=== PATIENT | female | born 1945 | race Caucasian/White ===

== ENCOUNTER → 2020-08-09 09:52 | Outpatient (BNVA) | payer MEDICARE, BC, SELFPAY | PROVIDERS: PCP Internal Medicine; Visit Provider Hospitalist | DX: J41.1 Mucopurulent chronic bronchitis (principal); R91.8 Other nonspecific abnormal finding of lung field | CPT/HCPCS: 99212 ==

== ENCOUNTER 2020-08-10 | Outpatient (REF) | payer MEDICARE, BC, SELFPAY | END 2020-08-10 00:01 | disposition home or self-care (01) | LOC: HO.LNP | PROVIDERS: Visit Provider Hospitalist | DX: Z13.89 Encounter for screening for other disorder (principal) | CPT/HCPCS: 87205 ==

== ENCOUNTER 2020-08-17 09:49 | Outpatient (REF) | payer MEDICARE, BC, SELFPAY ==
--- NOTE | ~2020-08-17 | CT_ITS ---
EXAMINATION: CT CHEST WITHOUT CONTRAST CLINICAL INFORMATION: Follow-up pulmonary nodules COMPARISON: Previous chest CT and most recent July 2019 TECHNIQUE: Multidetector volumetric CT imaging of the chest was done. Axial MIP volume rendering provided. Sagittal and coronal reformatted images were obtained. This CT examination was performed using dose optimization techniques as appropriate, variously including the following: *Automated exposure control *Adjustment of mA and/or kV according to patient size (this includes techniques or standardized protocols for targeted exams where dose is matched to indication/reason for exam; i.e. 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 There is evidence of emphysema. There are increased peripheral interstitial markings seen in the anterior bilateral upper lobes questionable for changes from chest wall radiation. There is a 2 mm right upper lobe nodule axial image 86 series 7 that is stable. There is a 2 mm anterior segment left upper lobe nodule near the interhemispheric fissure axial image 2:15 series 7 that is stable. There is a 7 mm heterogeneous partially cystic partially reticular nodule in the right lower lobe axial image 284 series 7 that is stable. There is a 9 mm lingular nodule axial image 324 series 7 that is stable. There is a 6 mm right lower lobe nodule axial image 418 series 7 that is stable. There is evidence of mild bilateral lower lobe bronchial wall thickening, left greater than right. This is similar to previous exam. MEDIASTINUM: There is mild coronary artery calcification. There is significant thoracic aorta calcification. The mediastinum is otherwise normal. PLEURA: There is no pleural effusion. No pleural mass or thickening. AXILLA: There are surgical clips in the right axilla. No chest wall mass or enlarged axillary lymph nodes are seen. UPPER ABDOMEN: Unremarkable. OSSEOUS STRUCTURES: There are degenerative changes of the spine. CT/CT chest wo con IMPRESSION: Emphysema. Stable pulmonary nodules. Bilateral lower lobe bronchial wall thickening, left greater than right. Coronary artery calcification.
== END 2020-08-17 09:50 | disposition home or self-care (01) ==
LOC: HO.CT 09:49
PROVIDERS: PCP Internal Medicine; Visit Provider Hospitalist
DX: R91.8 Other nonspecific abnormal finding of lung field (principal)
CPT/HCPCS: 71250

== ENCOUNTER → 2020-10-11 09:49 | Outpatient (BNVA) | payer MEDICARE, BC, SELFPAY | PROVIDERS: PCP Internal Medicine; Visit Provider Hospitalist | DX: R91.8 Other nonspecific abnormal finding of lung field (principal); J47.9 Bronchiectasis, uncomplicated; J41.1 Mucopurulent chronic bronchitis | CPT/HCPCS: 99212 ==

== ENCOUNTER 2020-10-13 13:25 | Outpatient (REF) | payer MEDICARE, BC, SELFPAY | END 2020-10-13 13:26 | disposition home or self-care (01) | LOC: HO.LNP 13:25 | PROVIDERS: Visit Provider Hospitalist | DX: R91.8 Other nonspecific abnormal finding of lung field (principal); J47.9 Bronchiectasis, uncomplicated | CPT/HCPCS: 87070; 87077; 87116; 87186; 87205 ==

== ENCOUNTER 2020-11-15 10:24 | Outpatient (REF) | payer MEDICARE, BC, SELFPAY ==
[2020-11-15 10:57] LABS: Estimated Average Glucose 108 mg/dL; Hemoglobin A1c % 5.4 %
[2020-11-15 11:23] LABS: Alanine Aminotransferase 21 U/L (0-31); Albumin Level 4.1 g/dL (3.5-5.0); Alkaline Phosphatase 73 U/L (39-117); Aspartate Amino Transferase 21 U/L (5-31); Bilirubin Direct 0.2 mg/dL (0.0-0.5); Bilirubin Total 0.5 mg/dL (0.0-1.0); Cholesterol 157 mg/dL; Glucose Fasting 113 mg/dL (60-99); HDL Cholesterol 76 mg/dL; LDL Cholesterol Calculated 69 mg/dl; Triglycerides 64 mg/dL
[2020-11-15 11:50] LABS: Reflex LDLD? No
== END 2020-11-15 10:25 | disposition home or self-care (01) ==
LOC: HO.LNP 10:24
PROVIDERS: Visit Provider Internal Medicine
DX: E78.00 Pure hypercholesterolemia, unspecified (principal); R73.03 Prediabetes
CPT/HCPCS: 80061; 80076; 82947; 83036

== ENCOUNTER → 2021-04-13 09:18 | Outpatient (BNVA) | payer MEDICARE, BC, SELFPAY | PROVIDERS: PCP Internal Medicine; Visit Provider Hospitalist | DX: R91.8 Other nonspecific abnormal finding of lung field (principal); J47.9 Bronchiectasis, uncomplicated; J41.1 Mucopurulent chronic bronchitis | CPT/HCPCS: 99212 ==

== ENCOUNTER 2021-05-29 10:44 | Outpatient (REF) | payer MEDICARE, BC, SELFPAY ==
[2021-05-29 10:48] LABS: MANUAL DIFF FLAG NO
[2021-05-29 11:07] LABS: Basophils Absolute Auto 0.1 X10*3/uL (0.0-0.2); Basophils Percent Auto 0.8 % (0-2); Eosinophils Absolute Auto 0.4 X10*3/uL (0.0-0.4); Hematocrit 39.5 % (37.0-47.0); Hemoglobin 12.6 g/dl (12.0-16.0); Imm Gran Abs Auto 0.05 X10*3/uL (0.00-0.03); Imm Gran Pct Auto 0.6 % (0.0-0.4); Lymphocytes Absolute Auto 2.2 X10*3/uL (1.2-4.9); Lymphocytes Percent Auto 25.1 % (20-40); Mean Corpuscular HGB Conc 31.9 g/dl (31.0-35.0); Mean Corpuscular Hemoglobin 30.7 pg (27.0-33.0); Mean Corpuscular Volume 96.1 fL (80.0-98.0); Mean Platelet Volume 10.6 fL (9.4-12.3); Monocytes Absolute Auto 0.8 X10*3/uL (0.1-1.2); Monocytes Percent Auto 8.6 % (2-11); Neutrophils Absolute Auto 5.3 x10*3/uL (2.0-8.3); Neutrophils Percent Auto 60.9 % (45-73); Platelet Count 248 X10*3/uL (160-400); Red Blood Count 4.11 X10*6/uL (4.20-5.50); Red Cell Distribution Width 13.1 % (11.0-16.0); White Blood Count 8.7 X10*3/uL (4.8-10.8)
[2021-05-29 11:16] LABS: Appearance Urine CLEAR; Color Urine YELLOW; Glucose Urine UA NEG (NEG); Leukocyte Esterase Urine NEG (NEG); Nitrite Urine NEG (NEG); PH 6.5 (5.0-8.0); Specific Gravity - Urine <= 1.005 (1.005-1.025); Urine Blood NEG (NEG); Urine Ketones NEG (NEG); Urine Protein NEG (NEG-TRACE)
[2021-05-29 11:34] LABS: Estimated Average Glucose 111 mg/dL; Hemoglobin A1c % 5.5 %
[2021-05-29 12:05] LABS: Creatinine Urine 58.13 mg/dL; Microalbumin Urine < 5.0 mg/L
[2021-05-29 12:33] LABS: Alanine Aminotransferase 23 U/L (0-31); Albumin Level 4.2 g/dL (3.5-5.0); Alkaline Phosphatase 78 U/L (39-117); Anion Gap 13 (12-20); Aspartate Amino Transferase 26 U/L (5-31); Bilirubin Total 0.5 mg/dL (0.0-1.0); Blood Urea Nitrogen 12 mg/dL (9-16); Calcium 9.6 mg/dL (8.4-10.2); Carbon Dioxide 27 mmol/L (22-29); Chloride 103 mmol/L (96-108); Cholesterol 155 mg/dL; Estimated Glomerular Filt Rate > 60; Glucose Fasting 98 mg/dL (60-99); HDL Cholesterol 69 mg/dL; LDL Cholesterol Calculated 66 mg/dl; Potassium 3.8 mmol/L (3.3-5.1); Sodium 139 mmol/L (135-145); Total Protein 6.2 g/dL (6.5-8.0); Triglycerides 104 mg/dL
== END 2021-05-29 10:45 | disposition home or self-care (01) ==
LOC: HO.LNP 10:44
PROVIDERS: PCP Internal Medicine; Visit Provider Internal Medicine
DX: I10 Essential (primary) hypertension (principal); E78.00 Pure hypercholesterolemia, unspecified; R73.03 Prediabetes
CPT/HCPCS: 80053; 80061; 81003; 82043; 83036; 85025

== ENCOUNTER 2021-06-01 15:43 | Outpatient (REF) | payer MEDICARE, BC, SELFPAY ==
[2021-06-01 16:50] LABS: TSH reflex Free T4 1.48 uIU/mL (0.32-4.0)
== END 2021-06-01 15:44 | disposition home or self-care (01) ==
LOC: HO.LNP 15:43
PROVIDERS: Visit Provider Internal Medicine
DX: R63.4 Abnormal weight loss (principal)
CPT/HCPCS: 84443

== ENCOUNTER → 2021-08-08 09:43 | Outpatient (BNVA) | payer MEDICARE, BC, SELFPAY | PROVIDERS: PCP Internal Medicine; Visit Provider Hospitalist | DX: R91.8 Other nonspecific abnormal finding of lung field (principal); J47.9 Bronchiectasis, uncomplicated; J41.1 Mucopurulent chronic bronchitis; Z79.899 Other long term (current) drug therapy | CPT/HCPCS: 99212 ==

== ENCOUNTER 2022-01-04 08:20 | Outpatient (REF) | payer MEDICARE, BC, SELFPAY ==
--- NOTE | ~2022-01-04 | CT_ITS ---
EXAMINATION: CT CHEST WITHOUT CONTRAST CLINICAL INFORMATION: Follow-up pulmonary nodules COMPARISON: Previous chest CT most recent August 2020. Back to October 2017 TECHNIQUE: Multidetector volumetric CT imaging of the chest was done. Axial MIP volume rendering provided. Sagittal and coronal reformatted images were obtained. This CT examination was performed using dose optimization techniques as appropriate, variously including the following: *Automated exposure control *Adjustment of mA and/or kV according to patient size (this includes techniques or standardized protocols for targeted exams where dose is matched to indication/reason for exam; i.e. extremities or head) *Use of iterative reconstruction technique DLP: 94 mGy-cm FINDINGS: LUNGS: There is emphysema. There is biapical pleural parenchymal scarring. There are multiple bilateral pulmonary nodules that are stable. Largest pulmonary nodules are a 8 mm right lower lobe nodule axial image 519 series 5 and a 9 mm calcified lingular nodule axial image 374 series 5. There is a mixed cystic and reticular area in the right lower lobe that appears stable axial image 354 series 5. There is chronic scarring or subsegmental atelectasis in the posterior basal segment of the right lower lobe near the diaphragm axial image 570 series 5 that is stable. There are areas of bronchiectasis and bronchial wall thickening suggestive of airways disease. This appears increased in the right upper lobe where there is bronchial soft tissue opacification/mucus plugging. There are increased peripheral reticular markers in the left upper lobe questionable for post radiation change. MEDIASTINUM: Normal heart size. Severe atherosclerotic disease with calcification of the aorta. Mild coronary artery calcification. No pericardial effusion. Small mediastinal lymph nodes. No enlarged lymph nodes. PLEURA: There is no pleural effusion. No pleural mass or thickening. AXILLA: Surgical clips in the right axilla. No chest wall mass or enlarged axillary lymph nodes. UPPER ABDOMEN: Unremarkable. OSSEOUS STRUCTURES: Degenerative changes of the spine CT/CT chest wo IV con IMPRESSION: Emphysema. Biapical pleural and parenchymal scarring. Stable pulmonary nodules. Airways disease. This appears increased in the right upper lobe where there is increased bronchial soft tissue opacification or mucus plugging. Atherosclerotic disease. Fleischner guidelines were followed.
== END 2022-01-04 08:21 | disposition home or self-care (01) ==
LOC: HO.CT 08:20
PROVIDERS: PCP Internal Medicine; Visit Provider Hospitalist
DX: R91.8 Other nonspecific abnormal finding of lung field (principal)
CPT/HCPCS: 71250

== ENCOUNTER → 2022-01-29 10:39 | Outpatient (BNVA) | payer MEDICARE, BC, SELFPAY | PROVIDERS: PCP Internal Medicine; Visit Provider Hospitalist | DX: J47.9 Bronchiectasis, uncomplicated (principal); J41.1 Mucopurulent chronic bronchitis; R91.8 Other nonspecific abnormal finding of lung field | CPT/HCPCS: 99212 ==

== ENCOUNTER 2022-05-29 10:47 | Outpatient (REF) | payer MEDICARE, BC, SELFPAY ==
[2022-05-29 10:51] LABS: MANUAL DIFF FLAG NO
[2022-05-29 12:09] LABS: Basophils Absolute Auto 0.1 X10*3/uL (0.0-0.2); Eosinophils Absolute Auto 0.4 X10*3/uL (0.0-0.4); Eosinophils Percent Auto 5.1 % (0-4); Hematocrit 36.8 % (37.0-47.0); Hemoglobin 11.5 g/dl (12.0-16.0); Imm Gran Abs Auto 0.04 X10*3/uL (0.00-0.03); Imm Gran Pct Auto 0.5 % (0.0-0.4); Lymphocytes Percent Auto 24.5 % (20-40); Mean Corpuscular HGB Conc 31.3 g/dl (31.0-35.0); Mean Corpuscular Hemoglobin 27.8 pg (27.0-33.0); Mean Corpuscular Volume 88.9 fL (80.0-98.0); Mean Platelet Volume 10.6 fL (9.4-12.3); Monocytes Absolute Auto 0.9 X10*3/uL (0.1-1.2); Monocytes Percent Auto 10.4 % (2-11); Neutrophils Absolute Auto 4.8 x10*3/uL (2.0-8.3); Neutrophils Percent Auto 58.5 % (45-73); Platelet Count 286 X10*3/uL (160-400); Red Blood Count 4.14 X10*6/uL (4.20-5.50); Red Cell Distribution Width 14.2 % (11.0-16.0); White Blood Count 8.2 X10*3/uL (4.8-10.8)
[2022-05-29 12:12] LABS: Appearance Urine Clear; Color Urine Yellow; Glucose Urine UA Negative (Negative); Leukocyte Esterase Urine Negative (Negative); Nitrite Urine Negative (Negative); Specific Gravity - Urine 1.015 (1.005-1.025); Urine Blood Negative (Negative); Urine Ketones Negative (Negative); Urine Protein Negative (Neg-Trace)
[2022-05-29 12:19] LABS: Bacteria Urine None Seen (None Seen); Hyaline Casts Urine 0-2 /LPF (0-2); RBC Urine 0-2 /HPF (0-2); Squamous Epithelial Cell Urine 0-2 /HPF (0-2); WBC Urine 0-5 /HPF (0-5)
[2022-05-29 12:24] LABS: Alanine Aminotransferase 14 U/L (0-31); Albumin Level 4.1 g/dL (3.5-5.0); Alkaline Phosphatase 72 U/L (39-117); Anion Gap 14 (12-20); Aspartate Amino Transferase 19 U/L (5-31); Bilirubin Total 0.4 mg/dL (0.0-1.0); Blood Urea Nitrogen 11 mg/dL (9-16); Calcium 9.6 mg/dL (8.4-10.2); Carbon Dioxide 28 mmol/L (22-29); Chloride 102 mmol/L (96-108); Cholesterol 160 mg/dL; Estimated Glomerular Filt Rate > 60; Glucose Fasting 99 mg/dL (60-99); HDL Cholesterol 77 mg/dL; LDL Cholesterol Calculated 66 mg/dl; Potassium 3.9 mmol/L (3.3-5.1); Sodium 140 mmol/L (135-145); Total Protein 6.1 g/dL (6.5-8.0); Triglycerides 86 mg/dL
[2022-05-29 13:07] LABS: Estimated Average Glucose 117 mg/dL; Hemoglobin A1c % 5.7 %
[2022-05-29 13:23] LABS: Creatinine Urine 132.36 mg/dL; Microalbum/Creatinine Ratio Ur 9.8 ug/mg cr
== END 2022-05-29 10:48 | disposition home or self-care (01) ==
LOC: HO.LNP 10:47
PROVIDERS: Visit Provider Internal Medicine
DX: I10 Essential (primary) hypertension (principal); E78.00 Pure hypercholesterolemia, unspecified; R73.03 Prediabetes
CPT/HCPCS: 80053; 80061; 81001; 82043; 83036; 85025

== ENCOUNTER → 2022-08-07 10:38 | Outpatient (BNVA) | payer MEDICARE, BC, SELFPAY | PROVIDERS: PCP Internal Medicine; Visit Provider Hospitalist | DX: J41.1 Mucopurulent chronic bronchitis (principal); J47.9 Bronchiectasis, uncomplicated; R91.8 Other nonspecific abnormal finding of lung field; Z79.899 Other long term (current) drug therapy | CPT/HCPCS: 99212 ==

== ENCOUNTER 2022-08-26 15:50 | Inpatient (IN) | payer MEDICARE, BC, SELFPAY ==
[2022-08-26] VITALS (7 sets, daily range): BP systolic 94–180; BP diastolic 40–69; PULSE 92–108; RESP 15–31; TEMP 36.6–37.2; O2SAT 91–96; BMI 16.6
--- NOTE | ~2022-08-26 | CT_ITS ---
EXAMINATION: CT ANGIOGRAM OF THE CHEST WITH AND WITHOUT CONTRAST (CT PULMONARY ANGIOGRAM FOR PE) CLINICAL INFORMATION: Reason for Exam Shortness of breath? PE COMPARISON: Previous chest x-ray from earlier the same day and chest CT January 2022 TECHNIQUE: Prior to contrast administration, noncontrast localization images were obtained. Subsequently, multidetector volumetric imaging was performed from the thoracic inlet to below the diaphragms following the administration of 65 mL Omnipaque 350 intravenous contrast. No contrast reaction reported Sagittal, coronal, and MIP oblique sagittal reformatted images were obtained on the CT workstation, uploaded to PACS, and reviewed. This CT examination was performed using dose optimization techniques as appropriate, variously including the following: *Automated exposure control *Adjustment of mA and/or kV according to patient size (this includes techniques or standardized protocols for targeted exams where dose is matched to indication/reason for exam; i.e. extremities or head) *Use of iterative reconstruction technique Total exam dose-length product 166 mGy-cm FINDINGS: QUALITY OF STUDY/CONTRAST BOLUS: Satisfactory. PULMONARY ARTERIES: No pulmonary emboli. THORACIC AORTA: No aneurysm. LUNG: There is severe emphysema. There is biapical pleural and parenchymal scarring right greater than left unchanged. There is bronchial wall thickening of both lower lobes and soft tissue opacification or mucus plugging. There are are nodular opacities in the right lower lobe and increased reticular are things and attenuation. Findings are suggestive of bronchopneumonia. This is new or increased from previous exam. Pulmonary nodules difficult to compare with prior exam. Increased peripheral reticular markings in the left upper lobe question related to previous chest wall radiation. PLEURA: No pleural effusion or pneumothorax. MEDIASTINUM: Normal heart size. No pericardial effusion. No hilar or mediastinal lymphadenopathy. No evidence of septal bowing or right heart strain. CORONARY ARTERY CALCIFICATION: None visualized on this study. CHEST WALL/AXILLA: Surgical clips in the right axilla. No chest wall mass or enlarged axillary lymph nodes. OSSEOUS STRUCTURES: Degenerative changes of the spine. UPPER ABDOMEN: Unremarkable. No reflux of contrast into the hepatic veins to suggest elevated right heart pressures. CT/CT angio chest PE protocol IMPRESSION: No evidence of pulmonary embolism. Severe emphysema. Bronchial wall thickening and mucus plugging in both lower lobes. Right lower lobe bronchopneumonia. VTE: negative
--- NOTE | ~2022-08-26 | XR_ITS ---
EXAMINATION: XR CHEST CLINICAL INFORMATION: Pain COMPARISON: CT chest dated 01/04/2022 TECHNIQUE: 2 views of the chest were obtained. FINDINGS: Emphysema. Streaky opacity at the right lung base laterally, likely lateral segment middle lobe. Normal heart size and pulmonary vascularity. No acute osseous abnormalities. XR/XR chest 2V IMPRESSION: * Emphysema. * Streaky opacity at the right lung base laterally could represent subsegmental atelectasis or infiltrate.
--- NOTE | 2022-08-26 15:53 | ECG_ITS ---
Test Reason : CHEST PAIN Blood Pressure : / mmHG Vent. Rate : 106 BPM Atrial Rate : 106 BPM P-R Int : 136 ms QRS Dur : 110 ms QT Int : 366 ms P-R-T Axes : 074 062 086 degrees QTc Int : 486 ms Sinus tachycardia Minimal voltage criteria for LVH, may be normal variant ( [employer] product ) Possible Anterior infarct , age undetermined Abnormal ECG When compared with ECG of 12-OCT-2017 12:15, Questionable change in QRS duration Borderline criteria for Anterior infarct are now Present Referred By: Jake Allred Electronically Signed By:Edgard Floyd
--- NOTE | 2022-08-26 16:14 | ED.GENADULT ---
HPI - General Adult General Chief complaint: Dyspnea <Jake Allred - Last Filed: 08/26/22 16:15> Stated complaint: pressure on chest/ difficulty breathing <Jake Allred - Last Filed: 08/26/22 16:15> Time Seen by Provider: 08/26/22 16:16 <Jake Allred - Last Filed: 08/26/22 16:15> Source: patient <Geovanny Loya MD - Last Filed: 08/27/22 01:08> Mode of arrival: ambulatory <Geovanny Loya MD - Last Filed: 08/27/22 01:08> Limitations: no limitations <Geovanny Loya MD - Last Filed: 08/27/22 01:08> History of Present Illness HPI narrative: Patient is 76 years old with history of pulmonary nodules and oxygen dependent emphysema, bronchiectasis with history of breast cancer status post radiation treatment been sick with increased shortness of breath for last 1 month has taken a course of doxycycline prednisone without much relief observe for increased shortness of breath for last 1 week patient is on oxygen at home 2 L as needed on arrival patient was saturating 88% patient coughing more often lately no fever no chills no chest pain <Geovanny Loya MD - Last Filed: 08/27/22 01:08> Related Data Home medications: Home Medications Medication Instructions Recorded Confirmed aspirin 81 mg tablet,delayed 81 mg PO DAILY 08/09/20 08/26/22 release atorvastatin 40 mg tablet 40 mg PO BEDTIME 08/09/20 08/26/22 calcium 650 mg-vitamin D3 12.5 tab PO 08/09/20 10/11/20 mcg-vitamin K 40 mcg chewable tablet (Viactiv) diltiazem HCl 120 mg 120 mg PO DAILY 08/09/20 08/26/22 capsule,extended release 24 hr fluticasone 250 mcg-salmeterol 50 1 ea inhalation BID 08/09/20 10/11/20 mcg/dose blistr powdr for inhalation irbesartan 150 1 tab PO DAILY 08/09/20 08/26/22 mg-hydrochlorothiazide 12.5 mg tablet omeprazole 40 mg capsule,delayed 40 mg PO DAILY 08/09/20 08/26/22 release tiotropium bromide 18 mcg capsule 1 cap inhalation DAILY 08/09/20 08/26/22 with inhalation device Oxygen Home Use 08/07/22 nebulizers 08/07/22 Previous Rx's Medication Instructions Recorded albuterol sulfate 90 mcg/actuation 2 puff inhalation Q4H PRN 11/24/21 aerosol inhaler shortness of breath or wheezing #8.5 grams sodium chloride 3 % for 4 ml inhalation BID 90 days #750 mL 01/29/22 nebulization albuterol sulfate 2.5 mg/3 mL 2.5 mg (3 mL) inhalation BID 30 01/30/22 (0.083 %) solution for nebulization days #180 mL doxycycline monohydrate 100 mg 100 mg PO BID 14 days #28 tabs 08/07/22 tablet prednisone 10 mg tablet See Rx Instructions PO DAILY 16 08/07/22 days #40 tabs <Jake Allred - Last Filed: 08/26/22 16:15> Allergies/adverse reactions: Allergies Allergy/AdvReac Type Severity Reaction Status Date / Time Sulfa (Sulfonamide Allergy Intermediate HIVES Verified 08/26/22 16:07 Antibiotics) [SULFA (SULFONAMIDE ANTIBIOTICS)] Amoxicillin Allergy Intermediate Hives Uncoded 08/07/22 10:57 Augementin Allergy Intermediate Hives Uncoded 08/07/22 10:57 <Jake Allred - Last Filed: 08/26/22 16:15> Review of Systems Review of Systems: Yes all other systems are reviewed and are negative <Geovanny Loya MD - Last Filed: 08/27/22 01:08> [facility] Past Medical History Medical History: Medical History Bronchiectasis Carotid stenosis, bilateral COPD (chronic obstructive pulmonary disease) Former smoker, stopped smoking in distant past GERD (gastroesophageal reflux disease) History of breast cancer History of non-ST elevation myocardial infarction (NSTEMI) (~10/2017) HLD (hyperlipidemia) HTN (hypertension) Pulmonary nodules <Jake Allred - Last Filed: 08/26/22 16:15> Surgical History: Surgical History History of hysterectomy History of lumpectomy History of lung biopsy <Jake Allred - Last Filed: 08/26/22 16:15> Social History Social History: Social History Alcohol intake: never Patient Tobacco Use Status: Former Tobacco user Quit Date: 1997 Tobacco use type: Cigarette Years Smoked: 20-30 years - quit 1998 Smoked in Last 30 Days: No Use of substances other than those prescribed or required for medical reasons: No Advance Directives: No Advance Directives Information Provided: No <Jake Allred - Last Filed: 08/26/22 16:15> Physical Exam ED Vital Signs: Vital Signs - 24 hr 08/26/22 16:08 08/26/22 16:21 08/26/22 16:59 Temperature 97.9 F 99.0 F Pulse Rate 108 H 107 H 102 H Respiratory Rate 18 31 H 16 Blood Pressure 99/41 L 94/40 L 132/55 L Pulse Oximetry 91 L 93 96 Oxygen Delivery Method Nasal Cannula Nasal Cannula Nasal Cannula Oxygen Flow Rate 2 2 08/26/22 17:17 08/26/22 18:00 08/26/22 22:45 Temperature Pulse Rate 96 95 95 Respiratory Rate 16 15 17 Blood Pressure 136/47 L 180/59 H Pulse Oximetry 94 95 Oxygen Delivery Method Nasal Cannula Nasal Cannula Oxygen Flow Rate 2 2 08/26/22 23:14 Temperature 98.6 F Pulse Rate 92 Respiratory Rate 18 Blood Pressure 158/69 H Pulse Oximetry 96 Oxygen Delivery Method Room Air Oxygen Flow Rate BMI result Body Mass Index 16.6 <Jake Allred - Last Filed: 08/26/22 16:15> Vital Signs - 24 hr 08/26/22 16:08 08/26/22 16:21 08/26/22 16:59 Temperature 97.9 F 99.0 F Pulse Rate 108 H 107 H 102 H Respiratory Rate 18 31 H 16 Blood Pressure 99/41 L 94/40 L 132/55 L Pulse Oximetry 91 L 93 96 Oxygen Delivery Method Nasal Cannula Nasal Cannula Nasal Cannula Oxygen Flow Rate 2 2 08/26/22 17:17 08/26/22 18:00 08/26/22 22:45 Temperature Pulse Rate 96 95 95 Respiratory Rate 16 15 17 Blood Pressure 136/47 L 180/59 H Pulse Oximetry 94 95 Oxygen Delivery Method Nasal Cannula Nasal Cannula Oxygen Flow Rate 2 2 08/26/22 23:14 Temperature 98.6 F Pulse Rate 92 Respiratory Rate 18 Blood Pressure 158/69 H Pulse Oximetry 96 Oxygen Delivery Method Room Air Oxygen Flow Rate BMI result Body Mass Index 16.6 <Geovanny Loya MD - Last Filed: 08/27/22 01:08> Appearance: Alert. Oriented X3. No acute distress. Eyes: PERRLA, No Nystagmus ENT: Pharynx normal. Oral Mucosa moist Neck: Normal inspection. Neck supple. CVS: Normal heart rate and rhythm. Pulses normal. Respiratory: No respiratory distress. Equal air entry bilateral, bilateral wheezing with rales at bases right more than left Abdomen: Soft and nontender. Bowel sounds are present, no mass palpable, no CVA tenderness Skin: Skin warm and dry. Normal skin color. Normal skin turgor. Extremities: No lower extremity edema. No calf tenderness Neuro: Oriented X 3. No motor deficit. <Geovanny Loya MD - Last Filed: 08/27/22 01:08> Course Course Course Narrative: 76-year-old female with past medical history significant for COPD presents for evaluation chest tightness and shortness of breath. Patient is O2 dependent setting 90% on her baseline O2. Plan for labs, ekg, chest x-ray and viral swab. <Jake Allred - Last Filed: 08/26/22 16:15> Medications Administered Generic Name Dose Route Start Last Admin Trade Name Freq PRN Reason Stop Dose Admin Ceftriaxone Sodium 1 gm/ 50 mls @ 100 mls/hr 08/26/22 23:45 08/27/22 00:42 Sodium Chloride IV 100 mls/hr 2200 ALEC Administration Sodium Chloride 3 ml 08/27/22 00:00 08/27/22 00:43 0.9 % Sodium Chloride Flush 3 Ml Syringe IVFLUSH Not Given QSHIFT ALEC Discontinued Medications Generic Name Dose Route Start Last Admin Trade Name Freq PRN Reason Stop Dose Admin Albuterol Sulfate 5 mg/ 0 mg 08/26/22 17:05 08/26/22 17:15 Albuterol/Ipratropium 3 ml INHALE 08/26/22 17:06 2.5 each ONCE ONE Administration Piperacillin Sod/Tazobactam 50 mls @ 100 mls/hr 08/26/22 21:17 08/26/22 22:36 Sod 3.375 gm/ Sodium Chloride IV 08/26/22 21:46 Infused ONCE ONE Infusion Sodium Chloride 1,000 mls @ 999 mls/hr 08/26/22 22:32 08/27/22 00:43 Ns IV 08/26/22 23:32 Infused .Q1H1M ONE Infusion Iohexol 100 ml 08/26/22 18:57 08/26/22 18:57 Iohexol 350 Mg/Ml 100 Ml Infus..Btl IV 08/26/22 18:58 65 ml ONCE ONE Administration Methylprednisolone Sodium Succinate 125 mg 08/26/22 22:49 08/26/22 23:29 Methylprednisolone Sod Succ 125 Mg/2 Ml Vial IVPUSH 08/26/22 22:50 125 mg ONCE ONE Administration <Jake Allred - Last Filed: 08/26/22 16:15> Medications Administered Generic Name Dose Route Start Last Admin Trade Name Freq PRN Reason Stop Dose Admin Ceftriaxone Sodium 1 gm/ 50 mls @ 100 mls/hr 08/26/22 23:45 08/27/22 00:42 Sodium Chloride IV 100 mls/hr 2200 ALEC Administration Sodium Chloride 3 ml 08/27/22 00:00 08/27/22 00:43 0.9 % Sodium Chloride Flush 3 Ml Syringe IVFLUSH Not Given QSHIFT ALEC Discontinued Medications Generic Name Dose Route Start Last Admin Trade Name Freq PRN Reason Stop Dose Admin Albuterol Sulfate 5 mg/ 0 mg 08/26/22 17:05 08/26/22 17:15 Albuterol/Ipratropium 3 ml INHALE 08/26/22 17:06 2.5 each ONCE ONE Administration Piperacillin Sod/Tazobactam 50 mls @ 100 mls/hr 08/26/22 21:17 08/26/22 22:36 Sod 3.375 gm/ Sodium Chloride IV 08/26/22 21:46 Infused ONCE ONE Infusion Sodium Chloride 1,000 mls @ 999 mls/hr 08/26/22 22:32 08/27/22 00:43 Ns IV 08/26/22 23:32 Infused .Q1H1M ONE Infusion Iohexol 100 ml 08/26/22 18:57 08/26/22 18:57 Iohexol 350 Mg/Ml 100 Ml Infus..Btl IV 08/26/22 18:58 65 ml ONCE ONE Administration Methylprednisolone Sodium Succinate 125 mg 08/26/22 22:49 08/26/22 23:29 Methylprednisolone Sod Succ 125 Mg/2 Ml Vial IVPUSH 08/26/22 22:50 125 mg ONCE ONE Administration <Geovanny Loya MD - Last Filed: 08/27/22 01:08> Medical Decision Making Medical Decision Making [facility] Narrative: 22:00 Patient with chronic lung disease with increased shortness of breath desaturating to 88% on 2 L CTA chest negative for PE but showed mucous plugging and right lower lobe bronchopneumonia patient's lactic acid was slightly elevated from nebulizing treatment and infection. Patient was given IV fluids and antibiotics and [facility] will admit patient for IV antibiotics treatment <Geovanny Loya MD - Last Filed: 08/27/22 01:08> Consult Healthcare Provider Management of the patient was discussed with: Hospitalist <Geovanny Loya MD - Last Filed: 08/27/22 01:08> Lab Data [facility] Lab Attestation statement: I reviewed the patient's lab results. <Geovanny Loya MD - Last Filed: 08/27/22 01:08> Result Diagrams: 08/26/22 16:52 08/26/22 16:52 <Jake Allred - Last Filed: 08/26/22 16:15> Labs: Lab Results 08/26/22 08/26/22 08/26/22 Range/Units 16:28 16:52 16:52 WBC 16.0 H (4.8-10.8) X10*3/uL RBC 4.04 L (4.20-5.50) X10*6/uL Hgb 10.7 L (12.0-16.0) g/dl Hct 33.4 L (37.0-47.0) % MCV 82.7 (80.0-98.0) fL MCH 26.5 L (27.0-33.0) pg MCHC 32.0 (31.0-35.0) g/dl RDW 15.2 (11.0-16.0) % Plt Count 219 (160-400) X10*3/uL MPV 9.9 (9.4-12.3) fL Immature Gran % (Auto) 0.8 H (0.0-0.4) % Neut % (Auto) 86.8 H (45-73) % Lymph % (Auto) 5.9 L (20-40) % [place] % (Auto) 5.7 (2-11) % Eos % (Auto) 0.6 (0-4) % Baso % (Auto) 0.2 (0-2) % Lymph # (Auto) 1.0 L (1.2-4.9) X10*3/uL [place] # (Auto) 0.9 (0.1-1.2) X10*3/uL Eos # (Auto) 0.1 (0.0-0.4) X10*3/uL Baso # (Auto) 0.0 (0.0-0.2) X10*3/uL Abs Immat Gran (auto) 0.13 H (0.00-0.03) X10*3/uL Absolute Neuts (auto) 13.9 H (2.0-8.3) x10*3/uL Absolute Nucleated RBC 0.000 (0.0-0.012) X10*3/uL Nucleated RBC % (auto) 0.0 (0.0-0.2) /100WBC PT (10.0-13.1) SEC INR (0.9-1.1) APTT (26.0-36.4) SEC Sodium 133 L (135-145) mmol/L Potassium 3.5 (3.3-5.1) mmol/L Chloride 96 (96-108) mmol/L Carbon Dioxide 25 (22-29) mmol/L Anion Gap 16 (12-20) BUN 20 H (9-16) mg/dL Creatinine 1.02 (0.5-1.4) mg/dL Estim Creat Clear Calc 32.5 Estimated GFR 52 Random Glucose 142 H (60-115) mg/dL Lactic Acid (0.5-2.0) mmol/L Lactic Acid F/U @ 2Hr (0.5-2.0) mmol/L Lactic Acid F/U @ 4Hr (0.5-2.0) mmol/L Calcium 9.2 (8.4-10.2) mg/dL Magnesium 1.7 (1.6-2.6) mg/dL Total Bilirubin 1.0 (0.0-1.0) mg/dL AST 16 (5-31) U/L ALT 16 (0-31) U/L Alkaline Phosphatase 61 (39-117) U/L Troponin I High Sens (<3.5-17.0) ng/L B-Natriuretic Peptide (<100) pg/mL Total Protein 5.5 L (6.5-8.0) g/dL Albumin 3.7 (3.5-5.0) g/dL Lipase 14 (8-78) U/L Influenza Type A (PCR) NEGATIVE (Negative) Influenza Type B (PCR) NEGATIVE (Negative) RSV RNA Qual (PCR) NEGATIVE (Negative) SARS-CoV-2 RNA (RT-PCR) NEGATIVE (Negative) 08/26/22 08/26/22 08/26/22 Range/Units 16:52 16:52 16:52 WBC (4.8-10.8) X10*3/uL RBC (4.20-5.50) X10*6/uL Hgb (12.0-16.0) g/dl Hct (37.0-47.0) % MCV (80.0-98.0) fL MCH (27.0-33.0) pg MCHC (31.0-35.0) g/dl RDW (11.0-16.0) % Plt Count (160-400) X10*3/uL MPV (9.4-12.3) fL Immature Gran % (Auto) (0.0-0.4) % Neut % (Auto) (45-73) % Lymph % (Auto) (20-40) % [place] % (Auto) (2-11) % Eos % (Auto) (0-4) % Baso % (Auto) (0-2) % Lymph # (Auto) (1.2-4.9) X10*3/uL [place] # (Auto) (0.1-1.2) X10*3/uL Eos # (Auto) (0.0-0.4) X10*3/uL Baso # (Auto) (0.0-0.2) X10*3/uL Abs Immat Gran (auto) (0.00-0.03) X10*3/uL Absolute Neuts (auto) (2.0-8.3) x10*3/uL Absolute Nucleated RBC (0.0-0.012) X10*3/uL Nucleated RBC % (auto) (0.0-0.2) /100WBC PT 11.0 (10.0-13.1) SEC INR 1.0 (0.9-1.1) APTT 33.4 (26.0-36.4) SEC Sodium (135-145) mmol/L Potassium (3.3-5.1) mmol/L Chloride (96-108) mmol/L Carbon Dioxide (22-29) mmol/L Anion Gap (12-20) BUN (9-16) mg/dL Creatinine (0.5-1.4) mg/dL Estim Creat Clear Calc Estimated GFR Random Glucose (60-115) mg/dL Lactic Acid (0.5-2.0) mmol/L Lactic Acid F/U @ 2Hr (0.5-2.0) mmol/L Lactic Acid F/U @ 4Hr (0.5-2.0) mmol/L Calcium (8.4-10.2) mg/dL Magnesium (1.6-2.6) mg/dL Total Bilirubin (0.0-1.0) mg/dL AST (5-31) U/L ALT (0-31) U/L Alkaline Phosphatase (39-117) U/L Troponin I High Sens 10.1 (<3.5-17.0) ng/L B-Natriuretic Peptide 44 (<100) pg/mL Total Protein (6.5-8.0) g/dL Albumin (3.5-5.0) g/dL Lipase (8-78) U/L Influenza Type A (PCR) (Negative) Influenza Type B (PCR) (Negative) RSV RNA Qual (PCR) (Negative) SARS-CoV-2 RNA (RT-PCR) (Negative) 08/26/22 08/26/22 08/26/22 Range/Units 16:52 19:38 22:11 WBC (4.8-10.8) X10*3/uL RBC (4.20-5.50) X10*6/uL Hgb (12.0-16.0) g/dl Hct (37.0-47.0) % MCV (80.0-98.0) fL MCH (27.0-33.0) pg MCHC (31.0-35.0) g/dl RDW (11.0-16.0) % Plt Count (160-400) X10*3/uL MPV (9.4-12.3) fL Immature Gran % (Auto) (0.0-0.4) % Neut % (Auto) (45-73) % Lymph % (Auto) (20-40) % [place] % (Auto) (2-11) % Eos % (Auto) (0-4) % Baso % (Auto) (0-2) % Lymph # (Auto) (1.2-4.9) X10*3/uL [place] # (Auto) (0.1-1.2) X10*3/uL Eos # (Auto) (0.0-0.4) X10*3/uL Baso # (Auto) (0.0-0.2) X10*3/uL Abs Immat Gran (auto) (0.00-0.03) X10*3/uL Absolute Neuts (auto) (2.0-8.3) x10*3/uL Absolute Nucleated RBC (0.0-0.012) X10*3/uL Nucleated RBC % (auto) (0.0-0.2) /100WBC PT (10.0-13.1) SEC INR (0.9-1.1) APTT (26.0-36.4) SEC Sodium (135-145) mmol/L Potassium (3.3-5.1) mmol/L Chloride (96-108) mmol/L Carbon Dioxide (22-29) mmol/L Anion Gap (12-20) BUN (9-16) mg/dL Creatinine (0.5-1.4) mg/dL Estim Creat Clear Calc Estimated GFR Random Glucose (60-115) mg/dL Lactic Acid 2.4 H* (0.5-2.0) mmol/L Lactic Acid F/U @ 2Hr 2.5 H* (0.5-2.0) mmol/L Lactic Acid F/U @ 4Hr 2.4 H* (0.5-2.0) mmol/L Calcium (8.4-10.2) mg/dL Magnesium (1.6-2.6) mg/dL Total Bilirubin (0.0-1.0) mg/dL AST (5-31) U/L ALT (0-31) U/L Alkaline Phosphatase (39-117) U/L Troponin I High Sens (<3.5-17.0) ng/L B-Natriuretic Peptide (<100) pg/mL Total Protein (6.5-8.0) g/dL Albumin (3.5-5.0) g/dL Lipase (8-78) U/L Influenza Type A (PCR) (Negative) Influenza Type B (PCR) (Negative) RSV RNA Qual (PCR) (Negative) SARS-CoV-2 RNA (RT-PCR) (Negative) <Jake Allred - Last Filed: 08/26/22 16:15> Lab Results 08/26/22 08/26/22 08/26/22 Range/Units 16:28 16:52 16:52 WBC 16.0 H (4.8-10.8) X10*3/uL RBC 4.04 L (4.20-5.50) X10*6/uL Hgb 10.7 L (12.0-16.0) g/dl Hct 33.4 L (37.0-47.0) % MCV 82.7 (80.0-98.0) fL MCH 26.5 L (27.0-33.0) pg MCHC 32.0 (31.0-35.0) g/dl RDW 15.2 (11.0-16.0) % Plt Count 219 (160-400) X10*3/uL MPV 9.9 (9.4-12.3) fL Immature Gran % (Auto) 0.8 H (0.0-0.4) % Neut % (Auto) 86.8 H (45-73) % Lymph % (Auto) 5.9 L (20-40) % [place] % (Auto) 5.7 (2-11) % Eos % (Auto) 0.6 (0-4) % Baso % (Auto) 0.2 (0-2) % Lymph # (Auto) 1.0 L (1.2-4.9) X10*3/uL [place] # (Auto) 0.9 (0.1-1.2) X10*3/uL Eos # (Auto) 0.1 (0.0-0.4) X10*3/uL Baso # (Auto) 0.0 (0.0-0.2) X10*3/uL Abs Immat Gran (auto) 0.13 H (0.00-0.03) X10*3/uL Absolute Neuts (auto) 13.9 H (2.0-8.3) x10*3/uL Absolute Nucleated RBC 0.000 (0.0-0.012) X10*3/uL Nucleated RBC % (auto) 0.0 (0.0-0.2) /100WBC PT (10.0-13.1) SEC INR (0.9-1.1) APTT (26.0-36.4) SEC Sodium 133 L (135-145) mmol/L Potassium 3.5 (3.3-5.1) mmol/L Chloride 96 (96-108) mmol/L Carbon Dioxide 25 (22-29) mmol/L Anion Gap 16 (12-20) BUN 20 H (9-16) mg/dL Creatinine 1.02 (0.5-1.4) mg/dL Estim Creat Clear Calc 32.5 Estimated GFR 52 Random Glucose 142 H (60-115) mg/dL Lactic Acid (0.5-2.0) mmol/L Lactic Acid F/U @ 2Hr (0.5-2.0) mmol/L Lactic Acid F/U @ 4Hr (0.5-2.0) mmol/L Calcium 9.2 (8.4-10.2) mg/dL Magnesium 1.7 (1.6-2.6) mg/dL Total Bilirubin 1.0 (0.0-1.0) mg/dL AST 16 (5-31) U/L ALT 16 (0-31) U/L Alkaline Phosphatase 61 (39-117) U/L Troponin I High Sens (<3.5-17.0) ng/L B-Natriuretic Peptide (<100) pg/mL Total Protein 5.5 L (6.5-8.0) g/dL Albumin 3.7 (3.5-5.0) g/dL Lipase 14 (8-78) U/L Influenza Type A (PCR) NEGATIVE (Negative) Influenza Type B (PCR) NEGATIVE (Negative) RSV RNA Qual (PCR) NEGATIVE (Negative) SARS-CoV-2 RNA (RT-PCR) NEGATIVE (Negative) 08/26/22 08/26/22 08/26/22 Range/Units 16:52 16:52 16:52 WBC (4.8-10.8) X10*3/uL RBC (4.20-5.50) X10*6/uL Hgb (12.0-16.0) g/dl Hct (37.0-47.0) % MCV (80.0-98.0) fL MCH (27.0-33.0) pg MCHC (31.0-35.0) g/dl RDW (11.0-16.0) % Plt Count (160-400) X10*3/uL MPV (9.4-12.3) fL Immature Gran % (Auto) (0.0-0.4) % Neut % (Auto) (45-73) % Lymph % (Auto) (20-40) % [place] % (Auto) (2-11) % Eos % (Auto) (0-4) % Baso % (Auto) (0-2) % Lymph # (Auto) (1.2-4.9) X10*3/uL [place] # (Auto) (0.1-1.2) X10*3/uL Eos # (Auto) (0.0-0.4) X10*3/uL Baso # (Auto) (0.0-0.2) X10*3/uL Abs Immat Gran (auto) (0.00-0.03) X10*3/uL Absolute Neuts (auto) (2.0-8.3) x10*3/uL Absolute Nucleated RBC (0.0-0.012) X10*3/uL Nucleated RBC % (auto) (0.0-0.2) /100WBC PT 11.0 (10.0-13.1) SEC INR 1.0 (0.9-1.1) APTT 33.4 (26.0-36.4) SEC Sodium (135-145) mmol/L Potassium (3.3-5.1) mmol/L Chloride (96-108) mmol/L Carbon Dioxide (22-29) mmol/L Anion Gap (12-20) BUN (9-16) mg/dL Creatinine (0.5-1.4) mg/dL Estim Creat Clear Calc Estimated GFR Random Glucose (60-115) mg/dL Lactic Acid (0.5-2.0) mmol/L Lactic Acid F/U @ 2Hr (0.5-2.0) mmol/L Lactic Acid F/U @ 4Hr (0.5-2.0) mmol/L Calcium (8.4-10.2) mg/dL Magnesium (1.6-2.6) mg/dL Total Bilirubin (0.0-1.0) mg/dL AST (5-31) U/L ALT (0-31) U/L Alkaline Phosphatase (39-117) U/L Troponin I High Sens 10.1 (<3.5-17.0) ng/L B-Natriuretic Peptide 44 (<100) pg/mL Total Protein (6.5-8.0) g/dL Albumin (3.5-5.0) g/dL Lipase (8-78) U/L Influenza Type A (PCR) (Negative) Influenza Type B (PCR) (Negative) RSV RNA Qual (PCR) (Negative) SARS-CoV-2 RNA (RT-PCR) (Negative) 08/26/22 08/26/22 08/26/22 Range/Units 16:52 19:38 22:11 WBC (4.8-10.8) X10*3/uL RBC (4.20-5.50) X10*6/uL Hgb (12.0-16.0) g/dl Hct (37.0-47.0) % MCV (80.0-98.0) fL MCH (27.0-33.0) pg MCHC (31.0-35.0) g/dl RDW (11.0-16.0) % Plt Count (160-400) X10*3/uL MPV (9.4-12.3) fL Immature Gran % (Auto) (0.0-0.4) % Neut % (Auto) (45-73) % Lymph % (Auto) (20-40) % [place] % (Auto) (2-11) % Eos % (Auto) (0-4) % Baso % (Auto) (0-2) % Lymph # (Auto) (1.2-4.9) X10*3/uL [place] # (Auto) (0.1-1.2) X10*3/uL Eos # (Auto) (0.0-0.4) X10*3/uL Baso # (Auto) (0.0-0.2) X10*3/uL Abs Immat Gran (auto) (0.00-0.03) X10*3/uL Absolute Neuts (auto) (2.0-8.3) x10*3/uL Absolute Nucleated RBC (0.0-0.012) X10*3/uL Nucleated RBC % (auto) (0.0-0.2) /100WBC PT (10.0-13.1) SEC INR (0.9-1.1) APTT (26.0-36.4) SEC Sodium (135-145) mmol/L Potassium (3.3-5.1) mmol/L Chloride (96-108) mmol/L Carbon Dioxide (22-29) mmol/L Anion Gap (12-20) BUN (9-16) mg/dL Creatinine (0.5-1.4) mg/dL Estim Creat Clear Calc Estimated GFR Random Glucose (60-115) mg/dL Lactic Acid 2.4 H* (0.5-2.0) mmol/L Lactic Acid F/U @ 2Hr 2.5 H* (0.5-2.0) mmol/L Lactic Acid F/U @ 4Hr 2.4 H* (0.5-2.0) mmol/L Calcium (8.4-10.2) mg/dL Magnesium (1.6-2.6) mg/dL Total Bilirubin (0.0-1.0) mg/dL AST (5-31) U/L ALT (0-31) U/L Alkaline Phosphatase (39-117) U/L Troponin I High Sens (<3.5-17.0) ng/L B-Natriuretic Peptide (<100) pg/mL Total Protein (6.5-8.0) g/dL Albumin (3.5-5.0) g/dL Lipase (8-78) U/L Influenza Type A (PCR) (Negative) Influenza Type B (PCR) (Negative) RSV RNA Qual (PCR) (Negative) SARS-CoV-2 RNA (RT-PCR) (Negative) <Geovanny Loya MD - Last Filed: 08/27/22 01:08> Independent Interpretation I performed an independent interpretation of an: EKG <Geovanny Loya MD - Last Filed: 08/27/22 01:08> Interpretation: Sinus tachycardia heart rate 106 beats per minute LVH no acute ST-T changes no acute ischemia <Geovanny Loya MD - Last Filed: 08/27/22 01:08> Discharge Plan Discharge Clinical Impression: Bronchiectasis, COPD (chronic obstructive pulmonary disease), Community acquired pneumonia <Jake Allred - Last Filed: 08/26/22 16:15> Patient Disposition: Admitted As Inpatient <Jake Allred - Last Filed: 08/26/22 16:15>
[2022-08-26 16:58] LABS: MANUAL DIFF FLAG NO
[2022-08-26 16:59] LABS: Basophils Percent Auto 0.2 % (0-2); Eosinophils Absolute Auto 0.1 X10*3/uL (0.0-0.4); Eosinophils Percent Auto 0.6 % (0-4); Hematocrit 33.4 % (37.0-47.0); Hemoglobin 10.7 g/dl (12.0-16.0); Imm Gran Abs Auto 0.13 X10*3/uL (0.00-0.03); Imm Gran Pct Auto 0.8 % (0.0-0.4); Lymphocytes Percent Auto 5.9 % (20-40); Mean Corpuscular Hemoglobin 26.5 pg (27.0-33.0); Mean Corpuscular Volume 82.7 fL (80.0-98.0); Mean Platelet Volume 9.9 fL (9.4-12.3); Monocytes Absolute Auto 0.9 X10*3/uL (0.1-1.2); Monocytes Percent Auto 5.7 % (2-11); Neutrophils Absolute Auto 13.9 x10*3/uL (2.0-8.3); Neutrophils Percent Auto 86.8 % (45-73); Platelet Count 219 X10*3/uL (160-400); Red Blood Count 4.04 X10*6/uL (4.20-5.50); Red Cell Distribution Width 15.2 % (11.0-16.0)
[2022-08-26 17:07] LABS: Partial Thromboplastin Time 33.4 SEC (26.0-36.4)
--- NOTE | 2022-08-26 17:09 | PC.NURSE ---
pt a+o x4, denies pain, vss. hx of COPD, on home O2, 2L n/c. came to ed for evaluation of increasing sob. she was started on antibiotics last week but did not take the full course. she denies cp/n/v/d. crackles noted. 20g iv inserted L upper arm. pt satting 88-92% on 2L n/c. denies sob at this time.
[2022-08-26 17:14] LABS: Influenza A PCR NEGATIVE (Negative); Influenza B PCR NEGATIVE (Negative); Resp Syncy Virus RNA Qual PCR NEGATIVE (Negative); SARS COV2 PCR INHOUSE NEGATIVE (Negative)
[2022-08-26 17:15] LABS: Alanine Aminotransferase 16 U/L (0-31); Albumin Level 3.7 g/dL (3.5-5.0); Alkaline Phosphatase 61 U/L (39-117); Anion Gap 16 (12-20); Aspartate Amino Transferase 16 U/L (5-31); Blood Urea Nitrogen 20 mg/dL (9-16); Calcium 9.2 mg/dL (8.4-10.2); Carbon Dioxide 25 mmol/L (22-29); Chloride 96 mmol/L (96-108); Creatinine Clr Calc Pharmacy 32.5; Estimated Glomerular Filt Rate 52; Glucose Random 142 mg/dL (60-115); Lipase 14 U/L (8-78); Magnesium 1.7 mg/dL (1.6-2.6); Potassium 3.5 mmol/L (3.3-5.1); Sodium 133 mmol/L (135-145); Total Protein 5.5 g/dL (6.5-8.0)
[2022-08-26 17:21] LABS: B Type Natriuretic Peptide 44 pg/mL (<100)
[2022-08-26 17:23] LABS: Troponin-I High Sensitivity 10.1 ng/L (<3.5-17.0)
[2022-08-26 17:34] LABS: Lactic Acid 2.4 mmol/L (0.5-2.0)
[2022-08-26 18:56] LABS: Reflex Lactate? Lactic Acid Added
[2022-08-26] MEDS: iohexoL 350 MG/ML 100 ML INFUS..BTL IV (18:57)
[2022-08-26 20:00] LABS: ~Lactic Acid-LAB USE ONLY 2.5 mmol/L (0.5-2.0)
[2022-08-26] MEDS: Piperacillin Sodium/Tazobactam 3.375 GM in 0.9 % Sodium Chloride 50 ML IV (21:25)
[2022-08-26 21:42] LABS: Reflex Lactate? 2 Y
[2022-08-26 22:32] LABS: ~Lactic Acid-LAB USE ONLY 2.4 mmol/L (0.5-2.0)
[2022-08-26] MEDS: 0.9 % Sodium Chloride 1,000 ML 999 ML IV (22:47)
[2022-08-26 23:13] LABS: Cancel Lactic Acid Canceled
[2022-08-26] MEDS: methylPREDNISolone Sod Succ 125 MG/2 ML VIAL IVPUSH (23:29)
--- NOTE | 2022-08-26 23:37 | PM.IMHP ---
History of Present Illness Date of Service: 08/26/22 Chief Complaint: sob 76F PMH chronic hyoxic respiratory failure due to copd on 2L prn at home, HTN, hld, breast ca, presented with sob. patient recently treated for pneumonia and copd exacerbation with doxy and prednisone, inititially improved, now with worsening sob over last few days, increased frequency of productive cough, chills without fever, increase o2 requirements, in ED CT showed RLL pna, Review of Systems Review of Systems: Yes all other systems are reviewed and are negative [facility] Medical History Bronchiectasis Carotid stenosis, bilateral COPD (chronic obstructive pulmonary disease) Former smoker, stopped smoking in distant past GERD (gastroesophageal reflux disease) History of breast cancer History of non-ST elevation myocardial infarction (NSTEMI) (~10/2017) HLD (hyperlipidemia) HTN (hypertension) Pulmonary nodules Surgical History History of hysterectomy History of lumpectomy History of lung biopsy Social History Alcohol intake: never Patient Tobacco Use Status: Former Tobacco user Quit Date: 1997 Tobacco use type: Cigarette Years Smoked: 20-30 years - quit 1997 Smoked in Last 30 Days: No Use of substances other than those prescribed or required for medical reasons: No Advance Directives: No Advance Directives Information Provided: No Meds Allergies Allergy/AdvReac Type Severity Reaction Status Date / Time Sulfa (Sulfonamide Allergy Intermediate HIVES Verified 08/26/22 16:07 Antibiotics) [SULFA (SULFONAMIDE ANTIBIOTICS)] Amoxicillin Allergy Intermediate Hives Uncoded 08/07/22 10:57 Augementin Allergy Intermediate Hives Uncoded 08/07/22 10:57 Active Medications: Current Medications Aspirin (Aspirin Enteric Coated 81 Mg Tablet.) 81 mg PO DAILY PENDING SALE TO [facility] Atorvastatin Calcium (Atorvastatin Calcium 40 Mg Tablet) 40 mg PO BEDTIME [facility] Diltiazem HCl (Diltiazem Hcl Cd 120 Mg Cap.Er.Deg) 120 mg PO DAILY [facility]ENDING [facility]ALE TO [facility]; Protocol Non-Formulary Medication (Irbesartan-Hydrochlorothiazide) 1 tab PO DAILY PENDING SALE TO [facility] Omeprazole (Omeprazole 40 Mg Capsule.) 40 mg PO DAILY [facility]END[facility] TO [facility] Home Medications Medication Instructions Recorded Confirmed Last Taken Type aspirin 81 mg tablet,delayed 81 mg PO DAILY 08/09/20 08/26/22 08/26/22 08:00 History release atorvastatin 40 mg tablet 40 mg PO BEDTIME 08/09/20 08/26/22 08/25/22 22:00 History calcium 650 mg-vitamin D3 12.5 tab PO 08/09/20 10/11/20 08/26/22 08:00 History mcg-vitamin K 40 mcg chewable tablet (Viactiv) diltiazem HCl 120 mg 120 mg PO DAILY 08/09/20 08/26/22 08/26/22 08:00 History capsule,extended release 24 hr fluticasone 250 mcg-salmeterol 50 1 ea inhalation BID 08/09/20 10/11/20 Unknown History mcg/dose blistr powdr for inhalation irbesartan 150 1 tab PO DAILY 08/09/20 08/26/22 08/26/22 08:00 History mg-hydrochlorothiazide 12.5 mg tablet omeprazole 40 mg capsule,delayed 40 mg PO DAILY 08/09/20 08/26/22 08/26/22 08:00 History release tiotropium bromide 18 mcg capsule 1 cap inhalation DAILY 08/09/20 08/26/22 08/26/22 08:00 History with inhalation device Oxygen Home Use 08/07/22 Unknown History nebulizers 08/07/22 Unknown History Physical Exam Vital Signs and Narrative: Vital Signs: Last Vital Signs Temp 98.6 F 08/26/22 23:14 Pulse 92 08/26/22 23:14 Resp 18 08/26/22 23:14 BP 158/69 H 08/26/22 23:14 Pulse Ox 96 08/26/22 23:14 O2 Del Method Room Air 08/26/22 23:14 O2 Flow Rate 2 08/26/22 22:45 Oxygen Flow Rate 2 08/26/22 16:08 BMI result Body Mass Index 16.6 General: AO X 3, no acute distress Resp: diminished bilateral, no accessory muscles used CVS: S1,S2,RRR GI: soft, non tender, non distended Neuro: motor grossly intact, alert Psych: appropriate affect, appropriate insight Results Labs 08/26/22 16:52 08/26/22 16:52 Labs: Laboratory Results - last 24 hr 08/26/22 08/26/22 08/26/22 16:28 16:52 16:52 MCV 82.7 MCH 26.5 L MCHC 32.0 RDW 15.2 Plt Count 219 MPV 9.9 Immature Gran % (Auto) 0.8 H Neut % (Auto) 86.8 H Lymph % (Auto) 5.9 L [place] % (Auto) 5.7 Eos % (Auto) 0.6 Baso % (Auto) 0.2 Lymph # (Auto) 1.0 L [place] # (Auto) 0.9 Eos # (Auto) 0.1 Baso # (Auto) 0.0 Abs Immat Gran (auto) 0.13 H Absolute Neuts (auto) 13.9 H Absolute Nucleated RBC 0.000 Nucleated RBC % (auto) 0.0 PT INR APTT Anion Gap 16 Estim Creat Clear Calc 32.5 Estimated GFR 52 Random Glucose 142 H Lactic Acid Lactic Acid F/U @ 2Hr Lactic Acid F/U @ 4Hr Calcium 9.2 Magnesium 1.7 Total Bilirubin 1.0 AST 16 ALT 16 Alkaline Phosphatase 61 Troponin I High Sens B-Natriuretic Peptide Total Protein 5.5 L Albumin 3.7 Lipase 14 Influenza Type A (PCR) NEGATIVE Influenza Type B (PCR) NEGATIVE RSV RNA Qual (PCR) NEGATIVE SARS-CoV-2 RNA (RT-PCR) NEGATIVE 08/26/22 08/26/22 08/26/22 16:52 16:52 16:52 MCV MCH MCHC RDW Plt Count MPV Immature Gran % (Auto) Neut % (Auto) Lymph % (Auto) [place] % (Auto) Eos % (Auto) Baso % (Auto) Lymph # (Auto) [place] # (Auto) Eos # (Auto) Baso # (Auto) Abs Immat Gran (auto) Absolute Neuts (auto) Absolute Nucleated RBC Nucleated RBC % (auto) PT 11.0 INR 1.0 APTT 33.4 Anion Gap Estim Creat Clear Calc Estimated GFR Random Glucose Lactic Acid Lactic Acid F/U @ 2Hr Lactic Acid F/U @ 4Hr Calcium Magnesium Total Bilirubin AST ALT Alkaline Phosphatase Troponin I High Sens 10.1 B-Natriuretic Peptide 44 Total Protein Albumin Lipase Influenza Type A (PCR) Influenza Type B (PCR) RSV RNA Qual (PCR) SARS-CoV-2 RNA (RT-PCR) 08/26/22 08/26/22 08/26/22 16:52 19:38 22:11 MCV MCH MCHC RDW Plt Count MPV Immature Gran % (Auto) Neut % (Auto) Lymph % (Auto) [place] % (Auto) Eos % (Auto) Baso % (Auto) Lymph # (Auto) [place] # (Auto) Eos # (Auto) Baso # (Auto) Abs Immat Gran (auto) Absolute Neuts (auto) Absolute Nucleated RBC Nucleated RBC % (auto) PT INR APTT Anion Gap Estim Creat Clear Calc Estimated GFR Random Glucose Lactic Acid 2.4 H* Lactic Acid F/U @ 2Hr 2.5 H* Lactic Acid F/U @ 4Hr 2.4 H* Calcium Magnesium Total Bilirubin AST ALT Alkaline Phosphatase Troponin I High Sens B-Natriuretic Peptide Total Protein Albumin Lipase Influenza Type A (PCR) Influenza Type B (PCR) RSV RNA Qual (PCR) SARS-CoV-2 RNA (RT-PCR) Imaging Radiologist's Impressions: Impressions Chest X-Ray 08/26/22 17:11 IMPRESSION: * Emphysema. * Streaky opacity at the right lung base laterally could represent subsegmental atelectasis or infiltrate. Chest CTA 08/26/22 19:19 IMPRESSION: No evidence of pulmonary embolism. Severe emphysema. Bronchial wall thickening and mucus plugging in both lower lobes. Right lower lobe bronchopneumonia. VTE: negative Assessment and Plan (1) Community acquired pneumonia: Status: Acute Plan 76F PMH chronic hypoxic respiratory failure due to copd on 2L prn at home, HTN, hld, breast ca, presented with sob acute on chronic hypoxic respitaory failure due to pna and copd with acute decompensation no sepsis (leukocytosis due to steroids, tachycadria due to sob) rocpehin, azithro, steroids, nebs wean o2 as tolerated htn arb, hctz, cardizem hld statin dvt prophylaxis - lovenox full code patient with significant sob and history of chronic hyopxic resp failure due to severe emphysema, high risk for further decompensation due to advanced age and frailty therefore expected to require atleast 2 midnights inpatient Time Spent With Patient Time: Total time managing care of this patient today ____ minutes. Quality Stroke Does the patient have a stroke diagnosis?: No VTE Prior VTE?: No VTE Risk Level:: Medical - moderate - high VTE Device Contraindication: Treatment Not Indicated VTE Drug Contraindication: N/A - Med Ordered
[2022-08-27] VITALS (8 sets, daily range): BP systolic 116–149; BP diastolic 50–62; PULSE 80–112; RESP 14–20; TEMP 36.1–36.7; O2SAT 94–100; BMI 16.6
--- NOTE | 2022-08-27 00:01 | MHC.EDTECH ---
i took over assignment , vitals were taken and a sandwich and a drink was given, she is comfortable
[2022-08-27] MEDS: cefTRIAXone sodium 1 GM in 0.9 % Sodium Chloride 50 ML IV ×2 (00:42→22:10)
[2022-08-27] MEDS: Omeprazole 40 MG CAPSULE.DR PO (06:03)
[2022-08-27 06:33] LABS: Hematocrit 29.6 % (37.0-47.0); Hemoglobin 9.3 g/dl (12.0-16.0); Mean Corpuscular HGB Conc 31.4 g/dl (31.0-35.0); Mean Corpuscular Hemoglobin 26.3 pg (27.0-33.0); Mean Corpuscular Volume 83.6 fL (80.0-98.0); Mean Platelet Volume 10.4 fL (9.4-12.3); Platelet Count 155 X10*3/uL (160-400); Red Blood Count 3.54 X10*6/uL (4.20-5.50); Red Cell Distribution Width 15.1 % (11.0-16.0); White Blood Count 8.3 X10*3/uL (4.8-10.8)
[2022-08-27 06:56] LABS: Anion Gap 12 (12-20); Blood Urea Nitrogen 16 mg/dL (9-16); Calcium 8.4 mg/dL (8.4-10.2); Carbon Dioxide 25 mmol/L (22-29); Chloride 103 mmol/L (96-108); Estimated Glomerular Filt Rate > 60; Glucose Fasting 180 mg/dL (60-99); Sodium 136 mmol/L (135-145)
--- NOTE | 2022-08-27 07:13 | PHA.MEDREC ---
Pharmacy Consult ? Medication Reconciliation Pharmacy has completed/reviewed the medication reconciliation.
[2022-08-27] MEDS: Albuterol/Iprat 2.5/0.5MG 3 ML AMPUL.NEB INHALE ×4 (07:42→19:35)
[2022-08-27] MEDS: hydroCHLOROthiazide 12.5 MG TABLET PO (08:36)
[2022-08-27] MEDS: Aspirin Enteric Coated 81 MG TABLET.DR PO (08:37)
[2022-08-27] MEDS: dilTIAZem HCL CD 120 MG CAP.ER.DEG PO (08:37)
[2022-08-27] MEDS: Valsartan 80 MG TABLET PO (08:37)
[2022-08-27] MEDS: methylPREDNISolone Sod Succ 40 MG/ML VIAL IVPUSH ×2 (08:37→22:05)
[2022-08-27] MEDS: Enoxaparin Sodium 40 MG/0.4 ML SYRINGE SUBCUT (08:37)
[2022-08-27] MEDS: Azithromycin 500 MG TABLET PO (08:37)
[2022-08-27] MEDS: 0.9 % Sodium Chloride Flush 3 ML SYRINGE IVFLUSH ×3 (08:38→20:53)
--- NOTE | 2022-08-27 09:48 | HO.PM.IMPN ---
Subjective Subjective Date of Service: 08/27/22 Interval History: Seen and evaluated feels little better since admission On O2 supplement No overnight events Review of Systems Review of Systems: Yes all other systems are reviewed and are negative Physical Exam Vital Signs: Vital Signs: Last Vital Signs Temp 97.3 F 08/27/22 09:43 Pulse 88 08/27/22 09:43 Resp 20 08/27/22 09:43 BP 136/61 08/27/22 09:43 Pulse Ox 100 08/27/22 09:43 O2 Del Method Nasal Cannula 08/27/22 09:43 O2 Flow Rate 2 08/27/22 09:43 Oxygen Flow Rate 2 08/26/22 16:08 BMI result Body Mass Index 16.6 Const: Other: Constitutional : Awake, interactive, not in distress Neck : Normal inspection, Supple Cardiovascular : RRR, no JVP, no lower extremity edema Respiratory : decrease bilateral air entry, bilateral expiratory scattered wheezes Gastrointestinal: soft, lax, Normal bowel sounds, Non tender Skin : Warm, Dry Neurological : Alert & oriented x3, No focal deficit Objective Data Active Medications Albuterol/Ipratropium (Albuterol/Iprat 2.5/0.5mg 3 Ml Ampul.Neb) 3 ml INHALE RQ4H WHILE AWAKE [facility] Last Admin: 08/27/22 07:42 Dose: 3 ml Documented By: ALYX Aspirin (Aspirin Enteric Coated 81 Mg Tablet.Dr) 81 mg PO DAILY [facility] Last Admin: 08/27/22 08:37 Dose: 81 mg Documented By: LEILANI Atorvastatin Calcium (Atorvastatin Calcium 40 Mg Tablet) 40 mg PO BEDTIME [facility] Azithromycin (Azithromycin 500 Mg Tablet) 500 mg PO Q24H [facility] Last Admin: 08/27/22 08:37 Dose: 500 mg Documented By: LEILANI Diltiazem HCl (Diltiazem Hcl Cd 120 Mg Cap.Er.Deg) 120 mg PO DAILY [facility]; Protocol Last Admin: 08/27/22 08:37 Dose: 120 mg Documented By: LEILANI Enoxaparin Sodium (Enoxaparin Sodium 40 Mg/0.4 Ml Syringe) 40 mg SUBCUT Q24H [facility] Last Admin: 08/27/22 08:37 Dose: 40 mg Documented By: LEILANI Hydrochlorothiazide (Hydrochlorothiazide 12.5 Mg Tablet) 12.5 mg PO DAILY [facility] Last Admin: 08/27/22 08:36 Dose: 12.5 mg Documented By: LEILANI Ceftriaxone Sodium 1 gm/ (Sodium Chloride) 50 mls @ 100 mls/hr IV 2200 [facility] Last Infusion: 08/27/22 01:25 Dose: 0 mls/hr Documented By: OPAL Methylprednisolone Sodium Succinate (Methylprednisolone Sod Succ 40 Mg/Ml Vial) 40 mg IVPUSH Q12H [facility] Last Admin: 08/27/22 08:37 Dose: 40 mg Documented By: LEILANI Omeprazole (Omeprazole 40 Mg Capsule.Dr) 40 mg PO DAILY@0630 [facility] Last Admin: 08/27/22 06:03 Dose: 40 mg Documented By: OPAL Sodium Chloride (0.9 % Sodium Chloride Flush 3 Ml Syringe) 3 ml IVFLUSH QSHIFT [facility] Last Admin: 08/27/22 08:38 Dose: 3 ml Documented By: LEILANI Valsartan (Valsartan 80 Mg Tablet) 80 mg PO DAILY [facility] Last Admin: 08/27/22 08:37 Dose: 80 mg Documented By: LEILANI Labs 08/27/22 06:01 08/27/22 06:01 Labs: Laboratory Results - last 24 hr 08/26/22 08/26/22 08/26/22 16:28 16:52 16:52 MCV 82.7 MCH 26.5 L MCHC 32.0 RDW 15.2 Plt Count 219 MPV 9.9 Immature Gran % (Auto) 0.8 H Neut % (Auto) 86.8 H Lymph % (Auto) 5.9 L [place] % (Auto) 5.7 Eos % (Auto) 0.6 Baso % (Auto) 0.2 Lymph # (Auto) 1.0 L [place] # (Auto) 0.9 Eos # (Auto) 0.1 Baso # (Auto) 0.0 Abs Immat Gran (auto) 0.13 H Absolute Neuts (auto) 13.9 H Absolute Nucleated RBC 0.000 Nucleated RBC % (auto) 0.0 PT INR APTT Anion Gap 16 Estim Creat Clear Calc 32.5 Estimated GFR 52 Random Glucose 142 H Fasting Glucose Lactic Acid Lactic Acid F/U @ 2Hr Lactic Acid F/U @ 4Hr Calcium 9.2 Magnesium 1.7 Total Bilirubin 1.0 AST 16 ALT 16 Alkaline Phosphatase 61 Troponin I High Sens B-Natriuretic Peptide Total Protein 5.5 L Albumin 3.7 Lipase 14 Influenza Type A (PCR) NEGATIVE Influenza Type B (PCR) NEGATIVE RSV RNA Qual (PCR) NEGATIVE SARS-CoV-2 RNA (RT-PCR) NEGATIVE 08/26/22 08/26/22 08/26/22 16:52 16:52 16:52 MCV MCH MCHC RDW Plt Count MPV Immature Gran % (Auto) Neut % (Auto) Lymph % (Auto) [place] % (Auto) Eos % (Auto) Baso % (Auto) Lymph # (Auto) [place] # (Auto) Eos # (Auto) Baso # (Auto) Abs Immat Gran (auto) Absolute Neuts (auto) Absolute Nucleated RBC Nucleated RBC % (auto) PT 11.0 INR 1.0 APTT 33.4 Anion Gap Estim Creat Clear Calc Estimated GFR Random Glucose Fasting Glucose Lactic Acid Lactic Acid F/U @ 2Hr Lactic Acid F/U @ 4Hr Calcium Magnesium Total Bilirubin AST ALT Alkaline Phosphatase Troponin I High Sens 10.1 B-Natriuretic Peptide 44 Total Protein Albumin Lipase Influenza Type A (PCR) Influenza Type B (PCR) RSV RNA Qual (PCR) SARS-CoV-2 RNA (RT-PCR) 08/26/22 08/26/22 08/26/22 16:52 19:38 22:11 MCV MCH MCHC RDW Plt Count MPV Immature Gran % (Auto) Neut % (Auto) Lymph % (Auto) [place] % (Auto) Eos % (Auto) Baso % (Auto) Lymph # (Auto) [place] # (Auto) Eos # (Auto) Baso # (Auto) Abs Immat Gran (auto) Absolute Neuts (auto) Absolute Nucleated RBC Nucleated RBC % (auto) PT INR APTT Anion Gap Estim Creat Clear Calc Estimated GFR Random Glucose Fasting Glucose Lactic Acid 2.4 H* Lactic Acid F/U @ 2Hr 2.5 H* Lactic Acid F/U @ 4Hr 2.4 H* Calcium Magnesium Total Bilirubin AST ALT Alkaline Phosphatase Troponin I High Sens B-Natriuretic Peptide Total Protein Albumin Lipase Influenza Type A (PCR) Influenza Type B (PCR) RSV RNA Qual (PCR) SARS-CoV-2 RNA (RT-PCR) 08/27/22 08/27/22 06:01 06:01 MCV 83.6 MCH 26.3 L MCHC 31.4 RDW 15.1 Plt Count 155 L D MPV 10.4 Immature Gran % (Auto) Neut % (Auto) Lymph % (Auto) [place] % (Auto) Eos % (Auto) Baso % (Auto) Lymph # (Auto) [place] # (Auto) Eos # (Auto) Baso # (Auto) Abs Immat Gran (auto) Absolute Neuts (auto) Absolute Nucleated RBC 0.000 Nucleated RBC % (auto) 0.0 PT INR APTT Anion Gap 12 Estim Creat Clear Calc 40.0 Estimated GFR > 60 Random Glucose Fasting Glucose 180 H Lactic Acid Lactic Acid F/U @ 2Hr Lactic Acid F/U @ 4Hr Calcium 8.4 D Magnesium Total Bilirubin AST ALT Alkaline Phosphatase Troponin I High Sens B-Natriuretic Peptide Total Protein Albumin Lipase Influenza Type A (PCR) Influenza Type B (PCR) RSV RNA Qual (PCR) SARS-CoV-2 RNA (RT-PCR) Assessment and Plan (1) Community acquired pneumonia: Status: Acute (2) COPD (chronic obstructive pulmonary disease): Status: Acute (3) Acute on chronic respiratory failure with hypoxemia: Status: Acute Plan 76F PMH chronic hypoxic respiratory failure due to copd on 2L prn at home, HTN, hld, breast ca, presented with sob acute on chronic hypoxic respitaory failure due to CAP and copd with acute decompensation Pending cultures Continue rocpehin, azithro Continue steroids ATC and PRN nebs wean o2 as tolerated htn arb, hctz, cardizem hld statin dvt prophylaxis - lovenox full code patient with significant sob and history of chronic hyopxic resp failure due to severe emphysema, high risk for further decompensation due to advanced age and frailty therefore expected to require overnight inpatient stay. Time Spent With Patient Time: Total time managing care of this patient today ____ minutes. Quality Stroke Does the patient have a stroke diagnosis?: No VTE Prior VTE?: No VTE Risk Level:: Medical - moderate - high VTE Device Contraindication: Treatment Not Indicated VTE Drug Contraindication: N/A - Med Ordered
--- NOTE | 2022-08-27 14:45 | MHC.CM.PN ---
IMM 08/27/22 Female 76 Lives by herself. She is independent with all functional mobility. She uses home oxygen PRN. Jessi is the provider. She has been vaccinated for covid. A copy of her HCP has been requested. DP home self care Patient will arrange for transportation home.
--- NOTE | 2022-08-27 16:09 | MHC.CLN ---
NUTRITION CONSULT FOR WEIGHT LOSS AND DECREASED INTAKE. DIET=REGULAR. TAKES ENSURE SUPPLEMENT AT HOME. ADDING ENSURE TID (VANILLA) TO PROVIDE ADDITIONAL 1050 KCALS, 60 G PROTEIN. REPORTS THAT CURRENTLY EATING WELL. SEVERE EMPHYSEMA WITH INCREASED CALORIC NEEDS. NUTRITION DX NON SEVERE MALNUTRITION IN THE CONTEXT OF CHRONIC ILLNESS. FOLLOW FOR INTAKE OF MEALS AND SUPPLEMENT. SEE CLINICAL NUTRITION ASSESSMENT 08/27/22.
[2022-08-27] MEDS: Atorvastatin Calcium 40 MG TABLET PO (20:53)
[2022-08-27] MEDS: rOPINIRole HCL 0.5 MG TABLET PO (20:53)
[2022-08-28] VITALS (9 sets, daily range): BP systolic 112–137; BP diastolic 51–65; PULSE 74–112; RESP 18–24; TEMP 36–36.9; O2SAT 91–97
[2022-08-28] MEDS: Omeprazole 40 MG CAPSULE.DR PO (05:34)
[2022-08-28 06:36] LABS: Hematocrit 29.7 % (37.0-47.0); Hemoglobin 9.3 g/dl (12.0-16.0); Mean Corpuscular HGB Conc 31.3 g/dl (31.0-35.0); Mean Corpuscular Hemoglobin 26.1 pg (27.0-33.0); Mean Corpuscular Volume 83.2 fL (80.0-98.0); Mean Platelet Volume 10.7 fL (9.4-12.3); Platelet Count 201 X10*3/uL (160-400); Red Blood Count 3.57 X10*6/uL (4.20-5.50); Red Cell Distribution Width 14.6 % (11.0-16.0)
[2022-08-28 06:57] LABS: Anion Gap 13 (12-20); Blood Urea Nitrogen 16 mg/dL (9-16); Calcium 8.8 mg/dL (8.4-10.2); Carbon Dioxide 25 mmol/L (22-29); Chloride 103 mmol/L (96-108); Creatinine Clr Calc Pharmacy 46.8; Estimated Glomerular Filt Rate > 60; Glucose Random 154 mg/dL (60-115); Potassium 3.2 mmol/L (3.3-5.1); Sodium 138 mmol/L (135-145)
[2022-08-28] MEDS: Albuterol/Iprat 2.5/0.5MG 3 ML AMPUL.NEB INHALE ×4 (07:45→19:34)
[2022-08-28] MEDS: 0.9 % Sodium Chloride Flush 3 ML SYRINGE IVFLUSH ×3 (08:16→21:33)
[2022-08-28] MEDS: Potassium Chloride Packet 20 MEQ PACKET 40 MEQ PO (08:16)
[2022-08-28] MEDS: Valsartan 80 MG TABLET PO (09:48)
[2022-08-28] MEDS: hydroCHLOROthiazide 12.5 MG TABLET PO (09:48)
[2022-08-28] MEDS: dilTIAZem HCL CD 120 MG CAP.ER.DEG PO (09:48)
[2022-08-28] MEDS: Azithromycin 500 MG TABLET PO (09:48)
[2022-08-28] MEDS: Enoxaparin Sodium 40 MG/0.4 ML SYRINGE SUBCUT (09:49)
[2022-08-28] MEDS: Aspirin Enteric Coated 81 MG TABLET.DR PO (09:49)
[2022-08-28] MEDS: methylPREDNISolone Sod Succ 40 MG/ML VIAL IVPUSH ×2 (10:22→21:33)
--- NOTE | 2022-08-28 11:13 | P.PNIM_ITS ---
Subjective Subjective Date of Service: 08/28/22 Interval History: Seen and evaluated Feels little better since admission On O2 supplement No overnight events Review of Systems Review of Systems: Yes all other systems are reviewed and are negative Physical Exam Vital Signs: Vital Signs: Last Vital Signs Temp 97.3 F 08/28/22 07:34 Pulse 102 H 08/28/22 08:18 Resp 18 08/28/22 07:46 BP 136/65 08/28/22 07:34 Pulse Ox 95 08/28/22 08:18 O2 Del Method Nasal Cannula 08/28/22 07:34 O2 Flow Rate 1 08/28/22 07:34 Oxygen Flow Rate 2 08/26/22 16:08 BMI result Body Mass Index 16.6 Const: Other: Constitutional : Awake, interactive, not in distress Neck : Normal inspection, Supple Cardiovascular : RRR, no JVP, no lower extremity edema Respiratory : decrease bilateral air entry, bilateral expiratory scattered wheezes Gastrointestinal: soft, lax, Normal bowel sounds, Non tender Skin : Warm, Dry Neurological : Alert & oriented x3, No focal deficit Objective Data Active Medications Albuterol/Ipratropium (Albuterol/Iprat 2.5/0.5mg 3 Ml Ampul.Neb) 3 ml INHALE RQ4H WHILE AWAKE [facility] [place] Last Admin: 08/28/22 07:45 Dose: 3 ml Documented By: RCIKEY Aspirin (Aspirin Enteric Coated 81 Mg Tablet.) 81 mg PO DAILY [facility] [place] Last Admin: 08/28/22 09:49 Dose: 81 mg Documented By: IVÁN Atorvastatin Calcium (Atorvastatin Calcium 40 Mg Tablet) 40 mg PO BEDTIME [facility] [place] Last Admin: 08/27/22 20:53 Dose: 40 mg Documented By: MELINDA Azithromycin (Azithromycin 500 Mg Tablet) 500 mg PO Q24H [facility] [place] Last Admin: 08/28/22 09:48 Dose: 500 mg Documented By: IVÁN Diltiazem HCl (Diltiazem Hcl Cd 120 Mg Cap.Er.Deg) 120 mg PO DAILY [facility] [place]; Protocol Last Admin: 08/28/22 09:48 Dose: 120 mg Documented By: IVÁN Comments: 115/56, 107 Enoxaparin Sodium (Enoxaparin Sodium 40 Mg/0.4 Ml Syringe) 40 mg SUBCUT Q24H [facility] [place] Last Admin: 08/28/22 09:49 Dose: 40 mg Documented By: IVÁN Hydrochlorothiazide (Hydrochlorothiazide 12.5 Mg Tablet) 12.5 mg PO DAILY [facility] [place] Last Admin: 08/28/22 09:48 Dose: 12.5 mg Documented By: IVÁN Ceftriaxone Sodium 1 gm/ (Sodium Chloride) 50 mls @ 100 mls/hr IV 2200 [facility] [place] Last Infusion: 08/27/22 23:06 Dose: 0 mls/hr Documented By: MELINDA Methylprednisolone Sodium Succinate (Methylprednisolone Sod Succ 40 Mg/Ml Vial) 40 mg IVPUSH Q12H [facility] [place] Last Admin: 08/28/22 10:22 Dose: 40 mg Documented By: EDI Omeprazole (Omeprazole 40 Mg Capsule.Dr) 40 mg PO DAILY@0630 [facility] [place] Last Admin: 08/28/22 05:34 Dose: 40 mg Documented By: MELINDA Polyethylene Glycol (Polyethylene Glycol 3350 17 Gm Powd.Pack) 17 gm PO DAILY PRN PRN Reason: Constipation Ropinirole HCl (Ropinirole Hcl 0.5 Mg Tablet) 0.5 mg PO BEDTIME [facility] [place] Last Admin: 08/27/22 20:53 Dose: 0.5 mg Documented By: MELINDA Sodium Chloride (0.9 % Sodium Chloride Flush 3 Ml Syringe) 3 ml IVFLUSH QSHIFT [facility] [place] Last Admin: 08/28/22 08:16 Dose: 3 ml Documented By: IVÁN Valsartan (Valsartan 80 Mg Tablet) 80 mg PO DAILY [facility] [place] Last Admin: 08/28/22 09:48 Dose: 80 mg Documented By: IVÁN Labs 08/28/22 05:33 08/28/22 05:33 Labs: Laboratory Results - last 24 hr 08/28/22 08/28/22 05:33 05:33 MCV 83.2 MCH 26.1 L MCHC 31.3 RDW 14.6 Plt Count 201 D MPV 10.7 Absolute Nucleated RBC 0.000 Nucleated RBC % (auto) 0.0 Anion Gap 13 Estim Creat Clear Calc 46.8 Estimated GFR > 60 Random Glucose 154 H Calcium 8.8 Microbiology Microbiology Results: Microbiology 08/26/22 16:55 Blood Culture - Preliminary Blood - Venous No growth after 24 hours. 08/26/22 16:52 Blood Culture - Preliminary Blood - Venous No growth after 24 hours. Assessment and Plan (1) Acute on chronic respiratory failure with hypoxemia: Status: Acute (2) Community acquired pneumonia: Status: Acute Plan 76F PMH chronic hypoxic respiratory failure due to copd on 2L prn at home, HTN, hld, breast ca, presented with sob acute on chronic hypoxic respitaory failure due to CAP and copd with acute decompensation Pending cultures Continue rocpehin, azithro Continue steroids ATC and PRN nebs wean o2 as tolerated htn arb, hctz, cardizem hld statin dvt prophylaxis lovenox full code Patient with significant sob and history of chronic hyopxic resp failure due to severe emphysema, high risk for further decompensation due to advanced age and frailty therefore expected to require overnight inpatient stay. Time Spent With Patient Time: Total time managing care of this patient today ____ minutes. Quality Stroke Does the patient have a stroke diagnosis?: No VTE Prior VTE?: No VTE Risk Level:: Medical - moderate - high VTE Device Contraindication: Treatment Not Indicated VTE Drug Contraindication: N/A - Med Ordered
[2022-08-28] MEDS: polyethylene glycoL 3350 17 GM POWD.PACK PO (16:00)
[2022-08-28] MEDS: rOPINIRole HCL 0.5 MG TABLET PO (21:32)
[2022-08-28] MEDS: Atorvastatin Calcium 40 MG TABLET PO (21:32)
[2022-08-28] MEDS: cefTRIAXone sodium 1 GM in 0.9 % Sodium Chloride 50 ML IV (21:36)
[2022-08-29] VITALS (9 sets, daily range): BP systolic 126–145; BP diastolic 61–74; PULSE 90–115; RESP 14–20; TEMP 36.1–36.9; O2SAT 90–99
[2022-08-29] MEDS: Omeprazole 40 MG CAPSULE.DR PO (05:53)
[2022-08-29 07:02] LABS: Hematocrit 29.6 % (37.0-47.0); Hemoglobin 9.3 g/dl (12.0-16.0); Mean Corpuscular HGB Conc 31.4 g/dl (31.0-35.0); Mean Corpuscular Hemoglobin 26.6 pg (27.0-33.0); Mean Corpuscular Volume 84.8 fL (80.0-98.0); Mean Platelet Volume 10.6 fL (9.4-12.3); Platelet Count 239 X10*3/uL (160-400); Red Blood Count 3.49 X10*6/uL (4.20-5.50); Red Cell Distribution Width 15.1 % (11.0-16.0)
[2022-08-29 07:30] LABS: Blood Urea Nitrogen 26 mg/dL (9-16); Calcium 8.5 mg/dL (8.4-10.2); Creatinine Clr Calc Pharmacy 46.1; Estimated Glomerular Filt Rate > 60; Glucose Random 155 mg/dL (60-115)
[2022-08-29 07:40] LABS: Anion Gap 14 (12-20); Carbon Dioxide 25 mmol/L (22-29); Chloride 104 mmol/L (96-108); Potassium 3.9 mmol/L (3.3-5.1); Sodium 139 mmol/L (135-145)
[2022-08-29] MEDS: Albuterol/Iprat 2.5/0.5MG 3 ML AMPUL.NEB INHALE ×4 (08:13→19:44)
[2022-08-29] MEDS: Enoxaparin Sodium 40 MG/0.4 ML SYRINGE SUBCUT (09:11)
[2022-08-29] MEDS: dilTIAZem HCL CD 120 MG CAP.ER.DEG PO (09:16)
[2022-08-29] MEDS: methylPREDNISolone Sod Succ 40 MG/ML VIAL IVPUSH ×2 (09:16→21:39)
[2022-08-29] MEDS: Valsartan 80 MG TABLET PO (09:16)
[2022-08-29] MEDS: hydroCHLOROthiazide 12.5 MG TABLET PO (09:16)
[2022-08-29] MEDS: Azithromycin 500 MG TABLET PO (09:17)
[2022-08-29] MEDS: Aspirin Enteric Coated 81 MG TABLET.DR PO (09:17)
[2022-08-29] MEDS: 0.9 % Sodium Chloride Flush 3 ML SYRINGE IVFLUSH ×3 (09:18→20:24)
--- NOTE | 2022-08-29 10:49 | HO.PM.IMPN ---
Subjective Subjective Date of Service: 08/29/22 Interval History: initial improvement, feeling more sob this morning Physical Exam Vital Signs: Vital Signs: Last Vital Signs Temp 97.2 F 08/29/22 07:45 Pulse 100 08/29/22 10:29 Resp 18 08/29/22 08:14 BP 132/63 08/29/22 07:45 Pulse Ox 90 L 08/29/22 10:29 O2 Del Method Room Air 08/29/22 07:45 O2 Flow Rate 1 08/29/22 07:45 Oxygen Flow Rate 2 08/26/22 16:08 BMI result Body Mass Index 16.6 Const: Other: Constitutional : Awake, interactive, not in distress Neck : Normal inspection, Supple Cardiovascular : RRR, no JVP, no lower extremity edema Respiratory : decrease bilateral air entry, bilateral expiratory scattered wheezes Gastrointestinal: soft, lax, Normal bowel sounds, Non tender Skin : Warm, Dry Neurological : Alert & oriented x3, No focal deficit Objective Data Active Medications Albuterol/Ipratropium (Albuterol/Iprat 2.5/0.5mg 3 Ml Ampul.Neb) 3 ml INHALE RQ4H WHILE AWAKE [facility] Last Admin: 08/29/22 08:13 Dose: 3 ml Documented By: EDGARD Aspirin (Aspirin Enteric Coated 81 Mg Tablet.) 81 mg PO DAILY [facility] Last Admin: 08/29/22 09:17 Dose: 81 mg Documented By: WILLIAN Atorvastatin Calcium (Atorvastatin Calcium 40 Mg Tablet) 40 mg PO BEDTIME [facility] Last Admin: 08/28/22 21:32 Dose: 40 mg Documented By: MELINDA Azithromycin (Azithromycin 500 Mg Tablet) 500 mg PO Q24H [facility] Last Admin: 08/29/22 09:17 Dose: 500 mg Documented By: WILLIAN Diltiazem HCl (Diltiazem Hcl Cd 120 Mg Cap.Er.Deg) 120 mg PO DAILY [facility]; Protocol Last Admin: 08/29/22 09:16 Dose: 120 mg Documented By: WILLIAN Enoxaparin Sodium (Enoxaparin Sodium 40 Mg/0.4 Ml Syringe) 40 mg SUBCUT Q24H [facility] Last Admin: 08/29/22 09:11 Dose: 40 mg Documented By: WILLIAN Hydrochlorothiazide (Hydrochlorothiazide 12.5 Mg Tablet) 12.5 mg PO DAILY [facility] Last Admin: 08/29/22 09:16 Dose: 12.5 mg Documented By: WILLIAN Ceftriaxone Sodium 1 gm/ (Sodium Chloride) 50 mls @ 100 mls/hr IV 2200 [facility] Last Infusion: 08/28/22 22:14 Dose: 0 mls/hr Documented By: MELINDA Methylprednisolone Sodium Succinate (Methylprednisolone Sod Succ 40 Mg/Ml Vial) 40 mg IVPUSH Q12H [facility] Last Admin: 08/29/22 09:16 Dose: 40 mg Documented By: WILLIAN Omeprazole (Omeprazole 40 Mg Capsule.) 40 mg PO DAILY@0630 [facility] Last Admin: 08/29/22 05:53 Dose: 40 mg Documented By: MELINDA Polyethylene Glycol (Polyethylene Glycol 3350 17 Gm Powd.Pack) 17 gm PO DAILY PRN PRN Reason: Constipation Last Admin: 08/28/22 16:00 Dose: 17 gm Documented By: EDI Ropinirole HCl (Ropinirole Hcl 0.5 Mg Tablet) 0.5 mg PO BEDTIME [facility] Last Admin: 08/28/22 21:32 Dose: 0.5 mg Documented By: MELINDA Sodium Chloride (0.9 % Sodium Chloride Flush 3 Ml Syringe) 3 ml IVFLUSH QSHIFT [facility] Last Admin: 08/29/22 09:18 Dose: 3 ml Documented By: WILLIAN Valsartan (Valsartan 80 Mg Tablet) 80 mg PO DAILY [facility] Last Admin: 08/29/22 09:16 Dose: 80 mg Documented By: WILLIAN Labs 08/29/22 05:43 08/29/22 05:43 Labs: Laboratory Results - last 24 hr 08/29/22 08/29/22 05:43 05:43 MCV 84.8 MCH 26.6 L MCHC 31.4 RDW 15.1 Plt Count 239 MPV 10.6 Absolute Nucleated RBC 0.000 Nucleated RBC % (auto) 0.0 Anion Gap 14 Estim Creat Clear Calc 46.1 Estimated GFR > 60 Random Glucose 155 H Calcium 8.5 Microbiology Microbiology Results: Microbiology 08/26/22 16:55 Blood Culture - Preliminary Blood - Venous No growth after 48 hours. 08/26/22 16:52 Blood Culture - Preliminary Blood - Venous No growth after 48 hours. Assessment and Plan (1) Acute on chronic respiratory failure with hypoxemia: Status: Acute (2) Community acquired pneumonia: Status: Acute Plan 76F PMH chronic hypoxic respiratory failure due to copd on 2L prn at home, HTN, hld, breast ca, presented with sob acute on chronic hypoxic respitaory failure due to CAP and copd with acute decompensation Continue rocpehin, azithro Continue steroids ATC and PRN nebs wean o2 as tolerated htn arb, hctz, cardizem hld statin dvt prophylaxis lovenox full code reason for continued hospitalization:still highly symptomatic with sob Time Spent With Patient Time: Total time managing care of this patient today ____ minutes. Quality Stroke Does the patient have a stroke diagnosis?: No VTE Prior VTE?: No VTE Risk Level:: Medical - moderate - high VTE Device Contraindication: Treatment Not Indicated VTE Drug Contraindication: N/A - Med Ordered
--- NOTE | 2022-08-29 11:59 | MHC.CM.PN ---
STILL SOB POSSIBLE HOME TOMORROW - SELF CARE
--- NOTE | 2022-08-29 12:27 | MHC.CLN ---
F/U DIET=REGULAR. ENSURE TID PROVIDES ADDITIONAL 1050 KCALS, 60 G PROTEIN. INTAKE APPEARS GOOD, 50-100%. FOLLOW FOR INTAKE OF MEALS AND SUPPLEMENT.
[2022-08-29] MEDS: polyethylene glycoL 3350 17 GM POWD.PACK PO ×2 (14:55→20:25)
[2022-08-29] MEDS: Atorvastatin Calcium 40 MG TABLET PO (20:24)
[2022-08-29] MEDS: rOPINIRole HCL 0.5 MG TABLET PO (20:24)
[2022-08-29] MEDS: cefTRIAXone sodium 1 GM in 0.9 % Sodium Chloride 50 ML IV (21:39)
[2022-08-30 04:00] VITALS: BP 161/70; PULSE 94; RESP 18; TEMP 36.3; O2SAT 98
[2022-08-30] MEDS: Omeprazole 40 MG CAPSULE.DR PO (05:54)
[2022-08-30 06:25] LABS: Hematocrit 31.1 % (37.0-47.0); Hemoglobin 9.8 g/dl (12.0-16.0); Mean Corpuscular HGB Conc 31.5 g/dl (31.0-35.0); Mean Corpuscular Hemoglobin 26.6 pg (27.0-33.0); Mean Corpuscular Volume 84.3 fL (80.0-98.0); Mean Platelet Volume 10.2 fL (9.4-12.3); Platelet Count 239 X10*3/uL (160-400); Red Blood Count 3.69 X10*6/uL (4.20-5.50); Red Cell Distribution Width 14.8 % (11.0-16.0); White Blood Count 12.5 X10*3/uL (4.8-10.8)
[2022-08-30 06:56] LABS: Anion Gap 13 (12-20); Blood Urea Nitrogen 23 mg/dL (9-16); Calcium 8.9 mg/dL (8.4-10.2); Carbon Dioxide 30 mmol/L (22-29); Chloride 99 mmol/L (96-108); Creatinine Clr Calc Pharmacy 45.5; Estimated Glomerular Filt Rate > 60; Glucose Fasting 154 mg/dL (60-99); Sodium 137 mmol/L (135-145)
[2022-08-30 07:29] VITALS: BP 156/68; PULSE 95; RESP 16; TEMP 36.6; O2SAT 98
[2022-08-30] MEDS: dilTIAZem HCL CD 120 MG CAP.ER.DEG PO (07:39)
[2022-08-30] MEDS: hydroCHLOROthiazide 12.5 MG TABLET PO (07:39)
[2022-08-30] MEDS: Valsartan 80 MG TABLET PO (07:40)
[2022-08-30] MEDS: Azithromycin 500 MG TABLET PO (07:40)
[2022-08-30] MEDS: Enoxaparin Sodium 40 MG/0.4 ML SYRINGE SUBCUT (07:40)
[2022-08-30] MEDS: 0.9 % Sodium Chloride Flush 3 ML SYRINGE IVFLUSH (07:40)
[2022-08-30] MEDS: Aspirin Enteric Coated 81 MG TABLET.DR PO (07:40)
[2022-08-30] MEDS: Albuterol/Iprat 2.5/0.5MG 3 ML AMPUL.NEB INHALE ×2 (08:24→11:42)
[2022-08-30 08:26] VITALS: PULSE 93; RESP 16; O2SAT 95
--- NOTE | 2022-08-30 10:13 | PM.DS ---
DS: Providers Provider Date of Service: 08/30/22 Date of admission: 08/26/22 23:36 Primary care physician: Terrance Cleveland MD DS: Diagnosis Discharge Diagnosis (1) Acute on chronic respiratory failure with hypoxemia: Status: Acute (2) Community acquired pneumonia: Status: Acute DS: Summary Hospital Course Hospital Course: from initial hpi: 76F PMH chronic hyoxic respiratory failure due to copd on 2L prn at home, HTN, hld, breast ca, presented with sob. patient recently treated for pneumonia and copd exacerbation with doxy and prednisone, inititially improved, now with worsening sob over last few days, increased frequency of productive cough, chills without fever, increase o2 requirements, in ED CT showed RLL pna, hospital course: Patient was admitted for acute on chronic hypoxic respiratory failure due to pneumonia and COPD with acute decompensation. She was treated with ceftriaxone azithromycin, IV steroids, bronchodilators. Her O2 was weaned to baseline and her shortness of breath significantly improved. She will be discharged home on prednisone taper and 5 more days of cefuroxime and azithromycin. For hypertension she was continued on losartan, hydrochlorothiazide, diltiazem. For hyperlipidemia she was continued on statin. Patient is feeling better and she will be discharged home. Time Spent with Patient Time attestation: Total time managing care of this patient today ____ minutes. Discharge coordination time: Greater than 30 minutes Quality: Safe Use of Opioids Does Pt have an Active Cancer Diagnosis on the Problem List?: No Quality: Stroke Does the patient have a stroke diagnosis?: No Physical Exam Vital Signs: Vital Signs: Last Vital Signs Temp 98 F 08/30/22 07:29 Pulse 93 08/30/22 08:26 Resp 16 08/30/22 08:26 BP 156/68 H 08/30/22 07:29 Pulse Ox 98 08/30/22 07:29 O2 Del Method Nasal Cannula 08/30/22 07:29 O2 Flow Rate 2 08/30/22 07:29 Oxygen Flow Rate 2 08/26/22 16:08 BMI result Body Mass Index 16.6 General: AO X 3, no acute distress Resp: diminished bilateral, no accessory muscles used CVS: S1,S2,RRR GI: soft, non tender, non distended Neuro: motor grossly intact, alert Psych: appropriate affect, appropriate insight DS: Data Data Completed and Pending Labs on day of discharge: Laboratory Results - last 24 hr 08/30/22 08/30/22 05:54 05:54 WBC 12.5 H RBC 3.69 L Hgb 9.8 L Hct 31.1 L MCV 84.3 MCH 26.6 L MCHC 31.5 RDW 14.8 Plt Count 239 MPV 10.2 Absolute Nucleated RBC 0.000 Nucleated RBC % (auto) 0.0 Sodium 137 Potassium 5.0 D Chloride 99 Carbon Dioxide 30 H Anion Gap 13 BUN 23 H Creatinine 0.73 Estim Creat Clear Calc 45.5 Estimated GFR > 60 Fasting Glucose 154 H Calcium 8.9 Preliminary micro results at discharge 08/26/22 16:55 Blood Culture - Preliminary Blood - Venous No growth after 48 hours. 08/26/22 16:52 Blood Culture - Preliminary Blood - Venous No growth after 48 hours. Discharge Plan Discharge Anticipated Discharge Date/Time: 08/30/22 10:10 Patient Disposition: Home, Self-Care Discharge Diagnosis: pna Referrals: Terrance Cleveland MD [Primary Care Provider] - 1 Week Discharge Medications: New cefuroxime axetil 500 mg tablet 500 mg PO BID Qty: 10 0RF azithromycin 500 mg tablet 500 mg PO DAILY 5 Days Qty: 5 0RF prednisone 20 mg tablet 40 mg PO DAILY Qty: 15 0RF Rx Instructions: 40mg daily for 5 days, then 20mg dialy for 5 days Continued albuterol sulfate 90 mcg/actuation HFA aerosol inhaler 2 puff inhalation Q4H PRN (Reason: shortness of breath or wheezing) Qty: 8.5 0RF albuterol sulfate 2.5 mg /3 mL (0.083 %) solution for nebulization 2.5 mg inhalation BID 30 Days Qty: 180 11RF ropinirole 0.5 mg tablet 0.5 mg PO BEDTIME atorvastatin 40 mg tablet 40 mg PO BEDTIME omeprazole 40 mg capsule,delayed release(DR/EC) 40 mg PO DAILY diltiazem HCl 120 mg capsule,extended release 24hr 120 mg PO DAILY fluticasone propion-salmeterol 250-50 mcg/dose blister with device 1 ea inhalation BID tiotropium bromide 18 mcg capsule, w/inhalation device 1 cap inhalation DAILY irbesartan-hydrochlorothiazide 150-12.5 mg tablet 1 tab PO DAILY aspirin 81 mg tablet,delayed release (DR/EC) 81 mg PO DAILY sodium chloride 3 % solution for nebulization 4 ml inhalation BID 90 Days Qty: 750 11RF (DME) nebulizers Misc See Rx Instructions .ROUTE Rx Instructions: As directed (DME) Oxygen Home Use Kit See Rx Instructions .ROUTE Rx Instructions: As directed Discharge Orders: Discharge Order (Routine); Ordered 08/30/22 Ordered By: Juan Luis Bridges Diet: Advance to usual diet Activity on Discharge: As tolerated Stand Alone Forms: Patient Portal Discharge page Care Plan Goals: recovery Health Concerns: pna, copd Plan of Treatment: prednisone taper, ceftin, azithro Assessment: see above
[2022-08-30] MEDS: methylPREDNISolone Sod Succ 40 MG/ML VIAL IVPUSH (10:53)
--- NOTE | 2022-08-30 11:17 | MHC.CM.PN ---
PT WILL DC HOME TODAY WITH NO SERVICES VIA PRIVATE TRANSPORT
[2022-08-30 11:43] VITALS: PULSE 92; RESP 16; O2SAT 96
--- NOTE | 2022-09-08 10:12 | P.CDIM_ITS ---
PROVIDER RESPONSE TEXT: To clarify, the appropriate diagnosis supported by the clinical indicators: Malnutrition (mild or moderate) QUERY TEXT: PHYSICIAN'S DOCUMENTATION REQUEST Date of Query: 08/28/2022 11:55 AM EDT Patient Name: Mary Amor Admit Date: 08/27/2022 Dear Emily Marin, A review of the medical record indicates additional documentation may be needed. Please review below and update the documentation accordingly. Clinical Indicators: Height: ( ) Weight: ( ) BMI: ( ) 16.6 Other Clinical Notes Supporting Significance of the BMI: Per Clinical Nutrition Assessment 08/27/22: Severe emphysema with increased energy needs for respirati on. Mild depletion of body fat and muscle mass; weight loss trend x 3 years. Regular diet. Adding Ensure TID to provide add itional KCals and protein. Nutrition diagnosis non severe malnutrition in the context of chronic illness If possible, please provide an associated diagnosis related to the abnormal BMI, such as: Underweight Weight loss Cachexia Anorexia Malnutrition (mild or moderate) Other (explain)Clinically unable to determine (explain)Thank you, Ghazal Quintanilla RN Use of terms such as suspected, likely, concern for, or probable (associated with a specific diagnosi s that is being evaluated, monitored, or treated as if it exists) are acceptable and can be coded in the inpatient se tting, when documented at the time of discharge. Please use your independent medical judgment in providing your response. THIS QUERY IS PART OF THE PERMANENT MEDICAL RECORD
== END 2022-08-30 13:00 | disposition home or self-care (01) | DRG 193 ==
LOC: HO.ED 22:51 → HO.EDOVER 23:39 → HO.S3 08-27 07:33
PROVIDERS: Physician Assistant; Student in an Organized Health Care Education/Training Program; Admitting Provider Internal Medicine; Emergency Provider Internal Medicine; PCP Internal Medicine; Visit Provider Internal Medicine
DX: J18.9 Pneumonia, unspecified organism (principal); J96.21 Acute and chronic respiratory failure with hypoxia; J44.0 Chronic obstructive pulmonary disease with (acute) lower respiratory infection; J44.1 Chronic obstructive pulmonary disease with (acute) exacerbation; E44.0 Moderate protein-calorie malnutrition; Z68.1 Body mass index [BMI] 19.9 or less, adult; E78.5 Hyperlipidemia, unspecified; Z20.822 Contact with and (suspected) exposure to COVID-19; Z99.81 Dependence on supplemental oxygen; Z87.891 Personal history of nicotine dependence; I25.2 Old myocardial infarction; Z88.0 Allergy status to penicillin; Z88.2 Allergy status to sulfonamides; Z79.51 Long term (current) use of inhaled steroids; Z79.82 Long term (current) use of aspirin; Z79.899 Other long term (current) drug therapy
CPT/HCPCS: 0241U; 36415; 71046; 71275; 80048; 80053; 83605; 83690; 83735; 83880; 84484; 85025; 85027; 85610; 85730; 87040; 93005; 94640; 97116; 97162; 99285; J0696; J1650; J2543; J2920; J2930; Q9967

== ENCOUNTER 2022-09-21 12:08 | Outpatient (REF) | payer MEDICARE, BC, SELFPAY ==
--- NOTE | ~2022-09-21 | XR_ITS ---
EXAMINATION: XR CHEST CLINICAL INFORMATION: Left lower lobe pneumonia. COMPARISON: 08/26/2022 chest radiographs and chest CTA TECHNIQUE: PA and lateral views of the chest were obtained. FINDINGS: There is generalized hyperinflation. Minimal blunting of the right phrenic angle seen. Mild linear markings are seen in the lingula and right lung base laterally. Surgical clips overlie the right upper quadrant. XR/XR chest 2V IMPRESSION: COPD and chronic changes without acute cardiac pulmonary process.
== END 2022-09-21 12:09 | disposition home or self-care (01) ==
LOC: HO.HMGCX 12:08
PROVIDERS: PCP Internal Medicine; Visit Provider Internal Medicine
DX: J18.9 Pneumonia, unspecified organism (principal)
CPT/HCPCS: 71046

== ENCOUNTER → 2022-09-25 11:02 | Outpatient (BNVA) | payer MEDICARE, BC, SELFPAY | PROVIDERS: PCP Internal Medicine; Visit Provider Nurse Practitioner Family | DX: J44.9 Chronic obstructive pulmonary disease, unspecified (principal); J47.9 Bronchiectasis, uncomplicated; Z99.81 Dependence on supplemental oxygen | CPT/HCPCS: 99212 ==

== ENCOUNTER 2022-10-11 06:09 | Day surgery (SDC) | payer MEDICARE, BC, SELFPAY ==
[2022-10-09 10:53] VITALS: BMI 15.3
--- NOTE | 2022-10-10 08:49 | P.CONAN_ITS ---
Documented by User: Ana Jimenez NP 10/10/22 13:33 HPI - Anesthesia Eval Consult details Narrative: 76yo F for Bronchoscopy [facility] admit 08/2022 with pna/respiratory failure. Stable at last cardiac office visit 02/2022 with 1 year f/u [facility] Active Problems Active Problems: All Active Problems (Updated 10/09/22 @ 10:52 by Padmini Recinos, RN) Community acquired pneumonia (Acute) Acute on chronic respiratory failure with hypoxemia (Acute) Bronchiectasis (Acute) Pulmonary nodules (Acute) COPD (chronic obstructive pulmonary disease) (Acute) Past Medical History Medical History (Updated 10/09/22 @ 10:52 by Padmini Recinos, LUANNE) Bronchiectasis Carotid stenosis, bilateral COPD (chronic obstructive pulmonary disease) Former smoker, stopped smoking in distant past GERD (gastroesophageal reflux disease) History of breast cancer History of non-ST elevation myocardial infarction (NSTEMI) (~10/2017) HLD (hyperlipidemia) HTN (hypertension) Pulmonary nodules Surgical History Surgical History History of hysterectomy History of lumpectomy History of lung biopsy Social History Social History Household Members: None Housing: Condominium Are you a primary transitional care nurse to a significant other at home: No Do you presently have visiting nurse or other home services: No Alcohol intake: never Patient Tobacco Use Status: Former Tobacco user Quit Date: Tobacco use type: Cigarette Years Smoked: 20-30 years - quit 1997 Second Hand Smoke Exposure: No Use of substances other than those prescribed or required for medical reasons: No Have you been hit, kicked, punched, or otherwise hurt by someone within the past year? If so, by whom?: No Are you DNR?: No Advance Directives: No Advance Directives Information Provided: Yes (Info mailed w/ pre-op instructions) Advance Directives on File: No Recently lost weight without trying: Yes Patient : No service: No Current occupational status: retired Meds Allergies Allergy/AdvReac Type Severity Reaction Status Date / Time Sulfa (Sulfonamide Allergy Intermediate HIVES Verified 10/09/22 10:03 Antibiotics) [SULFA (SULFONAMIDE ANTIBIOTICS)] Amoxicillin Allergy Intermediate Hives Uncoded 10/09/22 10:03 Augementin Allergy Intermediate Hives Uncoded 10/09/22 10:03 Home Medications Medication Instructions Recorded Confirmed Last Taken Type aspirin 81 mg tablet,delayed 81 mg PO DAILY 08/09/20 10/09/22 10/04/22 History release atorvastatin 40 mg tablet 40 mg PO BEDTIME 08/09/20 10/09/22 10/10/22 History diltiazem HCl 120 mg 120 mg PO DAILY 08/09/20 10/09/22 10/11/22 History capsule,extended release 24 hr fluticasone 250 mcg-salmeterol 50 1 ea inhalation BID 08/09/20 10/09/22 10/11/22 History mcg/dose blistr powdr for inhalation irbesartan 150 1 tab PO DAILY 08/09/20 10/09/22 10/10/22 History mg-hydrochlorothiazide 12.5 mg tablet omeprazole 40 mg capsule,delayed 40 mg PO DAILY 08/09/20 10/09/22 10/11/22 History release tiotropium bromide 18 mcg capsule 1 cap inhalation DAILY 08/09/20 10/09/22 10/11/22 History with inhalation device Oxygen Home Use 08/07/22 09/25/22 Unknown History nebulizers 08/07/22 09/25/22 Unknown History azithromycin 500 mg tablet 500 mg PO 3XW 10/09/22 10/09/22 10/10/22 History Exam Exam Date and Time: October 10, 2022 0849 Height,Weight and Vital Signs: Height 5 ft 5 in Weight 41.73 kg Narrative Narrative: EKG 08/2022 Vent. Rate : 106 BPM ? ? Atrial Rate : 106 BPM ?? P-R Int : 136 ms? QRS Dur : 110 ms ? ? QT Int : 366 ms ? ? ? P-R-T Axes : 074 062 086 degrees ?? QTc Int : 486 ms ? Sinus tachycardia Minimal voltage criteria for LVH, may be normal variant ( [employer] product ) Possible Anterior infarct , age undetermined Abnormal ECG When compared with ECG of 12-OCT-2017 12:15, Questionable change in QRS duration Borderline criteria for Anterior infarct are now Present Carotid 07/2022 Bilat stenosis 50-69% Assessment and Plan Assessment Anesthesia Assessment: Chart Reviewed Documented by User: Chip Kaur MD 10/11/22 07:20 [facility] Past Medical History Medical History (Updated 10/09/22 @ 10:52 by Padmini Recinos RN) Bronchiectasis Carotid stenosis, bilateral COPD (chronic obstructive pulmonary disease) Former smoker, stopped smoking in distant past GERD (gastroesophageal reflux disease) History of breast cancer History of non-ST elevation myocardial infarction (NSTEMI) (~10/2017) HLD (hyperlipidemia) HTN (hypertension) Pulmonary nodules Family History Family history of problems with anesthesia: No Surgical History Surgical History History of hysterectomy History of lumpectomy History of lung biopsy History of Problems with Anesthesia: No Social History Social History Household Members: None [facility] Are you a primary transitional care nurse to a significant other at home: No Do you presently have visiting nurse or other home services: No Alcohol intake: never Patient Tobacco Use Status: Former Tobacco user Quit Date: Tobacco use type: Cigarette Years Smoked: 20-30 years - quit 1997 Second Hand Smoke Exposure: No Use of substances other than those prescribed or required for medical reasons: No Have you been hit, kicked, punched, or otherwise hurt by someone within the past year? If so, by whom?: No Are you DNR?: No Advance Directives: No Advance Directives Information Provided: Yes (Info mailed w/ pre-op instructions) Advance Directives on File: No Recently lost weight without trying: Yes Patient : No service: No Current occupational status: retired Meds Allergies Allergy/AdvReac Type Severity Reaction Status Date / Time Sulfa (Sulfonamide Allergy Intermediate HIVES Verified 10/09/22 10:03 Antibiotics) [SULFA (SULFONAMIDE ANTIBIOTICS)] Amoxicillin Allergy Intermediate Hives Uncoded 10/09/22 10:03 Augementin Allergy Intermediate Hives Uncoded 10/09/22 10:03 Home Medications Medication Instructions Recorded Confirmed Last Taken Type aspirin 81 mg tablet,delayed 81 mg PO DAILY 08/09/20 10/09/22 10/04/22 History release atorvastatin 40 mg tablet 40 mg PO BEDTIME 08/09/20 10/09/22 10/10/22 History diltiazem HCl 120 mg 120 mg PO DAILY 08/09/20 10/09/22 10/11/22 History capsule,extended release 24 hr fluticasone 250 mcg-salmeterol 50 1 ea inhalation BID 08/09/20 10/09/22 10/11/22 History mcg/dose blistr powdr for inhalation irbesartan 150 1 tab PO DAILY 08/09/20 10/09/22 10/10/22 History mg-hydrochlorothiazide 12.5 mg tablet omeprazole 40 mg capsule,delayed 40 mg PO DAILY 08/09/20 10/09/22 10/11/22 History release tiotropium bromide 18 mcg capsule 1 cap inhalation DAILY 08/09/20 10/09/22 10/11/22 History with inhalation device Oxygen Home Use 08/07/22 09/25/22 Unknown History nebulizers 08/07/22 09/25/22 Unknown History azithromycin 500 mg tablet 500 mg PO 3XW 10/09/22 10/09/22 10/10/22 History Exam Airway Mallampati Class: II TM Dist: >3cm Neck ROM: Limited Heart: rrr Lungs: diminished bs Assessment and Plan Assessment Anesthesia Assessment: Anesthesia Plan Discussed Final Anesthetic Review Family History of Problems with Anesthesia: No History of Problems with Anesthesia: No ASA Class: IV Final Preanesthetic Review: No Changes in Pt Med Stat, Meds/Allgs Chart Reviewed, Consent Obtained/Reviewed and Anes Risks/Benef Reviewed Patient Risk: High Procedure Risk: Intermediate Anesthetic Plan Anesthetic Plan: GA Disposition: Standard PACU
[2022-10-11] VITALS (9 sets, daily range): BP systolic 120–153; BP diastolic 54–69; PULSE 91–102; RESP 12–24; TEMP 36.1–36.4; O2SAT 93–100
[2022-10-11] MEDS: Lactated Ringers 1,000 ML 100 ML IVCONT (07:07)
--- NOTE | 2022-10-11 07:57 | PC.NURSE ---
nonproductive cough noted pt sts chronic
--- NOTE | 2022-10-11 08:07 | MHC.SHP ---
Pre-Procedural Eval Section A Date of Service: 10/11/22 The patient is an INPATIENT: No Changes since office visit: No Cold of Flu in the past 2 weeks, No New Medical Problems, No Changes in Medication and No Patient answered all questions The History & Physical has been completed within 30 days and I have reviewed it.: Yes Section B Chief Complaint: Bronchiectasis, uncomplicated Allergies: Allergies Allergy/AdvReac Type Severity Reaction Status Date / Time Sulfa (Sulfonamide Allergy Intermediate HIVES Verified 10/09/22 10:03 Antibiotics) [SULFA (SULFONAMIDE ANTIBIOTICS)] Amoxicillin Allergy Intermediate Hives Uncoded 10/09/22 10:03 Augementin Allergy Intermediate Hives Uncoded 10/09/22 10:03 Plan Diagnosis/Plan: Change (bronchoscopy for airway evaluation and deep cultures) I have reviewed the history and physical and performed a pertinent physical examination on my patient. No changes have occurred unless specified. Time Spent With Patient Time: Total time managing care of this patient today ____ minutes.
[2022-10-11] MEDS: Albuterol Sulfate (0.083%) 2.5 MG/3 ML VIAL.NEB INHALE (09:15)
--- NOTE | 2022-10-11 12:47 | P.BOP_ITS ---
Brief Operative Note Date of Service: 10/11/22 Pre-op diagnosis: bronchiectasis, bronchopneumonia Post-op diagnosis: other (epiglottis mass, bronchopneumonia) Procedure: bronchoscopy Implants: Surgeon: Cristobal White MD Was an Bridge Operator Slip used for this Procedure?: No Estimated blood loss (mL): 0 Pathology: none sent Condition: stable Disposition: same day
--- NOTE | 2022-10-12 00:15 | OP_ITS ---
DATE OF SERVICE: 10/11/2022 SURGEON: Cristobal White MD PREOPERATIVE DIAGNOSIS: POSTOPERATIVE DIAGNOSIS: PROCEDURE PERFORMED: Bronchoscopy with washings. ESTIMATED BLOOD LOSS: COMPLICATIONS: ANESTHESIA: LMA. ASSISTANTS: SPECIMENS: PREOPERATIVE DIAGNOSES: Bronchopneumonia and bronchiectasis. 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 PROCEDURE IN DETAIL: After the patient was adequately sedated, the LMA was placed, however, it was not fitting well. Therefore, at that point, the bronchoscope was inserted via the LMA and the LMA was brought back to try to fit into the right place, brought up on bringing it back. There was a mass-like density superior to the epiglottis concerning for cancer. Next, the bronchoscope was further introduced into the level of the larynx where the vocal cords did appear to be completely normal and the laryngeal structures as well. Normal symmetrical movement of the vocal cords. After instilling additional lidocaine, the bronchoscope was then inserted past the vocal cords to the level of the trachea. The patient did have mucoid secretions bilaterally, thick, primarily at the bases. Using washings, we were able to suction out all the mucus out of the airways. No endobronchial lesions or masses noted. The patient did have a very friable mucosa in the right middle lobe area. Bronchial washings were collected for microbiology and cytology and the bronchoscope was then removed after clearing of the airways. Patient tolerated the procedure well. After the procedures in PACU, she did need a breathing treatment. The total endoscopic time approximately 10 minutes. No complications noted. INTERPRETATION: 1. 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 2. Significant mucus consistent with her bronchiectasis, sent it for cytology and microbiology. Cristobal White MD MR/MODL / [id number]
== END 2022-10-11 11:20 | disposition home or self-care (01) ==
PROVIDERS: PCP Internal Medicine; Visit Provider Hospitalist
PROC: 0BJ08ZZ Inspection of Tracheobronchial Tree, Via Natural or Artificial Opening Endoscopic (ICD-10-PCS; CPT 31622; principal; 2022-10-11 08:00)
DX: J47.9 Bronchiectasis, uncomplicated (principal); J18.0 Bronchopneumonia, unspecified organism; J38.7 Other diseases of larynx; J44.9 Chronic obstructive pulmonary disease, unspecified; Z79.899 Other long term (current) drug therapy; Z85.3 Personal history of malignant neoplasm of breast; Z85.21 Personal history of malignant neoplasm of larynx; Z87.891 Personal history of nicotine dependence
CPT/HCPCS: 31622; 87071; 87102; 87205; 88112; 94640; J0171; J2370; J2405

== ENCOUNTER → 2022-11-08 09:07 | Outpatient (BNVA) | payer MEDICARE, BC, SELFPAY | PROVIDERS: PCP Internal Medicine; Visit Provider Hospitalist | DX: J47.9 Bronchiectasis, uncomplicated (principal); J38.7 Other diseases of larynx; R91.8 Other nonspecific abnormal finding of lung field | CPT/HCPCS: 99212 ==

== ENCOUNTER 2023-01-11 10:56 | Outpatient (REF) | payer MEDICARE, BC, SELFPAY ==
[2023-01-11 11:24] LABS: Alanine Aminotransferase 12 U/L (0-31); Albumin Level 3.7 g/dL (3.5-5.0); Alkaline Phosphatase 63 U/L (39-117); Aspartate Amino Transferase 19 U/L (5-31); Bilirubin Direct 0.1 mg/dL (0.0-0.5); Bilirubin Total 0.3 mg/dL (0.0-1.0); Glucose Fasting 100 mg/dL (60-99); Total Protein 5.8 g/dL (6.5-8.0)
[2023-01-11 11:48] LABS: Estimated Average Glucose 111 mg/dL; Hemoglobin A1c % 5.5 % (<6.0)
== END 2023-01-11 10:57 | disposition home or self-care (01) ==
LOC: HO.LNP 10:56
PROVIDERS: Visit Provider Internal Medicine
DX: E78.00 Pure hypercholesterolemia, unspecified (principal); R73.03 Prediabetes
CPT/HCPCS: 80076; 82947; 83036

== ENCOUNTER 2023-01-14 18:10 | Emergency (ER) | payer MEDICARE, BC, SELFPAY ==
--- NOTE | ~2023-01-14 | CT_ITS ---
EXAMINATION: CT CERVICAL SPINE WITHOUT CONTRAST CLINICAL INFORMATION: Head trauma COMPARISON: None available. TECHNIQUE: Axial images through the cervical spine without contrast. Sagittal and coronal reconstructions on the technologist workstation were performed. This CT examination was performed using dose optimization techniques as appropriate, variously including the following: *Automated exposure control *Adjustment of mA and/or kV according to patient size (this includes techniques or standardized protocols for targeted exams where dose is matched to indication/reason for exam; i.e. extremities or head) *Use of iterative reconstruction technique DLP: 183 mGy-cm FINDINGS: There is mild 2 mm anterior subluxation of C7 with respect to T1. Bone alignment is otherwise normal. No fracture or dislocation. Multilevel degenerative changes. There is degenerative spondylosis and large bridging anterior vertebral body bony osteophytes greatest at C4-C5 and T1-T2. There is multilevel disc space narrowing greatest from C4-C5 to C6-C7. There is bilateral multilevel facet arthritis, left greater than right. There are degenerative changes at the C1 dens articulation. Prevertebral soft tissues are normal. There is bilateral carotid calcification. There is biapical pleural and parenchymal scarring. CT/CT cervical spine wo IV con IMPRESSION: Multilevel degenerative changes. Fleischner guidelines were followed.
--- NOTE | ~2023-01-14 | CT_ITS ---
EXAMINATION: CT FACIAL BONES WITHOUT CONTRAST CLINICAL INFORMATION: Left periorbital pain. Fall. COMPARISON: None available. TECHNIQUE: Axial images through the facial bones without IV contrast. Sagittal and coronal reconstructions on the technologist workstation were performed. This CT examination was performed using dose optimization techniques as appropriate, variously including the following: *Automated exposure control *Adjustment of mA and/or kV according to patient size (this includes techniques or standardized protocols for targeted exams where dose is matched to indication/reason for exam; i.e. extremities or head) *Use of iterative reconstruction technique DLP: 200 mGy-cm FINDINGS: No fracture or dislocation. The orbits are normal appearing. The paranasal sinuses, mastoid air cells and middle ears are clear. The nasal septum is deviated to the left. There is a right alfonso bullosa. Temporomandibular joints are normal. CT/CT facial bones wo IV con IMPRESSION: Normal-appearing orbits. No fracture.
--- NOTE | ~2023-01-14 | CT_ITS ---
EXAMINATION: CT HEAD WITHOUT CONTRAST CLINICAL INFORMATION: Fall. Head trauma. COMPARISON: None available. TECHNIQUE: Contiguous axial imaging was performed from the skull base to vertex without intravenous administration of contrast. This CT examination was performed using dose optimization techniques as appropriate, variously including the following: *Automated exposure control *Adjustment of mA and/or kV according to patient size (this includes techniques or standardized protocols for targeted exams where dose is matched to indication/reason for exam; i.e. extremities or head) *Use of iterative reconstruction technique DLP: 609 mGy-cm FINDINGS: There is no evidence of an extra-axial collection. There is no evidence of intra-axial or extra-axial hemorrhage. Ventricles and extra-axial CSF spaces are prominent suggestive of mild generalized atrophy. There is nonspecific periventricular white matter disease. No mass, mass effect or infarct. No skull fracture. Visualized paranasal sinuses, mastoid air cells and middle ears are clear. CT/CT head/brain wo IV con IMPRESSION: No acute findings.
[2023-01-14 19:32] VITALS: BP 125/51; PULSE 101; RESP 18; TEMP 37.2; O2SAT 95; BMI 15.8
--- NOTE | 2023-01-14 19:34 | ED_ITS ---
HPI - Fall General Chief Complaint: Fall Stated Complaint: fell 01/11 eye bruising Time Seen by Provider: 01/14/23 23:01 Source: patient Mode of arrival: EMS Limitations: no limitations History of Present Illness HPI Narrative: patient apparently fell 3 days ago after tripping on the oxygen tubing landed on the front complaining of pain and ecchymosis to the left forehead which is more obvious in last 2 days no loss of consciousness no seizures patient ambulatory otherwise not on any anti coagulatant Related Data Home Medications Medication Instructions Recorded Confirmed aspirin 81 mg tablet,delayed 81 mg PO DAILY 08/09/20 10/09/22 release atorvastatin 40 mg tablet 40 mg PO BEDTIME 08/09/20 10/09/22 diltiazem HCl 120 mg 120 mg PO DAILY 08/09/20 10/09/22 capsule,extended release 24 hr fluticasone 250 mcg-salmeterol 50 1 ea inhalation BID 08/09/20 10/09/22 mcg/dose blistr powdr for inhalation irbesartan 150 1 tab PO DAILY 08/09/20 10/09/22 mg-hydrochlorothiazide 12.5 mg tablet omeprazole 40 mg capsule,delayed 40 mg PO DAILY 08/09/20 10/09/22 release tiotropium bromide 18 mcg capsule 1 cap inhalation DAILY 08/09/20 10/09/22 with inhalation device Oxygen Home Use 08/07/22 09/25/22 nebulizers 08/07/22 09/25/22 azithromycin 500 mg tablet 500 mg PO 3XW 10/09/22 10/09/22 Previous Rx's Medication Instructions Recorded albuterol sulfate 90 mcg/actuation 2 puff inhalation Q4H PRN 11/24/21 aerosol inhaler shortness of breath or wheezing #8.5 grams albuterol sulfate 2.5 mg/3 mL 2.5 mg (3 mL) inhalation BID 30 01/30/22 (0.083 %) solution for nebulization days #180 mL ipratropium 0.5 mg-albuterol 3 mg 3 ml inhalation Q6H PRN wheezing 09/26/22 (2.5 mg base)/3 mL nebulization #90 mL soln Allergies Allergy/AdvReac Type Severity Reaction Status Date / Time Sulfa (Sulfonamide Allergy Intermediate HIVES Verified 11/08/22 09:48 Antibiotics) [SULFA (SULFONAMIDE ANTIBIOTICS)] Amoxicillin Allergy Intermediate Hives Uncoded 11/08/22 09:48 Augementin Allergy Intermediate Hives Uncoded 11/08/22 09:48 Review of Systems Review of Systems: Yes all other systems are reviewed and are negative [facility] Past Medical History Medical History (Updated 01/15/23 @ 00:23 by Geovanny Loya MD) Former smoker, stopped smoking in distant past Carotid stenosis, bilateral GERD (gastroesophageal reflux disease) HLD (hyperlipidemia) HTN (hypertension) History of breast cancer History of non-ST elevation myocardial infarction (NSTEMI) (~10/2017) Bronchiectasis Pulmonary nodules COPD (chronic obstructive pulmonary disease) Surgical History History of lung biopsy History of lumpectomy History of hysterectomy Social History Social History Household Members: None [facility] Are you a primary caretaker grounds to a significant other at home: No Do you presently have visiting nurse or other home services: No Alcohol intake: never Patient Tobacco Use Status: Former Tobacco user Quit Date: Tobacco use type: Cigarette Years Smoked: 20-30 years - quit 1998 Smoked in Last 30 Days: No Second Hand Smoke Exposure: No Use of substances other than those prescribed or required for medical reasons: No Advance Directives: Yes Advance Directives Information Provided: No Advance Directives on File: No service: No Current occupational status: retired Physical Exam Vital Signs: Vital Signs: Last Vital Signs Temp 98.2 F 01/14/23 22:38 Pulse 92 01/14/23 22:38 Resp 16 01/14/23 22:38 BP 137/62 01/14/23 22:38 Pulse Ox 95 01/14/23 22:38 O2 Del Method Room Air 01/14/23 22:38 BMI result Body Mass Index 15.8 Appearance: Alert. Oriented X3. No acute distress. Eyes: PERRLA, No Nystagmus ENT: Pharynx normal. Oral Mucosa moist ecchymosis left forehead left eyebrow Neck: Normal inspection. Neck supple. CVS: Normal heart rate and rhythm. Pulses normal. Respiratory: No respiratory distress. Equal air entry bilateral, no wheezing/rales/rhonchi Abdomen: Soft and nontender. Bowel sounds are present, Skin: Skin warm and dry. Normal skin color. Normal skin turgor. Extremities: No lower extremity edema. No calf tenderness Neuro: Oriented X 3. No motor deficit. No sensory deficit.No cerebellar signs , cranial nerves II-XII intact Course Course Course Narrative: RME - 77 yo female with history of COPD on O2, bronchiectasis, epiglottic cancer presenting for headache and left eye pain s/p mechanical fall 3 days ago. She tripped over her O2 tubing and hit the left side of her face. No LOC. Developed 8/10 left frontal headache next day. Only on ASA. Has ecchymosis to left periorbital area, no pain with extra occular movements. No vision changes Plan: CT scans Medical Decision Making Medical Decision Making [facility] Narrative: patient status post mechanical for CT scan of the head C-spine and facial bones are negative patient ambulating steady gait will discharge patient home Discharge Plan Discharge Clinical Impression: Minor closed head injury Patient Disposition: Home, Self-Care Instructions: Head Injury (ED) Additional Instructions: care and cautions as advised Tylenol for pain Prescriptions: No Action albuterol sulfate 90 mcg/actuation HFA aerosol inhaler 2 puff inhalation Q4H PRN (Reason: shortness of breath or wheezing) Qty: 8.5 0RF albuterol sulfate 2.5 mg /3 mL (0.083 %) solution for nebulization 2.5 mg inhalation BID 30 Days Qty: 180 11RF ipratropium-albuterol 0.5 mg-3 mg(2.5 mg base)/3 mL solution for nebulization 3 ml inhalation Q6H PRN (Reason: wheezing) Qty: 90 0RF Rx Instructions: use in place of nebulized albuterol azithromycin 500 mg tablet 500 mg PO 3XW atorvastatin 40 mg tablet 40 mg PO BEDTIME omeprazole 40 mg capsule,delayed release(DR/EC) 40 mg PO DAILY diltiazem HCl 120 mg capsule,extended release 24hr 120 mg PO DAILY fluticasone propion-salmeterol 250-50 mcg/dose blister with device 1 ea inhalation BID tiotropium bromide 18 mcg capsule, w/inhalation device 1 cap inhalation DAILY irbesartan-hydrochlorothiazide 150-12.5 mg tablet 1 tab PO DAILY aspirin 81 mg tablet,delayed release (DR/EC) 81 mg PO DAILY (DME) nebulizers Misc See Rx Instructions .Route Rx Instructions: As directed (DME) Oxygen Home Use Kit See Rx Instructions .Route Rx Instructions: As directed
--- NOTE | 2023-01-14 22:08 | PC.NURSE ---
Pt presents to RE after a fall on Saturday. Pt stated she tripped over her oxygen tubing, hit her counter, then fell on the floor. Pt denies loss of consciousness. Starting Saturday, she noticed bruising by her left eye and a headache. Bruising has spread so pt came in to be checked out. Pt is A&Ox4, GCS 15, neuros are in tact. Pt denies any vision changes, nausea, or vomiting. Pt states 7/10 pain above her left eye. CTs have been taken, pt waiting ED provider at this time.
[2023-01-14 22:38] VITALS: BP 137/62; PULSE 92; RESP 16; TEMP 36.8; O2SAT 95
== END 2023-01-15 00:42 | disposition home or self-care (01) ==
PROVIDERS: Emergency Provider Internal Medicine; PCP Internal Medicine
DX: S09.90XA Unspecified injury of head, initial encounter (principal); R51.9 Headache, unspecified; M54.2 Cervicalgia; W01.10XA Fall on same level from slipping, tripping and stumbling with subsequent striking against unspecified object, initial encounter; Y93.9 Activity, unspecified; Y92.9 Unspecified place or not applicable; Y99.9 Unspecified external cause status; Z79.899 Other long term (current) drug therapy
CPT/HCPCS: 70450; 70486; 72125; 99284

== ENCOUNTER 2023-03-11 09:35 | Outpatient (AMB) | payer MEDICARE, BC, SELFPAY ==
--- NOTE | 2023-03-11 09:54 | MHC.OFFVIS ---
Intake Vital Signs 03/11/23 09:56 Height 5 ft 5 in Weight 92 lb BMI 15.3 BP 122/60 Blood Pressure Location Rt brachial Position Sitting Pulse 92 Pulse Source Pulse Oximeter Pulse Oximetry (%) 95 Oxygen Delivery Method Room Air Comment 2 Liters Oxygen([employer]) Intake Visit Reasons: copd Community Advocate Required: No Allergies Sulfa (Sulfonamide Antibiotics) [SULFA (SULFONAMIDE ANTIBIOTICS)] Allergy (Intermediate, Verified 03/11/23 09:54) HIVES Amoxicillin Allergy (Intermediate, Uncoded 03/11/23 09:54) Hives Augementin Allergy (Intermediate, Uncoded 03/11/23 09:54) Hives HPI HPI Comments History of Present Illness Details The patient is a 77-year-old woman with a known history of pulmonary nodules and emphysema in addition to history of breast cancer status post radiation therapy. She has had pulmonary nodules now for many years. Back in 2012 she did have a PET scan and subsequently [address]-guided biopsy of a lingular masslike density. 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 She had although pulmonary nodules and had frequent CT scans taking. Her last CT scan of the chest was done July 2019 demonstrating stable pulmonary nodules. I did compared to her previous CT scan from [facility] from 2015 demonstrating interval decrease in the size of the lingular nodular density. Otherwise she does have emphysema. She does take inhalers with good response. She has not been sick and not require prednisone now for many years. She has had admissions to [facility] for her COPD the last time was 2019. The patient does have some shortness of breath with activity. Moderate severity. We talked about pulmonary rehab. She is going to consider pulmonary rehabilitation and will perform some pulmonary function studies to see if she qualifies. 08/08/2021 the patient is here for a pulmonary follow-up visit. She continues to do well on the current respiratory regimen. She continues on the azithromycin 3 times a week for her bronchiectasis. She did have an EKG done by her hydraulic barker operator and was noted to be normal per the patient. The patient is tolerating the azithromycin well without any adverse effects. She does have pulmonary nodules over following. The largest 9 mm in size. She is scheduled for CT scan of January 2022. Will follow-up after the CT scan to review it with her. 01/29/2022 the patient is here for pulmonary follow-up visit. Overall the patient is doing well. She continues use her maintenance inhalers with good response. she has not had to use her albuterol solution as often. She is asking for mediastinal last to the pharmacy since she is getting some much. The patient is trying to stay active walking regularly. The patient did undergo a CT scan of the chest that was personally by me. Her pulmonary nodules appear to be stable which is reassuring. She does have extensive emphysema. It appears that she has some increased mucus plugging. We talked about increasing her chest physical therapy. The patient already has an Acapella valve will have her use hypertonic saline after her albuterol in order to maximize her chest physical therapy and pulmonary hygiene. Patient is to perform the hypertonic saline twice a day followed by the Acapella valve. The patient continues on the azithromycin for her chronic bronchitis and bronchiectasis. Need to make sure that she has EKGs done to assess her QT interval. 08/07/2022 the patient is here for a pulmonary follow-up visit. The patient overall has been complaining of worsening chest tightness and shortness of breath for the last month. She has also been coughing more and has been productive. She has been on the azithromycin 3 times a week for bronchiectasis. And she also continues use her respiratory inhalers and also the nebulized therapy once or twice a day. Still not improved. The patient is also planning to go on a trip soon to [place] and she was to make sure that she feels better for the trip. With the worsening cough will go ahead and change her antibiotics. She has multiple allergies to consider. In addition to that she can not perform a prednisone taper. I am hopeful that she can start feeling better in a couple days. If however her cough is no better on a she is to call the office and get a sputum culture. The patient is due for CT scan sometime in January for her pulmonary nodules. Although she continues to be symptomatic will consider getting imaging studies at an earlier basis. 11/08/2022 the patient is here for a pulmonary follow-up visit. She is status post bronchoscopy. During the bronchoscopy she was found to have abnormal area in the larynx. She was referred urgently to ENT. She did have head and neck CT scan. The findings are actually reassuring. Although I do not have the notes from the ENT doctor at this time explained to her that her respiratory issues are likely related to the finding and the larynx. She does have bronchiectasis significant mucus plugging. Her cultures are negative which is reassuring. She is on the azithromycin 3 times a week has been also using hypertonic saline use using the Acapella valve. We will going to request a percussion vest at this time for better bronchopulmonary hygiene. She is going to continue with current respiratory therapy as well. The patient has been using the oxygen with activity which is helpful and beneficial. 03/11/2023 the patient is here for a pulmonary follow-up visit. The patient overall has been doing fairly well. She does complaint of fatigue and dyspnea will wean with minimal exertion. She has lost some weight. She continues on the respiratory therapy. She has a hard time expectorating the phlegm. Will go ahead and make sure that she is using the hypertonic saline and will go ahead and provide her with a sputum cup in order for her to bring sputum specimen to the office. In addition to that the patient will have pulmonary function studies in order to get her to pulmonary rehabilitation which she can regain some of that muscle strength that she has lost through this process. She will continue with current respiratory regimen at this time. [facility] Medical History (Updated 03/11/23 @ 10:05 by Cristobal White MD) Former smoker, stopped smoking in distant past Carotid stenosis, bilateral GERD (gastroesophageal reflux disease) HLD (hyperlipidemia) HTN (hypertension) History of breast cancer History of non-ST elevation myocardial infarction (NSTEMI) (~10/2017) Bronchiectasis Pulmonary nodules COPD (chronic obstructive pulmonary disease) Surgical History History of lung biopsy History of lumpectomy History of hysterectomy Social History Household Members: None Housing: Condominium Are you a primary post acute care registered nurse to a significant other at home: No Do you presently have visiting nurse or other home services: No Alcohol intake: never Patient Tobacco Use Status: Former Tobacco user Quit Date: Tobacco use type: Cigarette Years Smoked: 20-30 years - quit 1997 Second Hand Smoke Exposure: No service: No Current occupational status: retired Review of Systems Const Reports fatigue, Denies fever(s) and Denies night sweats ENT Denies change in voice, Denies lip swelling, Denies mouth pain, Reports nasal congestion, Reports nasal discharge and Denies tongue swelling Card Denies chest pain and Reports dyspnea on exertion Resp Denies change in phlegm color, Reports chest congestion, Reports cough, Denies hemoptysis, Denies excessive phlegm production, Reports dyspnea on exertion and Reports wheezing GI Denies abdominal pain Musc Denies no additional complaints Neuro Denies Neuro-related abnormal movements Psych Denies no additional complaints Endo Reports fatigue Tj/Lymph Denies easy bleeding and Denies lymphadenopathy Aller/Immun Denies lip swelling, Denies tongue swelling and Reports wheezing Physical Exam Vital Signs: Last Vital Signs Pulse 92 03/11/23 09:56 BP 122/60 03/11/23 09:56 Pulse Ox 95 03/11/23 09:56 Oxygen Delivery Method Room Air 03/11/23 09:56 BMI result Body Mass Index 15.3 Const General: alert Neck Neck: Yes normal visual inspection, Yes full ROM and Yes no lymphadenopathy Chest Chest palpation & inspection: normal inspection of the chest Resp Auscultation: no rhonchi, no wheezes and diminished lung sounds Cardio Rate: regular rate Rhythm: regular rhythm Heart sounds: S1 normal heart sound present and S2 normal heart sound present GI Palpation (GI): Soft to palpation and nontender Auscultation: normal bowel sounds Skin General skin exam: rashes and/or lesions noted Assessment & Plan Assessment & Plan (1) Bronchiectasis: Code(s): J47.9 - Bronchiectasis, uncomplicated Qualifiers: Bronchiectasis type: uncomplicated Qualified Code(s): J47.9 - Bronchiectasis, uncomplicated (2) Pulmonary nodules: Code(s): R91.8 - Other nonspecific abnormal finding of lung field (3) COPD (chronic obstructive pulmonary disease): Code(s): J44.9 - Chronic obstructive pulmonary disease, unspecified Plan continue Albuterol Nebs QID followed by acapella valve hypertonic saline 3% for CPT percussion vest sputum culture PFTs and start pulmonary rehab continue Azithromycin MWF Continue Advair/Spiriva CT chest in the Spring 2023 unless not feeling well F/U 4-6 months Orders: Orders Pulmonary Rehab Today J44.9 - Chronic obstructive pulmonary disease, unspecified, J47.9 - Bronchiectasis, uncomplicated PFT pulmonary function test Today J44.9 - Chronic obstructive pulmonary disease, unspecified, J47.9 - Bronchiectasis, uncomplicated Acid-fast Culture + Smear Today J44.9 - Chronic obstructive pulmonary disease, unspecified, J47.9 - Bronchiectasis, uncomplicated Sputum Cult + Gram stain Today J44.9 - Chronic obstructive pulmonary disease, unspecified, J47.9 - Bronchiectasis, uncomplicated Coding Level of Care Code Est Pt Level 4 (13460) Diagnoses Bronchiectasis without complication J47.9 Bronchiectasis type: uncomplicated Pulmonary nodules R91.8 Chronic obstructive pulmonary disease with acute exacerbation J44.9 Time Spent (min) 17
[2023-03-11 09:56] VITALS: BP 122/60; PULSE 92; O2SAT 95; BMI 15.3
== END 2023-03-11 10:17 | disposition home or self-care (01) ==
PROVIDERS: PCP Internal Medicine; Visit Provider Hospitalist
DX: J44.9 Chronic obstructive pulmonary disease, unspecified (principal); R91.8 Other nonspecific abnormal finding of lung field
CPT/HCPCS: 99213

== ENCOUNTER → 2023-03-11 09:35 | Outpatient (BNVA) | payer MEDICARE, BC, SELFPAY | PROVIDERS: PCP Internal Medicine; Visit Provider Hospitalist | DX: J44.9 Chronic obstructive pulmonary disease, unspecified (principal); J47.9 Bronchiectasis, uncomplicated; R91.8 Other nonspecific abnormal finding of lung field; Z79.899 Other long term (current) drug therapy | CPT/HCPCS: 99212 ==

== ENCOUNTER 2023-03-19 18:28 | Emergency (ER) | payer MEDICARE, BC, SELFPAY ==
--- NOTE | 2023-03-19 | ECG_ITS ---
Test Reason : SOB Blood Pressure : / mmHG Vent. Rate : 098 BPM Atrial Rate : 098 BPM P-R Int : 134 ms QRS Dur : 078 ms QT Int : 356 ms P-R-T Axes : 082 088 022 degrees QTc Int : 454 ms Normal sinus rhythm Nonspecific T wave abnormality Inferior leads Right axis deviation Nonspecific ST abnormality Abnormal ECG When compared with ECG of 26-AUG-2022 15:59, QRS duration has decreased Borderline criteria for Anterior infarct are no longer Present ST no longer elevated in Anterior leads T wave inversion now evident in Inferior leads Referred By: Taylor Tellez Electronically Signed By:JACINDA HERNANDEZ MD
--- NOTE | ~2023-03-19 | XR_ITS ---
EXAMINATION: XR CHEST CLINICAL INFORMATION: Dyspnea. Chest pain. COMPARISON: Previous chest x-ray most recent September 2022 TECHNIQUE: Frontal view of the chest was obtained. FINDINGS: The cardiac and mediastinal contours are stable. The lungs are well-inflated suggestive of COPD. There is atelectasis or small infiltrate at the left lung base. There may be patchy airspace disease or atelectasis at the right lung base as well. There is blunting at left costophrenic angle questionable for small left pleural effusion. No right pleural effusion. No pneumothorax. Surgical clips in the right axilla. Degenerative changes of the spine. XR/XR chest 1V IMPRESSION: Bibasilar atelectasis or small infiltrates, left greater than right. Question small left pleural effusion.
[2023-03-19 18:35] VITALS: BP 169/70; PULSE 110; O2SAT 97
[2023-03-19 18:43] VITALS: BP 101/54; PULSE 109; RESP 24; TEMP 37; O2SAT 90; BMI 16.0
--- NOTE | 2023-03-19 19:40 | MHC.EDTECH ---
This tech took over care of patient at 1900,changed patient into hospital attire,placed on the rn cardiac rehab. Vitals,and EKG were taken and labs and Sars were obtained and sent to lab.Barbara alfonso is within reach and family at bedside.
[2023-03-19 19:42] VITALS: BP 138/53; PULSE 102; RESP 22; TEMP 37.2; O2SAT 98
[2023-03-19 19:43] LABS: MANUAL DIFF FLAG NO
[2023-03-19 19:46] LABS: Basophils Absolute Auto 0.1 X10*3/uL (0.0-0.2); Basophils Percent Auto 0.6 % (0-2); Eosinophils Absolute Auto 0.2 X10*3/uL (0.0-0.4); Eosinophils Percent Auto 1.5 % (0-4); Hematocrit 28.4 % (37.0-47.0); Hemoglobin 8.6 g/dl (12.0-16.0); Imm Gran Abs Auto 0.05 X10*3/uL (0.00-0.03); Imm Gran Pct Auto 0.4 % (0.0-0.4); Lymphocytes Absolute Auto 1.2 X10*3/uL (1.2-4.9); Lymphocytes Percent Auto 9.3 % (20-40); Mean Corpuscular HGB Conc 30.3 g/dl (31.0-35.0); Mean Corpuscular Hemoglobin 24.2 pg (27.0-33.0); Mean Platelet Volume 10.1 fL (9.4-12.3); Monocytes Percent Auto 7.5 % (2-11); Neutrophils Absolute Auto 10.5 x10*3/uL (2.0-8.3); Neutrophils Percent Auto 80.7 % (45-73); Platelet Count 272 X10*3/uL (160-400); Red Blood Count 3.55 X10*6/uL (4.20-5.50); Red Cell Distribution Width 18.6 % (11.0-16.0)
[2023-03-19 19:50] LABS: VBG Base Excess 10.3 mmol/L; VBG HCO3 33 mmol/L (22-26); VBG pCO2 36 mmHg; VBG pH 7.56 (7.32-7.43); VBG pO2 94 mmHg
[2023-03-19 19:52] LABS: Venous Blood Gas Refer to POC result
--- NOTE | 2023-03-19 19:55 | ED_ITS ---
HPI - SOB/Dyspnea General Chief Complaint: Dyspnea Stated Complaint: SOB,COPD Time Seen by Provider: 03/19/23 18:36 History of Present Illness HPI Narrative: patient is a 77-year-old female presents today with having shortness of breath. He has a history of COPD. Baseline is on 2 L of oxygen at home. Patient complaining of pain to the chest on the right side. Worse with movement. Worse with coughing. Patient is vaccinated for COVID. Denies any fever chills. No diaphoresis. Positive previous history of ME in the past. No history of diabetes, hypertension, hypercholesterolemia. The pain is very sharp. It is made worse with breathing. She has no leg swelling. No history of cancer. No history of blood clots in the past. Related Data Home Medications Medication Instructions Recorded Confirmed aspirin 81 mg tablet,delayed 81 mg PO DAILY 08/09/20 03/19/23 release atorvastatin 40 mg tablet 40 mg PO BEDTIME 08/09/20 03/19/23 diltiazem HCl 120 mg 120 mg PO DAILY 08/09/20 03/19/23 capsule,extended release 24 hr fluticasone 250 mcg-salmeterol 50 1 ea inhalation BID 08/09/20 03/19/23 mcg/dose blistr powdr for inhalation irbesartan 150 1 tab PO DAILY 08/09/20 03/19/23 mg-hydrochlorothiazide 12.5 mg tablet omeprazole 40 mg capsule,delayed 40 mg PO DAILY 08/09/20 03/19/23 release Oxygen Home Use 08/07/22 09/25/22 nebulizers 08/07/22 09/25/22 azithromycin 500 mg tablet 500 mg PO MOWEFR 10/09/22 03/19/23 calcium-vitamin D3-vitamin K 500 1 tab PO BID 03/19/23 03/19/23 mg-100 unit-40 mcg chewable tablet Previous Rx's Medication Instructions Recorded albuterol sulfate 2.5 mg/3 mL 2.5 mg (3 mL) inhalation BID 30 01/30/22 (0.083 %) solution for nebulization days #180 mL ipratropium 0.5 mg-albuterol 3 mg 3 ml inhalation Q6H PRN wheezing 09/26/22 (2.5 mg base)/3 mL nebulization #90 mL soln albuterol sulfate 90 mcg/actuation 2 puff inhalation Q4H PRN 01/16/23 aerosol inhaler shortness of breath or wheezing #8.5 grams tiotropium bromide 18 mcg capsule 1 cap inhalation DAILY 90 days #90 02/21/23 with inhalation device inhalations doxycycline hyclate 100 mg capsule 100 mg PO BID cough 7 days #14 caps 03/20/23 prednisone 10 mg tablet 10 mg PO DIRECTED #35 tabs 03/20/23 Allergies Allergy/AdvReac Type Severity Reaction Status Date / Time Sulfa (Sulfonamide Allergy Intermediate HIVES Verified 03/11/23 09:54 Antibiotics) [SULFA (SULFONAMIDE ANTIBIOTICS)] Amoxicillin Allergy Intermediate Hives Uncoded 03/11/23 09:54 Augementin Allergy Intermediate Hives Uncoded 03/11/23 09:54 Review of Systems 2 Review of Systems: Positive shortness of breath Yes all other systems are reviewed and are negative [facility] Past Medical History Medical History Former smoker, stopped smoking in distant past Carotid stenosis, bilateral GERD (gastroesophageal reflux disease) HLD (hyperlipidemia) HTN (hypertension) History of breast cancer History of non-ST elevation myocardial infarction (NSTEMI) (~10/2017) Bronchiectasis Pulmonary nodules COPD (chronic obstructive pulmonary disease) Surgical History History of lung biopsy History of lumpectomy History of hysterectomy Social History Social History Household Members: None Housing: Condominium Are you a primary patient care provider to a significant other at home: No Do you presently have visiting nurse or other home services: No Alcohol intake: never Patient Tobacco Use Status: Former Tobacco user Quit Date: Tobacco use type: Cigarette Years Smoked: 20-30 years - quit 1998 Smoked in Last 30 Days: No Second Hand Smoke Exposure: No Use of substances other than those prescribed or required for medical reasons: No Advance Directives: No Advance Directives Information Provided: No service: No Current occupational status: retired Physical Exam 2 Vital Signs: Vital Signs: Last Vital Signs Temp 98.4 F 03/19/23 22:27 Pulse 113 H 03/19/23 22:27 Resp 22 H 03/19/23 22:27 BP 127/45 L 03/19/23 22:27 Pulse Ox 95 03/19/23 22:27 O2 Del Method Nasal Cannula 03/19/23 22:27 O2 Flow Rate 2 03/19/23 22:27 Oxygen Flow Rate 3 03/19/23 18:43 BMI result Body Mass Index 16.0 Appearance: Alert. Oriented X3. No acute distress. Eyes: Pupils equal, round and reactive to light. ENT: Pharynx normal. Neck: Normal inspection. Neck supple. No lymph nodes noted. No crepitus CVS: Normal heart rate and rhythm. Pulses normal. Normal S1 and S2 Respiratory: diminished breath sounds bilaterally Abdomen: Soft and nontender. No rigidity. No distention. good BS x4 Skin: Skin warm and dry. Normal skin color. Normal skin turgor. Extremities: No lower extremity edema. Neurovascular intact to all extremities. No Lacerations. No Rash Neuro: Oriented X 3. No motor deficit. No sensory deficit. Moving all extermities. No slurred speech Medications Administered Discontinued Medications Generic Name Dose Route Start Last Admin Trade Name Vincenzoq PRN Reason Stop Dose Admin Albuterol/Ipratropium 3 ml 03/19/23 19:54 03/19/23 20:45 Albuterol/Iprat 2.5/0.5mg 3 Ml Ampul.Neb INHALE 03/19/23 19:55 3 ml ONCE ONE Administration Ketorolac Tromethamine 15 mg 03/19/23 21:31 03/19/23 21:43 Ketorolac Tromethamine 15 Mg/Ml Vial IVPUSH 03/19/23 21:32 15 mg ONCE ONE Administration Methylprednisolone Sodium Succinate 60 mg 03/19/23 19:54 03/19/23 20:59 Methylprednisolone Sod Succ 125 Mg/2 Ml Vial IVPUSH 03/19/23 19:55 60 mg ONCE ONE Administration Medical Decision Making Medical Decision Making MDM Narrative: patient's chest x-ray by radiology's interpretation show question infiltrate. Very minimal. On my interpretation patient's x-ray consistent with COPD. Patient had some generalized malaise weakness. Her VBG showed no CO2 retention. Baseline is on a couple L of oxygen which is baseline. Patient has no hypoxia. Given a neb treatment with good results. Patient's D-dimer is in the 300s. In the settings of patient being 77 years old after age adjustment is negative. Her BNP is 52 there is no evidence of congestive heart failure or right-sided heart strain. Patient's flu COVID RSV were all negative. Will start patient on doxycycline for the very questionable x-ray finding. Of note patient's curb 65 score is a 1. Patient is awake alert BUN is normal no elevated respiratory rate normal blood pressure however she is 77 years old. Her score is 1. Will discharge patient home. Doxycycline was started. Will start patient on a course of steroids. Close follow-up on an outpatient basis. Differential Diagnosis Differential Diagnoses: The differential diagnosis associated with the presentation includes Pneumonia, pneumothorax, PE, COPD, CAD Admission/Observation Consideration of admission/observation: Escalation of care including admission/observation considered no need for admission is patient is well appearing Lab Data MDM Lab Attestation statement: I reviewed the patient's lab results. 03/19/23 19:38 03/19/23 19:38 Labs: Lab Results 03/19/23 03/19/23 03/19/23 Range/Units 19:38 19:44 20:21 WBC 13.0 H (4.8-10.8) X10*3/uL RBC 3.55 L (4.20-5.50) X10*6/uL Hgb 8.6 L (12.0-16.0) g/dl Hct 28.4 L (37.0-47.0) % MCV 80.0 (80.0-98.0) fL MCH 24.2 L (27.0-33.0) pg MCHC 30.3 L (31.0-35.0) g/dl RDW 18.6 H (11.0-16.0) % Plt Count 272 (160-400) X10*3/uL MPV 10.1 (9.4-12.3) fL Immature Gran % (Auto) 0.4 (0.0-0.4) % Neut % (Auto) 80.7 H (45-73) % Lymph % (Auto) 9.3 L (20-40) % Monona % (Auto) 7.5 (2-11) % Eos % (Auto) 1.5 (0-4) % Baso % (Auto) 0.6 (0-2) % Lymph # (Auto) 1.2 (1.2-4.9) X10*3/uL [place]ona # (Auto) 1.0 (0.1-1.2) X10*3/uL Eos # (Auto) 0.2 (0.0-0.4) X10*3/uL Baso # (Auto) 0.1 (0.0-0.2) X10*3/uL Abs Immat Gran (auto) 0.05 H (0.00-0.03) X10*3/uL Absolute Neuts (auto) 10.5 H (2.0-8.3) x10*3/uL Absolute Nucleated RBC 0.000 (0.0-0.012) X10*3/uL Nucleated RBC % (auto) 0.0 (0.0-0.2) /100WBC D-Dimer High Sensitivty 345 NG/ML VBG pH 7.56 H (7.32-7.43) VBG pCO2 36 mmHg VBG pO2 94 mmHg VBG HCO3 33 H (22-26) mmol/L VBG O2 Saturation 99.0 % VBG Base Excess 10.3 mmol/L Sodium 136 (135-145) mmol/L Potassium 3.3 D (3.3-5.1) mmol/L Chloride 100 (96-108) mmol/L Carbon Dioxide 26 (22-29) mmol/L Anion Gap 13 (12-20) BUN 14 (9-16) mg/dL Creatinine 0.71 (0.5-1.4) mg/dL Estim Creat Clear Calc 44.1 Estimated GFR > 60 Random Glucose 122 H (60-115) mg/dL Calcium 9.5 D (8.4-10.2) mg/dL Total Bilirubin 0.3 (0.0-1.0) mg/dL AST 15 (5-31) U/L ALT 7 (0-31) U/L Alkaline Phosphatase 87 (39-117) U/L Troponin I High Sens 3.9 D (<3.5-17.0) ng/L B-Natriuretic Peptide 52 (<100) pg/mL Total Protein 6.4 L (6.5-8.0) g/dL Albumin 4.0 (3.5-5.0) g/dL Influenza Type A (PCR) NEGATIVE (Negative) Influenza Type B (PCR) NEGATIVE (Negative) RSV RNA Qual (PCR) NEGATIVE (Negative) SARS-CoV-2 RNA (RT-PCR) NEGATIVE (Negative) Independent Interpretation I performed an independent interpretation of an: Plain X-Ray ( my interpretation patient's chest x-ray grossly negative) Radiology Impression Discussion of test interpretation with radiology: I have reviewed the radiologist's reading. Independent Historian Clinical information obtained from an independent historian. History obtained from or confirmed by: Spouse External Record Review External record reviewed: Inpatient record Discharge Plan Discharge Clinical Impression: COPD (chronic obstructive pulmonary disease), Bronchitis Patient Disposition: Home, Self-Care Instructions: Acute Bronchitis (ED), COPD (Chronic Obstructive Pulmonary Disease) (DC) Prescriptions: New doxycycline hyclate 100 mg capsule 100 mg PO BID 7 Days Qty: 14 0RF prednisone 10 mg tablet 10 mg PO DIRECTED Qty: 35 0RF Rx Instructions: 4 tabs per day the first 4 days, then 3 tab per day for 3 days, then 2 tabs per day for 3 days, then 1 tab per day for 3 days No Action albuterol sulfate 2.5 mg /3 mL (0.083 %) solution for nebulization 2.5 mg inhalation BID 30 Days Qty: 180 11RF ipratropium-albuterol 0.5 mg-3 mg(2.5 mg base)/3 mL solution for nebulization 3 ml inhalation Q6H PRN (Reason: wheezing) Qty: 90 0RF Rx Instructions: use in place of nebulized albuterol albuterol sulfate 90 mcg/actuation HFA aerosol inhaler 2 puff inhalation Q4H PRN (Reason: shortness of breath or wheezing) Qty: 8.5 0RF tiotropium bromide 18 mcg capsule, w/inhalation device 1 cap inhalation DAILY 90 Days Qty: 90 3RF azithromycin 500 mg tablet 500 mg PO MOWEFR Viactiv 500-100-40 mg-unit-mcg Tablet,Chewable 1 tab PO BID atorvastatin 40 mg tablet 40 mg PO BEDTIME omeprazole 40 mg capsule,delayed release(DR/EC) 40 mg PO DAILY diltiazem HCl 120 mg capsule,extended release 24hr 120 mg PO DAILY fluticasone propion-salmeterol 250-50 mcg/dose blister with device 1 ea inhalation BID irbesartan-hydrochlorothiazide 150-12.5 mg tablet 1 tab PO DAILY aspirin 81 mg tablet,delayed release (DR/EC) 81 mg PO DAILY (DME) nebulizers Misc See Rx Instructions .Route Rx Instructions: As directed (DME) Oxygen Home Use Kit See Rx Instructions .Route Rx Instructions: As directed Referrals: Terrance Cleveland MD [Primary Care Provider] - 03/22/23
[2023-03-19 20:01] LABS: Alanine Aminotransferase 7 U/L (0-31); Alkaline Phosphatase 87 U/L (39-117); Anion Gap 13 (12-20); Aspartate Amino Transferase 15 U/L (5-31); Bilirubin Total 0.3 mg/dL (0.0-1.0); Blood Urea Nitrogen 14 mg/dL (9-16); Calcium 9.5 mg/dL (8.4-10.2); Carbon Dioxide 26 mmol/L (22-29); Chloride 100 mmol/L (96-108); Creatinine Clr Calc Pharmacy 44.1; Estimated Glomerular Filt Rate > 60; Glucose Random 122 mg/dL (60-115); Potassium 3.3 mmol/L (3.3-5.1); Sodium 136 mmol/L (135-145); Total Protein 6.4 g/dL (6.5-8.0)
[2023-03-19 20:06] LABS: B Type Natriuretic Peptide 52 pg/mL (<100)
[2023-03-19 20:08] LABS: Troponin-I High Sensitivity 3.9 ng/L (<3.5-17.0)
[2023-03-19 20:22] LABS: Influenza A PCR NEGATIVE (Negative); Influenza B PCR NEGATIVE (Negative); Resp Syncy Virus RNA Qual PCR NEGATIVE (Negative); SARS COV2 PCR INHOUSE NEGATIVE (Negative)
[2023-03-19 20:33] LABS: D Dimer High Sensitivity 345 NG/ML
[2023-03-19] MEDS: Albuterol/Iprat 2.5/0.5MG 3 ML AMPUL.NEB INHALE (20:45)
[2023-03-19 20:49] VITALS: PULSE 109; RESP 20
[2023-03-19] MEDS: methylPREDNISolone Sod Succ 125 MG/2 ML VIAL 60 MG IVPUSH (20:59)
--- NOTE | 2023-03-19 21:10 | PHA.MEDREC ---
Pharmacy Consult ? Medication Reconciliation Pharmacy has completed the medication reconciliation. Patient has list that match claim history. Antony BojorquezD
[2023-03-19 21:23] VITALS: BP 126/50; PULSE 114; RESP 20; O2SAT 97
[2023-03-19] MEDS: Ketorolac Tromethamine 15 MG/ML VIAL IVPUSH (21:43)
[2023-03-19 22:27] VITALS: BP 127/45; PULSE 113; RESP 22; TEMP 36.9; O2SAT 95
--- NOTE | 2023-03-19 22:30 | MHC.EDTECH ---
Hourly rounds and vitals completed, patient is resting comfortably and waiting on discharge.
[2023-03-20 00:28] VITALS: BP 118/57; PULSE 108; RESP 20; TEMP 36.7; O2SAT 96
[2023-03-20] MEDS: Doxycycline Monohydrate 100 MG CAPSULE PO (00:45)
== END 2023-03-20 00:53 | disposition home or self-care (01) ==
PROVIDERS: Emergency Provider Emergency Medicine Emergency Medical Services; PCP Internal Medicine
DX: J44.9 Chronic obstructive pulmonary disease, unspecified (principal); J40 Bronchitis, not specified as acute or chronic; R06.02 Shortness of breath; Z99.81 Dependence on supplemental oxygen; Z79.82 Long term (current) use of aspirin; Z79.899 Other long term (current) drug therapy; I10 Essential (primary) hypertension; E78.5 Hyperlipidemia, unspecified; Z87.891 Personal history of nicotine dependence; Z20.822 Contact with and (suspected) exposure to COVID-19; Z20.828 Contact with and (suspected) exposure to other viral communicable diseases
CPT/HCPCS: 0241U; 36415; 71045; 80053; 82803; 83880; 84484; 85025; 85379; 93005; 94640; 96374; 96375; 99284; 99285; J1885; J2930

== ENCOUNTER 2023-04-25 09:44 | Outpatient (REF) | payer MEDICARE, BC, SELFPAY ==
--- NOTE | 2023-04-25 10:15 | PFT_ITS ---
Spirometry [] FVC 68%, FEV1 31%, FEV1/FVC ratio 35 FEFf 25-75 = 21 % Mvv31% Lung Volumes [] Total lung capacity 89%, residual volume 120% indicating air trapping Diffusion Capacity [] DLCO 15% dL/VA 27% Methacholine Challenge [] Flow Volume Loops [] MVV [] MIP/MEP(Max inspiratory pressure/Max expiratory pressure) [] 6 Minute Walk Test [] ABG [] Interpretation [] Obstructive airway disorder, very severe No response to bronchodilator therapy. MTDD
== END 2023-04-25 09:45 | disposition home or self-care (01) ==
LOC: HO.RESP 09:44
PROVIDERS: PCP Internal Medicine; Visit Provider Hospitalist
DX: J44.9 Chronic obstructive pulmonary disease, unspecified (principal); J47.9 Bronchiectasis, uncomplicated
CPT/HCPCS: 94010; 94727; 94729

== ENCOUNTER → 2023-04-25 10:15 | Outpatient (BNV) | payer MEDICARE, BC, SELFPAY | PROVIDERS: PCP Internal Medicine; Visit Provider Internal Medicine | DX: J44.9 Chronic obstructive pulmonary disease, unspecified (principal) | CPT/HCPCS: 94060; 94727; 94729 ==

== ENCOUNTER 2023-06-13 10:54 | Outpatient (REF) | payer MEDICARE, BC, SELFPAY ==
[2023-06-13 10:57] LABS: MANUAL DIFF FLAG NO
[2023-06-13 11:35] LABS: Basophils Absolute Auto 0.1 X10*3/uL (0.0-0.2); Basophils Percent Auto 0.8 % (0-2); Eosinophils Absolute Auto 0.2 X10*3/uL (0.0-0.4); Eosinophils Percent Auto 2.6 % (0-4); Hematocrit 27.5 % (37.0-47.0); Hemoglobin 8.1 g/dl (12.0-16.0); Imm Gran Abs Auto 0.04 X10*3/uL (0.00-0.03); Imm Gran Pct Auto 0.5 % (0.0-0.4); Lymphocytes Absolute Auto 1.7 X10*3/uL (1.2-4.9); Lymphocytes Percent Auto 19.8 % (20-40); Mean Corpuscular HGB Conc 29.5 g/dl (31.0-35.0); Mean Corpuscular Volume 74.7 fL (80.0-98.0); Mean Platelet Volume 10.3 fL (9.4-12.3); Monocytes Absolute Auto 0.8 X10*3/uL (0.1-1.2); Monocytes Percent Auto 8.9 % (2-11); Neutrophils Absolute Auto 5.7 x10*3/uL (2.0-8.3); Neutrophils Percent Auto 67.4 % (45-73); Platelet Count 342 X10*3/uL (160-400); Red Blood Count 3.68 X10*6/uL (4.20-5.50); Red Cell Distribution Width 16.4 % (11.0-16.0); White Blood Count 8.4 X10*3/uL (4.8-10.8)
[2023-06-13 11:44] LABS: Estimated Average Glucose 117 mg/dL; Hemoglobin A1c % 5.7 % (<6.0)
[2023-06-13 11:48] LABS: Alanine Aminotransferase 8 U/L (0-31); Albumin Level 3.8 g/dL (3.5-5.0); Alkaline Phosphatase 89 U/L (39-117); Anion Gap 13 (12-20); Aspartate Amino Transferase 14 U/L (5-31); Bilirubin Total 0.4 mg/dL (0.0-1.0); Blood Urea Nitrogen 14 mg/dL (9-16); Calcium 9.6 mg/dL (8.4-10.2); Carbon Dioxide 28 mmol/L (22-29); Chloride 100 mmol/L (96-108); Cholesterol 151 mg/dL (<200); Estimated Glomerular Filt Rate > 60; Glucose Fasting 104 mg/dL (60-99); HDL Cholesterol 74 mg/dL (>40); LDL Cholesterol Calculated 63 mg/dL (<100); Potassium 3.8 mmol/L (3.3-5.1); Sodium 137 mmol/L (135-145); Triglycerides 74 mg/dL (<150)
== END 2023-06-13 10:55 | disposition home or self-care (01) ==
LOC: HO.LNP 10:54
PROVIDERS: Visit Provider Internal Medicine
DX: I10 Essential (primary) hypertension (principal); E78.00 Pure hypercholesterolemia, unspecified; R73.03 Prediabetes
CPT/HCPCS: 80053; 80061; 83036; 85025

== ENCOUNTER 2023-07-04 15:48 | Outpatient (REF) | payer MEDICARE, BC, SELFPAY ==
[2023-07-04 15:57] LABS: Appearance Urine Clear; Color Urine Yellow; Glucose Urine UA Negative (Negative); Leukocyte Esterase Urine Negative (Negative); Nitrite Urine Negative (Negative); PH 6.5 (5.0-9.0); Urine Blood Negative (Negative); Urine Ketones Negative (Negative); Urine Protein Negative (Neg-Trace)
[2023-07-04 16:33] LABS: Creatinine Urine 50.56 mg/dL; Microalbum/Creatinine Ratio Ur 9.8 ug/mg cr (<30)
== END 2023-07-04 15:49 | disposition home or self-care (01) ==
LOC: HO.LNP 15:48
PROVIDERS: Visit Provider Internal Medicine
DX: R73.03 Prediabetes (principal); E78.00 Pure hypercholesterolemia, unspecified; I10 Essential (primary) hypertension
CPT/HCPCS: 81003; 82043; 82570

== ENCOUNTER 2023-07-11 10:17 | Outpatient (REF) | payer MEDICARE, BC, SELFPAY ==
--- NOTE | ~2023-07-11 | CT_ITS ---
EXAMINATION: CT CHEST WITHOUT CONTRAST CLINICAL INFORMATION: Lung mass. COMPARISON: Chest radiograph 03/19/2023, CT angiogram chest 08/26/2022. TECHNIQUE: Multidetector volumetric CT imaging of the chest was done. Axial MIP volume rendering provided. Sagittal and coronal reformatted images were obtained. This CT examination was performed using dose optimization techniques as appropriate, variously including the following: *Automated exposure control *Adjustment of mA and/or kV according to patient size (this includes techniques or standardized protocols for targeted exams where dose is matched to indication/reason for exam; i.e. extremities or head) *Use of iterative reconstruction technique DLP: 64 mGy-cm FINDINGS: LUNGS: Moderate to marked emphysematous changes are present throughout the lungs with bullous formation and hyperinflation. Biapical pleural parenchymal scarring is seen with some areas of calcification, right greater than left. Peribronchial thickening is present. Traction bronchiectasis is seen, especially at the lung bases. Scattered pulmonary nodules are present. At the time of the prior study, there was a 1.1 cm right lower lobe pleural-based mass/nodule present which now measures only 0.8 cm. Additional surrounding opacity was present in this area that has cleared in the interim, thought to have represented bronchopneumonia. Some mild infiltrative disease had been present in the right middle lobe which now appears more linear and scar-like. Scattered pulmonary nodular densities are present throughout the lungs, some of which appear new. There is a new paramediastinal irregular opacity measuring about 8 mm in the left upper lobe (5:79). There is a new posterior left upper lobe opacity measuring about 4 mm in size (5:98) There is a new 3 mm opacity seen in the superior segment of the right lower lobe (5:265). Multiple scattered, small micronodules are unchanged (for example 3 mm posterior left upper lobe 5:157 compare prior 9:171). There is a 5 mm perifissural lymph node in the right upper lobe which is unchanged (5:292 compare prior 9:286). There is a spiculated density seen in the right lower lobe measuring 8 mm that is unchanged (5:355 compare prior 9:327). There is a 1 cm calcified nodule seen in the lingula anteriorly that is unchanged (5:370 compare prior 9:348). MEDIASTINUM: No mediastinal or hilar lymphadenopathy. CORONARY ARTERY CALCIFICATION: Moderate. PLEURA: There is no pleural effusion. No pleural mass or thickening. AXILLA/CHEST WALL: No lymphadenopathy. Bilateral breast calcifications are present. UPPER ABDOMEN: Unremarkable. Calcific atherosclerotic plaque present in the abdominal aorta OSSEOUS STRUCTURES: Unremarkable. CT/CT chest wo IV con IMPRESSION: 1. Moderate to marked emphysematous changes are present with bullous formation and traction bronchiectasis. 2. Multiple pulmonary nodules are present some of which are new and some of which are unchanged. The largest nodule in the right lower lobe has decreased in size from 1.1 cm to 0.8 cm and may have been part of resolving right lower lobe bronchopneumonia. A follow up CT scan in 6 months is recommended for further evaluation. According to the UPDATED 2017 Fleischner Society recommendations, the advised follow up imaging for a single 6-8 mm solid nodule is follow up CT at 6 to 12 months. In high-risk patients, subsequent CT follow up at 18 to 24 months is recommended. In low-risk patients, subsequent CT follow up at 18 to 24 months is optional.
== END 2023-07-11 10:18 | disposition home or self-care (01) ==
LOC: HO.CT 10:17
PROVIDERS: PCP Internal Medicine; Referring Provider Internal Medicine; Visit Provider Hospitalist
DX: R91.1 Solitary pulmonary nodule (principal)
CPT/HCPCS: 71250

== ENCOUNTER 2023-09-11 09:39 | Outpatient (AMB) | payer MEDICARE, BC, SELFPAY ==
[2023-09-11 09:40] VITALS: BP 88/42; PULSE 110; O2SAT 82
--- NOTE | 2023-09-11 09:40 | MHC.OFFVIS ---
Vital Signs 09/11/23 09:40 Weight 90 lb BP 88/42 L Blood Pressure Location Rt brachial Position Sitting Pulse 110 H Pulse Source Doppler Pulse Oximetry (%) 82 L Oxygen Delivery Method Nasal Cannula Oxygen Flow Rate 2 Intake Visit Reasons: copd : 6 month f/u Allergies Sulfa (Sulfonamide Antibiotics) [SULFA (SULFONAMIDE ANTIBIOTICS)] Allergy (Intermediate, Verified 09/11/23 09:48) HIVES Amoxicillin Allergy (Intermediate, Uncoded 03/11/23 09:54) Hives Augementin Allergy (Intermediate, Uncoded 03/11/23 09:54) Hives HPI Comments Details: The patient is a 77-year-old woman with a known history of pulmonary nodules and emphysema in addition to history of breast cancer status post radiation therapy. She has had pulmonary nodules now for many years. Back in 2012 she did have a PET scan and subsequently [address]-guided biopsy of a lingular masslike density. 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 She had although pulmonary nodules and had frequent CT scans taking. Her last CT scan of the chest was done July 2019 demonstrating stable pulmonary nodules. I did compared to her previous CT scan from [facility] from 2015 demonstrating interval decrease in the size of the lingular nodular density. Otherwise she does have emphysema. She does take inhalers with good response. She has not been sick and not require prednisone now for many years. She has had admissions to [facility] for her COPD the last time was 2018. The patient does have some shortness of breath with activity. Moderate severity. We talked about pulmonary rehab. She is going to consider pulmonary rehabilitation and will perform some pulmonary function studies to see if she qualifies. 08/08/2021 the patient is here for a pulmonary follow-up visit. She continues to do well on the current respiratory regimen. She continues on the azithromycin 3 times a week for her bronchiectasis. She did have an EKG done by her catalogue clerk and was noted to be normal per the patient. The patient is tolerating the azithromycin well without any adverse effects. She does have pulmonary nodules over following. The largest 9 mm in size. She is scheduled for CT scan of January 2022. Will follow-up after the CT scan to review it with her. 01/29/2022 the patient is here for pulmonary follow-up visit. Overall the patient is doing well. She continues use her maintenance inhalers with good response. she has not had to use her albuterol solution as often. She is asking for mediastinal last to the pharmacy since she is getting some much. The patient is trying to stay active walking regularly. The patient did undergo a CT scan of the chest that was personally by me. Her pulmonary nodules appear to be stable which is reassuring. She does have extensive emphysema. It appears that she has some increased mucus plugging. We talked about increasing her chest physical therapy. The patient already has an Acapella valve will have her use hypertonic saline after her albuterol in order to maximize her chest physical therapy and pulmonary hygiene. Patient is to perform the hypertonic saline twice a day followed by the Acapella valve. The patient continues on the azithromycin for her chronic bronchitis and bronchiectasis. Need to make sure that she has EKGs done to assess her QT interval. 08/07/2022 the patient is here for a pulmonary follow-up visit. The patient overall has been complaining of worsening chest tightness and shortness of breath for the last month. She has also been coughing more and has been productive. She has been on the azithromycin 3 times a week for bronchiectasis. And she also continues use her respiratory inhalers and also the nebulized therapy once or twice a day. Still not improved. The patient is also planning to go on a trip soon to [place] and she was to make sure that she feels better for the trip. With the worsening cough will go ahead and change her antibiotics. She has multiple allergies to consider. In addition to that she can not perform a prednisone taper. I am hopeful that she can start feeling better in a couple days. If however her cough is no better on a she is to call the office and get a sputum culture. The patient is due for CT scan sometime in January for her pulmonary nodules. Although she continues to be symptomatic will consider getting imaging studies at an earlier basis. 11/08/2022 the patient is here for a pulmonary follow-up visit. She is status post bronchoscopy. During the bronchoscopy she was found to have abnormal area in the larynx. She was referred urgently to ENT. She did have head and neck CT scan. The findings are actually reassuring. Although I do not have the notes from the ENT doctor at this time explained to her that her respiratory issues are likely related to the finding and the larynx. She does have bronchiectasis significant mucus plugging. Her cultures are negative which is reassuring. She is on the azithromycin 3 times a week has been also using hypertonic saline use using the Acapella valve. We will going to request a percussion vest at this time for better bronchopulmonary hygiene. She is going to continue with current respiratory therapy as well. The patient has been using the oxygen with activity which is helpful and beneficial. 03/11/2023 the patient is here for a pulmonary follow-up visit. The patient overall has been doing fairly well. She does complaint of fatigue and dyspnea will wean with minimal exertion. She has lost some weight. She continues on the respiratory therapy. She has a hard time expectorating the phlegm. Will go ahead and make sure that she is using the hypertonic saline and will go ahead and provide her with a sputum cup in order for her to bring sputum specimen to the office. In addition to that the patient will have pulmonary function studies in order to get her to pulmonary rehabilitation which she can regain some of that muscle strength that she has lost through this process. She will continue with current respiratory regimen at this time. 09/11/2023 the patient is here for a pulmonary follow-up visit. She had been more short of breath and also been weak. Tight down. She recently followed up with Oncology. She was told her blood pressure was low in the 80s. The patient is currently on a wheelchair. She has had issues with significant anemia. The last hemoglobin was significant. She has received blood transfusions in the past. She is be following up with GI regarding having a colonoscopy. In the meantime she has been having more shortness of breath. She has a portable oxygen concentrator. Unfortunately she breathes through her mouth and she does not seem to activate the pulse valve. Therefore we switched over from 2 L pulse where she was saturating 82% 2 2 L continues which improved to 93%. Therefore she is going to continue using the continues oxygen [employer] will send a prescription to her [employer] company. She is currently using [employer]. I also had a small oxygen tank that I did provide her so she can take it home and continue the 2 L continuous until she does to her home concentrator. Her blood pressure was also low today still in the high 80s low 90s her systolic pressure. The patient appears to be dehydrated will give her some IV fluids prior to going home. She should also get some blood work. If her blood work is abnormal she continues to be hypoxic or dizzy she needs to go to the ER. [facility] Medical History (Updated 09/11/23 @ 22:30 by Cristobal White MD) Anemia Former smoker, stopped smoking in distant past Carotid stenosis, bilateral GERD (gastroesophageal reflux disease) HLD (hyperlipidemia) HTN (hypertension) History of breast cancer History of non-ST elevation myocardial infarction (NSTEMI) (~10/2017) Bronchiectasis Pulmonary nodules COPD (chronic obstructive pulmonary disease) Surgical History History of lung biopsy History of lumpectomy History of hysterectomy Social History Household Members: None [facility]: [facility] Are you a primary care director rn to a significant other at home: No Do you presently have visiting nurse or other home services: No Alcohol intake: never Comment: States will need w/c to get her up to [facility] department Patient Tobacco Use Status: Former Tobacco user Quit Date: Tobacco use type: Cigarette Years Smoked: 20-30 years - quit 1997 Second Hand Smoke Exposure: No service: No Current occupational status: retired Review of Systems Const Reports fatigue, Denies fever(s), Denies night sweats, Reports poor appetite, Reports weakness and Reports weight loss ENT Denies change in voice, Denies lip swelling, Denies mouth pain, Reports nasal congestion, Reports nasal discharge and Denies tongue swelling Card Denies chest pain, Reports dyspnea and Reports dyspnea on exertion Resp Denies change in phlegm color, Reports cough, Denies hemoptysis, Denies excessive phlegm production, Reports dyspnea, Reports dyspnea on exertion and Reports wheezing GI Denies abdominal pain Musc Denies no additional complaints Neuro Denies Neuro-related abnormal movements and Reports weakness Psych Denies no additional complaints Endo Reports fatigue Tj/Lymph Denies easy bleeding and Denies lymphadenopathy Aller/Immun Denies lip swelling, Denies tongue swelling and Reports wheezing Physical Exam Vital Signs: Last Vital Signs Pulse 110 H 09/11/23 09:40 BP 88/42 L 09/11/23 09:40 Pulse Ox 82 L 09/11/23 09:40 Oxygen Delivery Method Nasal Cannula 09/11/23 09:40 Oxygen Flow Rate 2 09/11/23 09:40 Const General: alert and tired appearing Nutritional Appearance: underweight Orientation/consciousness: patient oriented x3 Neck Neck: Yes normal visual inspection, Yes full ROM and Yes no lymphadenopathy Chest Chest palpation & inspection: normal inspection of the chest Resp Effort & Inspection: tachypneic and prolonged expiratory phase Auscultation: no rhonchi, no wheezes and diminished lung sounds Cardio Rate: regular rate Rhythm: regular rhythm Heart sounds: S1 normal heart sound present and S2 normal heart sound present GI Palpation (GI): Soft to palpation and nontender Auscultation: normal bowel sounds Skin General skin exam: rashes and/or lesions noted Neuro General: patient oriented x3 Extrem General: No cyanosis and No edema Assessment & Plan Assessment & Plan (1) Bronchiectasis: Code(s): J47.9 - Bronchiectasis, uncomplicated Category: Medical Qualifiers: Bronchiectasis type: uncomplicated Qualified Code(s): J47.9 - Bronchiectasis, uncomplicated (2) Pulmonary nodules: Code(s): R91.8 - Other nonspecific abnormal finding of lung field Category: Medical (3) COPD (chronic obstructive pulmonary disease): Comment: worsening disease Code(s): J44.9 - Chronic obstructive pulmonary disease, unspecified Category: Medical Qualifiers: COPD type: emphysema Emphysema type: centrilobular Qualified Code(s): J43.2 - Centrilobular emphysema (4) Hypotension: Code(s): I95.9 - Hypotension, unspecified Category: Medical Qualifiers: Hypotension type: unspecified hypotension type Qualified Code(s): I95.9 - Hypotension, unspecified Plan Will need to switch from conserving device oxygen to continues oxygen 2L/min Bloodwork IVF, 500 ml NS bolus x1 today continue Albuterol Nebs QID followed by acapella valve hypertonic saline 3% for CPT percussion vest continue Azithromycin MWF Continue Advair/Spiriva CT chest in 6-12 months F/U 4-6 months Orders: Orders Basic Metabolic Panel Today D64.9 - Anemia, unspecified PT, INR - Anti Coag Today D64.9 - Anemia, unspecified Complete Blood Count Auto Diff Today D64.9 - Anemia, unspecified Referrals Infusion Center Notification I95.9 - Hypotension, unspecified Medications: New prednisone PO daily; Take 2 tabs daily x 5 days, then 1 tablet daily x 5 days 10 days 15 tabs 0RF Coding Level of Care Code Est Pt Level 5 (73302) Complex EM visit Add On G2211 Diagnoses Bronchiectasis without complication J47.9 Bronchiectasis type: uncomplicated Pulmonary nodules R91.8 Centrilobular emphysema J43.2 COPD type: emphysema Emphysema type: centrilobular Hypotension, unspecified hypotension type I95.9 Hypotension type: unspecified hypotension type Time Spent (min) 60
== END 2023-09-11 13:27 | disposition home or self-care (01) ==
PROVIDERS: PCP Internal Medicine; Visit Provider Hospitalist
DX: J47.9 Bronchiectasis, uncomplicated (principal); R91.8 Other nonspecific abnormal finding of lung field; J43.2 Centrilobular emphysema; I95.9 Hypotension, unspecified
CPT/HCPCS: 99215; G2211

== ENCOUNTER → 2023-09-11 09:39 | Outpatient (BNVA) | payer MEDICARE, BC, SELFPAY | PROVIDERS: PCP Internal Medicine; Visit Provider Hospitalist | DX: J47.9 Bronchiectasis, uncomplicated (principal); J43.2 Centrilobular emphysema; I95.9 Hypotension, unspecified; R91.8 Other nonspecific abnormal finding of lung field | CPT/HCPCS: 99212 ==

== ENCOUNTER 2023-09-21 16:03 | Inpatient (IN) | payer MEDICARE, BC, SELFPAY ==
[2023-09-21] VITALS (7 sets, daily range): BP systolic 82–123; BP diastolic 36–60; PULSE 89–112; RESP 10–28; TEMP 36.8; O2SAT 87–99; BMI 15.0
--- NOTE | 2023-09-21 | ECG_ITS ---
Test Reason : SOB Blood Pressure : / mmHG Vent. Rate : 100 BPM Atrial Rate : 100 BPM P-R Int : 120 ms QRS Dur : 106 ms QT Int : 368 ms P-R-T Axes : 075 086 045 degrees QTc Int : 474 ms Normal sinus rhythm Minimal voltage criteria for LVH, may be normal variant ( Hudson product ) Anterior infarct , age undetermined Abnormal ECG When compared with ECG of 19-MAR-2023 19:25, QRS duration has increased Anterior infarct is now Present ST elevation now present in Anterior leads Nonspecific T wave abnormality no longer evident in Anterior leads Referred By: Generic ED Physician Electronically Signed By:LAKEISHA HUMPHREYS MD
--- NOTE | ~2023-09-21 | XR_ITS ---
EXAMINATION: XR CHEST CLINICAL INFORMATION: Tachypnea. Cough. COMPARISON: 07/22/2023. TECHNIQUE: Frontal view of the chest was obtained. FINDINGS: The lung reed are hyperinflated. The cardiomediastinal silhouette is stable. There is minimal atelectasis and/or scarring at the lung bases which were present previously. There is no new consolidation or pleural effusion. The bony structures are osteopenic. The soft tissues are unremarkable. XR/XR chest 1V IMPRESSION: No acute cardiopulmonary disease. Hyperinflated lung reed with minimal atelectasis and/or scarring at the lung bases.
--- NOTE | ~2023-09-21 | XR_ITS ---
EXAMINATION: XR CHEST CLINICAL INFORMATION: Shortness of breath and chest pain COMPARISON: Chest radiograph 03/19/2023 CT chest 08/26/2022 TECHNIQUE: Frontal view of the chest was obtained. FINDINGS: There is marked hyperinflation compatible with COPD. Bibasilar atelectasis is seen. Surgical clips are seen in the right axilla. There is a healing fracture of the right 10th anterolateral rib. There are increased markings at the right lung base consistent with bronchiectasis seen on the prior 08/26/2022 CT scan of the chest. XR/XR chest 1V IMPRESSION: 1. COPD with bibasilar atelectasis. 2. Healing right 10th rib fracture.
--- NOTE | 2023-09-21 16:25 | ED_ITS ---
HPI - SOB/Dyspnea General Chief Complaint: Dyspnea Stated Complaint: COPD exacerbation upon exertion, duoneb Time Seen by Provider: 09/21/23 16:25 Source: patient Mode of arrival: EMS Limitations: no limitations History of Present Illness HPI Narrative: Patient is 77 years old with history of hypertension bronchiectasis severe COPD oxygen-dependent 2 L via nasal cannula comes here for increased shortness of breath for 3 - 4 days patient started on prednisone 20 mg for last 4 days coughing increasing amount of phlegm mucopurulent no fever no chills feels chest tight on arrival patient's blood pressure was 88/36 pulse rate of under for saturating 97% 2 L using accessory respiratory muscles no history of CHF patient was admitted here last time was 08/26 Related Data Home Medications ?Medication ?Instructions ?Recorded ?Confirmed aspirin 81 mg tablet,delayed 81 mg PO DAILY 08/09/20 03/19/23 release atorvastatin 40 mg tablet 40 mg PO BEDTIME 08/09/20 03/19/23 diltiazem HCl 120 mg 120 mg PO DAILY 08/09/20 03/19/23 capsule,extended release 24 hr fluticasone 250 mcg-salmeterol 50 1 ea inhalation BID 08/09/20 03/19/23 mcg/dose blistr powdr for inhalation irbesartan 150 1 tab PO DAILY 08/09/20 03/19/23 mg-hydrochlorothiazide 12.5 mg tablet omeprazole 40 mg capsule,delayed 40 mg PO DAILY 08/09/20 03/19/23 release Oxygen Home Use 08/07/22 09/25/22 nebulizers 08/07/22 09/25/22 calcium-vitamin D3-vitamin K 500 1 tab PO BID 03/19/23 03/19/23 mg-100 unit-40 mcg chewable tablet Previous Rx's ?Medication ?Instructions ?Recorded albuterol sulfate 2.5 mg/3 mL 2.5 mg (3 mL) inhalation BID 30 01/30/22 (0.083 %) solution for nebulization days #180 mL ipratropium 0.5 mg-albuterol 3 mg 3 ml inhalation Q6H PRN wheezing 09/26/22 (2.5 mg base)/3 mL nebulization #90 mL soln albuterol sulfate 90 mcg/actuation 2 puff inhalation Q4H PRN 01/16/23 aerosol inhaler shortness of breath or wheezing #8.5 grams tiotropium bromide 18 mcg capsule 1 cap inhalation DAILY 90 days #90 02/21/23 with inhalation device inhalations doxycycline hyclate 100 mg capsule 100 mg PO BID cough 7 days #14 caps 03/20/23 prednisone 10 mg tablet 10 mg PO DIRECTED #35 tabs 03/20/23 azithromycin 500 mg tablet 500 mg PO MOWEFR 28 days #12 tabs 06/12/23 prednisone 20 mg tablet See Rx Instructions PO DAILY 10 09/11/23 days #15 tabs Allergies Allergy/AdvReac Type Severity Reaction Status Date / Time Sulfa (Sulfonamide Allergy Intermediate HIVES Verified 09/21/23 16:17 Antibiotics) [SULFA (SULFONAMIDE ANTIBIOTICS)] Amoxicillin Allergy Intermediate Hives Uncoded 03/11/23 09:54 Augementin Allergy Intermediate Hives Uncoded 03/11/23 09:54 Review of Systems 2 Review of Systems: Yes all other systems are reviewed and are negative [facility] Past Medical History Medical History Anemia Former smoker, stopped smoking in distant past Carotid stenosis, bilateral GERD (gastroesophageal reflux disease) HLD (hyperlipidemia) HTN (hypertension) History of breast cancer History of non-ST elevation myocardial infarction (NSTEMI) (~10/2017) Bronchiectasis Pulmonary nodules COPD (chronic obstructive pulmonary disease) Surgical History History of lung biopsy History of lumpectomy History of hysterectomy Social History Social History Household Members: None Housing: Condominium Are you a primary ambulatory care to a significant other at home: No Do you presently have visiting nurse or other home services: No Alcohol intake: never Comment: States will need w/c to get her up to [facility] department Patient Tobacco Use Status: Former Tobacco user Quit Date: Tobacco use type: Cigarette Years Smoked: 20-30 years - quit 1997 Smoked in Last 30 Days: No Second Hand Smoke Exposure: No Use of substances other than those prescribed or required for medical reasons: No Advance Directives: No Advance Directives Information Provided: Yes service: No Current occupational status: retired Physical Exam 2 Vital Signs: Vital Signs: Last Vital Signs Temp 98.2 F 09/21/23 16:13 Pulse 89 09/21/23 22:46 Resp 10 L 09/21/23 22:46 BP 123/49 L 09/21/23 22:46 Pulse Ox 98 09/21/23 22:46 O2 Del Method Non-Rebreather Ma sk 09/21/23 22:46 O2 Flow Rate 3 09/21/23 22:46 Oxygen Flow Rate 2 09/21/23 16:13 BMI result Body Mass Index 15.0 Appearance: Alert. Oriented X3. In moderate to severe respiratory distress Eyes: pallor+ ENT: Pharynx normal. Oral Mucosa moist Neck: Normal inspection. Neck supple. CVS: Normal heart rate and rhythm. Pulses normal. Respiratory: Moderate to severe respiratory distress. Equal air entry bilateral, bilateral wheezing few crackles at the base Abdomen: Soft and nontender. Bowel sounds are present, no mass palpable, no CVA tenderness Skin: Skin warm and dry. Normal skin color. Normal skin turgor. Extremities: No lower extremity edema. No calf tenderness Neuro: Oriented X 3. No motor deficit. Medications Administered Generic Name Dose Route Start Last Admin Trade Name Freq PRN Reason Stop Dose Admin Azithromycin 500 mg/ Sodium 250 mls @ 125 mls/hr 09/21/23 22:30 09/21/23 23:04 Chloride IV 125 mls/hr Q24H ALEC Administration Discontinued Medications Generic Name Dose Route Start Last Admin Trade Name Freq PRN Reason Stop Dose Admin Albuterol Sulfate 2.5 mg/ 5 mg 09/21/23 16:18 09/21/23 16:30 Albuterol Sulfate 2.5 mg INHALE 09/21/23 16:19 5 mg ONCE ONE Administration Sodium Chloride 1,000 mls @ 999 mls/hr 09/21/23 16:25 09/21/23 20:00 Ns IV 09/21/23 17:25 Infused .Q1H1M ONE Infusion Ceftriaxone Sodium 1 gm/ 50 mls @ 100 mls/hr 09/21/23 16:26 09/21/23 20:00 Sodium Chloride IV 09/21/23 16:55 Infused ONCE ONE Infusion Lactated Ringer's 500 mls @ 999 mls/hr 09/21/23 22:53 09/21/23 23:16 Lr IVCONT 05/18/24 23:23 Infused .Q31M ONE Infusion Morphine Sulfate 2 mg 09/21/23 18:42 09/21/23 19:06 Morphine Sulfate 2 Mg/Ml Cartridge IVPUSH 09/21/23 18:43 2 mg ONCE ONE Administration Protocol Ondansetron HCl 4 mg 09/21/23 18:42 09/21/23 19:04 Ondansetron Hcl 4 Mg/2 Ml Vial IVPUSH 09/21/23 18:43 4 mg ONCE ONE Administration Medical Decision Making Medical Decision Making [facility] Narrative: Patient with severe COPD oxygen-dependent comes here for worsening of shortness of breath for last 3 4 days on prednisone 20 mg daily patient is afebrile workup showed leukocytosis of 34.4k chest x-ray with chronic changes no acute pneumonia patient is afebrile had elevated lactic acid level which is type B from nebulizing treatment elevated WBC count is from prednisone use also had elevated troponin secondary to demand ischemia without any ischemic EKG changes patient received IV fluids more than 30 cc/kilogram IV antibiotic Rocephin and Zithromax were given. Will admit patient to medical floor for COPD exacerbation patient had transient low blood pressure which improved after IV fluids patient is saturating on 3 L 98% Differential Diagnosis Differential Diagnoses: The differential diagnosis associated with the presentation includes COPD exacerbation/pneumonia/pneumothorax /CHF Lab Data [facility] Lab Attestation statement: I reviewed the patient's lab results. 09/21/23 17:37 09/21/23 17:37 Labs: Lab Results 09/21/23 09/21/23 Range/Units 17:37 20:11 WBC 34.4 H* (4.8-10.8) X10*3/uL RBC 2.79 L D (4.20-5.50) X10*6/uL Hgb 7.9 L (12.0-16.0) g/dl Hct 24.2 L (37.0-47.0) % MCV 86.7 (80.0-98.0) fL MCH 28.3 (27.0-33.0) pg MCHC 32.6 (31.0-35.0) g/dl RDW 19.9 H (11.0-16.0) % Plt Count 375 (160-400) X10*3/uL MPV 9.1 L (9.4-12.3) fL Immature Gran % (Auto) Cancelled Neut % (Auto) Cancelled Lymph % (Auto) Cancelled [place] % (Auto) Cancelled Eos % (Auto) Cancelled Baso % (Auto) Cancelled Lymph # (Auto) Cancelled [place] # (Auto) Cancelled Eos # (Auto) Cancelled Baso # (Auto) Cancelled Abs Immat Gran (auto) Cancelled Absolute Neuts (auto) Cancelled Absolute Nucleated RBC 0.000 (0.0-0.012) X10*3/uL Nucleated RBC % (auto) 0.0 (0.0-0.2) /100WBC Neutrophils % (Manual) 96 H (45-73) % Band Neutrophils % 1 L (3-5) % Lymphocytes % (Manual) 2 L (20-40) % Monocytes % (Manual) 1 L (2-11) % Abs Neuts (Manual) 33.4 H (2.0-8.3) X10*3/uL Lymphocytes # (Manual) 0.7 L (1.2-4.9) X10*3/uL Monocytes # (Manual) 0.3 (0.1-1.2) X10*3/uL Platelet Estimate NORMAL (NORMAL) Plt Morphology Comment NORMAL RBC Morphology NOTED Ovalocytes 1+ (5-14) /OIF Smear Tech's Comments MANUAL DIFF PT 11.1 (11.1-13.3) SEC INR 0.9 (0.9-1.1) Sodium 137 (135-145) mmol/L Potassium 3.1 L (3.3-5.1) mmol/L Chloride 97 (96-108) mmol/L Carbon Dioxide 25 (22-29) mmol/L Anion Gap 18 (12-20) BUN 44 H (9-16) mg/dL Creatinine 0.99 (0.5-1.4) mg/dL Estim Creat Clear Calc 29.7 Estimated GFR 54 Random Glucose 142 H (60-115) mg/dL Lactic Acid 2.4 H* (0.5-2.0) mmol/L Lactic Acid F/U @ 2Hr 3.5 H* (0.5-2.0) mmol/L Calcium 9.1 (8.4-10.2) mg/dL Total Bilirubin 0.2 (0.0-1.0) mg/dL AST 15 (5-31) U/L ALT 10 (0-31) U/L Alkaline Phosphatase 54 (39-117) U/L Troponin I High Sens 70.2 H* D 59.6 H* (<3.5-17.0) ng/L B-Natriuretic Peptide 134 H (<100) pg/mL Total Protein 5.6 L (6.5-8.0) g/dL Albumin 3.3 L (3.5-5.0) g/dL Influenza Type A (PCR) NEGATIVE (Negative) Influenza Type B (PCR) NEGATIVE (Negative) RSV RNA Qual (PCR) NEGATIVE (Negative) SARS-CoV-2 RNA (RT-PCR) NEGATIVE (Negative) Independent Interpretation I performed an independent interpretation of an: EKG Interpretation: Normal sinus rhythm heart rate 100 beats per minute LVH poor progression of R- wave no acute ST T wave changes no acute ischemia Critical Care Time Critical Care Time Critical Care Time: Yes Total Critical Care Time: 60 Attestation: The patient was critically ill with a high probability of imminent or life threatening deterioration. I spent greater than 65???minutes of discontinuous time evaluating the patient,delivering critical care at the bedside, discussing and evaluating pertinent data with consultants. Critical care time does not include time spent performing separately billable procedures or teaching. Total time spent performing critical care was ?60??minutes. Discharge Plan Discharge Clinical Impression: Acute exacerbation of chronic obstructive airways disease, Acute and chronic respiratory failure with hypoxia, Lactic acidosis, Elevated troponin I level, Ischemia due to increased oxygen demand Patient Disposition: Admitted As Inpatient Print Language: German
[2023-09-21] MEDS: Albuterol Sulfate 2.5 MG, Albuterol Sulfate (0.083%) 2.5 MG 5 MG INHALE (16:30)
--- NOTE | 2023-09-21 17:00 | PC.NURSE ---
Pt coming in via EMS, reports SOB for past couple of weeks worsening, has hx of COPD. O2 dependent at home 2L NC baseline. EMS gave duo neb en route with some improvements, hypotensive. Pt reports SOB, noted to have increased work of breathing, RR 24-28. SPO2 94-96% on 2L O2. Pt also reports cough, chest tightness, dizziness and nausea for past few days. Alert and oriented, breathing labored, skin pale and dry. BP hypotensive, RT at bedside assessing pt. MD notified of possible Sepsis alert.
[2023-09-21 17:45] LABS: Hematocrit 24.2 % (37.0-47.0); Hemoglobin 7.9 g/dl (12.0-16.0); Mean Corpuscular HGB Conc 32.6 g/dl (31.0-35.0); Mean Corpuscular Hemoglobin 28.3 pg (27.0-33.0); Mean Corpuscular Volume 86.7 fL (80.0-98.0); Mean Platelet Volume 9.1 fL (9.4-12.3); Platelet Count 375 X10*3/uL (160-400); Red Blood Count 2.79 X10*6/uL (4.20-5.50); Red Cell Distribution Width 19.9 % (11.0-16.0)
[2023-09-21] MEDS: cefTRIAXone sodium 1 GM in 0.9 % Sodium Chloride 50 ML IV (17:47)
[2023-09-21] MEDS: 0.9 % Sodium Chloride 1,000 ML 999 ML IV (17:48)
[2023-09-21 17:59] LABS: Lactic Acid 2.4 mmol/L (0.5-2.0); White Blood Count 34.4 X10*3/uL (4.8-10.8)
[2023-09-21 18:00] LABS: Alanine Aminotransferase 10 U/L (0-31); Albumin Level 3.3 g/dL (3.5-5.0); Alkaline Phosphatase 54 U/L (39-117); Anion Gap 18 (12-20); Aspartate Amino Transferase 15 U/L (5-31); Bilirubin Total 0.2 mg/dL (0.0-1.0); Blood Urea Nitrogen 44 mg/dL (9-16); Calcium 9.1 mg/dL (8.4-10.2); Carbon Dioxide 25 mmol/L (22-29); Chloride 97 mmol/L (96-108); Creatinine Clr Calc Pharmacy 29.7; Estimated Glomerular Filt Rate 54; Glucose Random 142 mg/dL (60-115); Potassium 3.1 mmol/L (3.3-5.1); Sodium 137 mmol/L (135-145); Total Protein 5.6 g/dL (6.5-8.0)
[2023-09-21 18:03] LABS: INTERNATIONAL NORM RATIO 0.9 (0.9-1.1); Prothrombin Time 11.1 SEC (11.1-13.3)
[2023-09-21 18:06] LABS: B Type Natriuretic Peptide 134 pg/mL (<100)
--- NOTE | 2023-09-21 18:08 | PC.NURSE ---
Pt noted to have poor venous access, multiple attempts by multiple RNs. Meds late due to hard time obtaining IV access.
[2023-09-21 18:09] LABS: Troponin-I High Sensitivity 70.2 ng/L (<3.5-17.0)
[2023-09-21 18:26] LABS: SLIDE REVIEW MANUAL DIFF
[2023-09-21 18:29] LABS: Band Neutrophils Percent 1 % (3-5); Lymphocytes Absolute Manual 0.7 X10*3/uL (1.2-4.9); Lymphocytes Percent Manual 2 % (20-40); Monocytes Absolute Manual 0.3 X10*3/uL (0.1-1.2); Monocytes Percent Manual 1 % (2-11); Neutrophils Absolute Manual 33.4 X10*3/uL (2.0-8.3); Neutrophils Percent Manual 96 % (45-73)
[2023-09-21 18:32] LABS: Ovalocytes 1+ (5-14) /OIF; Platelet Estimate NORMAL (NORMAL); Platelet Morphology Comment NORMAL; RBC Morphology NOTED
[2023-09-21 18:38] LABS: Influenza A PCR NEGATIVE (Negative); Influenza B PCR NEGATIVE (Negative); Resp Syncy Virus RNA Qual PCR NEGATIVE (Negative); SARS COV2 PCR INHOUSE NEGATIVE (Negative)
[2023-09-21] MEDS: ondansetron HCL 4 MG/2 ML VIAL IVPUSH (19:04)
[2023-09-21] MEDS: Morphine Sulfate 2 MG/ML CARTRIDGE IVPUSH (19:06)
[2023-09-21 19:43] LABS: Reflex Lactate? Lactic Acid Added
[2023-09-21 20:31] LABS: ~Lactic Acid-LAB USE ONLY 3.5 mmol/L (0.5-2.0)
[2023-09-21 20:39] LABS: Troponin-I High Sensitivity 59.6 ng/L (<3.5-17.0)
--- NOTE | 2023-09-21 22:04 | P.HPHOSP_ITS ---
History of Present Illness Date of Service: 09/21/23 Attending physician on admission: David Hilliard Chief Complaint: SOB Pt is a 77-year-old female with a PMH significant for?COPD with chronic hypoxic respiratory failure on 2L home O2, HLD, CAD, hx of NSTEMI (2018), and hx of breast cancer who presents to the ED with? In the ED pt was Labs were significant for CXR showed CT? EKG demonstrated Pt was treated with ondansetron, morphine, ceftriaxone, IVF, and DuoNebs. Pt will be admitted to the hospital [facility] Medical History Anemia Former smoker, stopped smoking in distant past Carotid stenosis, bilateral GERD (gastroesophageal reflux disease) HLD (hyperlipidemia) HTN (hypertension) History of breast cancer History of non-ST elevation myocardial infarction (NSTEMI) (~10/2017) Bronchiectasis Pulmonary nodules COPD (chronic obstructive pulmonary disease) Surgical History History of lung biopsy History of lumpectomy History of hysterectomy Social History Household Members: None Housing: Condominium Are you a primary careers counsellor to a significant other at home: No Do you presently have visiting nurse or other home services: No Alcohol intake: never Comment: States will need w/c to get her up to [facility] department Patient Tobacco Use Status: Former Tobacco user Quit Date: Tobacco use type: Cigarette Years Smoked: 20-30 years - quit 1998 Smoked in Last 30 Days: No Second Hand Smoke Exposure: No Use of substances other than those prescribed or required for medical reasons: No Advance Directives: No Advance Directives Information Provided: Yes service: No Current occupational status: retired Meds Allergies Allergy/AdvReac Type Severity Reaction Status Date / Time Sulfa (Sulfonamide Allergy Intermediate HIVES Verified 09/21/23 16:17 Antibiotics) [SULFA (SULFONAMIDE ANTIBIOTICS)] Amoxicillin Allergy Intermediate Hives Uncoded 03/11/23 09:54 Augementin Allergy Intermediate Hives Uncoded 03/11/23 09:54 Home Medications ?Medication ?Instructions ?Recorded ?Confirmed ?Last Taken ?Type aspirin 81 mg tablet,delayed 81 mg PO DAILY 08/09/20 03/19/23 10/04/22 History release atorvastatin 40 mg tablet 40 mg PO BEDTIME 08/09/20 03/19/23 10/10/22 History diltiazem HCl 120 mg 120 mg PO DAILY 08/09/20 03/19/23 10/11/22 History capsule,extended release 24 hr fluticasone 250 mcg-salmeterol 50 1 ea inhalation BID 08/09/20 03/19/23 10/11/22 History mcg/dose blistr powdr for inhalation irbesartan 150 1 tab PO DAILY 08/09/20 03/19/23 10/10/22 History mg-hydrochlorothiazide 12.5 mg tablet omeprazole 40 mg capsule,delayed 40 mg PO DAILY 08/09/20 03/19/23 10/11/22 History release Oxygen Home Use 08/07/22 09/25/22 Unknown History nebulizers 08/07/22 09/25/22 Unknown History calcium-vitamin D3-vitamin K 500 1 tab PO BID 03/19/23 03/19/23 Unknown History mg-100 unit-40 mcg chewable tablet Physical Exam 2 Vital Signs and Narrative: Vital Signs: Last Vital Signs Temp 98.2 F 09/21/23 16:13 Pulse 95 09/21/23 21:45 Resp 12 09/21/23 21:45 BP 86/47 L 09/21/23 21:45 Pulse Ox 99 09/21/23 21:45 O2 Del Method Oxymask 09/21/23 21:45 O2 Flow Rate 4 09/21/23 21:45 Oxygen Flow Rate 2 09/21/23 16:13 BMI result Body Mass Index 15.0 Results Labs 09/21/23 17:37 09/21/23 17:37 Labs: Laboratory Results - last 24 hr 09/21/23 09/21/23 17:37 20:11 MCV 86.7 MCH 28.3 MCHC 32.6 RDW 19.9 H Plt Count 375 MPV 9.1 L Immature Gran % (Auto) Cancelled Neut % (Auto) Cancelled Lymph % (Auto) Cancelled [place] % (Auto) Cancelled Eos % (Auto) Cancelled Baso % (Auto) Cancelled Lymph # (Auto) Cancelled [place] # (Auto) Cancelled Eos # (Auto) Cancelled Baso # (Auto) Cancelled Abs Immat Gran (auto) Cancelled Absolute Neuts (auto) Cancelled Absolute Nucleated RBC 0.000 Nucleated RBC % (auto) 0.0 Neutrophils % (Manual) 96 H Band Neutrophils % 1 L Lymphocytes % (Manual) 2 L Monocytes % (Manual) 1 L Abs Neuts (Manual) 33.4 H Lymphocytes # (Manual) 0.7 L Monocytes # (Manual) 0.3 Platelet Estimate NORMAL Plt Morphology Comment NORMAL RBC Morphology NOTED Ovalocytes 1+ (5-14) Smear Tech's Comments MANUAL DIFF PT 11.1 INR 0.9 Anion Gap 18 Estim Creat Clear Calc 29.7 Estimated GFR 54 Random Glucose 142 H Lactic Acid 2.4 H* Lactic Acid F/U @ 2Hr 3.5 H* Calcium 9.1 Total Bilirubin 0.2 AST 15 ALT 10 Alkaline Phosphatase 54 Troponin I High Sens 70.2 H* D 59.6 H* B-Natriuretic Peptide 134 H Total Protein 5.6 L Albumin 3.3 L Influenza Type A (PCR) NEGATIVE Influenza Type B (PCR) NEGATIVE RSV RNA Qual (PCR) NEGATIVE SARS-CoV-2 RNA (RT-PCR) NEGATIVE Imaging Radiologist's Impressions: Impressions Chest X-Ray 09/21/23 17:45 IMPRESSION: 1. COPD with bibasilar atelectasis. 2. Healing right 10th rib fracture.
[2023-09-21 22:14] LABS: Reflex Lactate? 2 Y
[2023-09-21] MEDS: Lactated Ringers 500 ML 999 ML IVCONT (22:45)
[2023-09-21] MEDS: Azithromycin 500 MG in 0.9 % Sodium Chloride 250 ML 125 MG IV (23:04)
[2023-09-22] VITALS (9 sets, daily range): BP systolic 114–130; BP diastolic 4–52; PULSE 88–116; RESP 12–22; TEMP 36.5; O2SAT 91–99; BMI 15.4
[2023-09-22] MEDS: methylPREDNISolone Sod Succ 125 MG/2 ML VIAL IVPUSH (01:37)
[2023-09-22] MEDS: Potassium Bicarbonate/Cit AC 25 MEQ TABLET.EFF PO (01:37)
[2023-09-22] MEDS: Albuterol/Iprat 2.5/0.5MG 3 ML AMPUL.NEB INHALE ×4 (01:55→15:13)
[2023-09-22] MEDS: Lactated Ringers 1,000 ML 100 ML IVCONT (03:20)
--- NOTE | 2023-09-22 03:52 | P.HPHOSP_ITS ---
History of Present Illness Date of Service: 09/22/23 Attending physician on admission: David Hilliard Chief Complaint: Shortness of breath Mary Amor is a 77 years old woman with past medical history significant for lingula necrotizing granuloma, COPD -on home O2 (2L/min via NC and azithromycin MWF), hyperlipidemia, hypertension, breast cancer s/p lumpectomy, CAD and carotid disease was brought in the emergency department via EMS due to worsening shortness of breath the last several days associated with productive cough of greenish sputum, dizziness, nausea and chest tightness. Denies fever or chills. Denies abdominal pain, diarrhea, headache or palpitations. She is a former tobacco smoker. Drinks a glass of wine in occasion denies illicit drug use. Contact with ill people or travel history not reported. She was prescribed to take a course of prednisone recently. In the ED, she was found to have hypotension, tachycardia and tachypnea. She is currently requiring supplemental oxygen via OxyMask 3L/min. Blood workup is remarkable for marked leukocytosis of 34.4. Hemoglobin is 7.9. Platelets are normal. Blood workup was remarkable for hypokalemia, 3.1. Lactic acid is increasing (2.4 --> 3.5). Troponin was initially 7.2 and dropped to 59.6. BNP is 134 and albumin is 3.3. Viral testing for COVID-19, RSV and influenza is negative. CXR showed COPD with bibasilar atelectasis and healing right 10th rib fracture. In the interim of this admission, patient's blood pressure continues to decrease and she was noted to develop worsening shortness of breath. CXR was repeated and showed no acute cardiopulmonary disease, hyperinflated lung reed with minimal atelectasis and/or scarring of the lung bases. ED tx: * Albuterol neb * NS 1 L bolus * Ceftriaxone 1 g IV * Morphine 2 mg IV * Klor-Con 25 mg p.o. * Azithromycin 500 mg IV * LR 500 mg IV Review of Systems 2 Review of Systems: All 12 systems were reviewed and normal except as noted in HPI. [facility] Medical History Anemia Former smoker, stopped smoking in distant past Carotid stenosis, bilateral GERD (gastroesophageal reflux disease) HLD (hyperlipidemia) HTN (hypertension) History of breast cancer History of non-ST elevation myocardial infarction (NSTEMI) (~10/2017) Bronchiectasis Pulmonary nodules COPD (chronic obstructive pulmonary disease) Surgical History History of lung biopsy History of lumpectomy History of hysterectomy Social History Household Members: None Housing: Condominium Are you a primary anesthesiologist and critical care to a significant other at home: No Do you presently have visiting nurse or other home services: No Alcohol intake: never Comment: States will need w/c to get her up to [facility] department Patient Tobacco Use Status: Former Tobacco user Quit Date: Tobacco use type: Cigarette Years Smoked: 20-30 years - quit 1998 Smoked in Last 30 Days: No Second Hand Smoke Exposure: No Use of substances other than those prescribed or required for medical reasons: No Advance Directives: No Advance Directives Information Provided: Yes service: No Current occupational status: retired Meds Allergies Allergy/AdvReac Type Severity Reaction Status Date / Time Sulfa (Sulfonamide Allergy Intermediate HIVES Verified 09/21/23 16:17 Antibiotics) [SULFA (SULFONAMIDE ANTIBIOTICS)] Amoxicillin Allergy Intermediate Hives Uncoded 03/11/23 09:54 Augementin Allergy Intermediate Hives Uncoded 03/11/23 09:54 Active Medications: Current Medications Acetaminophen (Acetaminophen 325 Mg Tablet) 975 mg PO Q6H PRN PRN Reason: mild pain, headache or fever Albuterol Sulfate (Albuterol Sulfate (0.083%) 2.5 Mg/3 Ml Vial.Neb) 2.5 mg INHALE Q2H PRN PRN Reason: Shortness of Breath/Wheezing Albuterol/Ipratropium (Albuterol/Iprat 2.5/0.5mg 3 Ml Ampul.Neb) 3 ml INHALE RQ4H WHILE AWAKE [facility] Heparin Sodium (Porcine) (Heparin Sodium,Porcine 5,000 Unit/Ml Vial) 5,000 unit SUBCUT Q12H [facility] Azithromycin 500 mg/ Sodium (Chloride) 250 mls @ 125 mls/hr IV Q24H [facility] Last Infusion: 09/22/23 01:37 Dose: Infused Doxycycline Hyclate 100 mg/ (Sodium Chloride) 250 mls @ 166.67 mls/hr IV Q12H [facility] Lactated Ringer's (Lr) 1,000 mls @ 100 mls/hr IVCONT .Q10H [facility] Stop: 09/22/23 12:44 Last Admin: 09/22/23 03:20 Dose: 100 mls/hr Methylprednisolone Sodium Succinate (Methylprednisolone Sod Succ 40 Mg/Ml Vial) 40 mg IVPUSH Q12H [facility] Sodium Chloride (0.9 % Sodium Chloride Flush 3 Ml Syringe) 3 ml IVFLUSH QSHIFT [facility] Home Medications ?Medication ?Instructions ?Recorded ?Confirmed ?Last Taken ?Type aspirin 81 mg tablet,delayed 81 mg PO DAILY 08/09/20 03/19/23 10/04/22 History release atorvastatin 40 mg tablet 40 mg PO BEDTIME 08/09/20 03/19/23 10/10/22 History diltiazem HCl 120 mg 120 mg PO DAILY 08/09/20 03/19/23 10/11/22 History capsule,extended release 24 hr fluticasone 250 mcg-salmeterol 50 1 ea inhalation BID 08/09/20 03/19/23 10/11/22 History mcg/dose blistr powdr for inhalation irbesartan 150 1 tab PO DAILY 08/09/20 03/19/23 10/10/22 History mg-hydrochlorothiazide 12.5 mg tablet omeprazole 40 mg capsule,delayed 40 mg PO DAILY 08/09/20 03/19/23 10/11/22 History release Oxygen Home Use 08/07/22 09/25/22 Unknown History nebulizers 08/07/22 09/25/22 Unknown History calcium-vitamin D3-vitamin K 500 1 tab PO BID 03/19/23 03/19/23 Unknown History mg-100 unit-40 mcg chewable tablet megestrol 400 mg/10 mL (40 mg/mL) 800 mg PO DAILY 09/22/23 09/22/23 Unknown History oral suspension Physical Exam 2 Vital Signs and Narrative: Vital Signs: Last Vital Signs Temp 98.2 F 09/21/23 16:13 Pulse 88 09/22/23 01:59 Resp 12 09/22/23 01:59 BP 114/42 L 09/22/23 00:34 Pulse Ox 91 L 09/22/23 00:34 O2 Del Method Nasal Cannula 09/22/23 00:34 O2 Flow Rate 3 09/22/23 00:34 Oxygen Flow Rate 2 09/21/23 16:13 BMI result Body Mass Index 15.0 Constitutional - Awake and Alert. Constantly coughing. Breathing with pursed lips. Oxymask in place. Afebrile. Cooperative. HEENT - Atraumatic, normocephalic. Pupils equally round. Clear oropharynx. Dry oral mucosa. Heart - S1S2, RRR. Lungs - Normal lung expansion, Normal respiratory effort, No respiratory distress. Tachypnea. Mild bibasilar crackles. Scattered end expiratory wheezes Abdomen - NT / ND; +BS; No rebound or guarding Extremities - no calf tenderness bilaterally, no swelling Skin - Warm/Dry Neurological - Alert & oriented x3. No focal weakness grossly noted. Moving all extremities. Normal speech. Psychological - Appropriate affect Results Labs 09/21/23 17:37 09/21/23 17:37 Labs: Laboratory Results - last 24 hr 09/21/23 09/21/23 17:37 20:11 MCV 86.7 MCH 28.3 MCHC 32.6 RDW 19.9 H Plt Count 375 MPV 9.1 L Immature Gran % (Auto) Cancelled Neut % (Auto) Cancelled Lymph % (Auto) Cancelled [place] % (Auto) Cancelled Eos % (Auto) Cancelled Baso % (Auto) Cancelled Lymph # (Auto) Cancelled [place] # (Auto) Cancelled Eos # (Auto) Cancelled Baso # (Auto) Cancelled Abs Immat Gran (auto) Cancelled Absolute Neuts (auto) Cancelled Absolute Nucleated RBC 0.000 Nucleated RBC % (auto) 0.0 Neutrophils % (Manual) 96 H Band Neutrophils % 1 L Lymphocytes % (Manual) 2 L Monocytes % (Manual) 1 L Abs Neuts (Manual) 33.4 H Lymphocytes # (Manual) 0.7 L Monocytes # (Manual) 0.3 Platelet Estimate NORMAL Plt Morphology Comment NORMAL RBC Morphology NOTED Ovalocytes 1+ (5-14) Smear Tech's Comments MANUAL DIFF PT 11.1 INR 0.9 Anion Gap 18 Estim Creat Clear Calc 29.7 Estimated GFR 54 Random Glucose 142 H Lactic Acid 2.4 H* Lactic Acid F/U @ 2Hr 3.5 H* Calcium 9.1 Total Bilirubin 0.2 AST 15 ALT 10 Alkaline Phosphatase 54 Troponin I High Sens 70.2 H* D 59.6 H* B-Natriuretic Peptide 134 H Total Protein 5.6 L Albumin 3.3 L Influenza Type A (PCR) NEGATIVE Influenza Type B (PCR) NEGATIVE RSV RNA Qual (PCR) NEGATIVE SARS-CoV-2 RNA (RT-PCR) NEGATIVE Imaging Radiologist's Impressions: Impressions Chest X-Ray 09/21/23 17:45 IMPRESSION: 1. COPD with bibasilar atelectasis. 2. Healing right 10th rib fracture. Chest X-Ray 09/22/23 01:30 IMPRESSION: No acute cardiopulmonary disease. Hyperinflated lung reed with minimal atelectasis and/or scarring at the lung bases. Assessment and Plan (1) Hypoxic respiratory failure: Qualifiers: Chronicity: acute on chronic Qualified Code(s): J96.21 - Acute and chronic respiratory failure with hypoxia Status: Acute (2) Acute exacerbation of chronic obstructive airways disease: Status: Acute (3) Lactic acidosis: Status: Acute (4) Elevated troponin I level: Status: Acute Plan Mary Amor is a 77 y/o woman with PMHx significant for lingular necrotizing granuloma admitted with: * Hypoxic respiratory failure likely secondary acute exacerbation of COPD + acute bronchitis. Admit to hospitalist service. Telemetry. Pulse oximetry. Supplemental O2 to keep O2 sats > 90%. Continue bronchodilator therapy and IV steroids. Empiric IV antibiotic therapy with doxycycline. Check venous blood gas. Pulmonology consult * Severe sepsis likely secondary to above; blood pressure improved. Crystalloid bolus given by ED. Empiric IV antibiotic therapy with doxycycline, ceftriaxone and vancomycin. Continue IV fluids. Blood cultures obtained -will follow results. Continue to monitor lactic acid. * Elevated troponin. Likely demand due to acute illness and tachycardia. Continue aspirin and statin. Continue to monitor. * Marked leukocytosis. Likely secondary to sepsis and recent use of prednisone. Continue to monitor. * Protein calorie malnutrition. BMI 15.0 kb/m2. Continue megestrol. * Hyperlipidemia. Continue statin. * Essential hypertension. Anti-HTN meds on hold due to hypotension. * Hx of breast cancer s/p lumpectomy and radiation. * CAD and carotid artery disease. Continue aspirin and statin * GERD. Continue PPI. Code status: Full DVT prophylaxis: Heparin Patient will need hospitalization for at least 2 midnights for hypoxic respiratory failure and severe sepsis treatment with supplemental oxygen, bronchodilator therapy, IV fluids and IV steroids. Patient also will need close monitoring of blood workup and vital signs as well as evaluation by subspecialty. Quality Stroke Does the patient have a stroke diagnosis?: No VTE Prior VTE?: No VTE Risk Level:: Medical - moderate - high VTE Device Contraindication: N/A - Device Ordered VTE Drug Contraindication: N/A - Med Ordered
[2023-09-22 04:05] LABS: Basophils Absolute Auto 0.1 X10*3/uL (0.0-0.2); Basophils Percent Auto 0.3 % (0-2); Hemoglobin 8.5 g/dl (12.0-16.0); Imm Gran Abs Auto 1.05 X10*3/uL (0.00-0.03); Imm Gran Pct Auto 3.9 % (0.0-0.4); Lymphocytes Absolute Auto 0.5 X10*3/uL (1.2-4.9); Lymphocytes Percent Auto 1.8 % (20-40); MANUAL DIFF FLAG SCAN; Mean Corpuscular HGB Conc 31.5 g/dl (31.0-35.0); Mean Corpuscular Hemoglobin 27.6 pg (27.0-33.0); Mean Corpuscular Volume 87.7 fL (80.0-98.0); Mean Platelet Volume 8.9 fL (9.4-12.3); Monocytes Absolute Auto 0.5 X10*3/uL (0.1-1.2); Monocytes Percent Auto 1.8 % (2-11); Neutrophils Absolute Auto 24.6 x10*3/uL (2.0-8.3); Neutrophils Percent Auto 92.2 % (45-73); Platelet Count 342 X10*3/uL (160-400); Red Blood Count 3.08 X10*6/uL (4.20-5.50); Red Cell Distribution Width 19.6 % (11.0-16.0); SCAN SMEAR FLAG 1; White Blood Count 26.6 X10*3/uL (4.8-10.8)
[2023-09-22 04:08] LABS: VBG Base Excess 6.9 mmol/L; VBG HCO3 32 mmol/L (22-26); VBG pCO2 51 mmHg; VBG pO2 50 mmHg
[2023-09-22 04:08] LABS: Venous Blood Gas Refer to POC result
[2023-09-22 04:22] LABS: Lactic Acid 1.6 mmol/L (0.5-2.0)
[2023-09-22 04:23] LABS: SLIDE REVIEW VERIFIED
[2023-09-22 04:26] LABS: Anion Gap 17 (12-20); Blood Urea Nitrogen 37 mg/dL (9-16); Calcium 8.7 mg/dL (8.4-10.2); Carbon Dioxide 26 mmol/L (22-29); Chloride 101 mmol/L (96-108); Creatinine Clr Calc Pharmacy 31.9; Estimated Glomerular Filt Rate 59; Glucose Random 180 mg/dL (60-115); Potassium 4.1 mmol/L (3.3-5.1); Sodium 140 mmol/L (135-145)
[2023-09-22 04:51] LABS: Venous Blood Gas Refer to POC result
[2023-09-22] MEDS: vancomycin HCL 1,000 MG in 0.9 % Sodium Chloride 250 ML 270 MG IV (05:15)
--- NOTE | 2023-09-22 07:23 | PHA.PROG ---
Admission Date/Time: September 22, 2023 02:36 Indication: Weight in k.823 kg Serum Creatinine - Last 168 Hours 09/21/23 09/22/23 17:37 03:59 Creatinine 0.99 0.92 Estimated CrCl and GFR - Last 168 Hours 09/21/23 09/22/23 17:37 03:59 Estim Creat Clear Calc 29.7 31.9 Estimated GFR 54 59 Vancomycin Loading Dose: 1,000 MG Current Vancomycin Dosing Regimen: 500 MG Q 24 H Vancomycin Monitoring using AUC goal of 400 - 600 range with trough as surrogate marker: 596 mg/L, predicted trough is 20.6 mg/L Date and Time for next Vancomycin Level to be drawn: 09/22 @ 1500 Pharmacist Comments on Vancomycin Plan: Treated aggressively due to sepsis, dose will need to be reduced prior to 8th dose. Vancomycin dosing will take advantage of [employer] as a clinical decision support tool that uses Bayesian modeling to calculate individual patient's pharmacokinetic parameters and forecast the patient's drug concentration time course with the target goal AUC 24 range of 400 - 600 mg/L/hr.
[2023-09-22 07:59] LABS: Basophils Absolute Auto 0.1 X10*3/uL (0.0-0.2); Basophils Percent Auto 0.4 % (0-2); Hematocrit 24.2 % (37.0-47.0); Hemoglobin 7.9 g/dl (12.0-16.0); Imm Gran Abs Auto 1.27 X10*3/uL (0.00-0.03); Imm Gran Pct Auto 4.6 % (0.0-0.4); Lymphocytes Absolute Auto 0.6 X10*3/uL (1.2-4.9); MANUAL DIFF FLAG SCAN; Mean Corpuscular HGB Conc 32.6 g/dl (31.0-35.0); Mean Corpuscular Hemoglobin 28.6 pg (27.0-33.0); Mean Corpuscular Volume 87.7 fL (80.0-98.0); Mean Platelet Volume 9.3 fL (9.4-12.3); Monocytes Absolute Auto 0.4 X10*3/uL (0.1-1.2); Monocytes Percent Auto 1.4 % (2-11); Neutrophils Absolute Auto 25.5 x10*3/uL (2.0-8.3); Neutrophils Percent Auto 91.6 % (45-73); Platelet Count 267 X10*3/uL (160-400); Red Blood Count 2.76 X10*6/uL (4.20-5.50); Red Cell Distribution Width 19.8 % (11.0-16.0); SCAN SMEAR FLAG 1; White Blood Count 27.8 X10*3/uL (4.8-10.8)
[2023-09-22 08:04] LABS: Alanine Aminotransferase 10 U/L (0-31); Albumin Level 2.7 g/dL (3.5-5.0); Alkaline Phosphatase 48 U/L (39-117); Anion Gap 19 (12-20); Aspartate Amino Transferase 20 U/L (5-31); Bilirubin Total < 0.1 mg/dL (0.0-1.0); Blood Urea Nitrogen 35 mg/dL (9-16); Calcium 8.1 mg/dL (8.4-10.2); Carbon Dioxide 16 mmol/L (22-29); Chloride 105 mmol/L (96-108); Creatinine Clr Calc Pharmacy 34.9; Estimated Glomerular Filt Rate > 60; Glucose Random 182 mg/dL (60-115); Magnesium 2.3 mg/dL (1.6-2.6); Potassium 4.2 mmol/L (3.3-5.1); Sodium 136 mmol/L (135-145)
--- NOTE | 2023-09-22 08:48 | PC.NURSE ---
CRITICAL TROPONIN 181.9. DR. WAYNE AT BEDSIDE AT THE TIME, MADE AWARE.
--- NOTE | 2023-09-22 09:33 | PHA.MEDREC ---
Pharmacy Consult ? Medication Reconciliation Pharmacy has completed the medication reconciliation.
[2023-09-22] MEDS: methylPREDNISolone Sod Succ 40 MG/ML VIAL IVPUSH ×2 (10:23→21:32)
[2023-09-22] MEDS: Megestrol Acetate 400 MG/10 ML ORAL.SUSP 800 MG PO (10:23)
[2023-09-22] MEDS: Heparin Sodium,Porcine 5,000 UNIT/ML VIAL 5000 UNIT SUBCUT (10:24)
[2023-09-22] MEDS: Doxycycline Hyclate 100 MG in 0.9 % Sodium Chloride 250 ML 166.67 MG IV ×2 (10:24→21:31)
[2023-09-22] MEDS: Aspirin Enteric Coated 81 MG TABLET.DR PO (10:25)
--- NOTE | 2023-09-22 10:32 | P.PNIM_ITS ---
Subjective Subjective Date of Service: 09/22/23 Interval History: f/u on acute hypoxic respriatory failure d/t copd, sepsis, overall is feeli better, less so denies chest pain with increasing troponin, WBC trendg down Physical Exam 2 Vital Signs: Vital Signs: Last Vital Signs Temp 97.7 F 09/22/23 07:46 Pulse 96 09/22/23 07:46 Resp 15 09/22/23 07:46 BP 119/52 L 09/22/23 07:46 Pulse Ox 95 09/22/23 07:46 O2 Del Method Oxymask 09/22/23 07:46 O2 Flow Rate 6 09/22/23 07:46 Oxygen Flow Rate 2 09/21/23 16:13 BMI result Body Mass Index 15.0 General: AO X 3, no acute distress Resp: CTA bilateral CVS: S1,S2,RRR GI: +BS, NT, no distention Skin: No rash Neuro: motor grossly intact Psych: appropriate affect Objective Data Active Medications Acetaminophen (Acetaminophen 325 Mg Tablet) 975 mg PO Q6H PRN PRN Reason: mild pain, headache or fever Albuterol Sulfate (Albuterol Sulfate (0.083%) 2.5 Mg/3 Ml Vial.Neb) 2.5 mg INHALE Q2H PRN PRN Reason: Shortness of Breath/Wheezing Albuterol Sulfate (Albuterol Sulfate (0.083%) 2.5 Mg/3 Ml Vial.Neb) 2.5 mg INHALE BID [facility] Albuterol Sulfate (Albuterol Sulfate 90 Mcg 8 Gm Inhaler) 2 puff INHALE Q4H PRN PRN Reason: shortness of breath or wheezing Albuterol/Ipratropium (Albuterol/Iprat 2.5/0.5mg 3 Ml Ampul.Neb) 3 ml INHALE RQ4H WHILE AWAKE [facility] Last Admin: 09/22/23 07:06 Dose: 3 ml Documented By: PREET Aspirin (Aspirin Enteric Coated 81 Mg Tablet.) 81 mg PO DAILY [facility] Last Admin: 09/22/23 10:25 Dose: 81 mg Documented By: ROVERTO Aspirin (Aspirin Enteric Coated 81 Mg Tablet.) 81 mg PO DAILY [facility] Atorvastatin Calcium (Atorvastatin Calcium 40 Mg Tablet) 40 mg PO BEDTIME [facility] Diltiazem HCl (Diltiazem Hcl Cd 120 Mg Cap.Er.Deg) 120 mg PO DAILY [facility]; Protocol Furosemide (Furosemide 20 Mg Tablet) 20 mg PO DAILY [facility]; Protocol Heparin Sodium (Porcine) (Heparin Sodium,Porcine 5,000 Unit/Ml Vial) 5,000 unit SUBCUT Q12H [facility] Last Admin: 09/22/23 10:24 Dose: 5,000 unit Documented By: ROVERTO Azithromycin 500 mg/ Sodium (Chloride) 250 mls @ 125 mls/hr IV Q24H [facility] Last Infusion: 09/22/23 01:37 Dose: Infused Documented By: JUNI Doxycycline Hyclate 100 mg/ (Sodium Chloride) 250 mls @ 166.67 mls/hr IV Q12H [facility] Last Admin: 09/22/23 10:24 Dose: 166.67 mls/hr Documented By: ROVERTO Lactated Ringer's (Lr) 1,000 mls @ 100 mls/hr IVCONT .Q10H [facility] Stop: 09/22/23 12:44 Last Admin: 09/22/23 03:20 Dose: 100 mls/hr Documented By: JUNI Ceftriaxone Sodium 1 gm/ (Sodium Chloride) 50 mls @ 100 mls/hr IV Q24H [facility] Vancomycin HCl 500 mg/ Sodium (Chloride) 110 mls @ 110 mls/hr IV Q12H [facility] Megestrol Acetate (Megestrol Acetate 400 Mg/10 Ml Oral.Susp) 800 mg PO DAILY [facility] Last Admin: 09/22/23 10:23 Dose: 800 mg Documented By: ROVERTO Methylprednisolone Sodium Succinate (Methylprednisolone Sod Succ 40 Mg/Ml Vial) 40 mg IVPUSH Q12H [facility] Last Admin: 09/22/23 10:23 Dose: 40 mg Documented By: ROVERTO Non-Formulary Medication (Fluticasone Propion-Salmeterol) 1 each INHALE BID [facility] Non-Formulary Medication (Irbesartan-Hydrochlorothiazide) 1 tab PO DAILY [facility] Non-Formulary Medication (Tiotropium [place]) 1 cap INHALE DAILY [facility] Omeprazole (Omeprazole 40 Mg Capsule.Dr) 40 mg PO DAILY@0630 [facility] Pharmacy Consult (Consult Rx Vancomycin Dosing) 1 each MISCELLANE DAILY PRN PRN Reason: Consult order Senna (Sennosides 8.6 Mg Tablet) 8.6 mg PO DAILY PRN PRN Reason: Constipation Sodium Chloride (0.9 % Sodium Chloride Flush 3 Ml Syringe) 3 ml IVFLUSH QSHIFT [facility] Last Admin: 09/22/23 08:43 Dose: Not Given Documented By: ROVERTO Non-Admin Reason: IV Running Labs 09/22/23 07:24 09/22/23 07:24 Labs: Laboratory Results - last 24 hr 09/21/23 09/21/23 09/22/23 17:37 20:11 03:59 MCV 86.7 87.7 MCH 28.3 27.6 MCHC 32.6 31.5 RDW 19.9 H 19.6 H Plt Count 375 342 MPV 9.1 L 8.9 L Immature Gran % (Auto) Cancelled 3.9 H Neut % (Auto) Cancelled 92.2 H Lymph % (Auto) Cancelled 1.8 L [place] % (Auto) Cancelled 1.8 L Eos % (Auto) Cancelled 0.0 Baso % (Auto) Cancelled 0.3 Lymph # (Auto) Cancelled 0.5 L [place] # (Auto) Cancelled 0.5 Eos # (Auto) Cancelled 0.0 Baso # (Auto) Cancelled 0.1 Abs Immat Gran (auto) Cancelled 1.05 H Absolute Neuts (auto) Cancelled 24.6 H Absolute Nucleated RBC 0.000 0.000 Nucleated RBC % (auto) 0.0 0.0 Neutrophils % (Manual) 96 H Band Neutrophils % 1 L Lymphocytes % (Manual) 2 L Monocytes % (Manual) 1 L Abs Neuts (Manual) 33.4 H Lymphocytes # (Manual) 0.7 L Monocytes # (Manual) 0.3 Platelet Estimate NORMAL Plt Morphology Comment NORMAL RBC Morphology NOTED Ovalocytes 1+ (5-14) Smear Tech's Comments MANUAL DIFF VERIFIED PT 11.1 INR 0.9 VBG pH VBG pCO2 VBG pO2 VBG HCO3 VBG O2 Saturation VBG Base Excess Anion Gap 18 17 Estim Creat Clear Calc 29.7 31.9 Estimated GFR 54 59 Random Glucose 142 H 180 H Lactic Acid 2.4 H* 1.6 Lactic Acid F/U @ 2Hr 3.5 H* Calcium 9.1 8.7 Magnesium Total Bilirubin 0.2 AST 15 ALT 10 Alkaline Phosphatase 54 Troponin I High Sens 70.2 H* D 59.6 H* B-Natriuretic Peptide 134 H Total Protein 5.6 L Albumin 3.3 L Influenza Type A (PCR) NEGATIVE Influenza Type B (PCR) NEGATIVE RSV RNA Qual (PCR) NEGATIVE SARS-CoV-2 RNA (RT-PCR) NEGATIVE 09/22/23 09/22/23 04:00 07:24 MCV 87.7 MCH 28.6 MCHC 32.6 RDW 19.8 H Plt Count 267 MPV 9.3 L Immature Gran % (Auto) 4.6 H Neut % (Auto) 91.6 H Lymph % (Auto) 2.0 L [place] % (Auto) 1.4 L Eos % (Auto) 0.0 Baso % (Auto) 0.4 Lymph # (Auto) 0.6 L [place] # (Auto) 0.4 Eos # (Auto) 0.0 Baso # (Auto) 0.1 Abs Immat Gran (auto) 1.27 H Absolute Neuts (auto) 25.5 H Absolute Nucleated RBC 0.000 Nucleated RBC % (auto) 0.0 Neutrophils % (Manual) Band Neutrophils % Lymphocytes % (Manual) Monocytes % (Manual) Abs Neuts (Manual) Lymphocytes # (Manual) Monocytes # (Manual) Platelet Estimate Plt Morphology Comment RBC Morphology Ovalocytes Smear Tech's Comments PT INR VBG pH 7.40 VBG pCO2 51 VBG pO2 50 VBG HCO3 32 H VBG O2 Saturation 80.0 VBG Base Excess 6.9 Anion Gap 19 Estim Creat Clear Calc 34.9 Estimated GFR > 60 Random Glucose 182 H Lactic Acid Lactic Acid F/U @ 2Hr Calcium 8.1 L D Magnesium 2.3 Total Bilirubin < 0.1 AST 20 ALT 10 Alkaline Phosphatase 48 Troponin I High Sens 181.9 H* D B-Natriuretic Peptide Total Protein 5.0 L Albumin 2.7 L Influenza Type A (PCR) Influenza Type B (PCR) RSV RNA Qual (PCR) SARS-CoV-2 RNA (RT-PCR) Assessment and Plan (1) Hypoxic respiratory failure: Status: Acute Plan 77 y/o woman with PMHx significant for lingular necrotizing granuloma admitted with: Acute Hypoxic respiratory failure likely secondary acute exacerbation of COPD + acute bronchitis. -O2 to keep sat around 88 to 92 -Bronchodilatorsby Neb -IV steroid -Abx witDoxy -pulmonology consult Severe sepsis likely secondary to above COPD exacerbation of possible PNA, BP now normal with Crystalloid bolus given by ED. Empiric IV antibiotic therapy with doxycycline, ceftriaxone and vancomycin. Continue IV fluids. Follow cultures Acute lacti acidosis--d/t above,resolved. Elevated troponin. Likely demand due to acute illness and tachycardia. Continue aspirin and statin. Continue to monitor. Marked leukocytosis. Likely secondary to sepsis and recent use of prednisone. Continue to monitor. Protein calorie malnutrition. BMI 15.0 kb/m2. Continue megestrol. Hyperlipidemia. Continue statin. Essential hypertension. Anti-HTN meds on hold due to hypotension. Hx of breast cancer s/p lumpectomy and radiation. CAD and carotid artery disease. Continue aspirin and statin GERD. Continue PPI. Code status: Full DVT prophylaxis: Heparin Need for inpatient: management of hypoxic respiratory failure and severe sepsis treatment with supplemental oxygen, bronchodilator therapy, IV fluids and IV steroids. Patient also will need close monitoring of blood workup and vital signs as well as evaluation by subspecialty. Quality Stroke Does the patient have a stroke diagnosis?: No VTE Prior VTE?: No VTE Risk Level:: Medical - moderate - high VTE Device Contraindication: N/A - Device Ordered VTE Drug Contraindication: N/A - Med Ordered
[2023-09-22] MEDS: hydroCHLOROthiazide 12.5 MG TABLET PO (12:15)
[2023-09-22] MEDS: Valsartan 80 MG TABLET PO (12:15)
[2023-09-22] MEDS: Omeprazole 40 MG CAPSULE.DR PO (12:16)
[2023-09-22 12:43] LABS: Troponin-I High Sensitivity 1255.2 ng/L (<3.5-17.0)
[2023-09-22 12:47] LABS: Troponin-I High Sensitivity 181.9 ng/L (<3.5-17.0)
--- NOTE | 2023-09-22 12:48 | PC.NURSE ---
Critical Troponin rec 1255.2 MD Ramirez notified via tiger connect no new orders at this time
[2023-09-22 14:11] LABS: INTERNATIONAL NORM RATIO 0.9 (0.9-1.1); Prothrombin Time 11.4 SEC (11.1-13.3)
[2023-09-22 14:13] LABS: PTT Heparin Drip 32.2 SEC (53-77.9)
[2023-09-22] MEDS: Heparin Sodium,Porcine/1/2NS 25,000 UNIT/250 ML IV.SOLN 5.04 UNIT IVCONT (15:12)
--- NOTE | 2023-09-22 16:04 | MHC.CM.PN ---
IMM 09/21. PT SELF-CARE, LIVES AT HOME ALONE, HAS HOME O2 THROUGH [facility]. PTS FRIEND WILL TRANSPORT HER HOME. PT STATES SHE HAS A HCP, IT IS HER FRIEND JENELLE, COPY REQUESTED. PCP: DR. JUANA PADILLA
[2023-09-22 16:42] LABS: Anion Gap 17 (12-20); Blood Urea Nitrogen 34 mg/dL (9-16); Calcium 9.1 mg/dL (8.4-10.2); Carbon Dioxide 23 mmol/L (22-29); Chloride 103 mmol/L (96-108); Creatinine Clr Calc Pharmacy 31.1; Estimated Glomerular Filt Rate 55; Glucose Random 145 mg/dL (60-115); Potassium 3.7 mmol/L (3.3-5.1); Sodium 139 mmol/L (135-145)
[2023-09-22 17:00] LABS: Troponin-I High Sensitivity 2187.7 ng/L (<3.5-17.0)
--- NOTE | 2023-09-22 17:18 | PC.NURSE ---
MD Ramirez notified via [facility] connect critical troponin 2187.7. no new orders at this time
[2023-09-22 17:24] LABS: Glucose, Whole Blood 180 mg/dL (60-115)
[2023-09-22] MEDS: Insulin Lispro 100 UNIT/ML 3 ML VIAL SUBCUT (18:20)
[2023-09-22] MEDS: cefTRIAXone sodium 1 GM in 0.9 % Sodium Chloride 50 ML IV (18:20)
--- NOTE | 2023-09-22 18:28 | PC.NURSE ---
spoke with pharmacy re: vancomycin 500mg- pharmacy to send to dept
[2023-09-22] MEDS: vancomycin HCL 500 MG in 0.9 % Sodium Chloride 100 ML 110 MG IV (18:38)
--- NOTE | 2023-09-22 20:18 | PC.NURSE ---
Assumed care of pt. Pt lying on hospital bed, alert to this RN, no acute distress at this time. Heparin running in L IV, planned PTT at 2100. VS as charted. Continuing plan of care for admission.
[2023-09-22] MEDS: Acetaminophen 325 MG TABLET 975 MG PO (21:33)
[2023-09-22] MEDS: Atorvastatin Calcium 40 MG TABLET PO ×2 (21:33→23:23)
[2023-09-22 21:48] LABS: Glucose, Whole Blood 122 mg/dL (60-115)
--- NOTE | 2023-09-22 22:03 | P.CONPL_ITS ---
History of Present Illness History of Present Illness Consult date: 09/22/23 Chief complaint: Hypoxic Respiratory Failure Narrative: This is in patient pulmonary consulation. The patient is a 77 years old woman with past medical history significant for COPD -on home O2 (2L/min via NC and azithromycin MWF), hyperlipidemia, hypertension, breast cancer s/p lumpectomy, CAD and carotid disease was brought in the emergency department via EMS due to worsening shortness of breath the last several days associated with productive cough of greenish sputum, dizziness, nausea and chest tightness. Denies fever or chills. Denies abdominal pain, diarrhea, headache or palpitations. In the ED, she was found to have hypotension, tachycardia and tachypnea. She is currently requiring supplemental oxygen via OxyMask 3L/min. Blood workup is remarkable for marked leukocytosis of 34.4. Hemoglobin is 7.9. Platelets are normal. Blood workup was remarkable for hypokalemia, 3.1. Lactic acid is increasing (2.4 --> 3.5). Troponin was initially 7.2 and dropped to 59.6. BNP is 134 and albumin is 3.3. Viral testing for COVID-19, RSV and influenza is negative. CXR, prsonally reviewed by me, showed hyperinflation with bibasilar atelectasis and healing right 10th rib fracture. Review of Systems 2 Constitutional: Constitutional: Reports malaise and Reports weakness Eyes: Eyes: Reports no additional eye complaints ENT: Reports system reviewed and no additional complaints, except as documented Cardiovascular: Cardiovascular: Denies chest pain, Reports dyspnea and Reports dyspnea on exertion Respiratory: Respiratory: Reports change in phlegm color, Reports chest congestion, Reports cough, Denies hemoptysis, Reports dyspnea, Reports dyspnea on exertion and Reports wheezing Gastrointestinal: Gastrointestinal: Reports no additional gastrointestinal complaints Musculoskeletal: Musculoskeletal: Reports muscle weakness Neurologic: Reports weakness Hematologic/Lymphatic: Hematologic/Lymphatic: Denies lymphadenopathy Allergic/Immunologic: Allergic/Immunologic: Reports wheezing PMFSH Past Medical History Medical History Anemia Former smoker, stopped smoking in distant past Carotid stenosis, bilateral GERD (gastroesophageal reflux disease) HLD (hyperlipidemia) HTN (hypertension) History of breast cancer History of non-ST elevation myocardial infarction (NSTEMI) (~10/2017) Bronchiectasis Pulmonary nodules COPD (chronic obstructive pulmonary disease) Surgical History Surgical History History of lung biopsy History of lumpectomy History of hysterectomy Social History Social History Household Members: None Housing: Condominium Are you a primary healthcare management consultant to a significant other at home: No Do you presently have visiting nurse or other home services: No Alcohol intake: never Comment: States will need w/c to get her up to [facility] department Patient Tobacco Use Status: Former Tobacco user Quit Date: Tobacco use type: Cigarette Years Smoked: 20-30 years - quit 1998 Smoked in Last 30 Days: No Second Hand Smoke Exposure: No Use of substances other than those prescribed or required for medical reasons: No Advance Directives: No Advance Directives Information Provided: Yes service: No Current occupational status: retired Meds Allergies Allergy/AdvReac Type Severity Reaction Status Date / Time Sulfa (Sulfonamide Allergy Intermediate HIVES Verified 09/21/23 16:17 Antibiotics) [SULFA (SULFONAMIDE ANTIBIOTICS)] Amoxicillin Allergy Intermediate Hives Uncoded 03/11/23 09:54 Augementin Allergy Intermediate Hives Uncoded 03/11/23 09:54 Active Medications: Current Medications Acetaminophen (Acetaminophen 325 Mg Tablet) 975 mg PO Q6H PRN PRN Reason: mild pain, headache or fever Last Admin: 09/22/23 21:33 Dose: 975 mg Albuterol Sulfate (Albuterol Sulfate (0.083%) 2.5 Mg/3 Ml Vial.Neb) 2.5 mg INHALE Q2H PRN PRN Reason: Shortness of Breath/Wheezing Albuterol Sulfate (Albuterol Sulfate 90 Mcg 8 Gm Inhaler) 2 puff INHALE Q4H PRN PRN Reason: shortness of breath or wheezing Albuterol/Ipratropium (Albuterol/Iprat 2.5/0.5mg 3 Ml Ampul.Neb) 3 ml INHALE RQ4H WHILE AWAKE [facility] Last Admin: 09/22/23 19:38 Dose: Not Given Aspirin (Aspirin Enteric Coated 81 Mg Tablet.) 81 mg PO DAILY [facility] Last Admin: 09/22/23 10:25 Dose: 81 mg Atorvastatin Calcium (Atorvastatin Calcium 40 Mg Tablet) 40 mg PO BEDTIME [facility] Last Admin: 09/22/23 21:33 Dose: 40 mg Fluticasone/Vilanterol (Fluticasone/Vilanterol 100/25 Blst.W.Dev) 1 puff INHALE RDAILY [facility] Last Admin: 09/22/23 11:50 Dose: Not Given Glucose (Glucose Gel 15 Gm Gel..Gram.) 15 gm PO Q15M PRN; Protocol PRN Reason: per Hypoglycemia Standing Ord. Heparin Sodium (Porcine) (Heparin Sodium,Porcine 5,000 Unit/Ml Vial) 1,600 unit 40 unit/kg (1600 unit) IVPUSH PROTOCOL BOLUS PRN; Protocol PRN Reason: 40 unit/kg - Heparin Protocol Heparin Sodium (Porcine) (Heparin Sodium,Porcine 5,000 Unit/Ml Vial) 3,300 unit 80 unit/kg (3300 unit) IVPUSH PROTOCOL BOLUS PRN; Protocol PRN Reason: 80 unit/kg - Heparin Protocol Hydrochlorothiazide (Hydrochlorothiazide 12.5 Mg Tablet) 12.5 mg PO DAILY [facility] Last Admin: 09/22/23 12:15 Dose: 12.5 mg Azithromycin 500 mg/ Sodium (Chloride) 250 mls @ 125 mls/hr IV Q24H [facility] Last Infusion: 09/22/23 01:37 Dose: Infused Doxycycline Hyclate 100 mg/ (Sodium Chloride) 250 mls @ 166.67 mls/hr IV Q12H [facility] Last Admin: 09/22/23 21:31 Dose: 166.67 mls/hr Ceftriaxone Sodium 1 gm/ (Sodium Chloride) 50 mls @ 100 mls/hr IV Q24H [facility] Last Infusion: 09/22/23 19:01 Dose: Infused Vancomycin HCl 500 mg/ Sodium (Chloride) 110 mls @ 110 mls/hr IV Q12H [facility] Last Infusion: 09/22/23 20:42 Dose: Infused Dextrose (D10) 250 mls @ 750 mls/hr IV Q15M PRN; Protocol PRN Reason: per Hypoglycemia Standing Ord. Heparin Sodium/Sodium Chloride (Heparin Sodium,Porcine/1/2ns) 25,000 unit in 250 mls @ 0 mls/hr IVCONT .Q0M [facility]; Protocol Last Admin: 09/22/23 15:12 Dose: 12 units/kg/hr, 5.04 mls/hr Insulin Human Lispro (Insulin Lispro 100 Unit/Ml 3 Ml Vial) 0 unit SUBCUT QIDACHS [facility]; Protocol Last Admin: 09/22/23 21:55 Dose: Not Given Megestrol Acetate (Megestrol Acetate 400 Mg/10 Ml Oral.Susp) 800 mg PO DAILY [facility] Last Admin: 09/22/23 10:23 Dose: 800 mg Methylprednisolone Sodium Succinate (Methylprednisolone Sod Succ 40 Mg/Ml Vial) 40 mg IVPUSH Q12H [facility] Last Admin: 09/22/23 21:32 Dose: 40 mg Omeprazole (Omeprazole 40 Mg Capsule.Dr) 40 mg PO DAILY@0630 [facility] Last Admin: 09/22/23 12:16 Dose: 40 mg Pharmacy Consult (Consult Rx Vancomycin Dosing) 1 each MISCELLANE DAILY PRN PRN Reason: Consult order Senna (Sennosides 8.6 Mg Tablet) 8.6 mg PO DAILY PRN PRN Reason: Constipation Sodium Chloride (0.9 % Sodium Chloride Flush 3 Ml Syringe) 3 ml IVFLUSH QSHIFT [facility] Last Admin: 09/22/23 17:17 Dose: Not Given Tiotropium [place] (Tiotropium [place] 2.5 Mcg 1 Puff/2.5 Mcg Mist.Inhal) 2 puff INHALE RDAILY [facility] Last Admin: 09/22/23 11:50 Dose: Not Given Valsartan (Valsartan 80 Mg Tablet) 80 mg PO DAILY [facility] Last Admin: 09/22/23 12:15 Dose: 80 mg Home Medications ?Medication ?Instructions ?Recorded ?Confirmed ?Last Taken ?Type aspirin 81 mg tablet,delayed 81 mg PO DAILY 08/09/20 09/22/23 2 Days Ago History release ~09/20/23 atorvastatin 40 mg tablet 40 mg PO BEDTIME 08/09/20 09/22/23 2 Days Ago History ~09/20/23 diltiazem HCl 120 mg 120 mg PO DAILY 08/09/20 09/22/23 2 Days Ago History capsule,extended release 24 hr ~09/20/23 fluticasone 250 mcg-salmeterol 50 1 ea inhalation BID 08/09/20 09/22/23 2 Days Ago History mcg/dose blistr powdr for ~09/20/23 inhalation irbesartan 150 1 tab PO DAILY 08/09/20 09/22/23 2 Days Ago History mg-hydrochlorothiazide 12.5 mg ~09/20/23 tablet omeprazole 40 mg capsule,delayed 40 mg PO DAILY@0630 08/09/20 09/22/23 2 Days Ago History release ~09/20/23 Oxygen Home Use 08/07/22 09/25/22 Unknown History nebulizers 08/07/22 09/25/22 Unknown History furosemide 20 mg tablet 20 mg PO DAILY 09/22/23 09/22/23 2 Days Ago History ~09/20/23 megestrol 400 mg/10 mL (40 mg/mL) 800 mg PO DAILY 09/22/23 09/22/23 2 Days Ago History oral suspension ~09/20/23 sennosides 8.6 mg tablet (senna) 8.6 mg PO DAILY PRN Constipation 09/22/23 09/22/23 Unknown History Physical Exam 2 Vital Signs: Vital Signs: Last Vital Signs Temp 97.7 F 09/22/23 07:46 Pulse 113 H 09/22/23 20:19 Resp 20 09/22/23 20:19 BP 115/52 L 09/22/23 20:19 Pulse Ox 99 09/22/23 20:19 O2 Del Method Nasal Cannula 09/22/23 20:19 O2 Flow Rate 6 09/22/23 20:19 Oxygen Flow Rate 2 09/21/23 16:13 BMI result Body Mass Index 15.4 Const: General: alert and tired appearing Nutritional Appearance: u nderweight HEENT: Head: Yes normocephalic Neck: Neck: Yes normal visual inspection, Yes full ROM and Yes no lymphadenopathy Chest: Chest palpation & inspection: normal inspection of the chest Resp: Effort & Inspection: tachypneic and prolonged expiratory phase A uscultation: crackles on the right at the base, no rhonchi, no wheezes and diminished lung sounds Cardio: Rate: regular rate Rhythm: regular rhythm Heart sounds: S1 normal heart sound present and S2 normal heart sound present GI: Palpation (GI): Soft to palpation and nontender Auscultation: normal bowel sounds Skin: General skin exam: rashes and/or lesions noted Extrem: General: No cyanosis and No edema Results Laboratory Findings 09/22/23 07:24 09/22/23 16:15 ABG, PT/INR, D-dimer: PT/INR, D-dimer PT 11.4 SEC (11.1-13.3) 09/22/23 13:58 INR 0.9 (0.9-1.1) 09/22/23 13:58 Abnormal lab findings: Abnormal Labs 09/21/23 09/21/23 09/22/23 17:37 20:11 03:59 WBC 34.4 H* 26.6 H RBC 2.79 L D 3.08 L Hgb 7.9 L 8.5 L Hct 24.2 L 27.0 L RDW 19.9 H 19.6 H MPV 9.1 L 8.9 L Immature Gran % (Auto) 3.9 H Neut % (Auto) 92.2 H Lymph % (Auto) 1.8 L [place] % (Auto) 1.8 L Lymph # (Auto) 0.5 L Abs Immat Gran (auto) 1.05 H Absolute Neuts (auto) 24.6 H Neutrophils % (Manual) 96 H Band Neutrophils % 1 L Lymphocytes % (Manual) 2 L Monocytes % (Manual) 1 L Abs Neuts (Manual) 33.4 H Lymphocytes # (Manual) 0.7 L aPTT Heparin Protocol VBG HCO3 Potassium 3.1 L Carbon Dioxide BUN 44 H 37 H POC Glucose Random Glucose 142 H 180 H Lactic Acid 2.4 H* Lactic Acid F/U @ 2Hr 3.5 H* Calcium Troponin I High Sens 70.2 H* D 59.6 H* B-Natriuretic Peptide 134 H Total Protein 5.6 L Albumin 3.3 L 09/22/23 09/22/23 09/22/23 04:00 07:24 11:54 WBC 27.8 H RBC 2.76 L Hgb 7.9 L Hct 24.2 L RDW 19.8 H MPV 9.3 L Immature Gran % (Auto) 4.6 H Neut % (Auto) 91.6 H Lymph % (Auto) 2.0 L [place] % (Auto) 1.4 L Lymph # (Auto) 0.6 L Abs Immat Gran (auto) 1.27 H Absolute Neuts (auto) 25.5 H Neutrophils % (Manual) Band Neutrophils % Lymphocytes % (Manual) Monocytes % (Manual) Abs Neuts (Manual) Lymphocytes # (Manual) aPTT Heparin Protocol VBG HCO3 32 H Potassium Carbon Dioxide 16 L BUN 35 H POC Glucose Random Glucose 182 H Lactic Acid Lactic Acid F/U @ 2Hr Calcium 8.1 L D Troponin I High Sens 181.9 H* D 1255.2 H* D B-Natriuretic Peptide Total Protein 5.0 L Albumin 2.7 L 09/22/23 09/22/23 09/22/23 13:58 16:15 17:20 WBC RBC Hgb Hct RDW MPV Immature Gran % (Auto) Neut % (Auto) Lymph % (Auto) [place] % (Auto) Lymph # (Auto) Abs Immat Gran (auto) Absolute Neuts (auto) Neutrophils % (Manual) Band Neutrophils % Lymphocytes % (Manual) Monocytes % (Manual) Abs Neuts (Manual) Lymphocytes # (Manual) aPTT Heparin Protocol 32.2 L VBG HCO3 Potassium Carbon Dioxide BUN 34 H POC Glucose 180 H Random Glucose 145 H Lactic Acid Lactic Acid F/U @ 2Hr Calcium Troponin I High Sens 2187.7 H* D B-Natriuretic Peptide Total Protein Albumin 09/22/23 21:45 WBC RBC Hgb Hct RDW MPV Immature Gran % (Auto) Neut % (Auto) Lymph % (Auto) [place] % (Auto) Lymph # (Auto) Abs Immat Gran (auto) Absolute Neuts (auto) Neutrophils % (Manual) Band Neutrophils % Lymphocytes % (Manual) Monocytes % (Manual) Abs Neuts (Manual) Lymphocytes # (Manual) aPTT Heparin Protocol VBG HCO3 Potassium Carbon Dioxide BUN POC Glucose 122 H Random Glucose Lactic Acid Lactic Acid F/U @ 2Hr Calcium Troponin I High Sens B-Natriuretic Peptide Total Protein Albumin Microbiology: Microbiology 09/21/23 17:25 Blood - Venous Blood Culture - Preliminary No growth after 24 hours. 09/21/23 17:37 Blood - Venous Blood Culture - Preliminary No growth after 24 hours. Assessment and Plan (1) Acute exacerbation of chronic obstructive airways disease: Status: Acute (2) Acute and chronic respiratory failure with hypoxia: Status: Acute (3) Pneumonia: Qualifiers: Pneumonia type: due to unspecified organism Laterality: right Lung location: lower lobe of lung Qualified Code(s): J18.9 - Pneumonia, unspecified organism Status: Acute (4) Sepsis: Qualifiers: Sepsis type: sepsis due to unspecified organism Sepsis acute organ dysfunction status: with acute organ dysfunction Severe sepsis acute organ dysfunction type: acute respiratory failure Acute respiratory failure type: w ith hypoxia Severe sepsis shock status: without septic shock Qualified Code(s): A41.9 - Sepsis, unspecified organism; R65.20 - Severe sepsis without septic shock; J96.01 - Acute respiratory failure with hypoxia Status: Acute (5) Elevated troponin I level: Status: Acute Plan continue broadspectrum abx oxygen supplemetation to keep pox>92% cardiac evaluation CPT with aerobika Sputum cx Strep uring Ag Procedures Date of Service Date of Service: 09/22/23
--- NOTE | 2023-09-22 23:11 | PC.NURSE ---
No change om Heparin per protocol for PTT of 69
[2023-09-22] MEDS: Metoprolol Tartrate 12.5 MG HALFTAB PO (23:23)
[2023-09-23] VITALS (13 sets, daily range): BP systolic 96–131; BP diastolic 45–58; PULSE 96–125; RESP 12–20; TEMP 36.5–37.3; O2SAT 92–99
--- NOTE | 2023-09-23 | ECG_ITS ---
Test Reason : nstemi Blood Pressure : / mmHG Vent. Rate : 116 BPM Atrial Rate : 116 BPM P-R Int : 134 ms QRS Dur : 104 ms QT Int : 358 ms P-R-T Axes : 070 093 027 degrees QTc Int : 497 ms Sinus tachycardia with occasional Premature ventricular complexes Rightward axis Anterior infarct (cited on or before 26-AUG-2022) Abnormal ECG When compared with ECG of 21-SEP-2023 16:26, Premature ventricular complexes are now Present Referred By: Edgard Floyd Electronically Signed By:Edgard Floyd
[2023-09-23] MEDS: Azithromycin 500 MG in 0.9 % Sodium Chloride 250 ML 125 MG IV (00:03)
--- NOTE | 2023-09-23 00:09 | PC.NURSE ---
azithromax delayed, previous abx was still infusing
--- NOTE | 2023-09-23 04:38 | PC.NURSE ---
pt getting dress multiple times during the night, thinks she is going home. reassured pt that she is being cared for here. redirected into bed and back into hospital gown.
--- NOTE | 2023-09-23 04:39 | PC.NURSE ---
pt now resting comfortably in bed, breathing even and unlabored, no apparent distress noted. call alfonso w/in reach
[2023-09-23 05:06] LABS: Hematocrit 23.4 % (37.0-47.0); Hemoglobin 7.4 g/dl (12.0-16.0); Mean Corpuscular HGB Conc 31.6 g/dl (31.0-35.0); Mean Corpuscular Hemoglobin 28.1 pg (27.0-33.0); Mean Platelet Volume 9.7 fL (9.4-12.3); Platelet Count 348 X10*3/uL (160-400); Red Blood Count 2.63 X10*6/uL (4.20-5.50); Red Cell Distribution Width 19.4 % (11.0-16.0)
[2023-09-23 05:09] LABS: White Blood Count 33.4 X10*3/uL (4.8-10.8)
[2023-09-23 05:16] LABS: PTT Heparin Drip 81.9 SEC (53-77.9)
[2023-09-23 05:19] LABS: Anion Gap 15 (12-20); Blood Urea Nitrogen 39 mg/dL (9-16); Calcium 8.6 mg/dL (8.4-10.2); Carbon Dioxide 24 mmol/L (22-29); Chloride 105 mmol/L (96-108); Creatinine Clr Calc Pharmacy 27.7; Estimated Glomerular Filt Rate 48; Glucose Random 99 mg/dL (60-115); Potassium 3.9 mmol/L (3.3-5.1); Sodium 140 mmol/L (135-145)
--- NOTE | 2023-09-23 06:01 | PC.NURSE ---
RN placed a call to pharmacy to assist with vanco as there was none in the pyxis
[2023-09-23] MEDS: vancomycin HCL 500 MG in 0.9 % Sodium Chloride 100 ML 110 MG IV (06:21)
--- NOTE | 2023-09-23 07:00 | CA_ITS ---
Transthoracic Echocardiogram Patient (Last, First, Middle): Mary Amor A Gender: Female Date of : 1945 Age: 77 Procedure Date: 09/23/2023 Procedure Type: Transthoracic Echocardiogram Location: ER Height: 162.56 cm Weight: 41.73 kg BSA: 1.41 m2 Heart Rate: bpm BP: 115 / 52 mmHg Pressure Washer: Referring MD: Gabriele Ramirez MD Symptoms: nstemi Study Quality: Technically Difficult due to patient compliant ECG Rhythm: Sinus with extra beats Conclusions: - Normal left ventricular size, thickness, systolic function, and wall motion. The visually estimated ejection fraction is between 60-65%. Diastolic function is indeterminate on the basis of available data. - Normal right ventricular cavity size and systolic function. Findings Left Ventricle Normal left ventricular size, thickness, systolic function, and wall motion. The visually estimated ejection fraction is between 60-65%. Diastolic function is indeterminate on the basis of available data. Right Ventricle Normal right ventricular cavity size and systolic function. Atria The left atrium is normal in size. Aortic Valve The aortic valve was not well visualized. There is no aortic valve regurgitation. Mitral Valve The mitral valve was not well visualized. There is no mitral valve regurgitation. There is no mitral valve stenosis. Pulmonic Valve The pulmonic valve was not well visualized. Tricuspid Valve Normal tricuspid valve structure. There is mild tricuspid valve regurgitation. The right ventricular systolic pressure is 36 mmHg. Normal right atrial pressure. There is no evidence of pulmonary hypertension. Great Vessels The aorta was not well visualized. The pulmonary artery was not well visualized. Venous The inferior vena cava is normal in size and collapses greater than 50% with inspiration. Pericardium/Pleural There is no evidence of pericardial effusion. Prior Study Comparison No significant change compared to prior study dated: 10/12/2017. Measurements 2D Linear Measurements IVSd: 0.93 0.6-0.9/0.6-1.0 cm LVIDd: 3.22 3.9-5.3/4.2-5.9 cm LVIDd Index: 2.28 2.4-3.2/2.2-3.1 cm/m2 LVIDs: 2.47 2.0-3.6 cm LVPWd: 0.79 0.7-1.1 cm Ao Root: 2.50 2.1-3.5 cm LA Diam: 2.10 2.7-3.8/3.0-4.0 cm LAIDs Index: 1.49 1.5-2.3 cm/m2 LV Mass: 90.88 67-162/88-224 g LV Mass Index: 64.46 43-95/49-115 g/m2 LVOT Diam: 1.80 3.0+(-)1.3 cm 2D Systolic Function EF 4C: 60.20 >55% EF 2C: 60.00 >55% EF BiP: 58.30 >55% Mitral Valve MV Pk E: 0.66 MV PK A: 1.20 MV Decel Time: 74.00 E/A: 0.50 E'Lateral: 7.07 E'Medial: 5.22 E/E' Med: 12.50 E/E' Lat: 9.30 PHT: 22.00 MVA PHT: 10.00 Decel [place]ton: 8.86 Aortic Valve AoV Pk Juma: 0.94 AoV Mn Juma: 0.59 AoV VTI: 0.15 AoV Pk Grad: 4.00 Aov Mn Grad: 2.00 SUNG Cont.VTI: 2.39 LVOT LVOT Pk Juma: 0.80 LVOT Mn Juma: 0.49 LVOT VTI: 0.15 LVOT Pk Grad: 3.00 LVOT Mn Grad: 1.00 LVOT Diam: 1.80 LVOT Area: 2.54 Diastolic Function MV Pk E: 0.66 MV Pk A: 1.20 E/A: 0.50 E'Medial: 5.22 E/E' Med: 12.50 E' Laterial: 7.07 E/E' Lat: 9.30 Right Ventricle TAPSE (mm): 18.00 TVS' Juma: 12.00 Tricuspid Valve TR Pk Juma: 2.86 TR Pk Grad: 33.00 RA Press: 3.00 RVSP: 36.00 Great Vessels Aorta Ao Root-2D: 2.50 2.0-3.7 cm Updated in Other Vendor System with Status of Final Edgard Floyd MD electronically signed on 09/23/2023 9:14:22 PM with status of Final
[2023-09-23] MEDS: Tiotropium Bromide 2.5 mcg 1 PUFF/2.5 MCG MIST.INHAL 2 PUFF INHALE (07:16)
[2023-09-23] MEDS: Fluticasone/Vilanterol 100/25 BLST.W.DEV 1 PUFF INHALE (07:17)
[2023-09-23] MEDS: Albuterol/Iprat 2.5/0.5MG 3 ML AMPUL.NEB INHALE ×4 (07:19→20:10)
[2023-09-23 07:37] LABS: Glucose, Whole Blood 100 mg/dL (60-115)
--- NOTE | 2023-09-23 09:54 | PC.NURSE ---
this RN called to room, patient increased dyspnea and tachypneic. attempting to have bowel movement, patient stating it has been a long time since she has had one. large bowel movement noted in commode. IV solu-medrol administered, placed on oxymask 6L, respiratory at bedside. productive cough, respiratory assisting with suctioning sputum.
[2023-09-23] MEDS: methylPREDNISolone Sod Succ 40 MG/ML VIAL IVPUSH (10:05)
[2023-09-23] MEDS: Doxycycline Hyclate 100 MG in 0.9 % Sodium Chloride 250 ML 166.67 MG IV (10:15)
[2023-09-23] MEDS: Aspirin Enteric Coated 81 MG TABLET.DR PO (10:20)
[2023-09-23] MEDS: Megestrol Acetate 400 MG/10 ML ORAL.SUSP 800 MG PO (11:05)
--- NOTE | 2023-09-23 11:32 | PC.NURSE ---
reporting improvement in her breathing at this time. remains on the oxymask, receiving IV antibiotics. unable to maintain accurate pulse ox on patient, multiple attempts to place on fingers/forehead - now placed on earlobe w/ pedi probe.
--- NOTE | 2023-09-23 11:36 | HO.PM.IMPN ---
Subjective Subjective Date of Service: 09/23/23 Interval History: f/u on acute hypoxic respriatory failure d/t copd, sepsis, overall is feeli better, still sob, no chest pain at this time, troponins have trended up Physical Exam Vital Signs: Vital Signs: Last Vital Signs Temp 97.7 F 09/23/23 08:32 Pulse 108 H 09/23/23 11:09 Resp 16 09/23/23 11:09 BP 109/52 L 09/23/23 10:16 Pulse Ox 98 09/23/23 10:13 O2 Del Method Oxymask 09/23/23 10:13 O2 Flow Rate 6 09/23/23 10:13 Oxygen Flow Rate 2 09/21/23 16:13 BMI result Body Mass Index 15.4 General: AO X 3, no acute distress Resp: CTA bilateral CVS: S1,S2,RRR GI: +BS, NT, no distention Skin: No rash Neuro: motor grossly intact Psych: appropriate affect Objective Data Active Medications Acetaminophen (Acetaminophen 325 Mg Tablet) 975 mg PO Q6H PRN PRN Reason: mild pain, headache or fever Last Admin: 09/22/23 21:33 Dose: 975 mg Documented By: DIANE Albuterol Sulfate (Albuterol Sulfate (0.083%) 2.5 Mg/3 Ml Vial.Neb) 2.5 mg INHALE Q2H PRN PRN Reason: Shortness of Breath/Wheezing Albuterol Sulfate (Albuterol Sulfate 90 Mcg 8 Gm Inhaler) 2 puff INHALE Q4H PRN PRN Reason: shortness of breath or wheezing Albuterol/Ipratropium (Albuterol/Iprat 2.5/0.5mg 3 Ml Ampul.Neb) 3 ml INHALE RQ4H WHILE AWAKE [facility] Last Admin: 09/23/23 11:09 Dose: 3 ml Documented By: HERNESTO Aspirin (Aspirin Enteric Coated 81 Mg Tablet.) 81 mg PO DAILY [facility] Last Admin: 09/23/23 10:20 Dose: 81 mg Documented By: LACY Atorvastatin Calcium (Atorvastatin Calcium 80 Mg Tablet) 80 mg PO BEDTIME [facility] Fluticasone/Vilanterol (Fluticasone/Vilanterol 100/25 Blst.W.Dev) 1 puff INHALE RDAILY [facility] Last Admin: 09/23/23 07:17 Dose: 1 puff Documented By: HERNESTO Glucose (Glucose Gel 15 Gm Gel..Gram.) 15 gm PO Q15M PRN; Protocol PRN Reason: per Hypoglycemia Standing Ord. Hydrochlorothiazide (Hydrochlorothiazide 12.5 Mg Tablet) 12.5 mg PO DAILY [facility] Last Admin: 09/23/23 10:16 Dose: Not Given Documented By: LACY Non-Admin Reason: Decreased Blood Pressure Azithromycin 500 mg/ Sodium (Chloride) 250 mls @ 125 mls/hr IV Q24H [facility] Last Infusion: 09/23/23 03:18 Dose: Infused Documented By: FLORESITA Doxycycline Hyclate 100 mg/ (Sodium Chloride) 250 mls @ 166.67 mls/hr IV Q12H [facility] Last Admin: 09/23/23 10:15 Dose: 166.67 mls/hr Documented By: LACY Ceftriaxone Sodium 1 gm/ (Sodium Chloride) 50 mls @ 100 mls/hr IV Q24H [facility] Last Infusion: 09/22/23 19:01 Dose: Infused Documented By: RUTHY Vancomycin HCl 500 mg/ Sodium (Chloride) 110 mls @ 110 mls/hr IV Q12H [facility] Last Infusion: 09/23/23 10:12 Dose: Infused Documented By: LACY Dextrose (D10) 250 mls @ 750 mls/hr IV Q15M PRN; Protocol PRN Reason: per Hypoglycemia Standing Ord. Insulin Human Lispro (Insulin Lispro 100 Unit/Ml 3 Ml Vial) 0 unit SUBCUT QIDACHS [facility]; Protocol Last Admin: 09/23/23 09:58 Dose: Not Given Documented By: LACY Non-Admin Reason: No Insulin Coverage Megestrol Acetate (Megestrol Acetate 400 Mg/10 Ml Oral.Susp) 800 mg PO DAILY [facility] Last Admin: 09/23/23 11:05 Dose: 800 mg Documented By: LACY Methylprednisolone Sodium Succinate (Methylprednisolone Sod Succ 40 Mg/Ml Vial) 40 mg IVPUSH Q12H [facility] Last Admin: 09/23/23 10:05 Dose: 40 mg Documented By: LACY Metoprolol Tartrate (Metoprolol Tartrate 12.5 Mg Halftab) 12.5 mg PO BID [facility]; Protocol Last Admin: 09/23/23 10:17 Dose: Not Given Documented By: LACY Non-Admin Reason: Decreased Blood Pressure Omeprazole (Omeprazole 40 Mg Capsule.Dr) 40 mg PO DAILY@0630 [facility] Last Admin: 09/23/23 09:57 Dose: Not Given Documented By: LACY Non-Admin Reason: See Note Pharmacy Consult (Consult Rx Vancomycin Dosing) 1 each MISCELLANE DAILY PRN PRN Reason: Consult order Senna (Sennosides 8.6 Mg Tablet) 8.6 mg PO DAILY PRN PRN Reason: Constipation Sodium Chloride (0.9 % Sodium Chloride Flush 3 Ml Syringe) 3 ml IVFLUSH QSHIFT [facility] Last Admin: 09/23/23 09:57 Dose: Not Given Documented By: LACY Non-Admin Reason: IV Running Tiotropium Icard (Tiotropium Icard 2.5 Mcg 1 Puff/2.5 Mcg Mist.Inhal) 2 puff INHALE RDAILY [facility] Last Admin: 09/23/23 07:16 Dose: 2 puff Documented By: HERNESTO Valsartan (Valsartan 80 Mg Tablet) 80 mg PO DAILY [facility] Last Admin: 09/23/23 10:16 Dose: Not Given Documented By: LACY Non-Admin Reason: Decreased Blood Pressure Labs 09/23/23 04:00 09/23/23 04:00 Labs: Laboratory Results - last 24 hr 09/22/23 09/22/23 09/22/23 07:24 11:54 13:58 MCV MCH MCHC RDW Plt Count MPV Absolute Nucleated RBC Nucleated RBC % (auto) PT 11.4 INR 0.9 aPTT Heparin Protocol 32.2 L Anion Gap Estim Creat Clear Calc Estimated GFR POC Glucose Random Glucose Calcium Troponin I High Sens 181.9 H* D 1255.2 H* D Blood Type Antibody Screen 09/22/23 09/22/23 09/22/23 16:15 17:20 21:28 MCV MCH MCHC RDW Plt Count MPV Absolute Nucleated RBC Nucleated RBC % (auto) PT INR aPTT Heparin Protocol 69.0 D Anion Gap 17 Estim Creat Clear Calc 31.1 Estimated GFR 55 POC Glucose 180 H Random Glucose 145 H Calcium 9.1 D Troponin I High Sens 2187.7 H* D Blood Type Antibody Screen 09/22/23 09/22/2309/22/24 21:45 23:21 04:00 MCV 89.0 MCH 28.1 MCHC 31.6 RDW 19.4 H Plt Count 348 D MPV 9.7 Absolute Nucleated RBC 0.000 Nucleated RBC % (auto) 0.0 PT INR aPTT Heparin Protocol 81.9 H Anion Gap 15 Estim Creat Clear Calc 27.7 Estimated GFR 48 POC Glucose 122 H Random Glucose 99 Calcium 8.6 Troponin I High Sens 5520.6 H* D Blood Type Antibody Screen 09/23/23 09/23/23 07:31 08:58 MCV MCH MCHC RDW Plt Count MPV Absolute Nucleated RBC Nucleated RBC % (auto) PT INR aPTT Heparin Protocol Anion Gap Estim Creat Clear Calc Estimated GFR POC Glucose 100 Random Glucose Calcium Troponin I High Sens 5728.9 H* Blood Type A Positive Antibody Screen NEGATIVE Microbiology Microbiology Results: Microbiology 09/21/23 17:25 Blood Culture - Preliminary Blood - Venous No growth after 24 hours. 09/21/23 17:37 Blood Culture - Preliminary Blood - Venous No growth after 24 hours. Assessment and Plan (1) Hypoxic respiratory failure: Status: Acute Plan 77 y/o woman with PMHx significant for lingular necrotizing granuloma admitted with: Acute Hypoxic respiratory failure likely secondary acute exacerbation of COPD + acute bronchitis and NSTEMI. -O2 to keep sat around 88 to 92 -Bronchodilatorsby Neb -IV steroid -Abx with Doxy and Doxycyline -pulmonology consult Severe sepsis likely secondary to above COPD exacerbation of possible PNA, BP now normal with Crystalloid bolus given by ED. Empiric IV antibiotic therapy with doxycycline, ceftriaxone. Follow cultures Acute lacti acidosis--d/t above,resolved. Anemia--acute on chronic, inlight of NSTEMI severe COPD, transfuse 1 unit of RBC Elevated troponin, NSTEMI related to sepsis, and probably underlying heart disease. Troponin still trending up. Has been IV heparin, however hemoglobin trending down significantly so stopping heparin, Continue aspirin, BB and statin. Continue to monitor. Cardiology recommends echo Marked leukocytosis. Likely secondary to sepsis and recent use of prednisone. Continue to monitor. Protein calorie malnutrition. BMI 15.0 kb/m2. Continue megestrol. Hyperlipidemia. Continue statin. Essential hypertension. Metoprolol Hx of breast cancer s/p lumpectomy and radiation. CAD and carotid artery disease. Continue aspirin and statin as abive GERD. Continue PPI. Code status: Full DVT prophylaxis: Heparin Need for inpatient: management of hypoxic respiratory failure and severe sepsis treatment with supplemental oxygen, NSTEMI, bronchodilator therapy, IV fluids and IV steroids. Patient also will need close monitoring of blood workup and vital signs as well as evaluation by subspecialty. Quality Stroke Does the patient have a stroke diagnosis?: No VTE Prior VTE?: No VTE Risk Level:: Medical - moderate - high VTE Device Contraindication: N/A - Device Ordered VTE Drug Contraindication: N/A - Med Ordered
--- NOTE | 2023-09-23 12:01 | PC.NURSE ---
heparin gtt stopped d/t h&h - plan for one unit of blood to be transfused
--- NOTE | 2023-09-23 12:27 | P.CONCA_ITS ---
History of Present Illness History of Present Illness Date of Service: 09/23/23 Chief complaint: Hypoxic Respiratory Failure Narrative: [age] year female with advanced lung disease/COPD and pneumonia his sepsis. She has ruled in for NSTEMI. Denying any chest discomfort. His main complaint is shortness of breath and she is advanced COPD and pneumonia currently. EKGs showing incomplete left bundle-branch block with poor R-wave progression in precordial leads. She was started on heparin drip on admission and is currently on heparin. She is anemic with hemoglobin of 7.4. No bleeding reported by the patient. [facility] Past Medical History Medical History Anemia Former smoker, stopped smoking in distant past Carotid stenosis, bilateral GERD (gastroesophageal reflux disease) HLD (hyperlipidemia) HTN (hypertension) History of breast cancer History of non-ST elevation myocardial infarction (NSTEMI) (~10/2017) Bronchiectasis Pulmonary nodules COPD (chronic obstructive pulmonary disease) Surgical History Surgical History History of lung biopsy History of lumpectomy History of hysterectomy Social History Social History Household Members: None Housing: Condominium Are you a primary medicare interviewer to a significant other at home: No Do you presently have visiting nurse or other home services: No Alcohol intake: never Comment: States will need w/c to get her up to [facility]SS department Patient Tobacco Use Status: Former Tobacco user Quit Date: Tobacco use type: Cigarette Years Smoked: 20-30 years - quit 1998 Smoked in Last 30 Days: No Second Hand Smoke Exposure: No Use of substances other than those prescribed or required for medical reasons: No Advance Directives: No Advance Directives Information Provided: Yes service: No Current occupational status: retired Meds Allergies Allergy/AdvReac Type Severity Reaction Status Date / Time Sulfa (Sulfonamide Allergy Intermediate HIVES Verified 09/21/23 16:17 Antibiotics) [SULFA (SULFONAMIDE ANTIBIOTICS)] Amoxicillin Allergy Intermediate Hives Uncoded 03/11/23 09:54 Augementin Allergy Intermediate Hives Uncoded 03/11/23 09:54 Active Medications: Current Medications Acetaminophen (Acetaminophen 325 Mg Tablet) 975 mg PO Q6H PRN PRN Reason: mild pain, headache or fever Last Admin: 09/22/23 21:33 Dose: 975 mg Albuterol Sulfate (Albuterol Sulfate (0.083%) 2.5 Mg/3 Ml Vial.Neb) 2.5 mg INHALE Q2H PRN PRN Reason: Shortness of Breath/Wheezing Albuterol Sulfate (Albuterol Sulfate 90 Mcg 8 Gm Inhaler) 2 puff INHALE Q4H PRN PRN Reason: shortness of breath or wheezing Albuterol/Ipratropium (Albuterol/Iprat 2.5/0.5mg 3 Ml Ampul.Neb) 3 ml INHALE RQ4H WHILE AWAKE [facility] Last Admin: 09/23/23 11:09 Dose: 3 ml Aspirin (Aspirin Enteric Coated 81 Mg Tablet.Dr) 81 mg PO DAILY [facility] Last Admin: 09/23/23 10:20 Dose: 81 mg Atorvastatin Calcium (Atorvastatin Calcium 80 Mg Tablet) 80 mg PO BEDTIME [facility] Fluticasone/Vilanterol (Fluticasone/Vilanterol 100/25 Blst.W.Dev) 1 puff INHALE RDAILY [facility] Last Admin: 09/23/23 07:17 Dose: 1 puff Glucose (Glucose Gel 15 Gm Gel..Gram.) 15 gm PO Q15M PRN; Protocol PRN Reason: per Hypoglycemia Standing Ord. Hydrochlorothiazide (Hydrochlorothiazide 12.5 Mg Tablet) 12.5 mg PO DAILY [facility] Last Admin: 09/23/23 10:16 Dose: Not Given Azithromycin 500 mg/ Sodium (Chloride) 250 mls @ 125 mls/hr IV Q24H [facility] Last Infusion: 09/23/23 03:18 Dose: Infused Doxycycline Hyclate 100 mg/ (Sodium Chloride) 250 mls @ 166.67 mls/hr IV Q12H [facility] Last Infusion: 09/23/23 12:00 Dose: Infused Ceftriaxone Sodium 1 gm/ (Sodium Chloride) 50 mls @ 100 mls/hr IV Q24H [facility] Last Infusion: 09/22/23 19:01 Dose: Infused Vancomycin HCl 500 mg/ Sodium (Chloride) 110 mls @ 110 mls/hr IV Q12H [facility] Last Infusion: 09/23/23 10:12 Dose: Infused Dextrose (D10) 250 mls @ 750 mls/hr IV Q15M PRN; Protocol PRN Reason: per Hypoglycemia Standing Ord. Sodium Chloride (Ns) 100 mls @ 100 mls/hr IV ONCE ONE Stop: 09/23/23 12:45 Insulin Human Lispro (Insulin Lispro 100 Unit/Ml 3 Ml Vial) 0 unit SUBCUT QIDACHS [facility]; Protocol Last Admin: 09/23/23 09:58 Dose: Not Given Megestrol Acetate (Megestrol Acetate 400 Mg/10 Ml Oral.Susp) 800 mg PO DAILY [facility] Last Admin: 09/23/23 11:05 Dose: 800 mg Methylprednisolone Sodium Succinate (Methylprednisolone Sod Succ 40 Mg/Ml Vial) 40 mg IVPUSH Q12H [facility] Last Admin: 09/23/23 10:05 Dose: 40 mg Metoprolol Tartrate (Metoprolol Tartrate 12.5 Mg Halftab) 12.5 mg PO BID [facility]; Protocol Last Admin: 09/23/23 10:17 Dose: Not Given Omeprazole (Omeprazole 40 Mg Capsule.Dr) 40 mg PO DAILY@0630 [facility] Last Admin: 09/23/23 09:57 Dose: Not Given Pharmacy Consult (Consult Rx Vancomycin Dosing) 1 each MISCELLANE DAILY PRN PRN Reason: Consult order Senna (Sennosides 8.6 Mg Tablet) 8.6 mg PO DAILY PRN PRN Reason: Constipation Sodium Chloride (0.9 % Sodium Chloride Flush 3 Ml Syringe) 3 ml IVFLUSH QSHIFT [facility] Last Admin: 09/23/23 09:57 Dose: Not Given Tiotropium [place] (Tiotropium [place] 2.5 Mcg 1 Puff/2.5 Mcg Mist.Inhal) 2 puff INHALE RDAILY [facility] Last Admin: 09/23/23 07:16 Dose: 2 puff Valsartan (Valsartan 80 Mg Tablet) 80 mg PO DAILY [facility] Last Admin: 09/23/23 10:16 Dose: Not Given Home Medications ?Medication ?Instructions ?Recorded ?Confirmed ?Last Taken ?Type aspirin 81 mg tablet,delayed 81 mg PO DAILY 08/09/20 09/22/23 2 Days Ago History release ~09/20/23 atorvastatin 40 mg tablet 40 mg PO BEDTIME 08/09/20 09/22/23 2 Days Ago History ~09/20/23 diltiazem HCl 120 mg 120 mg PO DAILY 08/09/20 09/22/23 2 Days Ago History capsule,extended release 24 hr ~09/20/23 fluticasone 250 mcg-salmeterol 50 1 ea inhalation BID 08/09/20 09/22/23 2 Days Ago History mcg/dose blistr powdr for ~09/20/23 inhalation irbesartan 150 1 tab PO DAILY 08/09/20 09/22/23 2 Days Ago History mg-hydrochlorothiazide 12.5 mg ~09/20/23 tablet omeprazole 40 mg capsule,delayed 40 mg PO DAILY@0630 08/09/20 09/22/23 2 Days Ago History release ~09/20/23 Oxygen Home Use 08/07/22 09/25/22 Unknown History nebulizers 08/07/22 09/25/22 Unknown History furosemide 20 mg tablet 20 mg PO DAILY 09/22/23 09/22/23 2 Days Ago History ~09/20/23 megestrol 400 mg/10 mL (40 mg/mL) 800 mg PO DAILY 09/22/23 09/22/23 2 Days Ago History oral suspension ~09/20/23 sennosides 8.6 mg tablet (senna) 8.6 mg PO DAILY PRN Constipation 09/22/23 09/22/23 Unknown History Physical Exam 2 Vital Signs: Vital Signs: Last Vital Signs Temp 97.7 F 09/23/23 08:32 Pulse 108 H 09/23/23 11:09 Resp 16 09/23/23 11:09 BP 109/52 L 09/23/23 10:16 Pulse Ox 98 09/23/23 10:13 O2 Del Method Oxymask 09/23/23 10:13 O2 Flow Rate 6 09/23/23 10:13 Oxygen Flow Rate 2 09/21/23 16:13 BMI result Body Mass Index 15.4 GENERAL APPEARANCE: Distressed due to respiratory status, pleasant. NECK: no carotid bruit, no jugular venous distention. SKIN: no suspicious lesions, warm and dry. HEART: no murmurs, regular rate and rhythm. LUNGS: Diminished breath sounds bilaterally with prolonged expiratory phase. ABDOMEN: soft, nontender. EXTREMITIES: no edema. PERIPHERAL PULSES: equal. NEUROLOGIC: No gross deficits, AAO X 3 Objective Labs and Meds 09/23/23 04:00 09/23/23 04:00 Lab results: Laboratory Results - last 24 hr 09/22/23 09/22/23 09/22/23 07:24 11:54 13:58 WBC RBC Hgb Hct MCV MCH MCHC RDW Plt Count MPV Absolute Nucleated RBC Nucleated RBC % (auto) PT 11.4 INR 0.9 aPTT Heparin Protocol 32.2 L Sodium Potassium Chloride Carbon Dioxide Anion Gap BUN Creatinine Estim Creat Clear Calc Estimated GFR POC Glucose Random Glucose Calcium Troponin I High Sens 181.9 H* D 1255.2 H* D Blood Type Antibody Screen Crossmatch 09/22/23 09/22/23 09/22/23 16:15 17:20 21:28 WBC RBC Hgb Hct MCV MCH MCHC RDW Plt Count MPV Absolute Nucleated RBC Nucleated RBC % (auto) PT INR aPTT Heparin Protocol 69.0 D Sodium 139 Potassium 3.7 Chloride 103 Carbon Dioxide 23 Anion Gap 17 BUN 34 H Creatinine 0.97 Estim Creat Clear Calc 31.1 Estimated GFR 55 POC Glucose 180 H Random Glucose 145 H Calcium 9.1 D Troponin I High Sens 2187.7 H* D Blood Type Antibody Screen Crossmatch 09/22/23 09/22/23 09/23/23 21:45 23:21 04:00 WBC 33.4 H* RBC 2.63 L Hgb 7.4 L Hct 23.4 L MCV 89.0 MCH 28.1 MCHC 31.6 RDW 19.4 H Plt Count 348 D MPV 9.7 Absolute Nucleated RBC 0.000 Nucleated RBC % (auto) 0.0 PT INR aPTT Heparin Protocol 81.9 H Sodium 140 Potassium 3.9 Chloride 105 Carbon Dioxide 24 Anion Gap 15 BUN 39 H Creatinine 1.09 Estim Creat Clear Calc 27.7 Estimated GFR 48 POC Glucose 122 H Random Glucose 99 Calcium 8.6 Troponin I High Sens 5520.6 H* D Blood Type Antibody Screen Crossmatch 09/23/23 09/23/23 07:31 08:58 WBC RBC Hgb Hct MCV MCH MCHC RDW Plt Count MPV Absolute Nucleated RBC Nucleated RBC % (auto) PT INR aPTT Heparin Protocol Sodium Potassium Chloride Carbon Dioxide Anion Gap BUN Creatinine Estim Creat Clear Calc Estimated GFR POC Glucose 100 Random Glucose Calcium Troponin I High Sens 5728.9 H* Blood Type A Positive Antibody Screen NEGATIVE Crossmatch See Detail Assessment and Plan (1) Pneumonia: Qualifiers: Pneumonia type: due to unspecified organism Laterality: right Lung location: lower lobe of lung Qualified Code(s): J18.9 - Pneumonia, unspecified organism Status: Acute (2) Sepsis: Qualifiers: Sepsis type: sepsis due to unspecified organism Sepsis acute organ dysfunction status: with acute organ dysfunction Severe sepsis acute organ dysfunction type: acute respiratory failure Acute respiratory failure type: w ith hypoxia Severe sepsis shock status: without septic shock Qualified Code(s): A41.9 - Sepsis, unspecified organism; R65.20 - Severe sepsis without septic shock; J96.01 - Acute respiratory failure with hypoxia Status: Acute (3) NSTEMI (non-ST elevated myocardial infarction): Status: Acute Plan 77-year-old female with pneumonia, sepsis and NSTEMI. She has significant elevation of troponin level and difficult to say whether this is type 1 versus type 2 event. In any case she is on heparin drip currently. I am concerned about heparin in her to because she is anemic to start with and is a thin underweight lady who are high risk for bleeding. Check echocardiogram to assess for any wall motion abnormalities. If no wall motion abnormalities then would favor stopping the heparin for now. If she has any changes consistent with takotsubo cardiomyopathy/stress-induced myopathy then again would consider stopping heparin drip. Continue supportive care for pneumonia. Thank you for allowing me to participate in the care of your patient. Please feel free to contact me if you have any questions. Procedures Date of Service Date of Service: 09/23/23
--- NOTE | 2023-09-23 12:53 | PC.NURSE ---
unit of blood infusing. patient w/ no obvious signs/symptoms of distress noted. resting quietly with eyes closed, respirations even and unlabored.
[2023-09-23 14:42] LABS: Glucose, Whole Blood 194 mg/dL (60-115)
--- NOTE | 2023-09-23 15:33 | P.PNPL_ITS ---
Subjective Subjective Date of Service: 09/23/23 Interval history: Ruled in for at least NSTEMI. Echo is pending. Cultures negative to date. Objective Data Labs 09/23/23 04:00 09/23/23 04:00 Labs: Laboratory Results - last 24 hr 09/22/23 09/22/23 09/22/23 16:15 17:20 21:28 WBC RBC Hgb Hct MCV MCH MCHC RDW Plt Count MPV Absolute Nucleated RBC Nucleated RBC % (auto) aPTT Heparin Protocol 69.0 D Sodium 139 Potassium 3.7 Chloride 103 Carbon Dioxide 23 Anion Gap 17 BUN 34 H Creatinine 0.97 Estim Creat Clear Calc 31.1 Estimated GFR 55 POC Glucose 180 H Random Glucose 145 H Calcium 9.1 D Troponin I High Sens 2187.7 H* D Blood Type Antibody Screen Crossmatch 09/22/23 09/22/23 09/23/23 21:45 23:21 04:00 WBC 33.4 H* RBC 2.63 L Hgb 7.4 L Hct 23.4 L MCV 89.0 MCH 28.1 MCHC 31.6 RDW 19.4 H Plt Count 348 D MPV 9.7 Absolute Nucleated RBC 0.000 Nucleated RBC % (auto) 0.0 aPTT Heparin Protocol 81.9 H Sodium 140 Potassium 3.9 Chloride 105 Carbon Dioxide 24 Anion Gap 15 BUN 39 H Creatinine 1.09 Estim Creat Clear Calc 27.7 Estimated GFR 48 POC Glucose 122 H Random Glucose 99 Calcium 8.6 Troponin I High Sens 5520.6 H* D Blood Type Antibody Screen Crossmatch 09/23/23 09/23/23 09/23/23 07:31 08:58 14:38 WBC RBC Hgb Hct MCV MCH MCHC RDW Plt Count MPV Absolute Nucleated RBC Nucleated RBC % (auto) aPTT Heparin Protocol Sodium Potassium Chloride Carbon Dioxide Anion Gap BUN Creatinine Estim Creat Clear Calc Estimated GFR POC Glucose 100 194 H Random Glucose Calcium Troponin I High Sens 5728.9 H* Blood Type A Positive Antibody Screen NEGATIVE Crossmatch See Detail Microbiology Microbiology Results: Microbiology 09/21/23 17:25 Blood - Venous Blood Culture - Preliminary No growth after 24 hours. 09/21/23 17:37 Blood - Venous Blood Culture - Preliminary No growth after 24 hours. Physical Exam 2 Vital Signs: Vital Signs: Last Vital Signs Temp 97.7 F 09/23/23 12:58 Pulse 116 H 09/23/23 15:21 Resp 12 09/23/23 15:21 BP 99/53 L 09/23/23 12:58 Pulse Ox 98 09/23/23 10:13 O2 Del Method Oxymask 09/23/23 10:13 O2 Flow Rate 6 09/23/23 10:13 Oxygen Flow Rate 2 09/21/23 16:13 BMI result Body Mass Index 15.4 Const: General: no acute distress, alert and awake Nutritional Appearance: cachectic Eyes: Sclerae: sclerae normal EOM: EOMs intact bilaterally Neck: Neck: Yes no lymphadenopathy, Yes trachea midline and Yes supple Resp: Effort & Inspection: normal respiratory effort and no respiratory distress Auscultation: clear to auscultation bilaterally Cardio: Rate: tachycardic Rhythm: regular rhythm Heart sounds: no gallops, no murmurs and no rubs GI: Palpation (GI): Soft to palpation and Other GI palpation findings present ( Nontender) Auscultation: normal bowel sounds Extrem: General: Yes no pedal edema, No clubbing and No cyanosis Procedures Date of Service Date of Service: 09/23/23 Assessment and Plan Assessment and plan (1) NSTEMI (non-ST elevated myocardial infarction): Status: Acute (2) Hypoxic respiratory failure: Status: Acute (3) COPD (chronic obstructive pulmonary disease): Problem details: worsening disease Status: Acute Assessment and Plan: Impression: 77-year-old lady with underlying advanced COPD admitted with hypotension and dyspnea, now ruled in for NSTEMI. No evidence of lobar pneumonia. No evidence of COPD exacerbation. Appears to have significant cardiac component to her symptoms Recommendations: Simplify antibiotic regimen to Levaquin. Rule out pulmonary embolism. Consider discontinuation of systemic glucocorticoids. Time Spent With Patient Time: Total time managing care of this patient today ____ minutes. Progress Note: Quality Stroke Does the patient have a stroke diagnosis?: No
--- NOTE | 2023-09-23 16:41 | PC.NURSE ---
Patient now has NC on but couldn't breathe , setting was only on 1L, I called resp and they had taken off the oxymask as bothering her. Very difficult to picking supervisor her oxygen levels, monitor is on her ear. Oxygen was increased to 3.5LNC and patient is starting to feel better
--- NOTE | 2023-09-23 16:45 | MHC.EDTECH ---
Pt given toothbrush setup with warm water, pt requests nothing else
--- NOTE | 2023-09-23 16:57 | PC.NURSE ---
Stopped blood products at 15:45 pm but i put the info into the [facility]AR and it still says transfusing. Spoke to someone in Blood bank and she was not able to see the [facility]. Vitals put in after blood was done. There was 100 cc of blood not infused.
[2023-09-23 17:07] LABS: Vancomycin Random 16.7 mcg/mL (15-20)
[2023-09-23 17:28] LABS: Hematocrit 30.1 % (37.0-47.0); Hemoglobin 9.8 g/dl (12.0-16.0); Mean Corpuscular HGB Conc 32.6 g/dl (31.0-35.0); Mean Corpuscular Hemoglobin 29.6 pg (27.0-33.0); Mean Corpuscular Volume 90.9 fL (80.0-98.0); Mean Platelet Volume 9.4 fL (9.4-12.3); NRBC Pct Auto 0.1 /100WBC (0.0-0.2); Platelet Count 345 X10*3/uL (160-400); Red Blood Count 3.31 X10*6/uL (4.20-5.50); Red Cell Distribution Width 17.4 % (11.0-16.0)
[2023-09-23 17:37] LABS: White Blood Count 37.1 X10*3/uL (4.8-10.8)
[2023-09-23 17:47] LABS: B Type Natriuretic Peptide 347 pg/mL (<100)
[2023-09-23 18:24] LABS: Glucose, Whole Blood 201 mg/dL (60-115)
[2023-09-23] MEDS: Insulin Lispro 100 UNIT/ML 3 ML VIAL SUBCUT (18:58)
[2023-09-23] MEDS: levoFLOXacin/D5W 500 MG/100 ML PIGGYBACK 100 MG IV (19:37)
[2023-09-23 20:57] LABS: Glucose, Whole Blood 120 mg/dL (60-115)
[2023-09-23] MEDS: Atorvastatin Calcium 80 MG TABLET PO (21:23)
[2023-09-23] MEDS: Metoprolol Tartrate 12.5 MG HALFTAB PO (21:23)
[2023-09-23] MEDS: methylPREDNISolone Sod Succ 40 MG/ML VIAL 20 MG IVPUSH (21:26)
[2023-09-23] MEDS: Heparin Sodium,Porcine 5,000 UNIT/ML VIAL 5000 UNIT SUBCUT (21:27)
[2023-09-24] VITALS (21 sets, daily range): BP systolic 73–140; BP diastolic 40–64; PULSE 10–111; RESP 17–22; TEMP 36.3–37.8; O2SAT 94–98; BMI 15.4
[2023-09-24] MEDS: Omeprazole 40 MG CAPSULE.DR PO (06:15)
[2023-09-24 07:18] LABS: Hematocrit 25.5 % (37.0-47.0); Hemoglobin 8.6 g/dl (12.0-16.0); Mean Corpuscular HGB Conc 33.7 g/dl (31.0-35.0); Mean Corpuscular Hemoglobin 29.6 pg (27.0-33.0); Mean Corpuscular Volume 87.6 fL (80.0-98.0); Mean Platelet Volume 9.6 fL (9.4-12.3); Platelet Count 310 X10*3/uL (160-400); Red Blood Count 2.91 X10*6/uL (4.20-5.50); Red Cell Distribution Width 17.4 % (11.0-16.0); White Blood Count 26.9 X10*3/uL (4.8-10.8)
[2023-09-24] MEDS: Albuterol/Iprat 2.5/0.5MG 3 ML AMPUL.NEB INHALE ×4 (07:34→19:55)
[2023-09-24 07:48] LABS: Glucose, Whole Blood 91 mg/dL (60-115)
[2023-09-24] MEDS: Tiotropium Bromide 2.5 mcg 1 PUFF/2.5 MCG MIST.INHAL 2 PUFF INHALE (07:49)
[2023-09-24] MEDS: Fluticasone/Vilanterol 100/25 BLST.W.DEV 1 PUFF INHALE (07:49)
[2023-09-24] MEDS: Aspirin Enteric Coated 81 MG TABLET.DR PO (09:30)
[2023-09-24] MEDS: Megestrol Acetate 400 MG/10 ML ORAL.SUSP 800 MG PO (09:30)
[2023-09-24] MEDS: Valsartan 80 MG TABLET PO (09:31)
[2023-09-24] MEDS: 0.9 % Sodium Chloride Flush 3 ML SYRINGE IVFLUSH ×2 (09:31→23:27)
[2023-09-24] MEDS: methylPREDNISolone Sod Succ 40 MG/ML VIAL 20 MG IVPUSH ×2 (09:31→23:17)
[2023-09-24] MEDS: Metoprolol Tartrate 12.5 MG HALFTAB PO ×2 (09:31→23:18)
[2023-09-24] MEDS: hydroCHLOROthiazide 12.5 MG TABLET PO (09:31)
[2023-09-24] MEDS: Heparin Sodium,Porcine 5,000 UNIT/ML VIAL 5000 UNIT SUBCUT ×2 (09:31→23:18)
--- NOTE | 2023-09-24 10:11 | P.PNIM_ITS ---
Subjective Subjective Date of Service: 09/24/23 Interval History: f/u on acute hypoxic respriatory failure d/t copd, sepsis, improving but still sob especially with any minimal effort no chest pain Physical Exam 2 Vital Signs: Vital Signs: Last Vital Signs Temp 99.3 F 09/24/23 07:27 Pulse 101 H 09/24/23 07:37 Resp 18 09/24/23 07:37 BP 118/60 09/24/23 09:31 Pulse Ox 96 09/24/23 07:27 O2 Del Method Nasal Cannula 09/24/23 07:27 O2 Flow Rate 4 09/24/23 07:27 Oxygen Flow Rate 2 09/21/23 16:13 BMI result Body Mass Index 15.4 General: AO X 3, no acute distress Resp: CTA bilateral CVS: S1,S2,RRR, 2 + leg edema GI: +BS, NT, no distention Skin: No rash Neuro: motor grossly intact Psych: appropriate affect Objective Data Active Medications Acetaminophen (Acetaminophen 325 Mg Tablet) 975 mg PO Q6H PRN PRN Reason: mild pain, headache or fever Last Admin: 09/22/23 21:33 Dose: 975 mg Documented By: DIANE Albuterol Sulfate (Albuterol Sulfate (0.083%) 2.5 Mg/3 Ml Vial.Neb) 2.5 mg INHALE Q2H PRN PRN Reason: Shortness of Breath/Wheezing Albuterol Sulfate (Albuterol Sulfate 90 Mcg 8 Gm Inhaler) 2 puff INHALE Q4H PRN PRN Reason: shortness of breath or wheezing Albuterol/Ipratropium (Albuterol/Iprat 2.5/0.5mg 3 Ml Ampul.Neb) 3 ml INHALE RQ4H WHILE AWAKE [facility] Last Admin: 09/24/23 07:34 Dose: 3 ml Documented By: GUY Aspirin (Aspirin Enteric Coated 81 Mg Tablet.) 81 mg PO DAILY [facility] Last Admin: 09/24/23 09:30 Dose: 81 mg Documented By: KELLEY Atorvastatin Calcium (Atorvastatin Calcium 80 Mg Tablet) 80 mg PO BEDTIME [facility] Last Admin: 09/23/23 21:23 Dose: 80 mg Documented By: MELINDA Fluticasone/Vilanterol (Fluticasone/Vilanterol 100/25 Blst.W.Dev) 1 puff INHALE RDAILY [facility] Last Admin: 09/24/23 07:49 Dose: 1 puff Documented By: GUY Glucose (Glucose Gel 15 Gm Gel..Gram.) 15 gm PO Q15M PRN; Protocol PRN Reason: per Hypoglycemia Standing Ord. Heparin Sodium (Porcine) (Heparin Sodium,Porcine 5,000 Unit/Ml Vial) 5,000 unit SUBCUT BID [facility] Last Admin: 09/24/23 09:31 Dose: 5,000 unit Documented By: KELLEY Hydrochlorothiazide (Hydrochlorothiazide 12.5 Mg Tablet) 12.5 mg PO DAILY [facility] Last Admin: 09/24/23 09:31 Dose: 12.5 mg Documented By: KELLEY Dextrose (D10) 250 mls @ 750 mls/hr IV Q15M PRN; Protocol PRN Reason: per Hypoglycemia Standing Ord. Levofloxacin (Levaquin) 500 mg in 100 mls @ 100 mls/hr IV Q48H [facility] Last Infusion: 09/23/23 22:10 Dose: Infused Documented By: MELINDA Insulin Human Lispro (Insulin Lispro 100 Unit/Ml 3 Ml Vial) 0 unit SUBCUT QIDACHS [facility]; Protocol Last Admin: 09/24/23 07:46 Dose: Not Given Documented By: KELLEY Non-Admin Reason: No Insulin Coverage Megestrol Acetate (Megestrol Acetate 400 Mg/10 Ml Oral.Susp) 800 mg PO DAILY [facility] Last Admin: 09/24/23 09:30 Dose: 800 mg Documented By: KELLEY Methylprednisolone Sodium Succinate (Methylprednisolone Sod Succ 40 Mg/Ml Vial) 20 mg IVPUSH Q12H [facility] Last Admin: 09/24/23 09:31 Dose: 20 mg Documented By: KELLEY Metoprolol Tartrate (Metoprolol Tartrate 12.5 Mg Halftab) 12.5 mg PO BID [facility]; Protocol Last Admin: 09/24/23 09:31 Dose: 12.5 mg Documented By: KELLEY Omeprazole (Omeprazole 40 Mg Capsule.Dr) 40 mg PO DAILY@0630 [facility] Last Admin: 09/24/23 06:15 Dose: 40 mg Documented By: MELINDA Senna (Sennosides 8.6 Mg Tablet) 8.6 mg PO DAILY PRN PRN Reason: Constipation Sodium Chloride (0.9 % Sodium Chloride Flush 3 Ml Syringe) 3 ml IVFLUSH QSHIFT [facility] Last Admin: 09/24/23 09:31 Dose: 3 ml Documented By: KELLEY Tiotropium [place] (Tiotropium [place] 2.5 Mcg 1 Puff/2.5 Mcg Mist.Inhal) 2 puff INHALE RDAILY [facility] Last Admin: 09/24/23 07:49 Dose: 2 puff Documented By: GUY Valsartan (Valsartan 80 Mg Tablet) 80 mg PO DAILY [facility] Last Admin: 09/24/23 09:31 Dose: 80 mg Documented By: KELLEY Labs 09/24/23 06:06 09/23/23 04:00 Labs: Laboratory Results - last 24 hr 09/23/23 09/23/23 09/23/23 08:58 14:38 16:20 MCV MCH MCHC RDW Plt Count MPV Absolute Nucleated RBC Nucleated RBC % (auto) POC Glucose 194 H B-Natriuretic Peptide Random Vancomycin 16.7 Blood Type A Positive Antibody Screen NEGATIVE Crossmatch See Detail 09/23/23 09/23/23 09/23/23 17:21 18:18 20:39 MCV 90.9 MCH 29.6 MCHC 32.6 RDW 17.4 H Plt Count 345 MPV 9.4 Absolute Nucleated RBC 0.020 H Nucleated RBC % (auto) 0.1 POC Glucose 201 H 120 H B-Natriuretic Peptide 347 H Random Vancomycin Blood Type Antibody Screen Crossmatch 09/24/23 09/24/23 06:06 07:45 MCV 87.6 MCH 29.6 MCHC 33.7 RDW 17.4 H Plt Count 310 MPV 9.6 Absolute Nucleated RBC 0.000 Nucleated RBC % (auto) 0.0 POC Glucose 91 B-Natriuretic Peptide Random Vancomycin Blood Type Antibody Screen Crossmatch Microbiology Microbiology Results: Microbiology 09/21/23 17:25 Blood Culture - Preliminary Blood - Venous No growth after 48 hours. 09/21/23 17:37 Blood Culture - Preliminary Blood - Venous No growth after 48 hours. Assessment and Plan (1) Hypoxic respiratory failure: Status: Acute Plan 77 y/o woman with PMHx significant for lingular necrotizing granuloma admitted with: Acute Hypoxic respiratory failure likely secondary to acute exacerbation of COPD + acute bronchitis and NSTEMI. Improving -O2 to keep sat around 88 to 92 -Bronchodilatorsby Neb -IV steroid to po prednisone -pulmonology consult recommends Levaquin for PNA Severe sepsis likely secondary to above COPD exacerbation of possible PNA, BP now normal with Crystalloid bolus given by ED. -Levaquin for 7 days, stopped vanco, doxy and Azithro, WBC trendind down Acute lacti acidosis--d/t above,resolved. Anemia--acute on chronic, inlight of NSTEMI severe COPD, transfuse 1 unit of RBC with good effect, will give 1 more unit tody Elevated troponin, NSTEMI related to sepsis, and probably underlying heart disease. Troponin still trending up. Has been IV heparin, however hemoglobin trending down significantly so stopping heparin, Continue aspirin, BB and statin. Continue to monitor. Cardiology recommends echo. Heparin stopped d/t significant anemia. Echo EF 60 to 65% Marked leukocytosis. Likely secondary to sepsis and recent use of prednisone. Improving, monitor Protein calorie malnutrition. BMI 15.0 kb/m2. Continue megestrol. Hyperlipidemia. Continue statin. Essential hypertension. Metoprolol Hx of breast cancer s/p lumpectomy and radiation. CAD and carotid artery disease. Continue aspirin, BB and statin as above GERD. Continue PPI. Code status: Full DVT prophylaxis: Heparin Need for inpatient: management of hypoxic respiratory failure and severe sepsis treatment with supplemental oxygen, NSTEMI, bronchodilator therapy, IV fluids and IV steroids. Patient also will need close monitoring of blood workup and vital signs as well as evaluation by subspecialty. Quality Stroke Does the patient have a stroke diagnosis?: No VTE Prior VTE?: No VTE Risk Level:: Medical - moderate - high VTE Device Contraindication: N/A - Device Ordered VTE Drug Contraindication: N/A - Med Ordered
[2023-09-24 11:34] LABS: Glucose, Whole Blood 136 mg/dL (60-115)
--- NOTE | 2023-09-24 13:05 | MHC.CLN ---
RE: CONSULT PT IS MODERATELY MALNOURISHED PT WITH MILDLY DEPLETED SUBCUTANEOUS FAT AND MUSCLE MASS WITH 31% SIGNIFICANT WT LOSS X2 YEARS AND CHRONIC POOR PO INTAKE PT REPORTS HER WT WAS 85# IN THE PAST YEAR AND NOW 92# R/T INCREASED APPETITE R/T USE OF MEGACE. OBSERVED PT'S LUNCH MEAL CONSUMED 50% DIET RX: REGULAR-APPROPRIATE PT DOES DRINK ENSURE AT HOME (PREFERS CHOCOLATE) PT REQUESTING ENSURE CLEAR AND MAGIC CUP TO INCREASE PO ENSURE CLEAR PROVIDES 480KCALS, 16G PROTEIN MAGIC CUP PROVIDES 870KCALS, 27G PROTEIN MONITOR PO INTAKE AND ENCOURAGE SUPPLEMENTS SEE ALSO FULL CLINCICAL NUTRITION ASSESSMENT
[2023-09-24] MEDS: 0.9 % Sodium Chloride 1,000 ML 500 ML IVCONT (13:44)
--- NOTE | 2023-09-24 14:25 | MHC.CM.PN ---
EMR reviewed and per MD rounds, pt is not medically cleared for discharge due to management of hypoxic respiratory failure, and NSTEMI. PT rec pulmonary rehab. This CM met with pt to discuss and pt is in agreement with going to [facility]. [facility]. [facility] is able to offer her a bed at discharge and are following on [facility]. Pt also mentioned that she would like more help at home, referral placed to [facility]. This CM placed call to Dr. Terrance Cleveland's office to request copy of HCP. HCP copy received, and now on file.
--- NOTE | 2023-09-24 14:47 | PC.NURSE ---
ns 1,000 mL bonus decreased to only 500 mL due to weight/age/bilat pittin edema and blood transfusion per MD order via telephone
[2023-09-24 16:12] LABS: Glucose, Whole Blood 156 mg/dL (60-115)
--- NOTE | 2023-09-24 16:49 | P.PNPL_ITS ---
Subjective Subjective Date of Service: 09/24/23 Interval history: Respiratory symptoms essentially resolved and FiO2 requirements improved to baseline after transfusion of 2 units of packed red blood cells. 2D echocardiogram is essentially normal. Objective Data Labs 09/24/23 06:06 09/23/23 04:00 Labs: Laboratory Results - last 24 hr 09/23/23 09/23/23 09/23/23 08:58 16:20 17:21 WBC 37.1 H* RBC 3.31 L D Hgb 9.8 L D Hct 30.1 L D MCV 90.9 MCH 29.6 MCHC 32.6 RDW 17.4 H Plt Count 345 MPV 9.4 Absolute Nucleated RBC 0.020 H Nucleated RBC % (auto) 0.1 POC Glucose B-Natriuretic Peptide 347 H Random Vancomycin 16.7 Blood Type A Positive Antibody Screen NEGATIVE Crossmatch See Detail 09/23/23 09/23/23 09/24/23 18:18 20:39 06:06 WBC 26.9 H RBC 2.91 L Hgb 8.6 L Hct 25.5 L MCV 87.6 MCH 29.6 MCHC 33.7 RDW 17.4 H Plt Count 310 MPV 9.6 Absolute Nucleated RBC 0.000 Nucleated RBC % (auto) 0.0 POC Glucose 201 H 120 H B-Natriuretic Peptide Random Vancomycin Blood Type Antibody Screen Crossmatch 09/24/23 09/24/23 09/24/23 07:45 11:29 16:08 WBC RBC Hgb Hct MCV MCH MCHC RDW Plt Count MPV Absolute Nucleated RBC Nucleated RBC % (auto) POC Glucose 91 136 H 156 H B-Natriuretic Peptide Random Vancomycin Blood Type Antibody Screen Crossmatch Microbiology Microbiology Results: Microbiology 09/21/23 17:25 Blood - Venous Blood Culture - Preliminary No growth after 48 hours. 09/21/23 17:37 Blood - Venous Blood Culture - Preliminary No growth after 48 hours. Physical Exam 2 Vital Signs: Vital Signs: Last Vital Signs Temp 99.1 F 09/24/23 15:22 Pulse 109 H 09/24/23 15:22 Resp 19 09/24/23 15:22 BP 112/57 L 09/24/23 15:22 Pulse Ox 97 09/24/23 15:22 O2 Del Method Nasal Cannula 09/24/23 15:22 O2 Flow Rate 2 09/24/23 15:22 Oxygen Flow Rate 2 09/21/23 16:13 BMI result Body Mass Index 15.4 Const: General: no acute distress, alert and awake Eyes: Sclerae: sclerae normal EOM: EOMs intact bilaterally Neck: Neck: Yes no lymphadenopathy, Yes trachea midline and Yes supple Resp: Effort & Inspection: normal respiratory effort and no respiratory distress Auscultation: clear to auscultation bilaterally Cardio: Rate: tachycardic Rhythm: regular rhythm Heart sounds: no gallops, no murmurs and no rubs GI: Palpation (GI): Soft to palpation and Other GI palpation findings present ( Nontender) Auscultation: normal bowel sounds Extrem: General: Yes no pedal edema, No clubbing and No cyanosis Procedures Date of Service Date of Service: 09/24/23 Assessment and Plan Assessment and plan (1) NSTEMI (non-ST elevated myocardial infarction): Status: Acute (2) Anemia: Status: Acute (3) Acute and chronic respiratory failure with hypoxia: Status: Acute Plan Impression: 77-year-old lady with underlying advanced COPD admitted with hypotension and dyspnea, now ruled in for NSTEMI. No evidence of lobar pneumonia. No evidence of COPD exacerbation. Respiratory symptoms resolved and FiO2 requirements returned to baseline after transfusion of 2 units of packed red blood cells. 2D echocardiogram is normal. Appears to have been O2 uptake limited. Recommendations: Appears to be at baseline of her pulmonary status at this time. Discontinue systemic glucocorticoids. Time Spent With Patient Time: Total time managing care of this patient today ____ minutes. Progress Note: Quality Stroke Does the patient have a stroke diagnosis?: No
[2023-09-24] MEDS: Insulin Lispro 100 UNIT/ML 3 ML VIAL SUBCUT ×2 (17:05→23:26)
[2023-09-24 20:48] LABS: Glucose, Whole Blood 169 mg/dL (60-115)
--- NOTE | 2023-09-24 21:15 | PM.PNCARD ---
Subjective Subjective Date of Service: 09/24/23 Interval history: Feeling better. Off heparin. Received blood transfusion. Physical Exam Vital Signs: Last Vital Signs Temp 99.7 F 09/24/23 19:29 Pulse 100 09/24/23 19:56 Resp 18 09/24/23 19:56 BP 130/61 09/24/23 19:29 Pulse Ox 97 09/24/23 19:29 O2 Del Method Nasal Cannula 09/24/23 19:29 O2 Flow Rate 2 09/24/23 19:29 Oxygen Flow Rate 2 09/21/23 16:13 BMI result Body Mass Index 15.4 GENERAL APPEARANCE: Breathing improved. NECK: no carotid bruit, no jugular venous distention. SKIN: no suspicious lesions, warm and dry. HEART: no murmurs, regular rate and rhythm. LUNGS: Diminished breath sounds bilaterally with prolonged expiratory phase. ABDOMEN: soft, nontender. EXTREMITIES: no edema. PERIPHERAL PULSES: equal. NEUROLOGIC: No gross deficits, AAO X 3 Objective Labs and Meds 09/24/23 06:06 09/23/23 04:00 Lab results: Laboratory Results - last 24 hr 09/23/23 09/24/23 09/24/23 08:58 06:06 07:45 WBC 26.9 H RBC 2.91 L Hgb 8.6 L Hct 25.5 L MCV 87.6 MCH 29.6 MCHC 33.7 RDW 17.4 H Plt Count 310 MPV 9.6 Absolute Nucleated RBC 0.000 Nucleated RBC % (auto) 0.0 POC Glucose 91 Blood Type A Positive Antibody Screen NEGATIVE Crossmatch See Detail 09/24/23 09/24/23 09/24/23 11:29 16:08 20:44 WBC RBC Hgb Hct MCV MCH MCHC RDW Plt Count MPV Absolute Nucleated RBC Nucleated RBC % (auto) POC Glucose 136 H 156 H 169 H Blood Type Antibody Screen Crossmatch Progress Note: A&P Assessment and plan (1) NSTEMI (non-ST elevated myocardial infarction): Status: Acute Plan Pleasant female presenting with significant respiratory distress due to pneumonia. She is on antibiotics and clinically she is improving. She ruled in for NSTEMI admission which is likely due to sepsis. LV function is normal on echocardiography. She also has not tolerated heparin with some anemia required blood transfusions. She can continue baby aspirin if she tolerates it. I think her presentation is due to type 2 MO. Signing off. Thank you for allowing me to participate in the care of your patient. Please feel free to contact me if you have any questions. Time Spent With Patient Time: Total time managing care of this patient today ____ minutes. Progress Note: Quality Stroke Does the patient have a stroke diagnosis?: No Procedures Date of Service Date of Service: 09/24/23
[2023-09-24 23:14] LABS: Glucose, Whole Blood 156 mg/dL (60-115)
[2023-09-24] MEDS: Sennosides 8.6 MG TABLET PO (23:18)
[2023-09-24] MEDS: Atorvastatin Calcium 80 MG TABLET PO (23:18)
[2023-09-24] MEDS: Acetaminophen 325 MG TABLET 975 MG PO (23:19)
[2023-09-25] VITALS (11 sets, daily range): BP systolic 102–133; BP diastolic 53–73; PULSE 77–115; RESP 16–22; TEMP 36.4–37.1; O2SAT 96–100
[2023-09-25] MEDS: Omeprazole 40 MG CAPSULE.DR PO (06:47)
[2023-09-25] MEDS: Acetaminophen 325 MG TABLET 975 MG PO (06:47)
[2023-09-25 07:02] LABS: Hematocrit 32.8 % (37.0-47.0); Hemoglobin 11.1 g/dl (12.0-16.0); Mean Corpuscular HGB Conc 33.8 g/dl (31.0-35.0); Mean Corpuscular Hemoglobin 29.8 pg (27.0-33.0); Mean Corpuscular Volume 87.9 fL (80.0-98.0); Mean Platelet Volume 9.3 fL (9.4-12.3); Platelet Count 253 X10*3/uL (160-400); Red Blood Count 3.73 X10*6/uL (4.20-5.50); Red Cell Distribution Width 16.6 % (11.0-16.0); White Blood Count 19.7 X10*3/uL (4.8-10.8)
[2023-09-25 07:12] LABS: Anion Gap 10 (12-20); Blood Urea Nitrogen 33 mg/dL (9-16); Calcium 8.5 mg/dL (8.4-10.2); Carbon Dioxide 24 mmol/L (22-29); Chloride 107 mmol/L (96-108); Creatinine Clr Calc Pharmacy 37.3; Estimated Glomerular Filt Rate > 60; Glucose Random 106 mg/dL (60-115); Potassium 4.4 mmol/L (3.3-5.1); Sodium 137 mmol/L (135-145)
[2023-09-25] MEDS: Albuterol/Iprat 2.5/0.5MG 3 ML AMPUL.NEB INHALE ×4 (07:43→19:25)
[2023-09-25] MEDS: Fluticasone/Vilanterol 100/25 BLST.W.DEV 1 PUFF INHALE (07:43)
[2023-09-25] MEDS: Tiotropium Bromide 2.5 mcg 1 PUFF/2.5 MCG MIST.INHAL 2 PUFF INHALE (07:43)
[2023-09-25 07:51] LABS: Glucose, Whole Blood 95 mg/dL (60-115)
[2023-09-25] MEDS: methylPREDNISolone Sod Succ 40 MG/ML VIAL 20 MG IVPUSH (09:07)
[2023-09-25] MEDS: hydroCHLOROthiazide 12.5 MG TABLET PO (09:09)
[2023-09-25] MEDS: Aspirin Enteric Coated 81 MG TABLET.DR PO (09:09)
[2023-09-25] MEDS: Metoprolol Tartrate 12.5 MG HALFTAB PO ×2 (09:09→20:43)
[2023-09-25] MEDS: Valsartan 80 MG TABLET PO (09:09)
[2023-09-25] MEDS: Furosemide 20 MG/2 ML VIAL IVPUSH (09:09)
[2023-09-25] MEDS: Heparin Sodium,Porcine 5,000 UNIT/ML VIAL 5000 UNIT SUBCUT ×2 (09:09→20:44)
[2023-09-25] MEDS: 0.9 % Sodium Chloride Flush 3 ML SYRINGE IVFLUSH ×2 (09:10→17:30)
--- NOTE | 2023-09-25 09:12 | P.PNIM_ITS ---
Subjective Subjective Date of Service: 09/25/23 Interval History: f/u on acute hypoxic respriatory failure d/t copd, sepsis, and possible heart failure. She feels slighly better, oxygenation is better, had episode of hypotension yesterday resolved with ivf and blood Physical Exam 2 Vital Signs: Vital Signs: Last Vital Signs Temp 98.1 F 09/25/23 07:41 Pulse 77 09/25/23 07:44 Resp 22 H 09/25/23 07:44 BP 125/62 09/25/23 07:41 Pulse Ox 97 09/25/23 07:41 O2 Del Method Nasal Cannula 09/25/23 07:41 O2 Flow Rate 2 09/25/23 07:41 Oxygen Flow Rate 2 09/21/23 16:13 BMI result Body Mass Index 15.4 General: AO X 3, no acute distress Resp: CTA bilateral CVS: S1,S2,RRR. 2+ leg edema GI: +BS, NT, no distention Skin: No rash Neuro: motor grossly intact Psych: appropriate affect Objective Data Active Medications Acetaminophen (Acetaminophen 325 Mg Tablet) 975 mg PO Q6H PRN PRN Reason: mild pain, headache or fever Last Admin: 09/25/23 06:47 Dose: 975 mg Documented By: DIANNA Albuterol Sulfate (Albuterol Sulfate (0.083%) 2.5 Mg/3 Ml Vial.Neb) 2.5 mg INHALE Q2H PRN PRN Reason: Shortness of Breath/Wheezing Albuterol Sulfate (Albuterol Sulfate 90 Mcg 8 Gm Inhaler) 2 puff INHALE Q4H PRN PRN Reason: shortness of breath or wheezing Albuterol/Ipratropium (Albuterol/Iprat 2.5/0.5mg 3 Ml Ampul.Neb) 3 ml INHALE RQ4H WHILE AWAKE [facility] Last Admin: 09/25/23 07:43 Dose: 3 ml Documented By: ALYX Aspirin (Aspirin Enteric Coated 81 Mg Tablet.) 81 mg PO DAILY [facility] Last Admin: 09/24/23 09:30 Dose: 81 mg Documented By: KELLEY Atorvastatin Calcium (Atorvastatin Calcium 80 Mg Tablet) 80 mg PO BEDTIME [facility] Last Admin: 09/24/23 23:18 Dose: 80 mg Documented By: DIANNA Fluticasone/Vilanterol (Fluticasone/Vilanterol 100/25 Blst.W.Dev) 1 puff INHALE RDAILY [facility] Last Admin: 09/25/23 07:43 Dose: 1 puff Documented By: ALYX Furosemide (Furosemide 20 Mg/2 Ml Vial) 20 mg IVPUSH DAILY [facility]; Protocol Glucose (Glucose Gel 15 Gm Gel..Gram.) 15 gm PO Q15M PRN; Protocol PRN Reason: per Hypoglycemia Standing Ord. Heparin Sodium (Porcine) (Heparin Sodium,Porcine 5,000 Unit/Ml Vial) 5,000 unit SUBCUT BID [facility] Last Admin: 09/24/23 23:18 Dose: 5,000 unit Documented By: DIANNA Hydrochlorothiazide (Hydrochlorothiazide 12.5 Mg Tablet) 12.5 mg PO DAILY [facility] Last Admin: 09/24/23 09:31 Dose: 12.5 mg Documented By: KELLEY Dextrose (D10) 250 mls @ 750 mls/hr IV Q15M PRN; Protocol PRN Reason: per Hypoglycemia Standing Ord. Levofloxacin (Levaquin) 500 mg in 100 mls @ 100 mls/hr IV Q48H [facility] Last Infusion: 09/23/23 22:10 Dose: Infused Documented By: MELINDA Insulin Human Lispro (Insulin Lispro 100 Unit/Ml 3 Ml Vial) 0 unit SUBCUT QIDACHS [facility]; Protocol Last Admin: 09/25/23 07:52 Dose: Not Given Documented By: AGUILA Non-Admin Reason: NPO Megestrol Acetate (Megestrol Acetate 400 Mg/10 Ml Oral.Susp) 800 mg PO DAILY [facility] Last Admin: 09/24/23 09:30 Dose: 800 mg Documented By: KELLEY Methylprednisolone Sodium Succinate (Methylprednisolone Sod Succ 40 Mg/Ml Vial) 20 mg IVPUSH Q12H [facility] Last Admin: 09/24/23 23:17 Dose: 20 mg Documented By: DIANNA Metoprolol Tartrate (Metoprolol Tartrate 12.5 Mg Halftab) 12.5 mg PO BID [facility]; Protocol Last Admin: 09/24/23 23:18 Dose: 12.5 mg Documented By: DIANNA Omeprazole (Omeprazole 40 Mg Capsule.Dr) 40 mg PO DAILY@0630 [facility] Last Admin: 09/25/23 06:47 Dose: 40 mg Documented By: DIANNA Senna (Sennosides 8.6 Mg Tablet) 8.6 mg PO DAILY PRN PRN Reason: Constipation Last Admin: 09/24/23 23:18 Dose: 8.6 mg Documented By: DIANNA Sodium Chloride (0.9 % Sodium Chloride Flush 3 Ml Syringe) 3 ml IVFLUSH QSHIFT [facility] Last Admin: 09/24/23 23:27 Dose: 3 ml Documented By: DIANNA Tiotropium [place] (Tiotropium [place] 2.5 Mcg 1 Puff/2.5 Mcg Mist.Inhal) 2 puff INHALE RDAILY [facility] Last Admin: 09/25/23 07:43 Dose: 2 puff Documented By: ALYX Valsartan (Valsartan 80 Mg Tablet) 80 mg PO DAILY [facility] Last Admin: 09/24/23 09:31 Dose: 80 mg Documented By: KELLEY Labs 09/25/23 06:20 09/25/23 06:20 Labs: Laboratory Results - last 24 hr 09/23/23 09/24/23 09/24/23 08:58 11:29 16:08 MCV MCH MCHC RDW Plt Count MPV Absolute Nucleated RBC Nucleated RBC % (auto) Anion Gap Estim Creat Clear Calc Estimated GFR POC Glucose 136 H 156 H Random Glucose Calcium Blood Type A Positive Antibody Screen NEGATIVE Crossmatch See Detail 09/24/23 09/24/23 09/25/23 20:44 23:10 06:20 MCV 87.9 MCH 29.8 MCHC 33.8 RDW 16.6 H Plt Count 253 MPV 9.3 L Absolute Nucleated RBC 0.000 Nucleated RBC % (auto) 0.0 Anion Gap 10 L Estim Creat Clear Calc 37.3 Estimated GFR > 60 POC Glucose 169 H 156 H Random Glucose 106 Calcium 8.5 Blood Type Antibody Screen Crossmatch 09/25/23 07:47 MCV MCH MCHC RDW Plt Count MPV Absolute Nucleated RBC Nucleated RBC % (auto) Anion Gap Estim Creat Clear Calc Estimated GFR POC Glucose 95 Random Glucose Calcium Blood Type Antibody Screen Crossmatch Assessment and Plan (1) Hypoxic respiratory failure: Status: Acute Plan 77 y/o woman with PMHx significant for lingular necrotizing granuloma admitted with: Acute Hypoxic respiratory failure likely secondary to acute exacerbation of COPD + acute bronchitis and NSTEMI. Improving -O2 to keep sat around 88 to 92, wean off O2 -Bronchodilatorsby Neb -IV steroid to po prednisone -pulmonology consult recommends Levaquin for PNA Severe sepsis likely secondary to above COPD exacerbation of possible PNA, -Levaquin for 7 days, stopped vanco, doxy and Azithro, WBC trendind down Acute lacti acidosis--d/t above,resolved. Hypotension 09/23--Not due to sepsis, likely from anemia and resolved with blood transfusion Anemia--acute on chronic, inlight of NSTEMI severe COPD, s/p 2 units of RBC with improvment, no active bleeding Elevated troponin, NSTEMI related to sepsis, and probably underlying heart disease. Troponin still trending up. Has been IV heparin, however hemoglobin trending down significantly so stopping heparin, Continue aspirin, BB and statin. Continue to monitor. Cardiology recommends echo. Heparin stopped d/t significant anemia. Echo EF 60 to 65% Acute diastolic heart failure d/t anemia--IV Lasix Marked leukocytosis--trending down, some of it due to steroid. Continue to monitor Protein calorie malnutrition. BMI 15.0 kb/m2. Continue megestrol. Hyperlipidemia. Continue statin. Essential hypertension. Metoprolol Hx of breast cancer s/p lumpectomy and radiation. CAD and carotid artery disease. Continue aspirin, BB and statin as above GERD. Continue PPI. Code status: Full DVT prophylaxis: Heparin Need for inpatient: management of hypoxic respiratory failure and severe sepsis treatment with supplemental oxygen, NSTEMI, bronchodilator therapy, IV fluids and IV steroids. Patient also will need close monitoring of blood workup and vital signs as well as evaluation by subspecialty. Quality Stroke Does the patient have a stroke diagnosis?: No VTE Prior VTE?: No VTE Risk Level:: Medical - moderate - high VTE Device Contraindication: N/A - Device Ordered VTE Drug Contraindication: N/A - Med Ordered
[2023-09-25 11:41] LABS: Glucose, Whole Blood 176 mg/dL (60-115)
[2023-09-25] MEDS: Megestrol Acetate 400 MG/10 ML ORAL.SUSP 800 MG PO (11:51)
[2023-09-25] MEDS: Insulin Lispro 100 UNIT/ML 3 ML VIAL SUBCUT ×2 (11:51→17:30)
--- NOTE | 2023-09-25 13:50 | MHC.CLN ---
F/U PT IS MODERATELY MALNOURISHED SEE FULL CLINICAL NUTRITION ASSESSMENT DATED 09/24/23 PO INTAKE 50% AVERAGE DIET RX: REGULAR-APPROPRIATE PT DOES DRINK ENSURE AT HOME (PREFERS CHOCOLATE) PT REQUESTING ENSURE CLEAR AND MAGIC CUP TO INCREASE PO ENSURE CLEAR PROVIDES 480KCALS, 16G PROTEIN MAGIC CUP PROVIDES 870KCALS, 27G PROTEIN MONITOR PO INTAKE AND ENCOURAGE SUPPLEMENTS
--- NOTE | 2023-09-25 13:50 | MHC.CM.PN ---
EMR reviewed and per MD rounds, pt is not medically cleared for discharge due to management of hypoxic respiratory failure, and NSTEMI. Pts condition is improving, and will likely be ready for discharge in the next day or 2. [facility] a [facility] bed once she is ready.
--- NOTE | 2023-09-25 15:30 | MHC.SL.SWA ---
Speech Pathologist Impression: Risk of Aspiration Due to: Medically Fragile Poor PO Intake Dysphasia Diet Status: Liquid Consistency and Strategies for Safe Swallow: Liquid Intake Recommendation: Thin Liquid Intake Strategies: Small Sips Solid Food Consistency: Dietary Recommendations: Regular Additional Modifications to Solid Foods: Elect softer, easier to chew items from the regular menu. Patient is encouraged to eat smaller, more frequent meals, and for this inpatient stay, encouraged to eat to her satisfaction at meals, but remove items from tray to eat at a later time if fatigued at meal. Oral Medication Intake: Whole with Puree Please contact the pharmacy regarding appropriate crushable or liquid drug formulations that are available whenever modified delivery is recommended. Compensatory Strategies and Precautions to be Taken for Safe Swallow: Sitting Upright (90 deg) Liquids from Cup Liquids from Straw Small Bites and Sips Alternate Liquids/Solids Avoid Specific Foods Supervision While Eating and Drinking for Safe Swallow: None Needed Foods to Avoid: Tough, difficulty to chew solids. Swallowing Recommended Treatments: Recommendation for Speech: Modified Barium Swallow Study - Outpatient Comment: Patient presents with most aspects of oral motor function and swallow wfl. Patient however expresses anxiety about eating in general, has had episodes of food getting stuck and fatigues easily when eating meals. Patient has lost 30 lbs in past year by her report, and reports history of difficulty with effort of eating. Recommend patient continue on current REGULAR diet with THIN liquids, pills whole in puree or with water as preferred by patient. Recommend patient elect foods from Regular menu that are softer and easier to chew, and that patient would benefit from smaller, more frequent meals, given her fatigue with eating. Secondary to complaint of sensation of food feeling stuck patient may benefit from MBSS study as out patient (not indicated for this inpatient stay) for a more comprehensive assessment of swallow. Recommend 1 f/u by ACOUSTIC SENSOR OPERATOR to assess toleration at full meal. Frequency/Duration: 1 f/u Date Range for Service Req: Timeline to reassess: Painter Maintenance Clinican/Clinical Fellow: No Supervisory Statement: I have reviewed and agree with the student/clinical fellow's documentation: N/A Speech Language Pathologist: Janis Cassidy M.A., [facility]-ACOUSTIC SENSOR OPERATOR
[2023-09-25 18:13] LABS: Glucose, Whole Blood 159 mg/dL (60-115)
[2023-09-25] MEDS: levoFLOXacin/D5W 500 MG/100 ML PIGGYBACK 100 MG IV (18:36)
[2023-09-25] MEDS: Atorvastatin Calcium 80 MG TABLET PO (20:43)
[2023-09-25 20:53] LABS: Glucose, Whole Blood 144 mg/dL (60-115)
[2023-09-26] VITALS (15 sets, daily range): BP systolic 87–107; BP diastolic 41–54; PULSE 89–110; RESP 16–20; TEMP 36.4–36.8; O2SAT 94–99
[2023-09-26] MEDS: Albuterol Sulfate (0.083%) 2.5 MG/3 ML VIAL.NEB INHALE ×2 (01:47→21:28)
[2023-09-26] MEDS: Omeprazole 40 MG CAPSULE.DR PO (05:54)
[2023-09-26 07:35] LABS: Glucose, Whole Blood 122 mg/dL (60-115)
[2023-09-26] MEDS: Tiotropium Bromide 2.5 mcg 1 PUFF/2.5 MCG MIST.INHAL 2 PUFF INHALE (07:43)
[2023-09-26] MEDS: Albuterol/Iprat 2.5/0.5MG 3 ML AMPUL.NEB INHALE ×4 (07:43→19:23)
[2023-09-26] MEDS: Fluticasone/Vilanterol 100/25 BLST.W.DEV 1 PUFF INHALE (07:43)
[2023-09-26 07:55] LABS: Hematocrit 35.1 % (37.0-47.0); Hemoglobin 11.9 g/dl (12.0-16.0); Mean Corpuscular HGB Conc 33.9 g/dl (31.0-35.0); Mean Corpuscular Hemoglobin 30.1 pg (27.0-33.0); Mean Corpuscular Volume 88.6 fL (80.0-98.0); Mean Platelet Volume 8.9 fL (9.4-12.3); Platelet Count 266 X10*3/uL (160-400); Red Blood Count 3.96 X10*6/uL (4.20-5.50); Red Cell Distribution Width 16.9 % (11.0-16.0); White Blood Count 19.5 X10*3/uL (4.8-10.8)
[2023-09-26 08:17] LABS: Anion Gap 12 (12-20); Blood Urea Nitrogen 27 mg/dL (9-16); Calcium 7.9 mg/dL (8.4-10.2); Carbon Dioxide 22 mmol/L (22-29); Chloride 107 mmol/L (96-108); Creatinine Clr Calc Pharmacy 44.5; Estimated Glomerular Filt Rate > 60; Glucose Random 110 mg/dL (60-115); Potassium 3.9 mmol/L (3.3-5.1); Sodium 137 mmol/L (135-145)
--- NOTE | 2023-09-26 10:09 | MHC.SL.SWA ---
Speech Pathologist Impression: Risk of Aspiration Due to: Medically Fragile Poor PO Intake Dysphasia Diet Status: Recommend Patient continue on Regular Diet with Thin liquids pills whole in puree or with liquid, as preferred. Patient is encouraged to pick softer foods from regular menu, avoiding tough to chew solids. Recommend encouraging patient to snack of nutritional supplements between meals for adequate nourishment, given small amounts taken at any full meal. Liquid Consistency and Strategies for Safe Swallow: Liquid Intake Recommendation: Thin Liquid Intake Strategies: Small Sips Solid Food Consistency: Dietary Recommendations: Regular Additional Modifications to Solid Foods: Elect softer, easier to chew items from the regular menu. Patient is encouraged to eat smaller, more frequent meals, and for this inpatient stay, encouraged to eat to her satisfaction at meals, but remove items from tray to eat at a later time if fatigued at meal. Oral Medication Intake: Whole with Puree Please contact the pharmacy regarding appropriate crushable or liquid drug formulations that are available whenever modified delivery is recommended. Compensatory Strategies and Precautions to be Taken for Safe Swallow: Sitting Upright (90 deg) Alternate Liquids/Solids Supervision While Eating and Drinking for Safe Swallow: None Needed Foods to Avoid: Tough, difficulty to chew solids. Swallowing Recommended Treatments: Recommendation for Speech: Modified Barium Swallow Study - Outpatient Comment: Patient seen at breakfast this morning for follow-up toleration of meal. Patient was awake and alert, very pleasant, and had concluded what she wanted to eat from her meal at time of visit, though was waiting for a cup of coffee which did not come with tray. Patient on baseline 2L 02 again this morning, notably less SOB than visit yesterday. Patient had a variety of foods on tray, had eaten small amounts of each item, including [place], oatmeal, yogurt, magic cup. Patient did have crocker on tray, which she had not attempted to eat and noted this to BASS VIOL REPAIRER. BASS VIOL REPAIRER obtained some coffee for patient, and observed her take a few sips, with no difficulty noted, mild audible swallow. BASS VIOL REPAIRER took off tray magic cup and ensure and encouraged patient to try to have more of these items at a later time after resting. Patient appears to be tolerating diet well, taking precautions to avoid tough to chew foods, and cooperative with plan to have supplemental snacks between meals. Recommend D/C speech at this time. Recommend Patient continue on Regular Diet with Thin liquids pills whole in puree or with liquid, as preferred. Recommend encouraging patient to snack of nutritional supplements between meals for adequate nourishment, given small amounts taken at any full meal. Frequency/Duration: Date Range for Service Req: Timeline to reassess: Jailor Clinican/Clinical Fellow: No Supervisory Statement: I have reviewed and agree with the student/clinical fellow's documentation: N/A Speech Language Pathologist: Janis Cassidy M.A., CCC-BASS VIOL REPAIRER
[2023-09-26] MEDS: 0.9 % Sodium Chloride Flush 3 ML SYRINGE IVFLUSH ×2 (10:23→17:44)
[2023-09-26] MEDS: Aspirin Enteric Coated 81 MG TABLET.DR PO (10:24)
[2023-09-26] MEDS: Heparin Sodium,Porcine 5,000 UNIT/ML VIAL 5000 UNIT SUBCUT ×2 (10:25→21:59)
[2023-09-26] MEDS: predniSONE 20 MG TABLET PO (10:25)
--- NOTE | 2023-09-26 10:26 | HO.PM.IMPN ---
Subjective Subjective Date of Service: 09/27/23 Interval History: f/u on acute hypoxic respriatory failure d/t copd, sepsis, and possible heart failure. She feels slighly better, oxygenation is better, had episode of hypotension yesterday resolved with ivf and blood Physical Exam Vital Signs: Vital Signs: Last Vital Signs Temp 97.7 F 09/26/23 07:39 Pulse 94 09/26/23 07:46 Resp 18 09/26/23 07:46 BP 102/50 L 09/26/23 07:39 Pulse Ox 97 09/26/23 07:39 O2 Del Method Nasal Cannula 09/26/23 07:39 O2 Flow Rate 3 09/26/23 07:39 Oxygen Flow Rate 2 09/21/23 16:13 BMI result Body Mass Index 15.4 Objective Data Active Medications Acetaminophen (Acetaminophen 325 Mg Tablet) 975 mg PO Q6H PRN PRN Reason: mild pain, headache or fever Last Admin: 09/25/23 06:47 Dose: 975 mg Documented By: DIANNA Albuterol Sulfate (Albuterol Sulfate (0.083%) 2.5 Mg/3 Ml Vial.Neb) 2.5 mg INHALE Q2H PRN PRN Reason: Shortness of Breath/Wheezing Last Admin: 09/26/23 01:47 Dose: 2.5 mg Documented By: SHAWN Albuterol Sulfate (Albuterol Sulfate 90 Mcg 8 Gm Inhaler) 2 puff INHALE Q4H PRN PRN Reason: shortness of breath or wheezing Albuterol/Ipratropium (Albuterol/Iprat 2.5/0.5mg 3 Ml Ampul.Neb) 3 ml INHALE RQ4H WHILE AWAKE [facility] Last Admin: 09/26/23 07:43 Dose: 3 ml Documented By: DELPHINE Aspirin (Aspirin Enteric Coated 81 Mg Tablet.) 81 mg PO DAILY [facility] Last Admin: 09/26/23 10:24 Dose: 81 mg Documented By: AURORA Atorvastatin Calcium (Atorvastatin Calcium 80 Mg Tablet) 80 mg PO BEDTIME [facility] Last Admin: 09/25/23 20:43 Dose: 80 mg Documented By: ALEX Fluticasone/Vilanterol (Fluticasone/Vilanterol 100/25 Blst.W.Dev) 1 puff INHALE RDAILY [facility] Last Admin: 09/26/23 07:43 Dose: 1 puff Documented By: DELPHINE Furosemide (Furosemide 20 Mg/2 Ml Vial) 20 mg IVPUSH DAILY [facility]; Protocol Last Admin: 09/25/23 09:09 Dose: 20 mg Documented By: AGUILA Glucose (Glucose Gel 15 Gm Gel..Gram.) 15 gm PO Q15M PRN; Protocol PRN Reason: per Hypoglycemia Standing Ord. Heparin Sodium (Porcine) (Heparin Sodium,Porcine 5,000 Unit/Ml Vial) 5,000 unit SUBCUT BID [facility] Last Admin: 09/26/23 10:25 Dose: 5,000 unit Documented By: AURORA Hydrochlorothiazide (Hydrochlorothiazide 12.5 Mg Tablet) 12.5 mg PO DAILY [facility] Last Admin: 09/25/23 09:09 Dose: 12.5 mg Documented By: AGUILA Dextrose (D10) 250 mls @ 750 mls/hr IV Q15M PRN; Protocol PRN Reason: per Hypoglycemia Standing Ord. Levofloxacin (Levaquin) 500 mg in 100 mls @ 100 mls/hr IV Q48H [facility] Last Infusion: 09/25/23 22:00 Dose: Infused Documented By: ALEX Insulin Human Lispro (Insulin Lispro 100 Unit/Ml 3 Ml Vial) 0 unit SUBCUT QIDACHS [facility]; Protocol Last Admin: 09/26/23 07:58 Dose: Not Given Documented By: AURORA Non-Admin Reason: poc= 122 Megestrol Acetate (Megestrol Acetate 400 Mg/10 Ml Oral.Susp) 800 mg PO DAILY [facility] Last Admin: 09/25/23 11:51 Dose: 800 mg Documented By: AGUILA Metoprolol Tartrate (Metoprolol Tartrate 12.5 Mg Halftab) 12.5 mg PO BID [facility]; Protocol Last Admin: 09/25/23 20:43 Dose: 12.5 mg Documented By: ALEX Omeprazole (Omeprazole 40 Mg Capsule.Dr) 40 mg PO DAILY@0630 [facility] Last Admin: 09/26/23 05:54 Dose: 40 mg Documented By: ALEX Prednisone (Prednisone 20 Mg Tablet) 20 mg PO DAILY [facility] Last Admin: 09/26/23 10:25 Dose: 20 mg Documented By: AURORA Senna (Sennosides 8.6 Mg Tablet) 8.6 mg PO DAILY PRN PRN Reason: Constipation Last Admin: 09/24/23 23:18 Dose: 8.6 mg Documented By: DIANNA Sodium Chloride (0.9 % Sodium Chloride Flush 3 Ml Syringe) 3 ml IVFLUSH QSHIFT [facility] Last Admin: 09/26/23 10:23 Dose: 3 ml Documented By: AURORA Tiotropium Hobbs (Tiotropium Hobbs 2.5 Mcg 1 Puff/2.5 Mcg Mist.Inhal) 2 puff INHALE RDAILY [facility] Last Admin: 09/26/23 07:43 Dose: 2 puff Documented By: DELPHINE Valsartan (Valsartan 80 Mg Tablet) 80 mg PO DAILY [facility] Last Admin: 09/25/23 09:09 Dose: 80 mg Documented By: AGUILA Labs 09/27/23 08:18 09/27/23 06:30 Labs: Laboratory Results - last 24 hr 09/25/23 09/25/23 09/25/23 11:24 16:14 20:50 MCV MCH MCHC RDW Plt Count MPV Absolute Nucleated RBC Nucleated RBC % (auto) Anion Gap Estim Creat Clear Calc Estimated GFR POC Glucose 176 H 159 H 144 H Random Glucose Calcium 09/26/23 09/26/23 07:25 07:41 MCV 88.6 MCH 30.1 MCHC 33.9 RDW 16.9 H Plt Count 266 MPV 8.9 L Absolute Nucleated RBC 0.000 Nucleated RBC % (auto) 0.0 Anion Gap 12 Estim Creat Clear Calc 44.5 Estimated GFR > 60 POC Glucose 122 H Random Glucose 110 Calcium 7.9 L D Assessment and Plan (1) NSTEMI (non-ST elevated myocardial infarction): Status: Acute (2) Sepsis: Status: Acute (3) Pneumonia: Status: Acute Plan 77 y/o woman with PMHx significant for lingular necrotizing granuloma admitted with: Acute Hypoxic respiratory failure likely secondary to acute exacerbation of COPD + acute bronchitis and NSTEMI and underlying chronic respiratory failure d/t copd. Improving -O2 to keep sat around 88 to 92, wean off O2 -Bronchodilatorsby Neb -IV steroid to now po prednisone -pulmonology consult recommends Levaquin for PNA Severe sepsis likely secondary to above COPD exacerbation of possible PNA,--sepsis resovled -Levaquin for 7 days, stopped vanco, doxy and Azithro, WBC remains high d/t steroid Acute lacti acidosis--d/t above,resolved. Hypotension 09/23--Not due to sepsis, likely from anemia and resolved with blood transfusion Anemia--acute on chronic, inlight of NSTEMI severe COPD, s/p 2 units of RBC with improvment, no active bleeding, H/H is now normal Elevated troponin, NSTEMI related to sepsis, and probably underlying heart disease. Troponin still trending up. Has been IV heparin, however hemoglobin trending down significantly so stopping heparin, Continue aspirin, BB and statin. Continue to monitor. Cardiology recommends echo. treated with Heparin stopped d/t significant anemia. Echo EF 60 to 65% Acute diastolic heart failure d/t anemia--IV Lasix, change to PO tomorrow Marked leukocytosis--trending down, some of it due to steroid. Continue to monitor Protein calorie malnutrition. BMI 15.0 kb/m2. Continue megestrol. protein boost Hyperlipidemia. Continue statin. Essential hypertension. Metoprolol Hx of breast cancer s/p lumpectomy and radiation. CAD and carotid artery disease. Continue aspirin, BB and statin as above GERD. Continue PPI. Code status: Full DVT prophylaxis: Heparin Need for inpatient: management of hypoxic respiratory failure and sepsis treatment with supplemental oxygen, NSTEMI, bronchodilator therapy, IV lasix for heart failure. Quality Stroke Does the patient have a stroke diagnosis?: No VTE Prior VTE?: No VTE Risk Level:: Medical - moderate - high VTE Device Contraindication: N/A - Device Ordered VTE Drug Contraindication: N/A - Med Ordered
[2023-09-26] MEDS: Megestrol Acetate 400 MG/10 ML ORAL.SUSP 800 MG PO (10:36)
[2023-09-26 11:43] LABS: Glucose, Whole Blood 128 mg/dL (60-115)
--- NOTE | 2023-09-26 12:10 | MHC.CM.PN ---
Pt.'s friend and missing persons investigator called to ask when and where pt is going to STR. She asked that CM call her to let her know when pt is transferred. DC plan is for pt to go to [facility] on 09/27/23. Edita's cell # [phone]
[2023-09-26 16:09] LABS: Glucose, Whole Blood 126 mg/dL (60-115)
[2023-09-26 20:27] LABS: Glucose, Whole Blood 177 mg/dL (60-115)
[2023-09-26] MEDS: Metoprolol Tartrate 12.5 MG HALFTAB PO (21:59)
[2023-09-26] MEDS: Insulin Lispro 100 UNIT/ML 3 ML VIAL SUBCUT (21:59)
[2023-09-26] MEDS: Atorvastatin Calcium 80 MG TABLET PO (21:59)
[2023-09-26 23:14] LABS: Strep Pneumo Ag urine Not Detected (Not Detected)
[2023-09-27] VITALS (13 sets, daily range): BP systolic 73–128; BP diastolic 37–64; PULSE 86–115; RESP 15–22; TEMP 36.1–36.9; O2SAT 92–97
[2023-09-27] MEDS: Omeprazole 40 MG CAPSULE.DR PO (05:12)
[2023-09-27] MEDS: 0.9 % Sodium Chloride Flush 3 ML SYRINGE IVFLUSH ×4 (05:13→20:58)
[2023-09-27 07:35] LABS: Anion Gap 10 (12-20); Blood Urea Nitrogen 25 mg/dL (9-16); Carbon Dioxide 24 mmol/L (22-29); Chloride 106 mmol/L (96-108); Creatinine Clr Calc Pharmacy 48.7; Estimated Glomerular Filt Rate > 60; Glucose Random 81 mg/dL (60-115); Potassium 4.1 mmol/L (3.3-5.1); Sodium 136 mmol/L (135-145)
--- NOTE | 2023-09-27 07:37 | P.CDIM_ITS ---
PROVIDER RESPONSE TEXT: To clarify, the appropriate diagnosis supported by the clinical indicators: Severe QUERY TEXT: PHYSICIAN'S DOCUMENTATION REQUEST Date of Query: 09/23/2023 12:26 PM EDT Patient Name: Mary Amor Admit Date: 09/22/2023 Dear Gabriele Ramirez, A review of the medical record indicates additional documentation may be needed. Please review below and update the documentation accordingly. Documentation includes the diagnosis of Protein calorie malnutrition. Additional clinical indicators from the record include: BMI 15.0 No Nutrition Assessment to note If possible, please provide additional specificity regarding the severity of the malnutrition using t he above information: Mild Moderate Severe Other (explain) Clinically unable to determine (explain) Thank you, Ghazal Quintanilla RN Use of terms such as suspected, likely, concern for, or probable (associated with a specific diagnosi s that is being evaluated, monitored, or treated as if it exists) are acceptable and can be coded in the inpatient se tting, when documented at the time of discharge. Please use your independent medical judgment in providing your response. THIS QUERY IS PART OF THE PERMANENT MEDICAL RECORD
[2023-09-27 07:52] LABS: Glucose, Whole Blood 79 mg/dL (60-115)
[2023-09-27] MEDS: Tiotropium Bromide 2.5 mcg 1 PUFF/2.5 MCG MIST.INHAL 2 PUFF INHALE (08:32)
[2023-09-27] MEDS: Albuterol/Iprat 2.5/0.5MG 3 ML AMPUL.NEB INHALE ×4 (08:32→19:03)
[2023-09-27] MEDS: Fluticasone/Vilanterol 100/25 BLST.W.DEV 1 PUFF INHALE (08:32)
[2023-09-27] MEDS: predniSONE 20 MG TABLET PO (08:47)
[2023-09-27] MEDS: Aspirin Enteric Coated 81 MG TABLET.DR PO (08:47)
[2023-09-27] MEDS: Metoprolol Tartrate 12.5 MG HALFTAB PO (08:48)
[2023-09-27] MEDS: Heparin Sodium,Porcine 5,000 UNIT/ML VIAL 5000 UNIT SUBCUT ×2 (08:48→20:56)
[2023-09-27] MEDS: hydroCHLOROthiazide 12.5 MG TABLET PO (08:50)
[2023-09-27] MEDS: Furosemide 20 MG/2 ML VIAL IVPUSH (08:50)
[2023-09-27] MEDS: Valsartan 80 MG TABLET PO (08:50)
[2023-09-27] MEDS: Megestrol Acetate 400 MG/10 ML ORAL.SUSP 800 MG PO (08:56)
[2023-09-27 09:42] LABS: Hematocrit 37.8 % (37.0-47.0); Hemoglobin 12.4 g/dl (12.0-16.0); Mean Corpuscular HGB Conc 32.8 g/dl (31.0-35.0); Mean Corpuscular Hemoglobin 29.7 pg (27.0-33.0); Mean Corpuscular Volume 90.6 fL (80.0-98.0); Mean Platelet Volume 9.6 fL (9.4-12.3); Platelet Count 289 X10*3/uL (160-400); Red Blood Count 4.17 X10*6/uL (4.20-5.50); Red Cell Distribution Width 16.9 % (11.0-16.0); White Blood Count 21.9 X10*3/uL (4.8-10.8)
[2023-09-27 11:49] LABS: Glucose, Whole Blood 122 mg/dL (60-115)
--- NOTE | 2023-09-27 13:51 | MHC.CM.PN ---
Per rounds, pt is not ready for DC, she is improving and anticipate DC over the weekend. DC plan is to go to STR at [facility].
--- NOTE | 2023-09-27 13:57 | MHC.CLN ---
F/U PO INTAKE VARIABLE DIET RX: REGULAR-APPROPRIATE PT DOES DRINK ENSURE AT HOME (PREFERS CHOCOLATE) PT RECEIVING ENSURE CLEAR AND MAGIC CUP TO INCREASE PO ENSURE CLEAR PROVIDES 480KCALS, 16G PROTEIN MAGIC CUP PROVIDES 870KCALS, 27G PROTEIN CONTINUE TO MONITOR PO INTAKE AND ENCOURAGE SUPPLEMENTS
[2023-09-27 16:32] LABS: Glucose, Whole Blood 167 mg/dL (60-115)
[2023-09-27] MEDS: levoFLOXacin/D5W 500 MG/100 ML PIGGYBACK 100 MG IV (18:32)
[2023-09-27 20:54] LABS: Glucose, Whole Blood 153 mg/dL (60-115)
[2023-09-27] MEDS: Acetaminophen 325 MG TABLET 975 MG PO (20:56)
[2023-09-27] MEDS: Atorvastatin Calcium 80 MG TABLET PO (20:57)
[2023-09-28] VITALS (10 sets, daily range): BP systolic 110–142; BP diastolic 53–61; PULSE 95–108; RESP 17–119; TEMP 36.6–37.7; O2SAT 3–98
[2023-09-28] MEDS: Omeprazole 40 MG CAPSULE.DR PO (05:45)
[2023-09-28] MEDS: Acetaminophen 325 MG TABLET 975 MG PO (05:45)
[2023-09-28 07:42] LABS: Glucose, Whole Blood 124 mg/dL (60-115)
[2023-09-28] MEDS: Aspirin Enteric Coated 81 MG TABLET.DR PO (09:03)
[2023-09-28] MEDS: Tiotropium Bromide 2.5 mcg 1 PUFF/2.5 MCG MIST.INHAL 2 PUFF INHALE (09:03)
[2023-09-28] MEDS: Heparin Sodium,Porcine 5,000 UNIT/ML VIAL 5000 UNIT SUBCUT (09:03)
[2023-09-28] MEDS: hydroCHLOROthiazide 12.5 MG TABLET PO (09:03)
[2023-09-28] MEDS: Albuterol/Iprat 2.5/0.5MG 3 ML AMPUL.NEB INHALE ×3 (09:03→15:04)
[2023-09-28] MEDS: Metoprolol Tartrate 12.5 MG HALFTAB PO (09:04)
[2023-09-28] MEDS: Valsartan 80 MG TABLET PO (09:04)
[2023-09-28] MEDS: predniSONE 20 MG TABLET PO (09:04)
[2023-09-28] MEDS: Furosemide 20 MG/2 ML VIAL IVPUSH (09:07)
[2023-09-28] MEDS: Megestrol Acetate 400 MG/10 ML ORAL.SUSP 800 MG PO (09:07)
[2023-09-28] MEDS: 0.9 % Sodium Chloride Flush 3 ML SYRINGE IVFLUSH (09:08)
[2023-09-28] MEDS: Fluticasone/Vilanterol 100/25 BLST.W.DEV 1 PUFF INHALE (09:14)
--- NOTE | 2023-09-28 11:34 | P.DS_ITS ---
DS: Providers Provider Date of Service: 09/28/23 Date of admission: 09/22/23 02:36 Primary care physician: Terrance Cleveland MD Consults: 09/22/23 04:43 Consult to Pulmonology Routine Consulting Provider: [facility] [place] [facility] Reason for consultation: Hypoxic respiratory failure, COPD, acute bronchitis Has provider been notified: No 09/22/23 12:50 Consult to Cardiology Routine Consulting Provider: [facility] [facility] Reason for consultation: NSTEMI Has provider been notified: Yes DS: Diagnosis Discharge Diagnosis (1) NSTEMI (non-ST elevated myocardial infarction): Status: Acute (2) Sepsis: Status: Acute (3) Pneumonia: Status: Acute DS: Summary Hospital Course Hospital Course: admission hpi by Dr. Greenwood Chief Complaint: Shortness of breath Mary Amor is a 77 years old woman with past medical history significant for lingula necrotizing granuloma, COPD -on home O2 (2L/min via NC and azithromycin MWF), hyperlipidemia, hypertension, breast cancer s/p lumpectomy, CAD and carotid disease was brought in the emergency department via EMS due to worsening shortness of breath the last several days associated with productive cough of greenish sputum, dizziness, nausea and chest tightness. Denies fever or chills. Denies abdominal pain, diarrhea, headache or palpitations. She is a former tobacco smoker. Drinks a glass of wine in occasion denies illicit drug use. Contact with ill people or travel history not reported. She was prescribed to take a course of prednisone recently. In the ED, she was found to have hypotension, tachycardia and tachypnea. She is currently requiring supplemental oxygen via OxyMask 3L/min. Blood workup is remarkable for marked leukocytosis of 34.4. Hemoglobin is 7.9. Platelets are normal. Blood workup was remarkable for hypokalemia, 3.1. Lactic acid is increasing (2.4 --> 3.5). Troponin was initially 7.2 and dropped to 59.6. BNP is 134 and albumin is 3.3. Viral testing for COVID-19, RSV and influenza is negative. CXR showed COPD with bibasilar atelectasis and healing right 10th rib fracture. In the interim of this admission, patient's blood pressure continues to decrease and she was noted to develop worsening shortness of breath. CXR was repeated and showed no acute cardiopulmonary disease, hyperinflated lung reed with minimal atelectasis and/or scarring of the lung bases. ED tx: * Albuterol neb * NS 1 L bolus * Ceftriaxone 1 g IV * Morphine 2 mg IV * Klor-Con 25 mg p.o. * Azithromycin 500 mg IV * LR 500 mg IV Hospital course by problems Patient with history of COPD on home O2 and other is listed above and presented with shortness of breath and work up reaveale acute hypoxic respiratory failure attributed to Pneumonia and bronchitis and met sepsis criteria, treated with antibiotics; her hospital course was further complicated by elevated troponin and NSTEMI managed conservatively , anemia needing transfusion, hypotension d/t anemia, and acute diastolic heart failure needing diuretics. Acute Hypoxic respiratory failure likely secondary to acute exacerbation of COPD + acute bronchitis+ Pneumonia, and heart failure and NSTEMI and underlying chronic respiratory failure d/t copd. Hypoxia treated with oxygen and underlying issues treated as below Severe sepsis likely secondary to above COPD exacerbation and possible PNA,--sepsis resovled. Initially was treated with Vancomycin, Doxycycline and Azithromycin. Production Control Technologist saw her and recommended Levaquin and will be treated for 7 days of antibiotics, today 09/27 being day 7 COPD exacerbation--treated with oxygen, bronchodilators by Neb, IV steroid, now on PO prednisone and tulio over time Acute lacti acidosis--d/t hypoxia, not sepsis, resolved Hypotension on 09/23--Not due to sepsis, likely from anemia and resolved with blood transfusion Anemia--acute on chronic, acute drop related to heparin infusion. She was transfused 2 units of RBC and hemoglobin went from 7.4 on 09/22 to now 12 as of 09/26. Elevated troponin, NSTEMI related to sepsis, and probably underlying heart d isease, copd exacerbation. She did not experience chest pain but shortness of breath which could not be seperated from above. She was treated with heparin for 24 hours and stopped d/t anemia. She was evaluated by cardiology with recommendation to manage conservatively. Ehcho showed EF of 60 to 65. Additional medical management including aspirin, metoprolol. Acute diastolic heart failure d/t anemia--IV Lasix and now on PO lasix, potassium level has been stable. Presently on Lasix and HCTZ and stopping HCTZ and do be on Lasix 40 mg daily Marked leukocytosis-- initial WBC was 26 on 09/21, went up to 37 and has since come down, fluctuating between 19 and 21 as of 09/26, residue elevated WBC likely relatd to steroid use. Should have lab repeated upon completion of steroid Protein calorie malnutrition. BMI 15.0 kb/m2. Continue megestrol. protein boost Hyperlipidemia. Continue statin. Hyperglycemia d/t steroid, sliding insulin for sugar over 200 Essential hypertension. Metoprolol, Valsartan Hx of breast cancer s/p lumpectomy and radiation. CAD and carotid artery disease. Continue aspirin, BB and statin as above She is frail decondtioned, malnurished and will be discharged to short term rehab Time Attestation Discharge Coordination Time (in mins): 50 Quality: Safe Use of Opioids Does Pt have an Active Cancer Diagnosis on the Problem List?: No Quality: Stroke Does the patient have a stroke diagnosis?: No Physical Exam Vital Signs: Vital Signs: Last Vital Signs Temp 97.8 F 09/28/23 07:45 Pulse 95 09/28/23 11:12 Resp 20 09/28/23 11:12 BP 117/56 L 09/28/23 09:07 Pulse Ox 94 09/28/23 07:45 O2 Del Method Nasal Cannula 09/28/23 07:45 O2 Flow Rate 2 09/28/23 07:45 Oxygen Flow Rate 2 09/21/23 16:13 BMI result Body Mass Index 15.4 DS: Data Data Completed and Pending Labs on day of discharge: Laboratory Results - last 24 hr 09/27/23 09/27/23 09/27/23 11:45 16:24 20:45 POC Glucose 122 H 167 H 153 H 09/28/23 07:36 POC Glucose 124 H Discharge Plan Discharge Anticipated Discharge Date/Time: 09/28/23 11:33 Patient Disposition: Xfer SNF Discharge Diagnosis: COPD exacerbation, pneumonia, acute hypoxic respiratory failure, Referrals: [facility] [Outside] - 1 Week Terrance Cleveland MD [Primary Care Provider] - 1 Week Discharge Medications: New valsartan 80 mg Tablet 80 mg PO DAILY Qty: 90 0RF furosemide [Lasix] 40 mg tablet 40 mg PO DAILY Qty: 90 0RF metoprolol tartrate 25 mg tablet 12.5 mg PO BID Qty: 90 0RF insulin lispro [Admelog U-100 Insulin lispro] 100 unit/mL Solution See Protocol subcut QIDACHS Qty: 10 0RF Protocol: Insulin Correction Scale Less than or equal to 110 ---- Give (units): 0 111 to 150 Give (units): 0 151 to 200 Give (units): 0 201 to 250 Give (units): 2 251 to 300 Give (units): 4 301 to 350 Give (units): 6 Greater than 350 Give (units): 10 Call MD if Blood Glucose > : 350 prednisone 10 mg tablet See Taper PO DIRECTED Qty: 10 0RF Taper: Prednisone 20 mg daily for 3 Days and 0 Hour 10 mg daily for 3 Days and 0 Hour Rx Instructions: see taper instructions Continued albuterol sulfate 2.5 mg /3 mL (0.083 %) solution for nebulization 2.5 mg inhalation BID 30 Days Qty: 180 11RF albuterol sulfate 90 mcg/actuation HFA aerosol inhaler 2 puff inhalation Q4H PRN (Reason: shortness of breath or wheezing) Qty: 8.5 0RF tiotropium bromide 18 mcg capsule, w/inhalation device 1 cap inhalation DAILY 90 Days Qty: 90 3RF megestrol 400 mg/10 mL (40 mg/mL) suspension 800 mg PO DAILY sennosides [senna] 8.6 mg Tablet 8.6 mg PO DAILY PRN (Reason: Constipation) atorvastatin 40 mg tablet 40 mg PO BEDTIME omeprazole 40 mg capsule,delayed release(DR/EC) 40 mg PO DAILY@0630 fluticasone propion-salmeterol 250-50 mcg/dose blister with device 1 ea inhalation BID aspirin 81 mg tablet,delayed release (DR/EC) 81 mg PO DAILY (DME) nebulizers [facility] See Rx Instructions .Route Rx Instructions: As directed (DME) Oxygen Home Use Kit See Rx Instructions .Route Rx Instructions: As directed Discontinued furosemide 20 mg tablet 20 mg PO DAILY diltiazem HCl 120 mg capsule,extended release 24hr 120 mg PO DAILY irbesartan-hydrochlorothiazide 150-12.5 mg tablet 1 tab PO DAILY Discharge Orders: Discharge Order (Routine); Ordered 09/28/23 Ordered By: Gabriele Ramirez Diet: Diabetic diet Activity on Discharge: As tolerated Stand Alone Forms: Patient Portal Discharge page Print Language: Irish Care Plan Goals: recovery from hospitalization related to copd, pneumonia, heart failure, anemia and nstemi Health Concerns: chronic respiratory failure copd pneumonia Plan of Treatment: Prednisone tulio for nuclear spectroscopist Levaquin 500 mg tomorrow for total of 7 days to short term rehab Assessment: see above
[2023-09-28 11:58] LABS: Glucose, Whole Blood 114 mg/dL (60-115)
--- NOTE | 2023-09-28 12:28 | MHC.CM.PN ---
Per MD, Patient is medically cleared for dc to STR/SNF today. Patient will dc to [facility] today at 3PM, via [facility]. CM met with Patient and her family/visitor and addressed IMM with Patient, providing Patient with the original and a copy has been placed on the chart.
--- NOTE | 2023-09-28 17:07 | HO.PM.IMPN ---
Subjective Subjective Date of Service: 10/07/23 Physical Exam Vital Signs: Vital Signs: Last Vital Signs Temp 99.9 F 09/28/23 15:20 Pulse 102 H 09/28/23 15:20 Resp 18 09/28/23 15:20 BP 122/58 L 09/28/23 15:20 Pulse Ox 96 09/28/23 15:20 O2 Del Method Nasal Cannula 09/28/23 15:20 O2 Flow Rate 2 09/28/23 15:20 Oxygen Flow Rate 2 09/21/23 16:13 BMI result Body Mass Index 15.4 Objective Data Active Medications Acetaminophen (Acetaminophen 325 Mg Tablet) 975 mg PO Q6H PRN PRN Reason: mild pain, headache or fever Last Admin: 09/28/23 05:45 Dose: 975 mg Documented By: AJ Al Hydroxide/Mg Hydroxide (Magnesium Hydrox/Alum Hydrox 30 Ml Oral.Susp) 30 ml PO Q6H PRN PRN Reason: Dyspepsia Albuterol Sulfate (Albuterol Sulfate (0.083%) 2.5 Mg/3 Ml Vial.Neb) 2.5 mg INHALE Q2H PRN PRN Reason: Shortness of Breath/Wheezing Last Admin: 09/26/23 21:28 Dose: 2.5 mg Documented By: STEVAN Albuterol Sulfate (Albuterol Sulfate 90 Mcg 8 Gm Inhaler) 2 puff INHALE Q4H PRN PRN Reason: shortness of breath or wheezing Albuterol/Ipratropium (Albuterol/Iprat 2.5/0.5mg 3 Ml Ampul.Neb) 3 ml INHALE RQ4H WHILE AWAKE [facility] Last Admin: 09/28/23 15:04 Dose: 3 ml Documented By: DELPHINE Aspirin (Aspirin Enteric Coated 81 Mg Tablet.Dr) 81 mg PO DAILY [facility] Last Admin: 09/28/23 09:03 Dose: 81 mg Documented By: DULCE MARIA Atorvastatin Calcium (Atorvastatin Calcium 80 Mg Tablet) 80 mg PO BEDTIME [facility] Last Admin: 09/27/23 20:57 Dose: 80 mg Documented By: AJ Fluticasone/Vilanterol (Fluticasone/Vilanterol 100/25 Blst.W.Dev) 1 puff INHALE RDAILY [facility] Last Admin: 09/28/23 09:14 Dose: 1 puff Documented By: DELPHINE Furosemide (Furosemide 20 Mg/2 Ml Vial) 20 mg IVPUSH DAILY [facility]; Protocol Last Admin: 09/28/23 09:07 Dose: 20 mg Documented By: DULCE MARIA Glucose (Glucose Gel 15 Gm Gel..Gram.) 15 gm PO Q15M PRN; Protocol PRN Reason: per Hypoglycemia Standing Ord. Heparin Sodium (Porcine) (Heparin Sodium,Porcine 5,000 Unit/Ml Vial) 5,000 unit SUBCUT BID [facility] Last Admin: 09/28/23 09:03 Dose: 5,000 unit Documented By: DULCE MARIA Hydrochlorothiazide (Hydrochlorothiazide 12.5 Mg Tablet) 12.5 mg PO DAILY [facility] Last Admin: 09/28/23 09:03 Dose: 12.5 mg Documented By: DULCE MARIA Dextrose (D10) 250 mls @ 750 mls/hr IV Q15M PRN; Protocol PRN Reason: per Hypoglycemia Standing Ord. Levofloxacin (Levaquin) 500 mg in 100 mls @ 100 mls/hr IV Q48H [facility] Last Infusion: 09/27/23 19:32 Dose: Infused Documented By: AJ Insulin Human Lispro (Insulin Lispro 100 Unit/Ml 3 Ml Vial) 0 unit SUBCUT QIDACHS [facility]; Protocol Last Admin: 09/28/23 12:17 Dose: Not Given Documented By: DULCE MARIA Non-Admin Reason: No Insulin Coverage Megestrol Acetate (Megestrol Acetate 400 Mg/10 Ml Oral.Susp) 800 mg PO DAILY [facility] Last Admin: 09/28/23 09:07 Dose: 800 mg Documented By: DULCE MARIA Metoprolol Tartrate (Metoprolol Tartrate 12.5 Mg Halftab) 12.5 mg PO BID [facility]; Protocol Last Admin: 09/28/23 09:04 Dose: 12.5 mg Documented By: DULCE MARIA Omeprazole (Omeprazole 40 Mg Capsule.Dr) 40 mg PO DAILY@0630 [facility] Last Admin: 09/28/23 05:45 Dose: 40 mg Documented By: AJ Prednisone (Prednisone 20 Mg Tablet) 20 mg PO DAILY [facility] Last Admin: 09/28/23 09:04 Dose: 20 mg Documented By: DULCE MARIA Senna (Sennosides 8.6 Mg Tablet) 8.6 mg PO DAILY PRN PRN Reason: Constipation Last Admin: 09/24/23 23:18 Dose: 8.6 mg Documented By: DIANNA Sodium Chloride (0.9 % Sodium Chloride Flush 3 Ml Syringe) 3 ml IVFLUSH QSHIFT [facility] Last Admin: 09/28/23 09:08 Dose: 3 ml Documented By: DULCE MARIA Tiotropium [place] (Tiotropium [place] 2.5 Mcg 1 Puff/2.5 Mcg Mist.Inhal) 2 puff INHALE RDAILY [facility] Last Admin: 09/28/23 09:03 Dose: 2 puff Documented By: DELPHINE Valsartan (Valsartan 80 Mg Tablet) 80 mg PO DAILY [facility] Last Admin: 09/28/23 09:04 Dose: 80 mg Documented By: DULCE MARIA Labs 09/27/23 08:18 09/27/23 06:30 Labs: Laboratory Results - last 24 hr 09/27/23 09/28/23 09/28/23 20:45 07:36 11:54 POC Glucose 153 H 124 H 114 Quality Stroke Does the patient have a stroke diagnosis?: No VTE Prior VTE?: No VTE Risk Level:: Medical - moderate - high VTE Device Contraindication: N/A - Device Ordered VTE Drug Contraindication: N/A - Med Ordered
== END 2023-09-28 17:15 | disposition skilled nursing facility (03) | DRG 871 ==
LOC: HO.ED 23:43 → HO.EDOVER 09-22 02:41 → HO.IMC 09-23 18:03
PROVIDERS: Hospitalist; Admitting Provider Internal Medicine; Emergency Provider Internal Medicine; PCP Internal Medicine; Visit Provider Internal Medicine
DX: A41.9 Sepsis, unspecified organism (principal); E43 Unspecified severe protein-calorie malnutrition; J18.9 Pneumonia, unspecified organism; J96.21 Acute and chronic respiratory failure with hypoxia; I21.A1 Myocardial infarction type 2; I50.31 Acute diastolic (congestive) heart failure; J47.0 Bronchiectasis with acute lower respiratory infection; J47.1 Bronchiectasis with (acute) exacerbation; Z68.1 Body mass index [BMI] 19.9 or less, adult; I11.0 Hypertensive heart disease with heart failure; I25.10 Atherosclerotic heart disease of native coronary artery without angina pectoris; J20.9 Acute bronchitis, unspecified; R65.20 Severe sepsis without septic shock; E78.5 Hyperlipidemia, unspecified; D64.9 Anemia, unspecified; Z20.822 Contact with and (suspected) exposure to COVID-19; I95.9 Hypotension, unspecified; T45.515A Adverse effect of anticoagulants, initial encounter; Z99.81 Dependence on supplemental oxygen; Z85.3 Personal history of malignant neoplasm of breast; Z87.891 Personal history of nicotine dependence; Z79.51 Long term (current) use of inhaled steroids; Z79.82 Long term (current) use of aspirin; Z79.4 Long term (current) use of insulin; Z79.899 Other long term (current) drug therapy
CPT/HCPCS: 0241U; 36415; 71045; 80048; 80053; 80202; 82803; 82947; 83605; 83735; 83880; 84484; 85007; 85025; 85027; 85610; 85730; 86850; 86900; 86901; 86923; 87040; 87899; 92526; 92610; 93005; 93306; 94640; 97161; 97530; 99285; J0456; J0696; J1644; J1940; J1956; J2270; J2405; J2919; J3370; J7120; P9016; Q9957

== ENCOUNTER → 2023-09-21 16:26 | Outpatient (BNV) | payer MEDICARE, BC, SELFPAY | PROVIDERS: Admitting Provider Internal Medicine; Emergency Provider Internal Medicine; PCP Internal Medicine; Visit Provider Internal Medicine Cardiovascular Disease | DX: R94.31 Abnormal electrocardiogram [ECG] [EKG] (principal) | CPT/HCPCS: 93010 ==

== ENCOUNTER 2023-09-22 02:36 | Outpatient (BNV) | payer MEDICARE, BC, SELFPAY | END 2023-09-23 07:00 | PROVIDERS: Admitting Provider Internal Medicine; Emergency Provider Internal Medicine; PCP Internal Medicine; Visit Provider Internal Medicine Cardiovascular Disease | DX: R00.0 Tachycardia, unspecified (principal); I21.4 Non-ST elevation (NSTEMI) myocardial infarction | CPT/HCPCS: 93010; 93306 ==

== ENCOUNTER → 2023-09-22 02:36 | Outpatient (BNV) | payer MEDICARE, BC, SELFPAY | PROVIDERS: Admitting Provider Internal Medicine; Emergency Provider Internal Medicine; PCP Internal Medicine; Visit Provider Internal Medicine Cardiovascular Disease | DX: J18.9 Pneumonia, unspecified organism (principal); A41.9 Sepsis, unspecified organism; R65.20 Severe sepsis without septic shock; J96.01 Acute respiratory failure with hypoxia; I21.4 Non-ST elevation (NSTEMI) myocardial infarction | CPT/HCPCS: 99223; 99232 ==

== ENCOUNTER → 2023-09-22 02:36 | Outpatient (BNV) | payer MEDICARE, BC, SELFPAY | PROVIDERS: Admitting Provider Internal Medicine; Emergency Provider Internal Medicine; PCP Internal Medicine; Visit Provider Hospitalist | DX: I21.4 Non-ST elevation (NSTEMI) myocardial infarction (principal); D64.9 Anemia, unspecified; J96.21 Acute and chronic respiratory failure with hypoxia | CPT/HCPCS: 99223; 99232; 99233 ==

== ENCOUNTER → 2023-09-22 02:36 | Outpatient (BNV) | payer MEDICARE, BC, SELFPAY | PROVIDERS: Admitting Provider Internal Medicine; Emergency Provider Internal Medicine; PCP Internal Medicine; Visit Provider Internal Medicine | DX: I21.4 Non-ST elevation (NSTEMI) myocardial infarction (principal); A41.9 Sepsis, unspecified organism; R65.20 Severe sepsis without septic shock; J96.01 Acute respiratory failure with hypoxia; J18.9 Pneumonia, unspecified organism | CPT/HCPCS: 99223; 99232; 99233; 99499 ==

== ENCOUNTER 2023-10-18 18:11 | Inpatient (IN) | payer MEDICARE, BC, SELFPAY ==
--- NOTE | ~2023-10-18 | XR_ITS ---
EXAMINATION: XR CHEST CLINICAL INFORMATION: Shortness of breath. COMPARISON: Chest radiograph dated 09/22/2023. TECHNIQUE: Frontal view of the chest was obtained. FINDINGS: There are surgical clips overlying the right axilla. The heart is normal in size. There is dense vascular calcification of the aorta. The lungs are hyperinflated and there is flattening of the diaphragm, consistent with chronic obstructive pulmonary physiology. There is a new right lower lobe opacity for which an infection is not excluded. Blunting of both costophrenic angles is suggestive of small pleural effusions. There is no pneumothorax. There is no acute osseous abnormality. XR/XR chest 1V IMPRESSION: There is a new right lower lobe opacity for which infection cannot be excluded. There are likely small bilateral pleural effusions. Chronic obstructive pulmonary physiology is evident.
[2023-10-18 18:17] VITALS: BP 101/64; PULSE 111; O2SAT 95
[2023-10-18 18:22] VITALS: BP 150/58; PULSE 119; RESP 24; TEMP 36.8; O2SAT 91; BMI 10.1
[2023-10-18 19:43] VITALS: BP 106/54; PULSE 116; RESP 22; TEMP 36.4; O2SAT 95
--- NOTE | 2023-10-18 19:44 | MHC.EDTECH ---
This tech took over care of patient at 1900,hourly rounds and vitals completed, patient was incont. of a large amount of urine,patient was cleaned gina-care given,repositioned to comfort,pure-wick placed to keep patient clean and dry,call alfonso in reach
--- NOTE | 2023-10-18 19:52 | MHC.CM.ED ---
Addendum entered by Robyn Frazier 10/18/23 20:16: CM called [facility] and spoke with RN caring for this patient. This patient was admitted to facility on 10/15. 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 Pt is not on Hospice. She tells CM that the patient wanted to go home, but she was having difficulty breathing. Her oxygen was at 5L and she her O2 sat was 93%, 94/56 and BS was 289. Pt refused insulin coverage. All this was shared with Dr. Loya. He will see the patient. Original Note: CM met with patient at request of Dr. Loya. Pt is very SOB, on oxygen. Able to tell CM that she is at [facility] for STR and that she wants treatment. Pt does have a MOLST that says DNR/DNI. Pt is agreeable to code status, but wants to breath easier. 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 Pt again states she wants treatment to breath better, but not a tube in her throat. PCP is Terrance Cleveland. HCP is on file. CM will follow as needed.
--- NOTE | 2023-10-18 19:59 | ED_ITS ---
HPI - General Adult General Chief complaint: General Medical Stated complaint: [employer] GR[employer] FROM SN[facility] W/ SOB Time Seen by Provider: 10/18/23 19:06 Source: patient and EMS Mode of arrival: EMS Limitations: no limitations History of Present Illness ED Provider: teddy LOMAS narrative: Patient's history of advanced COPD per minute and on Zithromax 3 times a week does have history of coronary artery disease hypertension hyperlipidemia was transferred to long-term on 09/28/2023, went to [facility] long-term 2 days ago comes back as patient is not feeling well still having shortness of breath saying that she does not like the long-term patient is on oxygen 2-4 L/min Related Data Home Medications ?Medication ?Instructions ?Recorded ?Confirmed aspirin 81 mg tablet,delayed 81 mg PO DAILY 08/09/20 09/22/23 release atorvastatin 40 mg tablet 40 mg PO BEDTIME 08/09/20 09/22/23 fluticasone 250 mcg-salmeterol 50 1 ea inhalation BID 08/09/20 09/22/23 mcg/dose blistr powdr for inhalation omeprazole 40 mg capsule,delayed 40 mg PO DAILY@0630 08/09/20 09/22/23 release Oxygen Home Use 08/07/22 09/25/22 nebulizers 08/07/22 09/25/22 megestrol 400 mg/10 mL (40 mg/mL) 800 mg PO DAILY 09/22/23 09/22/23 oral suspension sennosides 8.6 mg tablet (senna) 8.6 mg PO DAILY PRN Constipation 09/22/23 09/22/23 Previous Rx's ?Medication ?Instructions ?Recorded albuterol sulfate 2.5 mg/3 mL 2.5 mg (3 mL) inhalation BID 30 01/30/22 (0.083 %) solution for nebulization days #180 mL albuterol sulfate 90 mcg/actuation 2 puff inhalation Q4H PRN 01/16/23 aerosol inhaler shortness of breath or wheezing #8.5 grams tiotropium bromide 18 mcg capsule 1 cap inhalation DAILY 90 days #90 02/21/23 with inhalation device inhalations furosemide 40 mg tablet (Lasix) 40 mg PO DAILY #90 tabs 09/28/23 insulin lispro 100 unit/mL See Protocol subcut QIDACHS #10 mL 09/28/23 subcutaneous solution (Admelog U-100 Insulin lispro) metoprolol tartrate 25 mg tablet 25 mg PO BID #90 tabs 09/28/23 prednisone 10 mg tablet See Taper PO DIRECTED #10 tabs 09/28/23 valsartan 80 mg tablet 80 mg PO DAILY #90 tabs 09/28/23 Allergies Allergy/AdvReac Type Severity Reaction Status Date / Time Sulfa (Sulfonamide Allergy Intermediate HIVES Verified 10/18/23 18:24 Antibiotics) [SULFA (SULFONAMIDE ANTIBIOTICS)] Amoxicillin Allergy Intermediate Hives Uncoded 10/18/23 18:24 Augementin Allergy Intermediate Hives Uncoded 10/18/23 18:24 Review of Systems 2 Review of Systems: Yes all other systems are reviewed and are negative PMFSH Past Medical History Medical History Ischemia due to increased oxygen demand Anemia Former smoker, stopped smoking in distant past Carotid stenosis, bilateral GERD (gastroesophageal reflux disease) HLD (hyperlipidemia) HTN (hypertension) History of breast cancer History of non-ST elevation myocardial infarction (NSTEMI) (~10/2017) Bronchiectasis Pulmonary nodules COPD (chronic obstructive pulmonary disease) Surgical History History of lung biopsy History of lumpectomy History of hysterectomy Social History Social History Household Members: None Housing: Condominium Are you a primary child adolescent care to a significant other at home: No Do you presently have visiting nurse or other home services: No Alcohol intake: never Comment: States will need w/c to get her up to [facility] department Patient Tobacco Use Status: Former Tobacco user Tobacco use type: Cigarette Years Smoked: 20-30 years - quit 1997 Second Hand Smoke Exposure: No Advance Directives: Yes Advance Directives on File: Yes Advance Directives Date on File: 09/29/23 Do you have a plan to hurt others: No Plan service: No Current occupational status: retired Physical Exam ED Vital Signs: Vital Signs - 24 hr 10/18/23 18:22 10/18/23 19:43 10/18/23 20:31 Temperature 98.2 F 97.6 F Pulse Rate 119 H 116 H 112 H Respiratory Rate 24 H 22 H 22 H Blood Pressure 150/58 H 106/54 L Pulse Oximetry 91 L 95 Oxygen Delivery Method Nasal Cannula Nasal Cannula Oxygen Flow Rate 4 10/18/23 21:29 10/18/23 23:30 Temperature 97 F 98.7 F Pulse Rate 113 H 105 H Respiratory Rate 19 20 Blood Pressure 169/61 H 133/67 Pulse Oximetry 97 96 Oxygen Delivery Method Nasal Cannula Nasal Cannula Oxygen Flow Rate 4 4 BMI result Body Mass Index 10.1 Appearance: Alert. Oriented X3. In moderate respiratory distress saturating 95% on 4 L Eyes: PERRLA, No Nystagmus ENT: Pharynx normal. Oral Mucosa moist Neck: Normal inspection. Neck supple. CVS: Normal heart rate and rhythm. Pulses normal. Respiratory: In moderate respiratory distress. Equal air entry bilateral, bilateral wheezing Abdomen: Soft and nontender. Bowel sounds are present, no mass palpable, no CVA tenderness Skin: Skin warm and dry. Normal skin color. Normal skin turgor. Extremities: No lower extremity edema. No calf tenderness Neuro: Oriented X 3. No motor deficit. Medications Administered Discontinued Medications Generic Name Dose Route Start Last Admin Trade Name Freq PRN Reason Stop Dose Admin Albuterol/Ipratropium 3 ml 10/18/23 20:21 10/18/23 20:29 Albuterol/Iprat 2.5/0.5mg 3 Ml Ampul.Neb INHALE 10/18/23 20:22 3 ml ONCE ONE Administration Sodium Chloride 1,000 mls @ 999 mls/hr 10/18/23 20:03 10/18/23 22:11 Ns IV 10/18/23 21:03 Infused .Q1H1M ONE Infusion Ceftriaxone Sodium 1 gm/ 50 mls @ 100 mls/hr 10/18/23 20:12 10/18/23 21:33 Sodium Chloride IV 10/18/23 20:41 Infused ONCE ONE Infusion Magnesium Sulfate 2 gm in 50 mls @ 150 mls/hr 10/18/23 20:15 10/18/23 21:48 Magnesium Sulfate/H2o IV 10/18/23 20:34 Infused ONCE ONE Infusion Potassium Chloride 10 meq in 100 mls @ 100 mls/hr 10/18/23 21:30 10/18/23 22:44 Potassium Chloride/H20 IV 10/18/23 23:29 100 mls/hr Q1H [facility] Administration Methylprednisolone Sodium Succinate 60 mg 10/18/23 20:15 10/18/23 21:01 Methylprednisolone Sod Succ 125 Mg/2 Ml Vial IVPUSH 10/18/23 20:16 60 mg ONCE ONE Administration Medical Decision Making Medical Decision Making [facility] Narrative: Patient with COPD with late stages will admit patient for medical service Differential Diagnosis Differential Diagnoses: The differential diagnosis associated with the presentation includes Pneumonia/COPD/chronic hypoxia Admission/Observation Consideration of admission/observation: Escalation of care including admission/observation considered Consult Healthcare Provider Management of the patient was discussed with: Hospitalist Lab Data [facility] Lab Attestation statement: I reviewed the patient's lab results. 10/18/23 20:54 10/18/23 20:54 Labs: Lab Results 10/18/23 10/18/23 10/18/23 Range/Units 20:42 20:54 20:59 WBC 19.0 H (4.8-10.8) X10*3/uL RBC 2.98 L D (4.20-5.50) X10*6/uL Hgb 8.8 L D (12.0-16.0) g/dl Hct 26.7 L D (37.0-47.0) % MCV 89.6 (80.0-98.0) fL MCH 29.5 (27.0-33.0) pg MCHC 33.0 (31.0-35.0) g/dl RDW 17.4 H (11.0-16.0) % Plt Count 202 D (160-400) X10*3/uL MPV 9.5 (9.4-12.3) fL Immature Gran % (Auto) 2.1 H (0.0-0.4) % Neut % (Auto) 92.7 H (45-73) % Lymph % (Auto) 2.2 L (20-40) % [facility] % (Auto) 2.9 (2-11) % Eos % (Auto) 0.0 (0-4) % Baso % (Auto) 0.1 (0-2) % Lymph # (Auto) 0.4 L (1.2-4.9) X10*3/uL [facility] # (Auto) 0.6 (0.1-1.2) X10*3/uL Eos # (Auto) 0.0 (0.0-0.4) X10*3/uL Baso # (Auto) 0.0 (0.0-0.2) X10*3/uL Abs Immat Gran (auto) 0.40 H (0.00-0.03) X10*3/uL Absolute Neuts (auto) 17.6 H (2.0-8.3) x10*3/uL Absolute Nucleated RBC 0.000 (0.0-0.012) X10*3/uL Nucleated RBC % (auto) 0.0 (0.0-0.2) /100WBC Smear Tech's Comments VERIFIED VBG pH 7.51 H (7.32-7.43) VBG pCO2 46 mmHg VBG pO2 40 mmHg VBG HCO3 37 H (22-26) mmol/L VBG O2 Saturation 63.0 % VBG Base Excess 13.3 mmol/L Sodium 137 (135-145) mmol/L Potassium 2.9 L* D (3.3-5.1) mmol/L Chloride 97 (96-108) mmol/L Carbon Dioxide 29 (22-29) mmol/L Anion Gap 14 (12-20) BUN 17 H (9-16) mg/dL Creatinine 0.68 (0.5-1.4) mg/dL Estim Creat Clear Calc 29.0 Estimated GFR > 60 Random Glucose 169 H (60-115) mg/dL Lactic Acid 1.5 (0.5-2.0) mmol/L Calcium 8.6 D (8.4-10.2) mg/dL Total Bilirubin 0.3 (0.0-1.0) mg/dL AST 16 (5-31) U/L ALT 15 (0-31) U/L Alkaline Phosphatase 75 (39-117) U/L Total Protein 5.5 L (6.5-8.0) g/dL Albumin 2.9 L (3.5-5.0) g/dL Influenza Type A (PCR) NEGATIVE (Negative) Influenza Type B (PCR) NEGATIVE (Negative) RSV RNA Qual (PCR) NEGATIVE (Negative) SARS-CoV-2 RNA (RT-PCR) NEGATIVE (Negative) Independent Interpretation I performed an independent interpretation of an: EKG Discharge Plan Discharge Clinical Impression: Acute on chronic respiratory failure with hypoxemia, Community acquired pneumonia, Acute hypokalemia Patient Disposition: Admitted As Inpatient Print Language: Moz[place]ican
--- NOTE | 2023-10-18 20:03 | ECG_ITS ---
Test Reason : DYSPNEA Blood Pressure : / mmHG Vent. Rate : 114 BPM Atrial Rate : 114 BPM P-R Int : 118 ms QRS Dur : 106 ms QT Int : 340 ms P-R-T Axes : 084 096 -39 degrees QTc Int : 468 ms Sinus tachycardia with Premature atrial complexes Rightward axis Anterior infarct (cited on or before 26-AUG-2022) Abnormal ECG When compared with ECG of 23-SEP-2023 09:58, Premature ventricular complexes are no longer Present Referred By: Geovanny Loya Electronically Signed By:JOANA FITZPATRICK
[2023-10-18] MEDS: Albuterol/Iprat 2.5/0.5MG 3 ML AMPUL.NEB INHALE (20:29)
[2023-10-18 20:31] VITALS: PULSE 112; RESP 22; O2SAT 95
--- NOTE | 2023-10-18 20:40 | PC.NURSE ---
delay in labs and med kristina to pt needed ultrasound IV placement
[2023-10-18] MEDS: methylPREDNISolone Sod Succ 125 MG/2 ML VIAL 60 MG IVPUSH (21:01)
[2023-10-18] MEDS: Magnesium Sulfate/H2O 2 GM/50 ML PIGGYBACK IV (21:02)
[2023-10-18] MEDS: 0.9 % Sodium Chloride 1,000 ML 999 ML IV (21:02)
[2023-10-18] MEDS: cefTRIAXone sodium 1 GM in 0.9 % Sodium Chloride 50 ML IV (21:02)
[2023-10-18 21:03] LABS: Basophils Percent Auto 0.1 % (0-2); Hematocrit 26.7 % (37.0-47.0); Hemoglobin 8.8 g/dl (12.0-16.0); Imm Gran Pct Auto 2.1 % (0.0-0.4); Lymphocytes Absolute Auto 0.4 X10*3/uL (1.2-4.9); Lymphocytes Percent Auto 2.2 % (20-40); MANUAL DIFF FLAG SCAN; Mean Corpuscular Hemoglobin 29.5 pg (27.0-33.0); Mean Corpuscular Volume 89.6 fL (80.0-98.0); Mean Platelet Volume 9.5 fL (9.4-12.3); Monocytes Absolute Auto 0.6 X10*3/uL (0.1-1.2); Monocytes Percent Auto 2.9 % (2-11); Neutrophils Absolute Auto 17.6 x10*3/uL (2.0-8.3); Neutrophils Percent Auto 92.7 % (45-73); Platelet Count 202 X10*3/uL (160-400); Red Blood Count 2.98 X10*6/uL (4.20-5.50); Red Cell Distribution Width 17.4 % (11.0-16.0); SCAN SMEAR FLAG 1
[2023-10-18 21:06] LABS: VBG Base Excess 13.3 mmol/L; VBG HCO3 37 mmol/L (22-26); VBG pCO2 46 mmHg; VBG pH 7.51 (7.32-7.43); VBG pO2 40 mmHg
[2023-10-18 21:06] LABS: Venous Blood Gas Refer to POC result
[2023-10-18 21:16] LABS: Lactic Acid 1.5 mmol/L (0.5-2.0)
[2023-10-18 21:23] LABS: SLIDE REVIEW VERIFIED
[2023-10-18 21:24] LABS: Alanine Aminotransferase 15 U/L (0-31); Albumin Level 2.9 g/dL (3.5-5.0); Alkaline Phosphatase 75 U/L (39-117); Anion Gap 14 (12-20); Aspartate Amino Transferase 16 U/L (5-31); Bilirubin Total 0.3 mg/dL (0.0-1.0); Blood Urea Nitrogen 17 mg/dL (9-16); Calcium 8.6 mg/dL (8.4-10.2); Carbon Dioxide 29 mmol/L (22-29); Chloride 97 mmol/L (96-108); Estimated Glomerular Filt Rate > 60; Glucose Random 169 mg/dL (60-115); Potassium 2.9 mmol/L (3.3-5.1); Sodium 137 mmol/L (135-145); Total Protein 5.5 g/dL (6.5-8.0)
[2023-10-18 21:27] LABS: Influenza A PCR NEGATIVE (Negative); Influenza B PCR NEGATIVE (Negative); Resp Syncy Virus RNA Qual PCR NEGATIVE (Negative); SARS COV2 PCR INHOUSE NEGATIVE (Negative)
[2023-10-18 21:29] VITALS: BP 169/61; PULSE 113; RESP 19; TEMP 36.1; O2SAT 97
[2023-10-18] MEDS: Potassium Chloride/H20 10 MEQ/100 ML PIGGYBACK 100 MEQ IV ×2 (21:44→22:44)
[2023-10-18 23:30] VITALS: BP 133/67; PULSE 105; RESP 20; TEMP 37.1; O2SAT 96
--- NOTE | 2023-10-18 23:31 | MHC.EDTECH ---
Hourly rounds and vitals completed,patient repositioned to comfort,belongings list completed and copy placed in chart. call alfonso in reach
[2023-10-19 00:23] LABS: Phosphorus 2.9 mg/dL (2.7-4.5)
[2023-10-19] MEDS: Morphine Sulfate 2 MG/ML CARTRIDGE IVPUSH ×4 (00:24→21:01)
--- NOTE | 2023-10-19 00:39 | P.HPHOSP_ITS ---
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 Patient was recently admitted at [facility] for respiratory failure and was discharged to [facility] for POWER MANAGER. The patient is not happy at this nursing facility and was transported to our ED for evaluation. Mary is quite short of breath and has generalized pain. She reported chronic cough. Denied chest pain or palpitations. She also denied any acute gastrointestinal or genitourinary symptoms. I spoke with patient's health care proxy, Edita Hsu over the phone (Mrs. Hsu's participated in the converstation). They said Mary is DNR and DNI and wishes to be comfortable. They are aware that Mary is here and were told by [facility] staff that they cannot force Mary to stay there. Mary has been having difficult times recently with her breathing and suffering a lot. She told me that she is not happy at nursing facility and do not want to go back there. Review of Systems 2 Review of Systems: All 12 systems were reviewed and normal except as noted in HPI. [facility] Medical History Ischemia due to increased oxygen demand Anemia Former smoker, stopped smoking in distant past Carotid stenosis, bilateral GERD (gastroesophageal reflux disease) HLD (hyperlipidemia) HTN (hypertension) History of breast cancer History of non-ST elevation myocardial infarction (NSTEMI) (~10/2017) Bronchiectasis Pulmonary nodules COPD (chronic obstructive pulmonary disease) Surgical History History of lung biopsy History of lumpectomy History of hysterectomy Social History Household Members: None Housing: Condominium Are you a primary md do resident urgent care to a significant other at home: No Do you presently have visiting nurse or other home services: No Alcohol intake: never Comment: States will need w/c to get her up to SSS department Patient Tobacco Use Status: Former Tobacco user Tobacco use type: Cigarette Years Smoked: 20-30 years - quit 1997 Second Hand Smoke Exposure: No Advance Directives: Yes Advance Directives on File: Yes Advance Directives Date on File: 09/29/23 Do you have a plan to hurt others: No Plan Nutrition Risks: No Nutritional Risk service: No Current occupational status: retired Meds Allergies Allergy/AdvReac Type Severity Reaction Status Date / Time Sulfa (Sulfonamide Allergy Intermediate HIVES Verified 10/18/23 18:24 Antibiotics) [SULFA (SULFONAMIDE ANTIBIOTICS)] Amoxicillin Allergy Intermediate Hives Uncoded 10/18/23 18:24 Augementin Allergy Intermediate Hives Uncoded 10/18/23 18:24 Active Medications: Current Medications Acetaminophen (Acetaminophen 325 Mg Tablet) 975 mg PO Q6H PRN PRN Reason: mild pain, headache or fever Acetaminophen (Acetaminophen 325 Mg Tablet) 650 mg PO Q4H PRN PRN Reason: Fever >/= 100, Pain, mild 1-3 Docusate Sodium (Docusate Sodium 100 Mg Capsule) 100 mg PO BEDTIME [facility] Heparin Sodium (Porcine) (Heparin Sodium,Porcine 5,000 Unit/Ml Vial) 5,000 unit SUBCUT Q12H [facility] Morphine Sulfate (Morphine Sulfate/Ns) 100 mg in 100 mls @ 0 mls/hr IVCONT .Q0M ALEC; Protocol Levalbuterol HCl (Levalbuterol Hcl 1.25 Mg/3 Ml Vial.Neb) 1.25 mg INHALE Q6H [facility] Methylprednisolone Sodium Succinate (Methylprednisolone Sod Succ 40 Mg/Ml Vial) 40 mg IVPUSH Q6H [facility] Ondansetron HCl (Ondansetron Odt 4 Mg Tab.Rapdis) 4 mg TRANSLINGU Q8H PRN PRN Reason: Nausea and Vomiting Sodium Chloride (0.9 % Sodium Chloride Flush 3 Ml Syringe) 3 ml IVFLUSH QSHIFT [facility] Home Medications ?Medication ?Instructions ?Recorded ?Confirmed ?Last Taken ?Type aspirin 81 mg tablet,delayed 81 mg PO DAILY 08/09/20 09/22/23 2 Days Ago History release ~09/20/23 atorvastatin 40 mg tablet 40 mg PO BEDTIME 08/09/20 09/22/23 2 Days Ago History ~09/20/23 fluticasone 250 mcg-salmeterol 50 1 ea inhalation BID 08/09/20 09/22/23 2 Days Ago History mcg/dose blistr powdr for ~09/20/23 inhalation omeprazole 40 mg capsule,delayed 40 mg PO DAILY@0630 08/09/20 09/22/23 2 Days Ago History release ~09/20/23 Oxygen Home Use 08/07/22 09/25/22 Unknown History nebulizers 08/07/22 09/25/22 Unknown History megestrol 400 mg/10 mL (40 mg/mL) 800 mg PO DAILY 09/22/23 09/22/23 2 Days Ago History oral suspension ~09/20/23 sennosides 8.6 mg tablet (senna) 8.6 mg PO DAILY PRN Constipation 09/22/23 09/22/23 Unknown History Physical Exam 2 Vital Signs and Narrative: Vital Signs: Last Vital Signs Temp 98.7 F 10/18/23 23:30 Pulse 105 H 10/18/23 23:30 Resp 20 10/18/23 23:30 BP 133/67 10/18/23 23:30 Pulse Ox 96 10/18/23 23:30 O2 Del Method Nasal Cannula 10/18/23 23:30 O2 Flow Rate 4 10/18/23 23:30 Oxygen Flow Rate 4 10/18/23 18:22 BMI result Body Mass Index 10.1 Constitutional - Awake and Alert. Looks in respiratory distress, breathing with pursed lips and quite uncomfortable. She also looks very sad. Cachexia HEENT - PERRLA, EOMI Heart - Tachycardia. Lungs - Decreased lung expansion, poor respiratory effort, tachypneic, using accessory muscle. Poor air entry and decreased breath sound. No wheezing or rhonchi Abdomen - NT / ND; +BS; No rebound or guarding - No CVA tenderness Extremities - No calf tenderness bilaterally, no swelling Musculoskeletal - General atrophy Skin - Warm/Dry Neurological - Alert & oriented x2. No focal weakness. Normal speech. Psychological - Depressed affect Results Labs 10/18/23 20:54 10/18/23 20:54 Labs: Laboratory Results - last 24 hr 10/18/23 10/18/23 10/18/23 20:42 20:54 20:59 MCV 89.6 MCH 29.5 MCHC 33.0 RDW 17.4 H Plt Count 202 D MPV 9.5 Immature Gran % (Auto) 2.1 H Neut % (Auto) 92.7 H Lymph % (Auto) 2.2 L Glenn % (Auto) 2.9 Eos % (Auto) 0.0 Baso % (Auto) 0.1 Lymph # (Auto) 0.4 L Glenn # (Auto) 0.6 Eos # (Auto) 0.0 Baso # (Auto) 0.0 Abs Immat Gran (auto) 0.40 H Absolute Neuts (auto) 17.6 H Absolute Nucleated RBC 0.000 Nucleated RBC % (auto) 0.0 Smear Tech's Comments VERIFIED VBG pH 7.51 H VBG pCO2 46 VBG pO2 40 VBG HCO3 37 H VBG O2 Saturation 63.0 VBG Base Excess 13.3 Anion Gap 14 Estim Creat Clear Calc 29.0 Estimated GFR > 60 Random Glucose 169 H Lactic Acid 1.5 Calcium 8.6 D Phosphorus 2.9 Total Bilirubin 0.3 AST 16 ALT 15 Alkaline Phosphatase 75 Total Protein 5.5 L Albumin 2.9 L Influenza Type A (PCR) NEGATIVE Influenza Type B (PCR) NEGATIVE RSV RNA Qual (PCR) NEGATIVE SARS-CoV-2 RNA (RT-PCR) NEGATIVE Imaging Radiologist's Impressions: Impressions Chest X-Ray 10/18/23 20:12 IMPRESSION: There is a new right lower lobe opacity for which infection cannot be excluded. There are likely small bilateral pleural effusions. Chronic obstructive pulmonary physiology is evident. Assessment and Plan (1) Acute on chronic respiratory failure with hypoxemia: Status: Acute (2) End stage COPD: Status: Acute Plan Mary Amor is a very pleasant 77 y/o woman with PMHx of end-stage COPD who was brought to ED from [facility] for evaluation. The patient was discharged to this facility from [facility] recently for POWER MANAGER. The patient does not wish to be at [facility] anymore and wishes to stay here to continue POWER MANAGER. Patient's health care proxy confirmed Mary is DNR, DNI and POWER MANAGER. She is aware that Mary is very sick and would not like her to suffer and agrees to initiate treatment with morphine. We are not considering treatment efforts that likely to have negligible benefit or that may cause harm diminishing her quality of life such antibiotics. We will continue tx with supplemental oxygen, benzodiazepine for anxiety, morphine IV infusion for dyspnea and laxatives. Quality Stroke Does the patient have a stroke diagnosis?: No VTE Prior VTE?: No VTE Risk Level:: Medical - moderate - high VTE Device Contraindication: Treatment Not Indicated VTE Drug Contraindication: N/A - Med Ordered
--- NOTE | 2023-10-19 01:56 | PC.NURSE ---
delay in morphine drip due to medication not available, called pharmacy.
[2023-10-19 02:00] VITALS: BP 148/68; PULSE 98; RESP 16; TEMP 36.9; O2SAT 94
--- NOTE | 2023-10-19 02:23 | PC.NURSE ---
leaving morphine pump active if needed/ when pharmacy can make it. For this time, PRN morphine will be given
--- NOTE | 2023-10-19 03:37 | MHC.EDTECH ---
Patient placed in hospital bed for comfort,patient was repositioned to right side,pillows placed,patient is clean and dry,call alfonso in reach
[2023-10-19 04:00] VITALS: RESP 14
[2023-10-19 06:00] VITALS: RESP 16
--- NOTE | 2023-10-19 07:30 | PHA.MEDREC ---
Pharmacy Consult ? Medication Reconciliation Pharmacy has completed the medication reconciliation. List from [facility] on [address].
--- NOTE | 2023-10-19 09:28 | PM.EVENT ---
Event Note Date of Service: 10/19/23 Event Note: Ptseen and examined,H a d P from this morning discussed with admission MD and I spoke to the patient and friend at bedside. She presented from SNF where she has been uner hospice care and didn't want to be at that facility anymore. She was to continue care as hospice/comfort care. She seems content at this time. Will continue comfort care as outline in the H and P Time Spent With Patient Time: Total time managing care of this patient today ____ minutes.
--- NOTE | 2023-10-19 09:38 | PC.NURSE ---
Addendum entered by Sandy Keith RN 10/19/23 12:28: on admission to 364 from ER pt noted to have a foam dressing on coccyx . dressing removed pt has a pea size stage II pressure ulcer , also of note on right foot 2nd and 3rd toe with area eccymosis and scabing Original Note: Pt received from the ER in a bed to room 364. confirmed with pt DNR/DNI status as well as [facility] status . I informed pt she has orders for morphine drip pt declined starting this at this time . MD Ramirez notified will review pts orders.
[2023-10-19] MEDS: 0.9 % Sodium Chloride Flush 3 ML SYRINGE IVFLUSH ×2 (16:21→21:03)
[2023-10-19] MEDS: diazePAM 10 MG/2 ML CARTRIDGE 2.5 MG IVPUSH (17:51)
[2023-10-19 18:48] VITALS: BP 135/63; PULSE 100; RESP 16; TEMP 36.9; O2SAT 94
[2023-10-20 00:07] VITALS: BP 127/58; PULSE 98; RESP 16; TEMP 36.5; O2SAT 94
[2023-10-20 07:31] VITALS: RESP 16
--- NOTE | 2023-10-20 08:30 | HO.PM.IMPN ---
Subjective Subjective Date of Service: 10/20/23 Interval History: f/u on hospice care/hospice in setting of end stage COPD with worsening respiratory status. She is comfortable this morning Physical Exam Vital Signs: Vital Signs: Last Vital Signs Temp 97.7 F 10/20/23 00:07 Pulse 98 10/20/23 00:07 Resp 16 10/20/23 07:31 BP 127/58 L 10/20/23 00:07 Pulse Ox 94 10/20/23 00:07 O2 Del Method Nasal Cannula 10/20/23 00:07 O2 Flow Rate 2 10/20/23 00:07 Oxygen Flow Rate 4 10/18/23 18:22 BMI result Body Mass Index 10.1 awake, alert no distress, comfortable, No increase work of breahing Objective Data Active Medications Acetaminophen (Acetaminophen 325 Mg Tablet) 975 mg PO Q6H PRN PRN Reason: mild pain, headache or fever Acetaminophen (Acetaminophen 325 Mg Tablet) 650 mg PO Q4H PRN PRN Reason: Fever >/= 100, Pain, mild 1-3 Diazepam (Diazepam 10 Mg/2 Ml Cartridge) 2.5 mg IVPUSH Q2H PRN PRN Reason: anxiety/restlessness Last Admin: 10/19/23 17:51 Dose: 2.5 mg Documented By: VIJAY Docusate Sodium (Docusate Sodium 100 Mg Capsule) 100 mg PO BEDTIME ALEC Last Admin: 10/19/23 20:10 Dose: Not Given Documented By: AMY Non-Admin Reason: Patient Refused Levalbuterol HCl (Levalbuterol Hcl 1.25 Mg/3 Ml Vial.Neb) 1.25 mg INHALE Q6H PRN PRN Reason: Shortness Of Breath/Wheezing Morphine Sulfate (Morphine Sulfate 2 Mg/Ml Cartridge) 2 mg IVPUSH Q3H PRN; Protocol PRN Reason: severe pain (7-10) or dyspnea Last Admin: 10/19/23 21:01 Dose: 2 mg Documented By: AMY Ondansetron HCl (Ondansetron Odt 4 Mg Tab.Rapdis) 4 mg TRANSLINGU Q8H PRN PRN Reason: Nausea and Vomiting Polyethylene Glycol (Polyethylene Glycol 3350 17 Gm Powd.Pack) 17 gm PO DAILY PRN PRN Reason: Constipation Sodium Chloride (0.9 % Sodium Chloride Flush 3 Ml Syringe) 3 ml IVFLUSH QSHIFT ALEC Last Admin: 10/20/23 07:38 Dose: Not Given Documented By: JULIUS Non-Admin Reason: Patient Asleep Labs 10/18/23 20:54 10/18/23 20:54 Microbiology Microbiology Results: Microbiology 10/18/23 20:54 Blood Culture - Preliminary Blood - Venous No growth after 24 hours. 10/18/23 20:54 Blood Culture - Preliminary Blood - Venous No growth after 24 hours. Assessment and Plan (1) End stage COPD: Status: Acute Plan Mary Amor is a very pleasant 77 y/o woman with PMHx of end-stage COPD was recently admitted to [facility] and treated for acute blood loss anemia, upper GI bleeding and exacerbation of COPD.. Her prognosis was deemed poor and was hospice was advised, she was discharge to SNF [facility] on 10/15 only to come back to [facility] for shortness of respiratory distress and has expressed desire for hospice care/comfort, unfortunately she is not able at home alone for hospice care.. Plan: continue hospice care/comfort care, Casemanagement to look into possibility of return to SNF for rest of care. Continue Morphine, Valium PRN for comfort.. She seems fairly comfortable this morning. Quality Stroke Does the patient have a stroke diagnosis?: No VTE Prior VTE?: No VTE Risk Level:: Medical - moderate - high VTE Device Contraindication: Treatment Not Indicated VTE Drug Contraindication: N/A - Med Ordered
[2023-10-20] MEDS: Morphine Sulfate 2 MG/ML CARTRIDGE IVPUSH ×4 (08:46→19:34)
--- NOTE | 2023-10-20 11:08 | MHC.CM.PN ---
SPOKE WITH PTS HCP JENELLE SEAY LEFT AT BEDSIDE
[2023-10-20 15:00] VITALS: RESP 16
[2023-10-20] MEDS: 0.9 % Sodium Chloride Flush 3 ML SYRINGE IVFLUSH (16:33)
[2023-10-20] MEDS: Docusate Sodium 100 MG CAPSULE PO (20:23)
[2023-10-20 23:00] VITALS: RESP 23
--- NOTE | 2023-10-21 06:08 | PC.NURSE ---
Very short of breathe and fragile.oxygen at 4l n/c.Reposition as needed.Incont x1 this shift.Poor intake.Comfort measure maintain.
[2023-10-21 08:18] VITALS: BP 157/65; PULSE 117; RESP 16; TEMP 36.7; O2SAT 97
[2023-10-21] MEDS: Morphine Sulfate 2 MG/ML CARTRIDGE IVPUSH ×4 (09:20→20:15)
[2023-10-21] MEDS: 0.9 % Sodium Chloride Flush 3 ML SYRINGE IVFLUSH ×3 (09:26→20:16)
--- NOTE | 2023-10-21 10:44 | HO.PM.IMPN ---
Subjective Subjective Date of Service: 10/21/23 Interval History: f/u on hospice care/hospice in setting of end stage COPD with worsening respiratory status. She remains comfortable. Physical Exam Vital Signs: Vital Signs: Last Vital Signs Temp 98.1 F 10/21/23 08:18 Pulse 117 H 10/21/23 08:18 Resp 16 10/21/23 08:18 BP 157/65 H 10/21/23 08:18 Pulse Ox 97 10/21/23 08:18 O2 Del Method Nasal Cannula 10/21/23 08:18 O2 Flow Rate 5 10/21/23 08:18 Oxygen Flow Rate 4 10/18/23 18:22 BMI result Body Mass Index 10.1 General: AO X 3, no acute distress Resp: diminished, some wob CVS: S1,S2,RRR GI: +BS, NT, no distention Skin: No rash Neuro: motor grossly intact Psych: appropriate affect Objective Data Active Medications Acetaminophen (Acetaminophen 325 Mg Tablet) 650 mg PO Q4H PRN PRN Reason: Fever >/= 100, Pain, mild 1-3 Diazepam (Diazepam 10 Mg/2 Ml Cartridge) 2.5 mg IVPUSH Q2H PRN PRN Reason: anxiety/restlessness Last Admin: 10/19/23 17:51 Dose: 2.5 mg Documented By: VIJAY Docusate Sodium (Docusate Sodium 100 Mg Capsule) 100 mg PO BEDTIME ALEC Last Admin: 10/20/23 20:23 Dose: 100 mg Documented By: IRENA Levalbuterol HCl (Levalbuterol Hcl 1.25 Mg/3 Ml Vial.Neb) 1.25 mg INHALE Q6H PRN PRN Reason: Shortness Of Breath/Wheezing Morphine Sulfate (Morphine Sulfate 2 Mg/Ml Cartridge) 2 mg IVPUSH Q3H PRN; Protocol PRN Reason: severe pain (7-10) or dyspnea Last Admin: 10/21/23 09:20 Dose: 2 mg Documented By: BEATRIZ Ondansetron HCl (Ondansetron Odt 4 Mg Tab.Rapdis) 4 mg TRANSLINGU Q8H PRN PRN Reason: Nausea and Vomiting Polyethylene Glycol (Polyethylene Glycol 3350 17 Gm Powd.Pack) 17 gm PO DAILY PRN PRN Reason: Constipation Sodium Chloride (0.9 % Sodium Chloride Flush 3 Ml Syringe) 3 ml IVFLUSH QSHIFT ALEC Last Admin: 10/21/23 09:26 Dose: 3 ml Documented By: BEIT Labs 10/18/23 20:54 10/18/23 20:54 Microbiology Microbiology Results: Microbiology 10/18/23 20:54 Blood Culture - Preliminary Blood - Venous No growth after 48 hours. 10/18/23 20:54 Blood Culture - Preliminary Blood - Venous No growth after 48 hours. Assessment and Plan (1) End stage COPD: Status: Acute Plan Mary Amor is a very pleasant 77 y/o woman with PMHx of end-stage COPD was recently admitted to [facility] and treated for acute blood loss anemia, upper GI bleeding and exacerbation of COPD.. Her prognosis was deemed poor and was hospice was advised, she was discharge to SNF [facility] on 10/15 only to come back to [facility] for shortness of respiratory distress and has expressed desire for hospice care/comfort, unfortunately she is not able at home alone for hospice care.. Plan: continue hospice care/comfort care, Casemanagement to look into possibility of return to SNF for rest of care. Continue Morphine, Valium PRN for comfort.. She seems fairly comfortable this morning. Quality Stroke Does the patient have a stroke diagnosis?: No VTE Prior VTE?: No VTE Risk Level:: Medical - moderate - high VTE Device Contraindication: Treatment Not Indicated VTE Drug Contraindication: N/A - Med Ordered
[2023-10-21] MEDS: diazePAM 10 MG/2 ML CARTRIDGE 2.5 MG IVPUSH (11:46)
--- NOTE | 2023-10-21 12:25 | MHC.CM.PN ---
Addendum entered by Emily Ayon RN 10/21/23 15:04: CM met with patient again, who is now agreeable to 26/11 care. She hopes to pay privately for care half the time and have friends provide care half time. LM for HCP to discuss. Awaiting response. [facility] hospice can accept. Original Note: Per MD, patient is appropriate for hospice. Patient lives at home alone, but came to [facility] from STR @ [facility]. Per [facility], patient is not a bed hold. CM met with patient to discuss plan. Patient does not wish to return to any facility. Reviewed hospice referral, but patient does wish to move forward with this. Prefers to return home, but does not feel she needs the 26/11 care required by hospice. Agreeable to referral to [facility] palliative program and [facility] for MOW/home making/TRACK WELDER. Patient unable to get out of bed independently at this time. Reports she has many friends and neighbors to assist. Reviewed options for private pay TRACK WELDER, patients states this is not an option. LM for HCP per patient request to further discuss plan for personal care at home. Awaiting response. CM will continue to follow for safe dc plan.
--- NOTE | 2023-10-21 12:41 | MHC.CLN ---
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 WEIGHT 10/18/23=27 KG. SUSPECT ERROR. USING 09/24/23 WEIGHT=42 KG, BMI=15.4 AND IS 74% IBW. RD AVAILABLE NEEDED.
[2023-10-21] MEDS: Docusate Sodium 100 MG CAPSULE PO (20:15)
[2023-10-22] VITALS (9 sets, daily range): BP systolic 133–160; BP diastolic 60–72; PULSE 96–107; RESP 16–24; TEMP 36.4–36.7; O2SAT 92–99
[2023-10-22] MEDS: 0.9 % Sodium Chloride Flush 3 ML SYRINGE IVFLUSH ×3 (08:51→23:11)
[2023-10-22] MEDS: Morphine Sulfate 2 MG/ML CARTRIDGE IVPUSH ×4 (08:57→20:13)
--- NOTE | 2023-10-22 09:37 | P.PNIM_ITS ---
Subjective Subjective Date of Service: 10/22/23 Interval History: f/u on hospice care/hospice in setting of end stage COPD with worsening respiratory status. She is comfortable with morphine Physical Exam 2 Vital Signs: Vital Signs: Last Vital Signs Temp 97.5 F 10/22/23 07:59 Pulse 97 10/22/23 07:59 Resp 18 10/22/23 07:59 BP 133/65 10/22/23 07:59 Pulse Ox 97 10/22/23 07:59 O2 Del Method Nasal Cannula 10/22/23 07:59 O2 Flow Rate 5.0 10/22/23 07:59 Oxygen Flow Rate 4 10/18/23 18:22 BMI result Body Mass Index 10.1 General: AO X 3, no acute distress Resp: diminished, some wob CVS: S1,S2,RRR GI: +BS, NT, no distention Skin: No rash Neuro: motor grossly intact Psych: appropriate affect Objective Data Active Medications Acetaminophen (Acetaminophen 325 Mg Tablet) 650 mg PO Q4H PRN PRN Reason: Fever >/= 100, Pain, mild 1-3 Diazepam (Diazepam 10 Mg/2 Ml Cartridge) 2.5 mg IVPUSH Q2H PRN PRN Reason: anxiety/restlessness Last Admin: 10/21/23 11:46 Dose: 2.5 mg Documented By: BEATRIZ Comments: pt requested for restlessness Docusate Sodium (Docusate Sodium 100 Mg Capsule) 100 mg PO BEDTIME ALEC Last Admin: 10/21/23 20:15 Dose: 100 mg Documented By: FERNANDEZ Levalbuterol HCl (Levalbuterol Hcl 1.25 Mg/3 Ml Vial.Neb) 1.25 mg INHALE Q6H PRN PRN Reason: Shortness Of Breath/Wheezing Morphine Sulfate (Morphine Sulfate 2 Mg/Ml Cartridge) 2 mg IVPUSH Q3H PRN; Protocol PRN Reason: severe pain (7-10) or dyspnea Last Admin: 10/22/23 08:57 Dose: 2 mg Documented By: BEATRIZ Ondansetron HCl (Ondansetron Odt 4 Mg Tab.Rapdis) 4 mg TRANSLINGU Q8H PRN PRN Reason: Nausea and Vomiting Polyethylene Glycol (Polyethylene Glycol 3350 17 Gm Powd.Pack) 17 gm PO DAILY PRN PRN Reason: Constipation Sodium Chloride (0.9 % Sodium Chloride Flush 3 Ml Syringe) 3 ml IVFLUSH QSHIFT ALEC Last Admin: 10/22/23 08:51 Dose: 3 ml Documented By: BEATRIZ Labs 10/18/23 20:54 10/18/23 20:54 Assessment and Plan (1) End stage COPD: Status: Acute Plan Mary Amor is a very pleasant 77 y/o woman with PMHx of end-stage COPD was recently admitted to [facility] and treated for acute blood loss anemia, upper GI bleeding and exacerbation of COPD.. Her prognosis was deemed poor and was hospice was advised, she was discharge to SNF [facility] on 10/15 only to come back to [facility] for shortness of respiratory distress and has expressed desire for hospice care/comfort, unfortunately she is not able at home alone for hospice care.. Plan: continue hospice care/comfort care, Casemanagement to look into possibility of return to SNF or home for rest of care. Continue Morphine, Valium PRN for comfort.. She seems fairly comfortable at this time. Quality Stroke Does the patient have a stroke diagnosis?: No VTE Prior VTE?: No VTE Risk Level:: Medical - moderate - high VTE Device Contraindication: Treatment Not Indicated VTE Drug Contraindication: N/A - Med Ordered
[2023-10-22] MEDS: Acetaminophen 325 MG TABLET 650 MG PO (10:47)
[2023-10-22] MEDS: diazePAM 10 MG/2 ML CARTRIDGE 2.5 MG IVPUSH (10:47)
[2023-10-22] MEDS: levalbuterol HCL 1.25 MG/3 ML VIAL.NEB INHALE (11:42)
--- NOTE | 2023-10-22 12:46 | MHC.CM.PN ---
Patient awaiting eval for GIP. CM spoke w/ HCP Edita again, updated on plan. Edita [facility] arrange 26/11 care. Patient has private funds. CM will continue to follow.
[2023-10-22] MEDS: Albuterol/Iprat 2.5/0.5MG 3 ML AMPUL.NEB INHALE ×2 (15:11→20:16)
[2023-10-22] MEDS: Morphine Sulfate Oral Sol 10 MG/5 ML SOLUTION 5 MG SUBLINGUAL (21:31)
[2023-10-23] VITALS (8 sets, daily range): BP systolic 127; BP diastolic 60; PULSE 88–111; RESP 16–20; TEMP 36.2; O2SAT 97–98
--- NOTE | 2023-10-23 07:17 | P.PNIM_ITS ---
Subjective Subjective Date of Service: 10/24/23 Interval History: f/u on hospice care/hospice in setting of end stage COPD with worsening respiratory status. She is comfortable with morphine Physical Exam 2 Vital Signs: Vital Signs: Last Vital Signs Temp 98.1 F 10/22/23 16:00 Pulse 103 H 10/22/23 16:00 Resp 18 10/23/23 06:00 BP 134/60 10/22/23 16:00 Pulse Ox 92 10/22/23 16:00 O2 Del Method Room Air 10/22/23 16:00 O2 Flow Rate 2.0 10/22/23 16:00 Oxygen Flow Rate 4 10/18/23 18:22 BMI result Body Mass Index 10.1 General:alert, no acute distress Resp: diminished, some wob CVS: S1,S2,RRR GI: +BS, NT, no distention Skin: No rash Neuro: motor grossly intact Psych: appropriate affect Objective Data Active Medications Acetaminophen (Acetaminophen 325 Mg Tablet) 650 mg PO Q4H PRN PRN Reason: Fever >/= 100, Pain, mild 1-3 Last Admin: 10/22/23 10:47 Dose: 650 mg Documented By: BEATRIZ Albuterol/Ipratropium (Albuterol/Iprat 2.5/0.5mg 3 Ml Ampul.Neb) 3 ml INHALE RQ4H WHILE AWAKE [facility] Last Admin: 10/22/23 20:16 Dose: 3 ml Documented By: PATRICIA Albuterol/Ipratropium (Albuterol/Iprat 2.5/0.5mg 3 Ml Ampul.Neb) 3 ml INHALE Q2H PRN PRN Reason: Shortness of Breath/Wheezing Diazepam (Diazepam 10 Mg/2 Ml Cartridge) 2.5 mg IVPUSH Q2H PRN PRN Reason: anxiety/restlessness Last Admin: 10/22/23 10:47 Dose: 2.5 mg Documented By: BEATRIZ Comments: patient requested for feeling anxious Docusate Sodium (Docusate Sodium 100 Mg Capsule) 100 mg PO BEDTIME [facility] Last Admin: 10/22/23 20:16 Dose: Not Given Documented By: COLBY Non-Admin Reason: Patient Refused Levalbuterol HCl (Levalbuterol Hcl 1.25 Mg/3 Ml Vial.Neb) 1.25 mg INHALE Q6H PRN PRN Reason: Shortness Of Breath/Wheezing Last Admin: 10/22/23 11:42 Dose: 1.25 mg Documented By: GUY Morphine Sulfate (Morphine Sulfate 2 Mg/Ml Cartridge) 2 mg IVPUSH Q3H PRN; Protocol PRN Reason: severe pain (7-10) or dyspnea Last Admin: 10/22/23 20:13 Dose: 2 mg Documented By: COLBY Morphine Sulfate (Morphine Sulfate Oral Daisha 10 Mg/5 Ml Solution) 5 mg SUBLINGUAL Q4H PRN PRN Reason: Pain, Severe (Pain Scale 7-10) Last Admin: 10/22/23 21:31 Dose: 5 mg Documented By: COLBY Ondansetron HCl (Ondansetron Odt 4 Mg Tab.Rapdis) 4 mg TRANSLINGU Q8H PRN PRN Reason: Nausea and Vomiting Polyethylene Glycol (Polyethylene Glycol 3350 17 Gm Powd.Pack) 17 gm PO DAILY PRN PRN Reason: Constipation Sodium Chloride (0.9 % Sodium Chloride Flush 3 Ml Syringe) 3 ml IVFLUSH QSHIFT [facility] Last Admin: 10/22/23 23:11 Dose: 3 ml Documented By: COLBY Labs 10/18/23 20:54 10/18/23 20:54 Assessment and Plan (1) End stage COPD: Status: Acute Plan Mary Amor is a very pleasant 77 y/o woman with PMHx of end-stage COPD was recently admitted to [facility] and treated for acute blood loss anemia, upper GI bleeding and exacerbation of COPD.. Her prognosis was deemed poor and was hospice was advised, she was discharge to [facility] on 10/15 only to come back to [facility] for shortness of respiratory distress and has expressed desire for hospice care/comfort, unfortunately she is not able at home alone for hospice care.. Plan: continue hospice care/comfort care, Case management working on patient going home for hospice. Continue Morphine, Valium PRN for comfort. Breathing treatment as needed for comfort Quality Stroke Does the patient have a stroke diagnosis?: No VTE Prior VTE?: No VTE Risk Level:: Medical - moderate - high VTE Device Contraindication: Treatment Not Indicated VTE Drug Contraindication: N/A - Med Ordered
[2023-10-23] MEDS: 0.9 % Sodium Chloride Flush 3 ML SYRINGE IVFLUSH ×2 (07:38→21:19)
[2023-10-23] MEDS: Morphine Sulfate Oral Sol 10 MG/5 ML SOLUTION 5 MG SUBLINGUAL ×2 (07:40→14:24)
[2023-10-23] MEDS: Albuterol/Iprat 2.5/0.5MG 3 ML AMPUL.NEB INHALE ×3 (08:00→19:29)
[2023-10-23] MEDS: Morphine Sulfate 2 MG/ML CARTRIDGE IVPUSH ×2 (11:28→18:13)
[2023-10-23] MEDS: diazePAM 10 MG/2 ML CARTRIDGE 2.5 MG IVPUSH ×2 (11:49→14:38)
--- NOTE | 2023-10-23 12:03 | MHC.CM.PN ---
Addendum entered by Emily Ayon RN 10/23/23 15:58: Per RN patient's pain still not well controlled, breathing appears labored w/ use of accessory muscles. hosiery mater to re-assess patient for GIP. Per [facility], if admitted can provide GIP services for 5 days or until symptoms are managed, and 5 respite days. CM spoke with alternate HCP Virgen who will also assist w/ arranging home care. Awaiting hospice re-eval. RN and MD aware. Addendum entered by Emily Ayon RN 10/23/23 14:35: CM spoke with Osorio, of [facility], who is assisting. Osorio states [facility] is at an appt and they have not yet called [facility] or [facility]. Provided phone numbers to Osorio who will call now. Also LM for alternate HCP Virgen. Addendum entered by Emily Ayon RN 10/23/23 13:47: Per [facility], patient does not meet GIP criteria. CM left second message w/ HCP Mis to discuss dc plan and 26/11 care. Original Note: Patient awaiting hospice eval for GIP. LM for HCP Mis to follow on up on status of 26/11 personal care at home.
--- NOTE | 2023-10-23 16:58 | PC.NURSE ---
At 14:20 after turn and reposition pt is anxious and increased work of breathing noted. Pt states that she is in severe pain with movement and endorsing pain in her buttocks. Sublingual morphine given at 14:24 for pain, pt states that she needs additional medications for anxiety and is asking for Valium by name, Valium given at 14:38. After administration pt is sleeping in bed, rise and fall of chest noted.
[2023-10-24] MEDS: diazePAM 10 MG/2 ML CARTRIDGE 2.5 MG IVPUSH (06:15)
[2023-10-24] MEDS: Morphine Sulfate 2 MG/ML CARTRIDGE IVPUSH ×2 (08:04→11:44)
[2023-10-24] MEDS: 0.9 % Sodium Chloride Flush 3 ML SYRINGE IVFLUSH ×3 (08:08→20:02)
[2023-10-24 08:18] VITALS: PULSE 108; RESP 16; O2SAT 96
[2023-10-24] MEDS: Albuterol/Iprat 2.5/0.5MG 3 ML AMPUL.NEB INHALE (08:18)
[2023-10-24] MEDS: Morphine Sulfate Oral Sol 10 MG/5 ML SOLUTION 5 MG SUBLINGUAL ×2 (08:49→10:14)
[2023-10-24] MEDS: LORazepam 1 MG TABLET PO (08:50)
--- NOTE | 2023-10-24 08:59 | PC.NURSE ---
Pt endorsing severe pain at 0804 PRN IVP Morphine given per orders, at 0849 pt continues to endorse severe pain sublingual morphine and PO Ativan given for anxiety and pain pending effectiveness. Pt turned off of coccyx positioned with pillows.
--- NOTE | 2023-10-24 10:27 | MHC.CM.PN ---
Per patient's friend, [facility] has been contacted and is working on staffing. Payment has been arranged. CLARISA spoke with [facility], who confirmed they intend to admit to [facility]. However, not able to complete today d/t staffing. aware. CLARISA will continue to follow.
[2023-10-24] MEDS: Scopolamine 1.5 MG PATCH.TD.3 EAR-BEHIND (12:26)
[2023-10-25] MEDS: Morphine Sulfate 2 MG/ML CARTRIDGE IVPUSH ×2 (05:06→09:33)
[2023-10-25] MEDS: LORazepam 1 MG TABLET PO (05:52)
--- NOTE | 2023-10-25 09:13 | MHC.CLN ---
F/U ALERTED BY DINING SERVICES THAT PATIENT LIKES ENSURE SUPPLEMENT. ADDING ENSURE TID (1050 KCALS, 60 G PROTEIN). CONTINUES ON HOSPICE CARE/COMFORT MEASURES ONLY.
[2023-10-25] MEDS: 0.9 % Sodium Chloride Flush 3 ML SYRINGE IVFLUSH (09:39)
--- NOTE | 2023-10-25 09:58 | HO.PM.IMPN ---
Subjective Subjective Date of Service: 10/25/23 Interval History: f/u on hospice care/hospice in setting of end stage COPD with worsening respiratory status. sleeping and appear comfortable Physical Exam Vital Signs: Vital Signs: Last Vital Signs Temp 97.2 F 10/23/23 07:32 Pulse 108 H 10/24/23 08:18 Resp 16 10/24/23 08:18 BP 127/60 10/23/23 07:32 Pulse Ox 98 10/23/23 07:32 O2 Del Method Nasal Cannula 10/23/23 07:32 O2 Flow Rate 2 10/23/23 07:32 Oxygen Flow Rate 4 10/18/23 18:22 BMI result Body Mass Index 10.1 Objective Data Active Medications Acetaminophen (Acetaminophen 325 Mg Tablet) 650 mg PO Q4H PRN PRN Reason: Fever >/= 100, Pain, mild 1-3 Last Admin: 10/22/23 10:47 Dose: 650 mg Documented By: BEATRIZ Albuterol/Ipratropium (Albuterol/Iprat 2.5/0.5mg 3 Ml Ampul.Neb) 3 ml INHALE RQ4H WHILE AWAKE [facility] Last Admin: 10/25/23 07:52 Dose: Not Given Documented By: SHAWN Non-Admin Reason: Patient Asleep Albuterol/Ipratropium (Albuterol/Iprat 2.5/0.5mg 3 Ml Ampul.Neb) 3 ml INHALE Q2H PRN PRN Reason: Shortness of Breath/Wheezing Docusate Sodium (Docusate Sodium 100 Mg Capsule) 100 mg PO BEDTIME [facility] Last Admin: 10/24/23 20:03 Dose: Not Given Documented By: ANDREW Non-Admin Reason: Patient Asleep Levalbuterol HCl (Levalbuterol Hcl 1.25 Mg/3 Ml Vial.Neb) 1.25 mg INHALE Q6H PRN PRN Reason: Shortness Of Breath/Wheezing Last Admin: 10/22/23 11:42 Dose: 1.25 mg Documented By: GUY Lorazepam (Lorazepam 1 Mg Tablet) 1 mg PO Q4H PRN PRN Reason: anxiety/restlessness Last Admin: 10/25/23 05:52 Dose: 1 mg Documented By: ANDREW Morphine Sulfate (Morphine Sulfate 2 Mg/Ml Cartridge) 2 mg IVPUSH Q3H PRN; Protocol PRN Reason: Pain, Severe (Pain Scale 7-10) Last Admin: 10/25/23 09:33 Dose: 2 mg Documented By: JOSE ALEJANDRO Morphine Sulfate (Morphine Sulfate Oral Daisha 10 Mg/5 Ml Solution) 5 mg SUBLINGUAL Q2H PRN PRN Reason: Pain, Severe (Pain Scale 7-10) Last Admin: 10/24/23 10:14 Dose: 5 mg Documented By: GISELLE Ondansetron HCl (Ondansetron Odt 4 Mg Tab.Rapdis) 4 mg TRANSLINGU Q8H PRN PRN Reason: Nausea and Vomiting Polyethylene Glycol (Polyethylene Glycol 3350 17 Gm Powd.Pack) 17 gm PO DAILY PRN PRN Reason: Constipation Scopolamine (Scopolamine 1.5 Mg Patch.Td.3) 1.5 mg EAR-BEHIND Q72H [facility] Last Admin: 10/24/23 12:26 Dose: 1.5 mg Documented By: GISELLE Sodium Chloride (0.9 % Sodium Chloride Flush 3 Ml Syringe) 3 ml IVFLUSH QSHIFT [facility] Last Admin: 10/25/23 09:39 Dose: 3 ml Documented By: JOSE ALEJANDRO Labs 10/18/23 20:54 10/18/23 20:54 Assessment and Plan (1) End stage COPD: Status: Acute Plan Mary Amor is a very pleasant 77 y/o woman with PMHx of end-stage COPD was recently admitted to [facility] and treated for acute blood loss anemia, upper GI bleeding and exacerbation of COPD.. Her prognosis was deemed poor and was hospice was advised, she was discharge to [facility] on 10/15 only to come back to [facility] for shortness of respiratory distress and has expressed desire for hospice care/comfort, unfortunately she is not able at home alone for hospice care.. Plan: continue hospice care/comfort care, Case management working on patient going home for hospice. Continue Morphine, Valium PRN for comfort. Breathing treatment as needed for comfort Quality Stroke Does the patient have a stroke diagnosis?: No VTE Prior VTE?: No VTE Risk Level:: Medical - moderate - high VTE Device Contraindication: Treatment Not Indicated VTE Drug Contraindication: N/A - Med Ordered
--- NOTE | 2023-10-25 10:45 | MHC.CM.PN ---
Addendum entered by Emily Ayon RN 10/25/23 13:42: Clinicals sent to [facility] per HCP request. Original Note: [facility] nurse in to see patient. Will admit to [facility]. aware. CM spoke with friend, Osroio (HCP's ). HCP Edita is currently at rehab @ [facility]. Osorio is continuing to work w/ [facility] to arrange private care on dc. CLARISA will continue to follow.
[2023-10-25] MEDS: Morphine Sulfate 2 MG/ML CARTRIDGE 4 MG IVPUSH (12:51)
--- NOTE | 2023-10-28 07:04 | P.CDIM_ITS ---
PROVIDER RESPONSE TEXT: To clarify, the appropriate diagnosis supported by the clinical indicators: Pressure Injury coccyx Stage II QUERY TEXT: PHYSICIAN'S DOCUMENTATION REQUEST Date of Query: 10/22/2023 09:49 AM EDT Patient Name: Mary Amor Admit Date: 10/19/2023 Dear Gabriele Mac, A review of the medical record indicates additional documentation may be needed. Please review below and update the documentation accordingly. Clinical Indicators: Wound care nursing notes 10/20 - Pressure Injury Stage II coccyx (chronic) Foam dressing Based on the above, could you please provide further information regarding the ulcer/wound/injury: Pressure Injury coccyx Stage II Other (explain) Clinically unable to determine (explain) Thank you, Porsha Martinez, CCS, CDIS Use of terms such as suspected, likely, concern for, or probable (associated with a specific diagnosi s that is being evaluated, monitored, or treated as if it exists) are acceptable and can be coded in the inpatient se tting, when documented at the time of discharge. Please use your independent medical judgment in providing your response. THIS QUERY IS PART OF THE PERMANENT MEDICAL RECORD
--- NOTE | 2024-03-29 11:18 | PM.DS ---
DS: Providers Provider Date of Service: 10/25/23 Date of admission: 10/19/23 00:45 Date of discharge: 10/25/23 Primary care physician: Terrance Cleveland MD Consults: 10/19/23 01:33 Consult to Case Management Routine Comment: Consult to Side Stitcher Routine Comment: Consult to Hospice Routine Comment: 10/21/23 12:32 Consult to Wound Care Routine Reason for consultation: st 2 coocyx DS: Transfer Hospital Acceptance Accepting Provider: [facility] Complaint: Shortness of breath Mary Amor is a very pleasant 77 years old woman with past medical history significant for end-stage COPD on chronic home therapy (4L/min), lingular necrotizing granuloma, hyperlipidemia, hypertension, breast cancer status post lumpectomy, CAD and carotid disease was brought to the emergency department via EMS from [facility]. 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 The patient is not happy at this nursing facility and was transported to our ED for evaluation. Mary is quite short of breath and has generalized pain. She reported chronic cough. Denied chest pain or palpitations. She also denied any acute gastrointestinal or genitourinary symptoms. I spoke with patient's health care proxy, Edita Hsu over the phone (Mrs. Hsu's participated in the converstation). They said Mary is DNR and DNI and wishes to be comfortable. They are aware that Mary is here and were told by [facility] staff that they cannot force Mary to stay there. Mary has been having difficult times recently with her breathing and suffering a lot. She told me that she is not happy at nursing facility and do not want to go back there. hospital course: Patient was admitted on october 18 with sob attributed end stage copd with acute hypoxic respiratory failure..She was transitioned to hospice GIB on October 24. Final diagnosis: Acute on chronic hypoxic respiratory failure due to end stage CODP DS: Diagnosis Discharge Diagnosis (1) End stage COPD: Status: Acute DS: Summary Time Attestation Discharge Coordination Time (in mins): 20 Quality: Safe Use of Opioids Does Pt have an Active Cancer Diagnosis on the Problem List?: No Quality: Stroke Does the patient have a stroke diagnosis?: No Physical Exam Vital Signs: Vital Signs: Last Vital Signs Temp 97.2 F 10/23/23 07:32 Pulse 108 H 10/24/23 08:18 Resp 16 10/24/23 08:18 BP 127/60 10/23/23 07:32 Pulse Ox 98 10/23/23 07:32 O2 Del Method Nasal Cannula 10/23/23 07:32 O2 Flow Rate 2 10/23/23 07:32 Oxygen Flow Rate 4 10/18/23 18:22 BMI result Body Mass Index 10.1 DS: Data Data Completed and Pending Completed studies during hospitalization [Text1]: Procedures Transfusion of Nonautologous Red Blood Cells into Peripheral Vein, Percutaneous Approach (09/22/23) Discharge Plan Discharge Anticipated Discharge Date/Time: 10/25/23 13:07 Patient Disposition: Hospice - Home Discharge Diagnosis: End stage Referrals: Terrance Cleveland MD [Primary Care Provider] - 1 Week Discharge Medications: Discontinued tiotropium bromide 18 mcg capsule, w/inhalation device 1 cap inhalation DAILY 90 Days Qty: 90 3RF acetaminophen [Tylenol] 325 mg Tablet 650 mg PO Q6H PRN (Reason: Fever) Rx Instructions: DNE 3 G IN 24 HRS trazodone 50 mg Tablet 25 mg PO BEDTIME PRN (Reason: Insomnia) polyethylene glycol 3350 [Miralax] 17 gram Powder In Packet 17 g PO DAILY PRN (Reason: Constipation) azithromycin 250 mg tablet 250 mg PO MOWEFR@0900 prednisone 5 mg Tablet 5 mg PO DAILY thiamine HCl (vitamin B1) 100 mg Tablet 100 mg PO DAILY magnesium hydroxide [Milk of Magnesia] 400 mg/5 mL Suspension 30 ml PO DAILY PRN (Reason: Constipation) bisacodyl 10 mg Suppository 10 mg DC DAILY PRN (Reason: Constipation) pantoprazole 40 mg Tablet,Delayed Release (Dr/Ec) 40 mg PO DAILY@0630 Fleet Enema 19-7 gram/118 mL Enema 118 ml DC DAILY PRN (Reason: Constipation) docusate sodium 100 mg Capsule 100 mg PO BID PRN (Reason: Constipation) fluticasone propionate [Flonase Allergy Relief] 50 mcg/actuation [place],Suspension 1 spray INTRANASAL BID Rx Instructions: administer into each nostril valsartan 40 mg Tablet 40 mg PO DAILY morphine concentrate 20 mg/mL Syringe 5 mg PO Q4H PRN (Reason: Pain / SOB) albuterol sulfate 2.5 mg /3 mL (0.083 %) solution for nebulization 2.5 mg inhalation Q6H PRN (Reason: Shortness Of Breath Or Wheezing) metoprolol tartrate 25 mg tablet 12.5 mg PO BID acetaminophen [Tylenol] 325 mg Tablet 650 mg PO Q4H PRN (Reason: Pain) Rx Instructions: DNE 3 G IN 24 HRS sennosides [senna] 8.6 mg Tablet 8.6 mg PO DAILY PRN (Reason: Constipation) furosemide [Lasix] 40 mg tablet 40 mg PO DAILY Qty: 90 0RF insulin lispro [Admelog U-100 Insulin lispro] 100 unit/mL Solution See Protocol subcut QIDACHS Qty: 10 0RF Protocol: Insulin Correction Scale Less than or equal to 110 ---- Give (units): 0 111 to 150 Give (units): 0 151 to 200 Give (units): 0 201 to 250 Give (units): 2 251 to 300 Give (units): 4 301 to 350 Give (units): 6 Greater than 350 Give (units): 10 Call MD if Blood Glucose > : 350 atorvastatin 40 mg tablet 40 mg PO BEDTIME omeprazole 40 mg capsule,delayed release(DR/EC) 40 mg PO DAILY@0630 aspirin 81 mg tablet,delayed release (DR/EC) 81 mg PO DAILY (DME) nebulizers [facility] See Rx Instructions .Route Rx Instructions: As directed (DME) Oxygen Home Use Kit See Rx Instructions .Route Rx Instructions: As directed No Action morphine 10 mg/5 mL Solution 5 mg sublingual Q1H PRN (Reason: comfort and respiratory distress) Qty: 150 0RF Rx Instructions: Partial Fill upon patient request. scopolamine base [Transderm-Scop] 1 mg over 3 days Patch 3 Day 1.5 mg transdermal Q72H Qty: 4 0RF lorazepam [Lorazepam Intensol] 2 mg/mL concentrate 0.5 mg PO Q4H PRN (Reason: anxiety/restlessness) Qty: 30 0RF haloperidol lactate 2 mg/mL Concentrate 1 mg PO Q6H PRN (Reason: Agitation/restlessness) 7 Days Qty: 15 1RF Discharge Orders: Discharge Order (Routine); Ordered 10/25/23 Ordered By: Gabriele Ramirez Diet: Advance to usual diet Activity on Discharge: As tolerated Stand Alone Forms: Patient Portal Discharge page Print Language: Emirati Care Plan Goals: Changing to hospice gip Health Concerns: Changing to hospice gip Plan of Treatment: Changing to hospice gip Assessment: see above Discharge Date/Time: 10/25/23 13:49
== END 2023-10-25 13:49 | disposition hospice, home (50) | DRG 951 ==
LOC: HO.ED 23:58 → HO.EDOVER 10-19 00:47 → HO.S3 10-19 07:36
PROVIDERS: Admitting Provider Internal Medicine; Emergency Provider Internal Medicine; PCP Internal Medicine; Visit Provider Internal Medicine
DX: Z51.5 Encounter for palliative care (principal); J96.21 Acute and chronic respiratory failure with hypoxia; J44.1 Chronic obstructive pulmonary disease with (acute) exacerbation; K21.9 Gastro-esophageal reflux disease without esophagitis; I25.10 Atherosclerotic heart disease of native coronary artery without angina pectoris; E78.5 Hyperlipidemia, unspecified; L89.152 Pressure ulcer of sacral region, stage 2; Z20.822 Contact with and (suspected) exposure to COVID-19; Z99.81 Dependence on supplemental oxygen; Z87.891 Personal history of nicotine dependence; Z79.899 Other long term (current) drug therapy
CPT/HCPCS: 0241U; 36415; 71045; 80053; 82803; 83605; 84100; 85025; 87040; 93005; 94640; 99285; J0696; J2270; J2919; J3360; J3475; J3480

== ENCOUNTER → 2023-10-18 20:03 | Outpatient (BNV) | payer MEDICARE, BC, SELFPAY | PROVIDERS: Admitting Provider Internal Medicine; Emergency Provider Internal Medicine; Visit Provider Internal Medicine | DX: R00.0 Tachycardia, unspecified (principal); R94.31 Abnormal electrocardiogram [ECG] [EKG] | CPT/HCPCS: 93010 ==

== ENCOUNTER → 2023-10-19 00:45 | Outpatient (BNV) | payer MEDICARE, BC, SELFPAY | PROVIDERS: Admitting Provider Internal Medicine; Emergency Provider Internal Medicine; Visit Provider Internal Medicine | DX: J96.21 Acute and chronic respiratory failure with hypoxia (principal); J44.9 Chronic obstructive pulmonary disease, unspecified | CPT/HCPCS: 99223; 99231; 99232; 99499 ==

== ENCOUNTER 2023-10-25 13:26 | Inpatient (IN) | payer OTHER, SELFPAY ==
--- NOTE | 2023-10-25 14:19 | MHC.CM.PN ---
Patient from home alone. Friend Edita is HCP. Now admitted to [facility] w/ [facility]. DP: GIP until sx controlled. Home w26/11 care through [facility]. HCP is coordinating this. CM will continue to follow.
--- NOTE | 2023-10-25 14:47 | HE.PHANOTE ---
RE: med rec Per Dr. 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
--- NOTE | 2023-10-25 17:07 | PM.EVENT ---
Event Note Date of Service: 10/25/23 Event Note: Patient has been transitioned to hospice GIP, see original H and P and Progress Time Spent With Patient Time: Total time managing care of this patient today ____ minutes.
[2023-10-25] MEDS: Scopolamine 1.5 MG PATCH.TD.3 TRANSDERMA (18:05)
[2023-10-25] MEDS: Morphine Sulfate 4 MG/ML CARTRIDGE IVPUSH (18:08)
--- NOTE | 2023-10-25 19:04 | PC.NURSE ---
Pt mostly sleeping throughout day. Awakes and reports back pain and medicated with morphine with good effect. Pt resting comfortably after morphine. Repositioned for comfort. Scopolamine changed to behind left ear. Ultrasound guided IV to left upper arm. Insertion date 10/18/23.
[2023-10-26] MEDS: Morphine Sulfate 4 MG/ML CARTRIDGE IVPUSH ×3 (05:36→11:24)
--- NOTE | 2023-10-26 11:30 | P.PNIM_ITS ---
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 Objective Data Active Medications Haloperidol Lactate (Haloperidol Lactate Oral Conc 10 Mg/5 Ml Oral.Conc) 1 mg SUBLINGUAL Q4H PRN PRN Reason: Anxiety/Restlessness/Delirium Lorazepam (Lorazepam 1 Mg Tablet) 1 mg SUBLINGUAL Q4H PRN PRN Reason: anxiety/restlessness Morphine Sulfate (Morphine Sulfate Oral Daisha 10 Mg/5 Ml Solution) 5 mg SUBLINGUAL Q4H PRN PRN Reason: Pain, Severe (Pain Scale 7-10) Morphine Sulfate (Morphine Sulfate 4 Mg/Ml Cartridge) 4 mg IVPUSH Q2H PRN PRN Reason: Discomfort/Shortness of breath Last Admin: 10/26/23 11:24 Dose: 4 mg Documented By: CHIN Ondansetron HCl (Ondansetron Hcl 4 Mg/2 Ml Vial) 4 mg IVPUSH Q8H PRN PRN Reason: Nausea and Vomiting Scopolamine (Scopolamine 1.5 Mg Patch.Td.3) 1.5 mg TRANSDERMA Q72H [facility] Last Admin: 10/25/23 18:05 Dose: 1.5 mg Documented By: JOSE ALEJANDRO Assessment and Plan (1) End stage COPD: Status: Acute Plan Mary Amor is a very pleasant 77 y/o woman with PMHx of end-stage COPD was recently admitted to [facility] and treated for acute blood loss anemia, upper GI bleeding and exacerbation of COPD.. Her prognosis was deemed poor and was hospice was advised, she was discharge to [facility] on 10/15 only to come back to [facility] for shortness of respiratory distress and has expressed desire for hospice care/comfort, unfortunately she is not able at home alone for hospice care. End stage COPD on Comfort measures only, GIP hospice Continue Morphine Valium PRN for comfort Haloperidol prn for delerium Scopolamine for secretions Quality Stroke Does the patient have a stroke diagnosis?: No VTE Prior VTE?: No VTE Risk Level:: Medical - low VTE Device Contraindication: Treatment Not Indicated VTE Drug Contraindication: Treatment Not Indicated
[2023-10-26] MEDS: Morphine Sulfate Oral Sol 10 MG/5 ML SOLUTION 5 MG SUBLINGUAL ×2 (15:32→19:22)
[2023-10-27] MEDS: Morphine Sulfate Oral Sol 10 MG/5 ML SOLUTION 5 MG SUBLINGUAL ×3 (01:46→10:21)
--- NOTE | 2023-10-27 10:47 | P.PNIM_ITS ---
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 Objective Data Active Medications Haloperidol Lactate (Haloperidol Lactate Oral Conc 10 Mg/5 Ml Oral.Conc) 1 mg SUBLINGUAL Q4H PRN PRN Reason: Anxiety/Restlessness/Delirium Lorazepam (Lorazepam 1 Mg Tablet) 1 mg SUBLINGUAL Q4H PRN PRN Reason: anxiety/restlessness Morphine Sulfate (Morphine Sulfate Oral Daisha 10 Mg/5 Ml Solution) 5 mg SUBLINGUAL Q4H PRN PRN Reason: Pain, Severe (Pain Scale 7-10) Last Admin: 10/27/23 10:21 Dose: 5 mg Documented By: CHIN Morphine Sulfate (Morphine Sulfate 4 Mg/Ml Cartridge) 4 mg IVPUSH Q2H PRN PRN Reason: Discomfort/Shortness of breath Last Admin: 10/26/23 11:24 Dose: 4 mg Documented By: CHIN Ondansetron HCl (Ondansetron Hcl 4 Mg/2 Ml Vial) 4 mg IVPUSH Q8H PRN PRN Reason: Nausea and Vomiting Scopolamine (Scopolamine 1.5 Mg Patch.Td.3) 1.5 mg TRANSDERMA Q72H [facility] Last Admin: 10/25/23 18:05 Dose: 1.5 mg Documented By: JOSE ALEJANDRO Assessment and Plan (1) End stage COPD: Status: Acute Plan Mary Amor is a very pleasant 77 y/o woman with PMHx of end-stage COPD was recently admitted to [facility] and treated for acute blood loss anemia, upper GI bleeding and exacerbation of COPD.. Her prognosis was deemed poor and was hospice was advised, she was discharge to [facility] on 10/15 only to come back to [facility] for shortness of respiratory distress and has expressed desire for hospice care/comfort, unfortunately she is not able at home alone for hospice care. End stage COPD on Comfort measures only, GIP hospice Continue Morphine ATC and PRN Valium PRN for comfort Haloperidol prn for delerium Scopolamine for secretions Quality Stroke Does the patient have a stroke diagnosis?: No VTE Prior VTE?: No VTE Risk Level:: Medical - low VTE Device Contraindication: Treatment Not Indicated VTE Drug Contraindication: Treatment Not Indicated
[2023-10-27] MEDS: LORazepam 1 MG TABLET SUBLINGUAL (10:48)
[2023-10-27] MEDS: Morphine Sulfate 4 MG/ML CARTRIDGE IVPUSH ×2 (13:08→18:27)
[2023-10-28] MEDS: Morphine Sulfate 4 MG/ML CARTRIDGE IVPUSH ×2 (06:20→17:39)
[2023-10-28] MEDS: Morphine Sulfate Oral Sol 10 MG/5 ML SOLUTION 5 MG SUBLINGUAL ×3 (07:40→16:34)
--- NOTE | 2023-10-28 09:24 | MHC.CLN ---
Addendum entered by Judy Garrison RD 10/28/23 11:58: SPOKE WITH VISITOR IN ROOM. STATED THAT PATIENT WILL TAKE BITES OF FOOD AND CONFIRMED THAT LIKES ENSURE. 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 NOW HOSPICE GIP. ADDED ENSURE TID PATIENT REQUESTED LAST WEEK.
--- NOTE | 2023-10-28 09:56 | HO.PM.IMPN ---
Subjective Subjective Date of Service: 10/28/23 Interval History: Comfortable this morning, no distress Physical Exam Vital Signs: Awake, no distress, No increase WOB, Objective Data Active Medications Haloperidol Lactate (Haloperidol Lactate Oral Conc 10 Mg/5 Ml Oral.Conc) 1 mg SUBLINGUAL Q4H PRN PRN Reason: Anxiety/Restlessness/Delirium Lorazepam (Lorazepam 1 Mg Tablet) 1 mg SUBLINGUAL Q4H PRN PRN Reason: anxiety/restlessness Last Admin: 10/27/23 10:48 Dose: 1 mg Documented By: CHIN Morphine Sulfate (Morphine Sulfate Oral Daisha 10 Mg/5 Ml Solution) 5 mg SUBLINGUAL Q4H PRN PRN Reason: Pain, Severe (Pain Scale 7-10) Last Admin: 10/27/23 10:21 Dose: 5 mg Documented By: CHIN Morphine Sulfate (Morphine Sulfate 4 Mg/Ml Cartridge) 4 mg IVPUSH Q2H PRN PRN Reason: Discomfort/Shortness of breath Last Admin: 10/28/23 06:20 Dose: 4 mg Documented By: WOODROW Morphine Sulfate (Morphine Sulfate Oral Daisha 10 Mg/5 Ml Solution) 5 mg SUBLINGUAL QSHIFT [facility] Last Admin: 10/28/23 07:40 Dose: 5 mg Documented By: BRIAN Ondansetron HCl (Ondansetron Hcl 4 Mg/2 Ml Vial) 4 mg IVPUSH Q8H PRN PRN Reason: Nausea and Vomiting Scopolamine (Scopolamine 1.5 Mg Patch.Td.3) 1.5 mg TRANSDERMA Q72H [facility] Last Admin: 10/25/23 18:05 Dose: 1.5 mg Documented By: JOSE ALEJANDRO Assessment and Plan (1) End stage COPD: Status: Acute Plan Mary Amor is a very pleasant 77 y/o woman with PMHx of end-stage COPD was recently admitted to [facility] and treated for acute blood loss anemia, upper GI bleeding and exacerbation of COPD.. Her prognosis was deemed poor and was hospice was advised, she was discharge to [facility] on 10/15 only to come back to [facility] for shortness of respiratory distress and has expressed desire for hospice care/comfort, unfortunately she is not able at home alone for hospice care.. Plan: continue hospice gip care/comfort care, Case management working on patient going home for hospice. Continue Morphine, Ativan PRN for comfort. Breathing treatment as needed for comfort Quality Stroke Does the patient have a stroke diagnosis?: No VTE Prior VTE?: No VTE Risk Level:: Medical - low VTE Device Contraindication: Treatment Not Indicated VTE Drug Contraindication: Treatment Not Indicated
--- NOTE | 2023-10-28 12:10 | MHC.CM.PN ---
Addendum entered by Emily Ayon RN 10/28/23 16:19: Per [facility], they are unable to accept patient d/t staffing issues. Hospice SW aware and reports HCP is reaching out to two other agencies. HCP is still exploring possibility of [facility]. CM spoke with Tomasa @ [facility] who says they have beds available and will reach out to [facility]. Original Note: Patient remains GIP hospice, per global technical writer will likely need 1-2 days more. Can use respite days after this. CM discussed dc plan with hospice SW and Osorio, patient's friend. Osorio continues to work on setting up private care. NATALIE and CM discussed the importance of securing the private care as soon as possible. Osorio verbalized understanding. Hospice SW will also communicate w/ HCP Edita. CLARISA will continue to follow.
[2023-10-28] MEDS: Scopolamine 1.5 MG PATCH.TD.3 TRANSDERMA (14:02)
[2023-10-29] MEDS: Morphine Sulfate 4 MG/ML CARTRIDGE IVPUSH ×4 (04:45→20:44)
[2023-10-29] MEDS: Morphine Sulfate Oral Sol 10 MG/5 ML SOLUTION 5 MG SUBLINGUAL ×4 (07:30→23:56)
--- NOTE | 2023-10-29 11:29 | P.PNIM_ITS ---
Subjective Subjective Date of Service: 10/29/23 Interval History: Minimally responsive this morning, no distress Physical Exam Vital Signs: Sleeping, no distress, No increase WOB, Objective Data Active Medications Haloperidol Lactate (Haloperidol Lactate Oral Conc 10 Mg/5 Ml Oral.Conc) 1 mg SUBLINGUAL Q4H PRN PRN Reason: Anxiety/Restlessness/Delirium Lorazepam (Lorazepam 1 Mg Tablet) 1 mg SUBLINGUAL Q4H PRN PRN Reason: anxiety/restlessness Last Admin: 10/27/23 10:48 Dose: 1 mg Documented By: CHIN Morphine Sulfate (Morphine Sulfate Oral Daisha 10 Mg/5 Ml Solution) 5 mg SUBLINGUAL Q4H PRN PRN Reason: Pain, Severe (Pain Scale 7-10) Last Admin: 10/28/23 14:34 Dose: 5 mg Documented By: BRIAN Morphine Sulfate (Morphine Sulfate 4 Mg/Ml Cartridge) 4 mg IVPUSH Q2H PRN PRN Reason: Discomfort/Shortness of breath Last Admin: 10/29/23 04:45 Dose: 4 mg Documented By: WOODROW Morphine Sulfate (Morphine Sulfate Oral Daisha 10 Mg/5 Ml Solution) 5 mg SUBLINGUAL QSHIFT [facility] Last Admin: 10/29/23 07:30 Dose: 5 mg Documented By: BRIAN Ondansetron HCl (Ondansetron Hcl 4 Mg/2 Ml Vial) 4 mg IVPUSH Q8H PRN PRN Reason: Nausea and Vomiting Scopolamine (Scopolamine 1.5 Mg Patch.Td.3) 1.5 mg TRANSDERMA Q72H [facility] Last Admin: 10/28/23 14:02 Dose: 1.5 mg Documented By: BRIAN Assessment and Plan (1) End stage COPD: Status: Acute Plan Mary Amor is a very pleasant 77 y/o woman with PMHx of end-stage COPD was recently admitted to [facility] and treated for acute blood loss anemia, upper GI bleeding and exacerbation of COPD.. Her prognosis was deemed poor and was hospice was advised, she was discharge to [facility] on 10/15 only to come back to [facility] for shortness of respiratory distress and has expressed desire for hospice care/comfort, unfortunately she is not able at home alone for hospice care.. Plan: continue hospice gip care/comfort care, Case management working on patient going home for hospice. Continue Morphine, Ativan PRN for comfort. Breathing treatment as needed for comfort Quality Stroke Does the patient have a stroke diagnosis?: No VTE Prior VTE?: No VTE Risk Level:: Medical - low VTE Device Contraindication: Treatment Not Indicated VTE Drug Contraindication: Treatment Not Indicated
[2023-10-30] MEDS: Morphine Sulfate 4 MG/ML CARTRIDGE IVPUSH (05:16)
[2023-10-30] MEDS: Morphine Sulfate Oral Sol 10 MG/5 ML SOLUTION 5 MG SUBLINGUAL ×6 (08:16→22:04)
--- NOTE | 2023-10-30 11:02 | P.PNIM_ITS ---
Subjective Subjective Date of Service: 10/30/23 Interval History: Sleeping without any sings of distress Physical Exam Vital Signs: Sleeping, no distress, No increase WOB, Objective Data Active Medications Haloperidol Lactate (Haloperidol Lactate Oral Conc 10 Mg/5 Ml Oral.Conc) 1 mg SUBLINGUAL Q4H PRN PRN Reason: Anxiety/Restlessness/Delirium Lorazepam (Lorazepam 1 Mg Tablet) 1 mg SUBLINGUAL Q4H PRN PRN Reason: anxiety/restlessness Last Admin: 10/27/23 10:48 Dose: 1 mg Documented By: CHIN Morphine Sulfate (Morphine Sulfate Oral Daisha 10 Mg/5 Ml Solution) 5 mg SUBLINGUAL Q4H PRN PRN Reason: Pain, Severe (Pain Scale 7-10) Last Admin: 10/29/23 11:28 Dose: 5 mg Documented By: BRIAN Morphine Sulfate (Morphine Sulfate 4 Mg/Ml Cartridge) 4 mg IVPUSH Q2H PRN PRN Reason: Discomfort/Shortness of breath Last Admin: 10/30/23 05:16 Dose: 4 mg Documented By: ESTHELA Morphine Sulfate (Morphine Sulfate Oral Daisha 10 Mg/5 Ml Solution) 5 mg SUBLINGUAL QSHIFT [facility] Last Admin: 10/30/23 08:16 Dose: 5 mg Documented By: CHRISTINA Comments: Ondansetron HCl (Ondansetron Hcl 4 Mg/2 Ml Vial) 4 mg IVPUSH Q8H PRN PRN Reason: Nausea and Vomiting Scopolamine (Scopolamine 1.5 Mg Patch.Td.3) 1.5 mg TRANSDERMA Q72H [facility] Last Admin: 10/28/23 14:02 Dose: 1.5 mg Documented By: BRIAN Assessment and Plan (1) End stage COPD: Status: Acute Plan Mary Amor is a very pleasant 77 y/o woman with PMHx of end-stage COPD was recently admitted to [facility] and treated for acute blood loss anemia, upper GI bleeding and exacerbation of COPD.. Her prognosis was deemed poor and was hospice was advised, she was discharge to [facility] on 10/15 only to come back to [facility] for shortness of respiratory distress and has expressed desire for hospice care/comfort, unfortunately she is not able at home alone for hospice care.. Plan: continue hospice gip care/comfort care, Case management working on patient going home for hospice or possibly to a facility. Continue Morphine, Ativan PRN for comfort. Breathing treatment as needed for comfort Quality Stroke Does the patient have a stroke diagnosis?: No VTE Prior VTE?: No VTE Risk Level:: Medical - low VTE Device Contraindication: Treatment Not Indicated VTE Drug Contraindication: Treatment Not Indicated
--- NOTE | 2023-10-30 12:19 | MHC.CM.PN ---
Addendum entered by Emily Ayon RN 10/30/23 15:13: Per hospice executive director patient has been accepted by [facility]. BLS transport scheduled for 10/30 at noon. Original Note: HCP invoked 10/28. Per MD patient remains comfortable and will plan to increase frequency of SL morphine and minimize use of IV morphine. CM spoke with MARIO Kohler. Continuing to work w/ [facility] as first choice. Also open to referrals to local SNF's (does not want [facility] or [facility]). Placed in [facility]. CM will continue to follow.
[2023-10-30] MEDS: Haloperidol Lactate Oral Conc 10 MG/5 ML ORAL.CONC SUBLINGUAL (13:35)
--- NOTE | 2023-10-30 18:13 | PM.DS ---
DS: Providers Provider Date of Service: 10/31/23 Date of admission: 10/25/23 13:26 Primary care physician: Unknown Physician DS: Diagnosis Discharge Diagnosis (1) End stage COPD: Status: Acute DS: Summary Hospital Course Hospital Course: admission h and p Mary Amor is a very pleasant 77 y/o woman with PMHx of end-stage COPD was recently admitted to [facility] and treated for acute blood loss anemia, upper GI bleeding and exacerbation of COPD.. Her prognosis was deemed poor and was hospice was advised, she was discharge to SNF [facility] on 10/15 only to come back to [facility] for shortness of respiratory distress and has expressed desire for hospice care/comfort, unfortunately she is not able at home alone for hospice care.. Plan: continue hospice care/comfort care, Casemanagement to look into possibility of return to SNF for rest of care. Continue Morphine, Valium PRN for comfort.. She seems fairly comfortable this morning. Hospital course: The patient has advanced COPD, necessitating frequent hospitalizations, including her recent stay at [facility]. She was discharged to a SNF with the goal of end-of-life care and comfort therapy, she returned to the hospital just three days later, experiencing persistent shortness of breath and expressing a desire for comfort care only. She was admitted with a focus on comfort measures, receiving opioids and benzodiazepines solely for comfort. Hospice services were sought to help manage her end-of-life needs, adjust medications, and support her and her loved ones. The patient wished to return home, but despite efforts by her healthcare proxy to arrange 24/7 care, resources were insufficient to facilitate this. Her comfort has been maintained with oral morphine and Ativan. At this stage, she will transition to a lower level of care while ensuring her needs continue to be met. Time Attestation Discharge Coordination Time (in mins): 40 Quality: Safe Use of Opioids Does Pt have an Active Cancer Diagnosis on the Problem List?: No Quality: Stroke Does the patient have a stroke diagnosis?: No Physical Exam Const: Other: Sleeping, comfortable, no distress DS: Data Data Completed and Pending Completed studies during hospitalization [Text1]: Procedures Transfusion of Nonautologous Red Blood Cells into Peripheral Vein, Percutaneous Approach (09/22/23) Discharge Plan Discharge Anticipated Discharge Date/Time: 10/31/23 09:21 Patient Disposition: Xfer SNF Discharge Diagnosis: End stage COPD with acute on chronic hypoxic respiratory failure Referrals: Physician,Unknown J [Primary Care Provider] - 1 Week Discharge Medications: New morphine 10 mg/5 mL Solution 5 mg sublingual Q1H PRN (Reason: comfort and respiratory distress) Qty: 150 0RF Rx Instructions: Partial Fill upon patient request. scopolamine base [Transderm-Scop] 1 mg over 3 days Patch 3 Day 1.5 mg transdermal Q72H Qty: 4 0RF lorazepam [Lorazepam Intensol] 2 mg/mL concentrate 0.5 mg PO Q4H PRN (Reason: anxiety/restlessness) Qty: 30 0RF haloperidol lactate 2 mg/mL Concentrate 1 mg PO Q6H PRN (Reason: Agitation/restlessness) 7 Days Qty: 15 1RF Discontinued atorvastatin 40 mg tablet 40 mg PO DAILY fluticasone propion-salmeterol [Wixela Inhub] 250-50 mcg/dose blister with device 1 ea inhalation BID irbesartan-hydrochlorothiazide 150-12.5 mg tablet 1 tab PO DAILY omeprazole 40 mg capsule,delayed release(DR/EC) 40 mg PO DAILY diltiazem HCl 120 mg capsule,extended release 24hr 120 mg PO DAILY tiotropium bromide 18 mcg capsule, w/inhalation device 1 cap inhalation DAILY Discharge Orders: Discharge Order (Routine); Ordered 10/31/23 Ordered By: Gabriele Ramirez Diet: Advance to usual diet Activity on Discharge: As tolerated Stand Alone Forms: Patient Portal Discharge page Print Language: Italian Care Plan Goals: comfort care and respect of patient's wishes, Health Concerns: End stage COPD with acute on chronic hypoxic respiratory failure Plan of Treatment: Comfort measure only with morphine and ativan for comfort Assessment: see above
[2023-10-31] MEDS: Morphine Sulfate Oral Sol 10 MG/5 ML SOLUTION 5 MG SUBLINGUAL ×2 (00:56→08:18)
--- OUTSIDE RECORDS SUMMARY | 2023-10-31 06:45 | XMS_ITS | Continuity of Care Document ---
Author Organization [facility] ter Address [address] [place] [id number] Care Team Providers Care Client Care Representative Name Role Phone Megha PERRY, Terrance Primary Care Physician [phone] [place] [facility] [place] 10/16/[address] [id number] Discharge Disposition: A-Transfer SNF Attending Physician: Claudia Nicole MD Admitting Physician: Juno Avalos MD Referring Physician: Not on Staff, Referring MD Allergies, Adverse Reactions, Alerts Substance Reaction Severity Status sulfamethoxazole Active Augmentin severe diarrhea Active Immunizations Given and Recorded Vaccine Date Status Refusal Reason Influenza Virus Vaccine (oldterm) 01/13/09 Given Influenza Virus Vaccine (oldterm) 03/11/08 Given Influenza Virus Vaccine (oldterm) 03/30/07 Given Pneumococcal Vaccine (oldterm) 03/06/07 Given influenza virus vaccine, inactivated 1 03/19/06 Gi jose tetanus-diphtheria toxoids (Td) 03/19/05 Given 1Admin Note: GIVEN IN CLINIC [facility] Medications albuterol 2.5mg / 3mL (0.083%) (OP) 3 mL = 2.5 mg, Neb, Every 6 hours, PRN SOB, # 90 mL, 0 Refills, Maintenance Start Date: 10/08/23 Status: Ordered aspirin 81 mg oral capsule 1 capsule = 81 mg, By Mouth, Daily, do not exceed 48 capsules in 24 hours, # 30 capsule, 0 Refills,Maintenance, 10/08/23 3:34:00 EDT, Capsule, Partial fill upon patient request if the prescription is for a schedule II opioid drug. Start Date: 10/08/23 Status: Ordered atorvastatin 40 mg oral tablet 1 tablet = 40 mg, By Mouth, Daily, # 30 tablet, 5 Refills, Maintenance, 10/08/23 3:50:00 EDT, Tablet, Partial fill upon patient request if the prescription is for a schedule II opioid drug. Start Date: 10/08/23 Status: Ordered azithromycin 250 mg oral tablet See Instructions, 1 tablet by mouth 3 times / week to continue, # 36 tablet, 0 Refills, Soft Stop, 10/16/23 13:31:00 EDT, Tablet, Partial fill upon patient request if the prescription is for a schedule II opioid drug. Start Date: 10/16/23 Status: Ordered Colace sodium 100 mg oral capsule 1 capsule = 100 mg, By Mouth, 2 times a day, PRN for constipation, # 20 capsule, 0 Refills, Maintenance, 10/01/14 13:45:15, Capsule Start Date: 10/01/14 Status: Ordered Fleet Enema 19 gm-7 gm rectal enema 1 each, Rectally, PRN constipation, # 118 mL, 0 Refills, Maintenance, 10/08/23 3:31:00 EDT, Enema, Partial fill upon patient request if the prescription is for a schedule II opioid drug. Start Date: 10/08/23 Status: Ordered fluticasone nasal 0.05 mg/inh spray 1 sprays, Nasal, 2 times a day, # 1 each, 3 Refills, Maintenance Start Date: 01/24/12 Stop Date: 05/23/12 Status: Ordered GlycoLax = 17 Gm, By Mouth, 2 times a day, PRN Constipation, 0 Refills, Maintenance, 10/08/23 3:28:00 EDT, Partial fill upon patient request if the prescription is for a schedule II opioid drug. Start Date: 10/08/23 Status: Ordered Insulin Lispro See Instructions, 3 times a day before meals 100-150-4 units 150-199-7 units 200-249-10 unit 250-299- 13 unit 300-349 15 unit 350-399 18 unit > 400 22units and inform physician, 0 Refills, Maintenance, 10/08/23 3:36:00 EDT, Partial fill upon pa... Start Date: 10/08/23 Status: Ordered Lasix 40 mg oral tablet 40 mg, 1, tablet, By Mouth, Daily, # 30 tablet, Refills 0, Maintenance, 10/08/23 3:34:00 EDT, Partial fill upon patient request if the prescription is for a schedule II opioid drug. Start Date: 10/08/23 Status: Ordered Metoprolol Tartrate 1 mg/mL injectable solution = 12.5 mg, By Mouth, 2 times a day, 0 Refills, Maintenance, 10/08/23 3:26:00 EDT, Partial fill uponpatient request if the prescription is for a schedule II opioid drug. Start Date: 10/08/23 Status: Ordered Milk of Magnesia 30 mL, By Mouth, PRN constipation, 0 Refills, Maintenance, 10/08/23 3:29:00 EDT, Partial fill upon patient request if the prescription is for a schedule II opioid drug. Start Date: 10/08/23 Status: Ordered omeprazole 40 mg oral enteric coated capsule 1 capsule = 40 mg, By Mouth, Daily, 0 Refills, Maintenance Start Date: 01/24/12 Status: Ordered oxyCODONE 5 mg oral tablet 5 mg, Tablet, By Mouth, Every 8 hours, PRN for Pain , Mild, Please hold if BP<100, Routine, 10/15/23 16:14:00 EDT Start Date: 10/15/23 Stop Date: 10/17/23 Status: Discontinued predniSONE 5 mg oral tablet 1 tablet = 5 mg, By Mouth, Daily, # 30 tablet, 0 Refills, Maintenance, 10/16/23 13:30:00 EDT, Tablet, Partial fill upon patient request if the prescription is for a schedule II opioid drug. Start Date: 10/16/23 Stop Date: 11/15/23 Status: Ordered Protonix 40 mg oral delayed release tablet = 40 mg, By Mouth, Daily before breakfast, 0 Refills, Maintenance, 10/16/23 13:37:00 EDT, EC Tablet Start Date: 10/16/23 Status: Ordered Senna 8.6 mg oral tablet See Instructions, PRN, 1 tablet By Mouth q 24 hr for constipation, Refills 0, Maintenance, constipation, 10/08/23 3:51:00 EDT, Instructions Replace Required Details, Partial fill upon patient requestif the prescription is for a schedule II opioid drug. Start Date: 10/08/23 Status: Ordered Spiriva HandiHaler 18 mcg Inhalation Capsule 1 capsule = 18 mcg, Inhalation, Daily, # 90 capsule, 3 Refills, Maintenance, Capsule Start Date: 01/21/12 Stop Date: 01/15/13 Status: Ordered thiamine 100 mg oral tablet 100 mg, By Mouth, Daily, Refills 0, Maintenance, 10/16/23 13:37:00 EDT, Partial fill upon patient request if the prescription is for a schedule II opioid drug. Start Date: 10/16/23 Status: Ordered traZODone 50 mg oral tablet 25 mg, By Mouth, Daily at bedtime, PRN, Refills 0, Maintenance, Anxiety, 10/16/23 13:37:00 EDT, Partial fill upon patient request if the prescription is for a schedule II opioid drug. Start Date: 10/16/23 Status: Ordered valsartan 40 mg oral tablet 40 mg, 1, tablet, By Mouth, Daily, Refills 0, Maintenance, 10/08/23 3:24:00 EDT, Partial fill upon patient request if the prescription is for a schedule II opioid drug. Start Date: 10/08/23 Status: Ordered Problem List Condition Confirmation Course Effective Dates Status H ealth Status Informant Allergic rhinitis Confirmed Active Breast cancer Confirmed Active Cancer of cervix Confirmed Active COPD Confirmed 01/24/12 Active Emphysema of lung Confirmed Active GERD Confirmed 01/24/12 Active Hypercholesterolemia Confirmed Active Hyperglycemia Confirmed Active Hypertension Confirmed 01/24/12 Active Osteopenia Confirmed Active Osteoporosis Confirmed 01/24/12 Active Underweight Confirmed Active Results Radiology Reports * Exam Date Time Procedure Performing Provider Status 10/08/23 7:18 PM Chest Portable Bhargavi Aaron; Auth (V erified) Notes: (Chest Portable) Reason For Exam: Shortness of Breath RESULT: Chest Portable Chest Portable Reason: Shortness of Breath; Clinical Question(s): Pneumonia COMPARISON: 10/07/2023 FINDINGS: LINES AND TUBES: None. LUNGS AND PLEURA: Clear hyperinflated lungs. Normal pulmonary vascularity. No pleural effusion. No pneumothorax. HEART, MEDIASTINUM AND YASIR: Heart is normal in size. Normal mediastinal and hilar contour. BONES AND SOFT TISSUES: No acute abnormality. IMPRESSION: No acute abnormality. Moderate COPD. WSN: [id number] Ordering Physician: Jose Gloria Dictated By: Cl Cary MD Dictated Date/Time: 10/08/23 11:55 p Reviewed By: Cl Cary MD Signed By: Cl Cary MD Signed Date/Time: 10/08/23 11:55 pm Transcribed By: [email or web address] Transcribed Date/Time: 10/08/23 11:55 pm * Exam Date Time Procedure Performing Provider Status 10/07/23 9:52 PM Chest Portable Sam Harrison (Verified) Notes: (Chest Portable) Reason For Exam: Shortness of Breath RESULT: Chest Portable Chest Portable Hx of Present Illness: pt reports from [facility] with increased SOB, difficulty breathing and aproudctive cough with yellow sputum.; Reason: Shortness of Breath; Clinical Question(s): CHF COMPARISON: None. FINDINGS: LINES AND TUBES: None. LUNGS AND PLEURA: Clear hyperinflated lungs. Normal pulmonary vascularity. No pleural effusion. No pneumothorax. HEART, MEDIASTINUM AND YASIR: Heart is normal in size. Normal mediastinal and hilar contour. BONES AND SOFT TISSUES: No acute abnormality. Right axillary clips are noted. IMPRESSION: No acute abnormality. COPD. WSN: [id number] Ordering Physician: Kenrick Prasad Dictated By: Cl Cary MD Dictated Date/Time: 10/07/23 9:56 pm Reviewed By: Cl Cary MD Signed By: Cl Cary MD Signed Date/Time: 10/07/23 9:56 pm Transcribed By: [email or web address] Transcribed Date/Time: 10/07/23 9:56 pm Vital Signs Most recent to oldest [Reference Range]: 1 2 3 Height 165 cm (10/16/23 3:15 PM) 165 cm (10/16/23 5:48 AM) 165 cm (10/15/23 8:51 PM) Weight 40.3 kg (10/11/23 4:05 AM) 41.8 kg (10/10/23 3:45 PM) 41.8 kg (10/10/23 5:47 AM) Oxygen Saturation [94-100 %] 97 % (10/16/23 3:15 PM) 98 % (10/16/23 5:48 AM) 100 % (10/15/23 8:51 PM) Pulse Rate [55-90 bpm] 122 bpm *H* (10/16/23 3:15 PM) 95 bpm *H* (10/16/23 5:48 AM) 118 bpm *H* (10/15/23 8:51 PM) Body Mass Index [18.5-24.99 kg/m2] 15.35 kg/m2 *L* (10/10/23 3:45 PM) 14.36 kg/m2 *L* (10/08/23 2:47 AM) Blood Pressure [90-138/55-84 mm Hg] 144/59mm Hg *H* (10/16/23 3:15 PM) 150/75mm Hg *H* (10/16/23 5:48 AM) 137/90mm Hg (10/15/23 8:51 PM) Respiratory Rate [16-30 br/min] 18 br/min (10/16/23 3:15 PM) 18 br/min (10/16/23 12:56 PM) 18 br/min (10/16/23 5:48 AM) Temperature [96.8-100.4 DegF] 98.0 DegF (10/16/23 3:15 PM) 98 DegF (10/16/23 5:48 AM) 98.2 DegF (10/15/23 8:51 PM) Liters per Minute 2 L/min (10/16/23 3:15 PM) 2 L/min (10/15/23 8:51 PM) 2 L/min (10/15/23 2:00 PM) Mode of Delivery (Oxygen) Nasal cannula (10/16/23 3:15 PM) Room air (10/16/23 5:48 AM) Nasal cannula (10/15/23 8:51 PM) Blood pressure sites Arm, right (10/16/23 3:15 PM) Arm, right (10/16/23 5:48 AM) Arm, right (10/15/23 8:51 PM) Temperature Route Oral (10/16/23 3:15 PM) Oral (10/16/23 5:48 AM) Oral (10/15/23 8:51 PM) Dry Weight 38.6 kg (10/08/23 2:47 AM) 61.7 kg (10/08/23 1:50 AM) 61.7 kg (10/08/23 12:42 AM) Weight Obtained Via Bed scale (10/11/23 4:05 AM) Bed scale (10/10/23 5:47 AM) Bed scale (10/09/23 4:06 AM) Dry Weight Obtained Via Patient/family s tated (10/08/23 2:47 AM) Social History Social History Type Response Smoking Status Former smoker, quit more than 30 days ago entered on: 10/08/23 Sex Clinical Note * Event Display: GG EGD Please click on pdf link to open report Admission evaluation note * Jagdeep Head DO S: PERFORM Event Display: Admission Note Authored Date: Patient: ??ROSALINO PUGH ? Age:??77 Years?Sex:??Female?:??1945?? Chief Complaint/Reason for Consultation From SNF ([facility]) - initial call for sob, hx of copd and chf, on 2L at baseline, spo2 wnl for ems. RR 20-22, speaking full sentences, some pursed lip breathing. LS with crackles to bases. BP for ALS noted to be 94/60, hr 100. 2+ pitting edema. History of Present Illness I saw and examined Rosalino, briefly she is??77, she is doing independently in her own home, she is unmarried, she has 2 friends to her??healthcare proxies??and she is a DNR/DNI. ?? She is on oxygen chronically, she has severe COPD, she has a history of??oxygen dependent COPD and apparently was previously on steroids??chronically daily with prednisone, but has been off them for several days. ?? She was recently?at [facility] for 3 weeks, she said she went there for shortness of breath and immobility, she was then transferred to a local nursing facility: [facility],??subsequently she wasthere for a week. ??She reports that at the nursing facility she was not ambulating, she is having difficulty with??lightheadedness when she stood up, shortness of breath, weakness.?? Because of her shortness of breath she was transferred to the hospital last night. ?? She reports shortness of breath no chest pain lightheadedness with standing no nausea no vomiting no diarrhea??no fevers no chills no sputum production. ?? We reviewed her medical history: No history of heart disease heart failure heart attack stroke seizure??head neck cancer or thyroid disease. ?? Positive for severe COPD respiratory failure as mentioned above with oxygen and steroid dependence. History of breast cancer status post chemoradiation with bilateral lumpectomies, almost 20 years ago, she gets her oncology care at??[facility] with Dr. Yousif ?? She has bilateral carotid stenosis,??previously had seen ?? Surgical history: As above No history of any kidney liver??pancreatitis??diabetes??or gastrointestinal illness ?? Review of systems:??She has had weight loss and was 20 pounds in the last few months. ??Etiology unknown ?? See below for details, home meds reconciled. Review of Systems As above otherwise negative Objective Vital Signs?? Temperature: 98.3 DegF (10/08/23 09:38:00) Temperature Route: Temporal (10/08/23 09:38:00) Pulse Rate:??117 bpm??High (10/08/23 09:38:00) Respiratory Rate:??14 br/min??Low (10/08/23 09:38:00) Systolic Blood Pressure: 108 mm Hg (10/08/23 09:38:00) Diastolic Blood Pressure:??44 mm Hg??Low (10/08/23 09:38:00) Blood pressure sites: Arm, left (10/08/23 09:38:00) Mean Arterial Pressure: 65 mm Hg (10/08/23 09:38:00) Pulse Pressure: 64 mm Hg (10/08/23 09:38:00) Oxygen Saturation: 97 % (10/08/23 09:38:00) Liters per Minute: 2 L/min (10/08/23 09:38:00) Mode of Delivery (Oxygen): Nasal cannula (10/08/23 09:38:00) FiO2: 28 % (10/08/23 09:55:00) Early Warning Score: 5 (10/08/23 09:44:10) ? Intake/Output? 10/07 00:22 10/07 07:00 06 07:00 10/05 07:00 06/ 07:00 ?? 10/07 10:00 10/07 10:00 10/07 06:59 06/03 06:59 10/05 06:59 Intake ?240 ?120 ?120 ?0 ?0 Output ?200 ?200 ?0 ?0 ?0 Net Total ? 40 ?-80 ?120 ?0 ?0 ? Physical Exam Alert, pursed lip breathing, looks like she is in respiratory distress HEENT:??Elevation of JVP no ulcers no thyromegaly. Chest??poor air entry prolonged??expiratory phase no wheezing rhonchi or rales Cardiovascular: Regular rate and rhythm rubs or gallops Abdomen soft nontender minimal patient rebound or guarding Extremities??she has some lower extremity edema ?? Labs and studies reviewed, EKG shows inverted T waves in the anterior leads,??she is on heparin drip,??BNP elevated, the rest of the labs are noted, anemia noted Anemia workup started Echo ordered stat See below for discussion Assessment/Plan Assessment:??77-year-old female with acute on chronic respiratory failure with severe emphysema, with oxygen and steroid dependence. ?? She presenting with shortness of breath,??elevated troponins and T wave inversions in the anterior leads, possibly related to non-ST elevation myocardial infarction. ?? Risk factors include history of carotid stenosis. ?? She has hypoalbuminemia and a multifactorial anemia, we are working this up. ?? Her GFR??underestimates the degree of her kidney disease, she likely has CKD 3. ?? Chronic issues include??history of severe emphysema COPD respiratory failure severe protein caloriemalnutrition. ?? NSTEMI (non-ST elevated myocardial infarction) (I21.4):??Continue aspirin added atorvastatin hold beta-berenice because of the hypotension continue heparin??stat echo,??follow EKG, nitro for chest pain, and consult cardiology. ?Aspirin Ordered:??Aspirin Ordered ?Statin Ordered:??Statin Ordered ?? Acute on chronic respiratory failure (J96.20):??Stat ABG.??Continue Breo continue Spiriva added albuterol added steroids??she is on oxygen ?? Stage 3a chronic kidney disease (CKD) (N18.31):??Dose adjust all medicines for GFR, hold ARB ?? COPD with emphysema (J43.9):??As above ?? Severe protein-calorie malnutrition (E43):??Supplement her diet ?? Anemia (D64.9):??Anemia workup reticulocyte count iron B12 folate haptoglobin??SPEP??lambda chains??free chains ?? VTE Prophylaxis:??On IV heparin ?VTE Prophylaxis Assessment:??Excluded from VTE prophylaxis measure ?? Discharge Planning:??Not ready for discharge ?? Code Status:??DNR/DNI ?Order Code Status:??Code Status Ordered ? Histories Past Medical History/Problem List Active Problems(12) Allergic rhinitis Breast cancer Cancer of cervix COPD Emphysema of lung GERD Hypercholesterolemia Hyperglycemia Hypertension Osteopenia Osteoporosis Underweight ? Past Surgical History R mastectomy hysterectomy ? Social History Alcohol Details:??Frequency: Daily. ??Type: Wine. ??Alcohol use in household: No. Employment/School Details:??Status: Retired. Home/Environment Details:??Lives with: [facility] in [place]. Substance Abuse Details:??Use: Never. ??Substance abuse in household: No. Tobacco Details:??Use: Former smoker, quit more than 30 days ago. Electronic Cigarette/Vaping Details:??Electronic Cigarette Use: Never. ? Family History Mother: Cancer of lung ? Medications Home Medications Albuterol (albuterol 2.5mg / 3mL (0.083%) (OP))?3?Milliliter?2.5?Milligram?Neb?Every 6 hours?as needed?SOB Aspirin (aspirin 81 mg oral capsule)?1?capsule?81?Milligram?By Mouth?Daily?do not exceed 48 capsules in 24 hours Atorvastatin (atorvastatin 40 mg oral tablet)?1?tab(s)?40?Milligram?By Mouth?Daily Docusate (Colace sodium 100 mg oral capsule)?1?capsule?100?Milligram?By Mouth?2 times a day?as needed?for constipation Fluticasone Nasal (fluticasone nasal 0.05 mg/inh spray)?1?spray(s)?Nasal?2 times a day?for 30?Days Furosemide (Lasix 40 mg oral tablet)?40?Milligram?1?tablet?By Mouth?Daily Insulin Lispro?See Instructions?15 minutes before or immediately after a meal Metoprolol (Metoprolol Tartrate 1 mg/mL injectable solution)?12.5?Milligram?By Mouth?2 times a day Milk of Magnesia?30?Milliliter?By Mouth?as needed?constipation Omeprazole (omeprazole 40 mg oral enteric coated capsule)?1?capsule?40?Milligram?By Mouth?Daily Polyethylene Glycol 3350 (GlycoLax)?17?gram?By Mouth?2 times a day?as needed?Constipation Senna (Senna 8.6 mg oral tablet)?See Instructions?as needed?1 tablet By Mouth q 24 hr for constipation?constipation Sodium Biphosphate-Sodium Phosphate (Fleet Enema 19 gm-7 gm rectal enema)?1?Each?Rectally?as needed?constipation Tiotropium (Spiriva HandiHaler 18 mcg ??Inhalation Capsule)?1?capsule?18?Microgram?Inhalation?Daily?for 90?Days Valsartan (valsartan 40 mg oral tablet)?40?Milligram?1?tablet?By Mouth?Daily ? Results Recent Labs BLOOD COUNT & DIFF WBC 13.8 k/mm3 (High)?? 10/08/2023 05:12 RBC 2.89 m/mm3 (Low)?? 10/08/2023 05:12 Hgb 8.5 Gm/dL (Low)?? 10/08/2023 05:12 Hct 26.7 % (Low)?? 10/08/2023 05:12 MCV 92.4 femtoliters ()?? 10/08/2023 05:12 MCH 29.4 pg ()?? 10/08/2023 05:12 MCHC 31.8 g/dL (Low)?? 10/08/2023 05:12 Platelet Count 124 k/mm3 (Low)?? 10/08/2023 05:12 RDW-SD 53.2 femtoliters (High)?? 10/08/2023 05:12 MPV 10.6 femtoliters ()?? 10/08/2023 05:12 Nucleated RBC (Automated) 0.0 #/100 WBC'S ()?? 10/08/2023 05:12 Abs. NRBC 0.0 k/mm3 ()?? 10/08/2023 05:12 Abs. Neut 16.4 k/mm3 (High)?? 10/07/2023 21:15 Abs. Lymph 0.5 k/mm3 (Low)?? 10/07/2023 21:15 Abs. [place] 0.8 k/mm3 ()?? 10/07/2023 21:15 Abs. Eo 0.2 k/mm3 ()?? 10/07/2023 21:15 Abs. Baso 0.2 k/mm3 (High)?? 10/07/2023 21:15 Neut % 89.5 % (High)?? 10/07/2023 21:15 Lymph % 2.6 % (Low)?? 10/07/2023 21:15 [place] % 4.3 % (Low)?? 10/07/2023 21:15 Eos % 0.9 % ()?? 10/07/2023 21:15 Baso % 0.9 % ()?? 10/07/2023 21:15 Promyelocyte % 0.9 % ()?? 10/07/2023 21:15 Band % 0.9 % ()?? 10/07/2023 21:15 RBC Morphology MODERATE ()?? 10/07/2023 21:15 Platelet Estimate ADEQUATE ()?? 10/07/2023 21:15 ?? CARDIAC Nt-Probnp 4692 pg/mL (High)?? 10/07/2023 21:15 High Sensitivity Troponin (HSTnT) 114 ng/L (Critical)?? 10/07/2023 23:44 ?? CHEM GENERAL Sodium 141 mmol/L ()?? 10/07/2023 21:15 Potassium 4.6 mmol/L ()?? 10/07/2023 21:15 Chloride 99 mmol/L ()?? 10/07/2023 21:15 Bicarbonate Level 27 mmol/L ()?? 10/07/2023 21:15 Anion Gap 15 ()?? 10/07/2023 21:15 Glucose Level 117 mg/dL (High)?? 10/07/2023 21:15 BUN 30 mg/dL (High)?? 10/07/2023 21:15 Creatinine-Blood 1.03 mg/dL (High)?? 10/07/2023 21:15 Estimated GFR Creatinine 55 ML/MIN/1.73 M2 ()?? 10/07/2023 21:15 Calcium 8.8 mg/dL ()?? 10/07/2023 21:15 Calcium, Ionized pH Corrected 1.22 mmol/L ()?? 10/07/2023 21:15 Magnesium 1.9 mg/dL ()?? 10/07/2023 21:15 Protein, Total 4.8 Gm/dL (Low)?? 10/07/2023 21:15 Albumin 3.1 Gm/dL (Low)?? 10/07/2023 21:15 AG Ratio 1.8 ()?? 10/07/2023 21:15 Alkaline Phosphatase 62 units/L ()?? 10/07/2023 21:15 AST (SGOT) 29 units/L ()?? 10/07/2023 21:15 ALT (SGPT) 26 units/L ()?? 10/07/2023 21:15 Bilirubin, Total 0.3 mg/dL ()?? 10/07/2023 21:15 Lactate 2.9 mmol/L (High)?? 10/07/2023 21:15 ?? COAG APTT 115.2 seconds (Critical)?? 10/08/2023 05:12 D-Dimer 0.95 mg/L FEU ()?? 10/07/2023 21:15 ?? ENDOCRINE/TUMOR MARKER TSH 4.35 uIU/mL (High)?? 10/07/2023 21:15 Free T4 1.58 ng/dL ()?? 10/07/2023 21:15 ?? MISC. CHEMISTRY Hold Gel Top SPECIMEN DISCARDED AFTER 1 WEEK ()?? 10/08/2023 05:12 ?? URINE OTHER Est Creatinine Clearance 26.99 mL/min ()?? 10/08/2023 03:45 ?? VIROLOGY COVID-19 by RT-PCR NEGATIVE ()?? 10/07/2023 20:59 ? Abnormal Labs ?? BLOOD COUNT & DIFF Abs. Baso?0.2 k/mm3 (High)?10/07/2023 21:15 Abs. Lymph?0.5 k/mm3 (Low)?10/07/2023 21:15 Abs. NRBC?0.0 k/mm3 ()?10/08/2023 05:12 Abs. Neut?16.4 k/mm3 (High)?10/07/2023 21:15 Hct?26.7 % (Low)?10/08/2023 05:12 Hgb?8.5 Gm/dL (Low)?10/08/2023 05:12 Lymph %?2.6 % (Low)?10/07/2023 21:15 MCHC?31.8 g/dL (Low)?10/08/2023 05:12 [place] %?4.3 % (Low)?10/07/2023 21:15 Neut %?89.5 % (High)?10/07/2023 21:15 Nucleated RBC (Automated)?0.0 #/100 WBC'S ()?10/08/2023 05:12 Platelet Count?124 k/mm3 (Low)?10/08/2023 05:12 Platelet Estimate?ADEQUATE ()?10/07/2023 21:15 Promyelocyte %?0.9 % ()?10/07/2023 21:15 RBC?2.89 m/mm3 (Low)?10/08/2023 05:12 RBC Morphology?MODERATE ()?10/07/2023 21:15 RDW-SD?53.2 femtoliters (High)?10/08/2023 05:12 WBC?13.8 k/mm3 (High)?10/08/2023 05:12 ?? CARDIAC High Sensitivity Troponin (HSTnT)?114 ng/L (Critical)?10/07/2023 23:44 Nt-Probnp?4692 pg/mL (High)?10/07/2023 21:15 ?? CHEM GENERAL AG Ratio?1.8 ()?10/07/2023 21:15 Albumin?3.1 Gm/dL (Low)?10/07/2023 21:15 BUN?30 mg/dL (High)?10/07/2023 21:15 Creatinine-Blood?1.03 mg/dL (High)?10/07/2023 21:15 Estimated GFR Creatinine?55 ML/MIN/1.73 M2 ()?10/07/2023 21:15 Glucose Level?117 mg/dL (High)?10/07/2023 21:15 Lactate?2.9 mmol/L (High)?10/07/2023 21:15 Protein, Total?4.8 Gm/dL (Low)?10/07/2023 21:15 ?? COAG APTT?115.2 seconds (Critical)?10/08/2023 05:12 D-Dimer?0.95 mg/L FEU ()?10/07/2023 21:15 ?? ENDOCRINE/TUMOR MARKER TSH?4.35 uIU/mL (High)?10/07/2023 21:15 ?? HEME OTHER Hold Blue Top?SPECIMEN DISCARDED AFTER 4 HOURS. ()?10/08/2023 05:12 ?? MISC. CHEMISTRY Hold Gel Top?SPECIMEN DISCARDED AFTER 1 WEEK ()?10/08/2023 05:12 ?? VIROLOGY COVID-19 by RT-PCR?NEGATIVE ()?10/07/2023 20:59 ?? Note: Critical results are displayed in red. ? Blood Glucose Trend Glucose Level:??117 mg/dL??High (10/07/23 21:15:00) ? CBC, CBC w/Diff?? CBC?? Differential?? WBC:??13.8 k/mm3??High (05:12) Abs. Neut:??16.4 k/mm3??High (21:15) RBC:??2.89 m/mm3??Low (05:12) Abs. Lymph:??0.5 k/mm3??Low (21:15) Hct:??26.7 %??Low (05:12) Abs. [place]: 0.8 k/mm3 (21:15) RDW-SD:??53.2 femtoliters??High (05:12) Abs. Eo: 0.2 k/mm3 (21:15) Nucleated RBC (Automated): 0 #/100 WBC'S (05:12) Abs. Baso:??0.2 k/mm3??High (21:15) Abs. NRBC: 0 k/mm3 (05:12) Neut %:??89.5 %??High (21:15) ?? Lymph %:??2.6 %??Low (21:15) ?? [place] %:??4.3 %??Low (21:15) ?? Eos %: 0.9 % (21:15) ?? Baso %: 0.9 % (21:15) ?? Promyelocyte %: 0.9 % (21:15) ?? Band %: 0.9 % (21:15) ?? RBC Morphology: MODERATE (:15) ?? Platelet Estimate: ADEQUATE (:15) ? BMP, Mg, and Phos Anion Gap: 15 (21:15) Bicarbonate Level: 27 mmol/L (21:15) BUN:??30 mg/dL??High (21:15) Calcium: 8.8 mg/dL (21:15) Calcium, Ionized pH Corrected: 1.22 mmol/L (21:15) Chloride: 99 mmol/L (21:15) Creatinine-Blood:??1.03 mg/dL??High (21:15) Estimated GFR Creatinine: 55 ML/MIN/1.73 M2 (21:15) Glucose Level:??117 mg/dL??High (21:15) Magnesium: 1.9 mg/dL (21:15) Potassium: 4.6 mmol/L (21:15) Sodium: 141 mmol/L (21:15) ?? Coagulation Profile APTT:??115.2 seconds??Critical (05:12) D-Dimer: 0.95 mg/L FEU (21:15) ?? LFT Albumin:??3.1 Gm/dL??Low (21:15) Alkaline Phosphatase: 62 units/L (21:15) ALT (SGPT): 26 units/L (21:15) AST (SGOT): 29 units/L (21:15) Bilirubin, Total: 0.3 mg/dL (21:15) ?? Urinalysis Est Creatinine Clearance: 26.99 mL/min (03:45) ?? Microbiology ?? COVID-19 (Novel Coronavirus), Rapid PCR?? Completed?? Source: Nasal Body Site: Nose Collected Dt/Tm: 10/07/2023 20:44 Last Updated Dt/Tm: 10/07/2023 22:02 ? Cardiology Labs Nt-Probnp:??4692 pg/mL??High (10/07/23 21:15:00) High Sensitivity Troponin (HSTnT):??114 ng/L??Critical (10/07/23 23:44:00) High Sensitivity Troponin (HSTnT):??165 ng/L??Critical (10/07/23 21:15:00) ?? Blood Gases?? No qualifying data available. ? EKG study * Event Display: EKG Authored Date: * Event Display: ECG 12-Lead Authored Date: Please click on pdf link to open report * Event Display: ECG 12-Lead Authored Date: Ventricular Rate: 101 BPM Atrial Rate: 101 BPM P-R Interval: 114 ms QRS Duration: 108 ms Q-T Interval: 354 ms QTC Calculation(Bazett): 459 ms P Unity: 80 degrees R Unity: 81 degrees T Unity: -41 degrees Sinus tachycardia Incomplete left bundle branch block Nonspecific T wave abnormality Abnormal ECG When compared with ECG of 10-OCT-2023 19:29, No significant change Confirmed by Melvin Montanez ([id number]) on 10/14/2023 9:55:13 AM [place]: Melvin Montanez * Event Display: EKG Authored Date: * Event Display: ECG 12-Lead Authored Date: Please click on pdf link to open report * Event Display: ECG 12-Lead Authored Date: Ventricular Rate: 112 BPM Atrial Rate: 112 BPM P-R Interval: 120 ms QRS Duration: 100 ms Q-T Interval: 338 ms QTC Calculation(Bazett): 461 ms P Unity: 80 degrees R Unity: 85 degrees T Unity: [address] and T wave abnormality, consider inferolateral ischemia Abnormal ECG When compared with ECG of 08-OCT-2023 18:04, T wave inversion now evident in Inferior leads Confirmed by Melvin Montanez ([id number]) on 10/11/2023 8:39:16 AM [place]: Melvin Montanez * Event Display: ECG 12-Lead Authored Date: [id number] Please click on pdf link to open report * Event Display: ECG 12-Lead Authored Date: [id number] Ventricular Rate: 137 BPM Atrial Rate: 137 BPM P-R Interval: 126 ms QRS Duration: 92 ms Q-T Interval: 326 ms QTC Calculation(Bazett): 492 ms P Unity: 83 degrees R Unity: 96 degrees T Unity: 76 degrees Sinus tachycardia Rightward axis Pulmonary disease pattern Abnormal ECG When compared with ECG of 07-OCT-2023 23:12, Aberrant conduction is no longer Present Vent. rate has increased BY 46 BPM Non-specific change in ST segment in Anterior leads T wave inversion no longer evident in Inferior leads T wave inversion no longer evident in Anterior leads Confirmed by Melvin Montanez ([id number]) on 10/10/2023 7:02:05 AM [place]: Melvin Montanez [facility] * Event Display: Echocardiogram - Complete Authored Date: [id number] Transthoracic Echocardiography Report (TTE) Patient Demographics Patient Name ROSALINO PUGH Date of Study 10/08/2023 Corporate Gender Female Facility Race Ethnicity Date of 1945 Height: 64.96 inches Age 77 year(s) Weight: 68.36 pounds Accession Number [id number] BSA: 1.25 m2 Room Number [id number] BMI: 11.39 kg/m2 Referring Physician LYNNE Parada MD Physician Inductor Tester Triston Augustin Indications NSTEMI. Clinical History COPD CHF NSTEMI Study Data Type of Study TTE procedure:Echo Complete-(Doppler, Colorflow) with Contrast. Procedure Information:Definity was administered by [employer] . Study Date10/08/2023 Start Time: 01:46 PM [place] [facility] [place] Status: Bedside Patient Status: STAT Technical Quality: Inadequate due to breathing difficulities. Blood Pressure:108/44 mmHg EKG: Sinus tachycardia HR: 115 bpm Contrast Medium: Definity. Amount - 2 ml 2D Measurements LV Diastolic Dimension: 2.78 cm AO Root Dimension: 2.6 cm LA Dimension: 2.1 cm LA ESV (BP):19.3 ml LA ESV Index: 15 ml/m2 Doppler Measurements AV Peak Velocity: 103 cm/s MV Peak E-Wave: 51.6 cm/s AV Peak Gradient: 4.24 mmHg MV Peak A-Wave: 97.3 cm/s AV Mean Gradient: 2 mmHg MV E/A Ratio: 0.53 AV VTI:12.7 cm MV P1/2t: 28 msec LVOT Peak Velocity: 92 cm/s LVOT VTI11.1 cm MV Deceleration Time: 97 msec MV Area (PHT): 7.86 cm2 TR Velocity:271.58 cm/s TR Gradient:29.5 mmHg E' Septal Velocity: 3.15 cm/s E' Lateral Velocity: 5.55 cm/s E/Med E':16.48728 E/Lat E':[id number] Cardiac Anatomy Left Ventricle/Interventricular Septum The left ventricle is poorly visualized despite contrast enhancement. The left ventricle size is small. Left ventricular wall thickness is normal. The LV systolic function is vigorous . The left ventricular ejection fraction is 65-75 %. No obvious wall motion abnormalities seen on limited views. There is a mild left ventricular outflow tract obstruction. The peak gradient is 44 mmHg with Valsalva. Unable to assess diastolic function due to E/A fusion . Left Atrium/Interatrial Septum The left atrium is poorly visualized. The left atrium is normal in size. Aortic Valve The aortic valve is is poorly visualized. There is no significant aortic stenosis. There is no aortic regurgitation. Mitral Valve The mitral valve opening is normal. There is no significant mitral regurgitation. Aorta The aorta is not visualized. There is severe plaque in the descending aorta . Right Ventricle The right ventricle is poorly visualized. The right ventricle is normal in size. Right ventricular systolic function appears preserved. Right Atrium The right atrium is normal in size. Pulmonic Valve The pulmonic valve is poorly visualized. Tricuspid Valve The tricuspid valve is grossly normal. Pumonary Artery The pulmonary artery systolic pressure estimation is within normal limits. Venous Structures The inferior vena cava appears grossly normal. Pericardium/Extracardiac There is a prominent pericardial fat pad. There is a small pericardial effusion near the apex . Summary The left ventricle is poorly visualized despite contrast enhancement. The left ventricle size is small. Left ventricular wall thickness is normal. The LV systolic function is vigorous . The left ventricular ejection fraction is 65-75 %. No obvious wall motion abnormalities seen on limited views. There is a mild left ventricular outflow tract obstruction. The peak gradient is 44 mmHg with Valsalva. Unable to assess diastolic function due to E/A fusion . The right ventricle is poorly visualized. The right ventricle is normal in size. Right ventricular systolic function appears preserved. There is a prominent pericardial fat pad. There is a small pericardial effusion near the apex . There is severe plaque in the descending aorta . Impressions Small left ventricle with vigorous function and dynamic outflow tract obstruction Comparison No prior study available for comparison. Signature * Event Display: Echocardiogram - Complete Authored Date: Cardiology * Event Display: Cardiac Rhythm Strips Authored Date: * Event Display: Cardiac Rhythm Strips Authored Date: * Event Display: Cardiac Rhythm Strips Authored Date: * Event Display: Cardiac Rhythm Strips Authored Date: * Event Display: Cardiac Rhythm Strips Authored Date: Hospital Progress note * Russell Maravilla RN: PERFORM, SIGN, VERIFY Event Display: Progress Note Hospital Authored Date: Patient: ROSALINO PUGH Age: 77 years Sex: Female : 1945 Associated Diagnoses: None Author: Russell Maravilla RN Findings Evaluation Assumed care of patient at [id number]. Neuro: A/O x4, calm and cooperative Pain: c/o back pain. Pain meds given w/ improved effect VS: VSS on 2L NC (baseline). Prod cough noted. NEB tx, inhalers and cough med given w/ improved effect. GI: continent, bedpan. BM regimen given w/ improved effect. LBM today Diet: tolerating but poor appetite today Pills: whole w/ water (1-2 pills at a time) : continent, external female catheter in place Skin: PI w/ foam drsg changed, CDI Mobility: bedfast IV: PIV - flushed and patent Event/Plan: Pain mgmt and effective breathing. Safety: Bed in lowest position. Call alfonso within reach, safety maintained.. Discharge Information Rehabilitation Discharge : Rehab Discharge Index 10/14/2023 11:59 EDT Comments on treatment indicated 77 M From SNF ([facility]) - initial call for sob, hx of copd and chf, on 2L at baseline, spo2 wnl for ems. RR 20-22, speaking full sentences, some pursed lip breathing. LS with crackles to bases. BP for ALS noted to be 94/60, hr 100. 2+ pitting edema. Full chart review completed Yes Plan of care PT Gait training, Transfer training, Therapeutic exercise, Functional Activities, Balance training * Levon PERRY, [facility]: PERFORM Event Display: Progress Note Hospital Authored Date: [id number] Patient: ??ROSALINO PUGH ? Age:??77 Years?Sex:??Female?:??1945?? Subjective No acute overnight events. Her oxygen requirements at baseline??however??Upon my examination, she starts taking a deep breaths. looks more comfortable as compared to yesterday?? Review of Systems ?? Negative except as above?? Social History Alcohol Details:??Frequency: Daily. ??Type: Wine. ??Alcohol use in household: No. Employment/School Details:??Status: Retired. Home/Environment Details:??Lives with: [facility] in [place]. Substance Abuse Details:??Use: Never. ??Substance abuse in household: No. Tobacco Details:??Use: Former smoker, quit more than 30 days ago. Electronic Cigarette/Vaping Details:??Electronic Cigarette Use: Never. ? Family History Mother: Cancer of lung ? Objective Vital Signs?? Temperature: 98.3 DegF (10/15/23 14:00:00) Temperature Route: Oral (10/15/23 14:00:00) Pulse Rate:??125 bpm??High (10/15/23 14:00:00) Respiratory Rate: 18 br/min (10/15/23 14:04:00) Systolic Blood Pressure: 131 mm Hg (10/15/23 14:00:00) Diastolic Blood Pressure: 61 mm Hg (10/15/23 14:00:00) Blood pressure sites: Arm, right (10/15/23 14:00:00) Mean Arterial Pressure: 84 mm Hg (10/15/23 14:00:00) Pulse Pressure: 70 mm Hg (10/15/23 14:00:00) Oxygen Saturation: 98 % (10/15/23 14:00:00) Liters per Minute: 2 L/min (10/15/23 14:00:00) Mode of Delivery (Oxygen): Nasal cannula (10/15/23 14:00:00) Early Warning Score: 5 (10/15/23 15:17:13) ? Physical Exam ?? Constitutional:??Alert, in no acute distress. Head EENT: Extraocular muscle movement intact.??Moist mucous membranes.?? Respiratory: Clear to auscultation. No wheezing or crackles. No use of accessory muscles. Cardiovascular: S1S2 regular. No murmurs, rubs or gallops. Gastrointestinal: Abdomen soft, non-tender, non-distended. Normal bowel sounds. Extremities: No lower extremity pitting??edema. No cyanosis or clubbing. Neurologic: AAOx3, Speech normal. No focal neurological deficits. Psychiatric: Normal mood and affec _ Home Medications Albuterol (albuterol 2.5mg / 3mL (0.083%) (OP))?3?Milliliter?2.5?Milligram?Neb?Every 6 hours?as needed?SOB Aspirin (aspirin 81 mg oral capsule)?1?capsule?81?Milligram?By Mouth?Daily?do not exceed 48 capsules in 24 hours Atorvastatin (atorvastatin 40 mg oral tablet)?1?tab(s)?40?Milligram?By Mouth?Daily Docusate (Colace sodium 100 mg oral capsule)?1?capsule?100?Milligram?By Mouth?2 times a day?as needed?for constipation Fluticasone Nasal (fluticasone nasal 0.05 mg/inh spray)?1?spray(s)?Nasal?2 times a day?for 30?Days Furosemide (Lasix 40 mg oral tablet)?40?Milligram?1?tablet?By Mouth?Daily Insulin Lispro?See Instructions?15 minutes before or immediately after a meal Metoprolol (Metoprolol Tartrate 1 mg/mL injectable solution)?12.5?Milligram?By Mouth?2 times a day Milk of Magnesia?30?Milliliter?By Mouth?as needed?constipation Omeprazole (omeprazole 40 mg oral enteric coated capsule)?1?capsule?40?Milligram?By Mouth?Daily Polyethylene Glycol 3350 (GlycoLax)?17?gram?By Mouth?2 times a day?as needed?Constipation Senna (Senna 8.6 mg oral tablet)?See Instructions?as needed?1 tablet By Mouth q 24 hr for constipation?constipation Sodium Biphosphate-Sodium Phosphate (Fleet Enema 19 gm-7 gm rectal enema)?1?Each?Rectally?as needed?constipation Tiotropium (Spiriva HandiHaler 18 mcg ??Inhalation Capsule)?1?capsule?18?Microgram?Inhalation?Daily?for 90?Days Valsartan (valsartan 40 mg oral tablet)?40?Milligram?1?tablet?By Mouth?Daily ? Inpatient Medications Medications (18) Active SCHEDULED: (8) Aspirin 81 mg Chew Tablet (aspirin 81 mg oral tablet, chewable) ??81 mg, By Mouth, Daily Atorvastatin 40 mg Tablet (atorvastatin 40 mg oral tablet) ??40 mg, By Mouth, Daily at bedtime Breo Ellipta 100 mcg / 25 mcg Inhaler (Breo Ellipta 100 mcg-25 mcg Inhaler) ??1 puffs, Inhalation, Daily Melatonin 3 mg Tablet (Melatonin Tablet) ??6 mg, By Mouth, Every 24 hours NaCl 0.9% Flush 3ml (NaCL 0.9% Flush) ??3 mL, IV Push, Every 8 hours Pantoprazole 40 mg EC Tablet (Protonix 40 mg oral delayed release tablet) ??40 mg, By Mouth, Daily before breakfast Spiriva Respimat 2.5 mcg Inhaler (Spiriva Respimat Inhaler) ??2 puffs, Inhalation, Daily Thiamine 100 mg Tablet (thiamine 100 mg oral tablet) ??100 mg, By Mouth, Daily CONTINUOUS: (0) PRN: (10) Acetaminophen 325 mg Tablet (Acetaminophen Tablet) ??650 mg, By Mouth, Every 4 hours Albuterol 0.083% Inhalation Solution (Albuterol 0.083% inhalation daisha) ??2.5 mg 3 mL, BAND Nebulizer, Every 4 hours Albuterol/Ipratropium Inhalation Daisha 3mL (Duoneb Inhalation Solution) ??1 vials, BAND Nebulizer, Every 4 hours Benzonatate 100 mg Capsule (Tessalon Perlrichie) ??100 mg, By Mouth, 3 times a day Docusate Sodium 100 mg Capsule (Docusate Sodium Capsule) ??100 mg 1 capsule, By Mouth, 2 times a day MorPHINE 2 mg Inj Syringe (MorPHINE Inj) ??1 mg, IV Push Slowly, Every 4 hours NaCl 0.9% Flush 3ml (NaCL 0.9% Flush) ??3 mL, IV Push, Every 8 hours Polyethylene Glycol 17 Gm Powder (MiraLax Powder) ??17 Gm 1 pack/packet, By Mouth, Daily Senna Tablet ??8.6 mg 1 tablet, By Mouth, 2 times a day Trazodone 50 mg Tablet (traZODone 50 mg oral tablet) ??25 mg, By Mouth, Daily at bedtime ? Results Recent Labs BLOOD COUNT & DIFF WBC 27.1 k/mm3 (High)?? 10/14/2023 16:23 RBC 3.20 m/mm3 (Low)?? 10/14/2023 16:23 Hgb 9.4 Gm/dL (Low)?? 10/14/2023 16:23 Hct 30.2 % (Low)?? 10/14/2023 16:23 MCV 94.4 femtoliters ()?? 10/14/2023 16:23 MCH 29.4 pg ()?? 10/14/2023 16:23 MCHC 31.1 g/dL (Low)?? 10/14/2023 16:23 Platelet Count 175 k/mm3 ()?? 10/14/2023 16:23 RDW-SD 58.4 femtoliters (High)?? 10/14/2023 16:23 MPV 10.3 femtoliters ()?? 10/14/2023 16:23 Nucleated RBC (Automated) 0.3 #/100 WBC'S ()?? 10/14/2023 16:23 Abs. NRBC 0.1 k/mm3 ()?? 10/14/2023 16:23 ?? CHEM GENERAL Sodium 138 mmol/L ()?? 10/14/2023 16:23 Potassium 5.0 mmol/L ()?? 10/14/2023 16:23 Chloride 98 mmol/L ()?? 10/14/2023 16:23 Bicarbonate Level 22 mmol/L ()?? 10/14/2023 16:23 Anion Gap 18 (High)?? 10/14/2023 16:23 Glucose Level 222 mg/dL (High)?? 10/14/2023 16:23 BUN 25 mg/dL (High)?? 10/14/2023 16:23 Creatinine-Blood 0.83 mg/dL ()?? 10/14/2023 16:23 Estimated GFR Creatinine 72 ML/MIN/1.73 M2 ()?? 10/14/2023 16:23 Calcium 8.5 mg/dL (Low)?? 10/14/2023 16:23 Phosphorus 3.5 mg/dL ()?? 10/14/2023 16:23 Magnesium 2.0 mg/dL ()?? 10/14/2023 16:23 ?? MISC. CHEMISTRY Albumin, SPE 2.0 Gm/dL (Low)?? 10/08/2023 05:12 Alpha 1, SPE 0.3 Gm/dL ()?? 10/08/2023 05:12 Alpha 2, SPE 0.7 Gm/dL ()?? 10/08/2023 05:12 Beta, SPE 0.5 Gm/dL (Low)?? 10/08/2023 05:12 Gamma, SPE 0.2 Gm/dL (Low)?? 10/08/2023 05:12 Beta, Restricted Band Not Applicable ()?? 10/08/2023 05:12 Beta, Second Restricted Band Not Applicable Gm/dL ()?? 10/08/2023 05:12 Gamma, Restricted Band Not Applicable Gm/dL ()?? 10/08/2023 05:12 Gamma, Second Restricted Band Not Applicable Gm/dL ()?? 10/08/2023 05:12 Interpretation, SPE Non specific pattern. No apparent monoclonal protein present. ()?? 10/08/2023 05:12 ?? URINE OTHER Est Creatinine Clearance 33.49 mL/min ()?? 10/14/2023 18:01 ? Assessment/Plan Chief Complaint: From SNF ([facility]) - initial call for sob, hx of copd and chf, on 2L at baseline,spo2 wnl for ems. RR 20-22, speaking full sentences, some pursed lip breathing. LS with crackles tobases. BP for ALS noted to be 94/60, hr 100. 2+ pitting edema. ?? Diagnoses 1. ??Acute upper GI bleed ??(K92.2) 2. ??Acute blood loss anemia ??(D62) 3. ??COPD with acute exacerbation ??(J44.1) 4. ??Acute on chronic respiratory failure with hypoxia ??(J96.21) 5. ??Type 2 myocardial infarction ??(I21.A1) 6. ??Severe protein-calorie malnutrition ??(E43) 7. ??Coronary artery disease with stable angina pectoris ??(I25.118) 8. ??Hypercholesterolemia ??(E78.00) 9. ??Adjustment disorder with anxiety ??(F43.22) 10. ??Failure to thrive in adult ??(R62.7) 11. ??Acute delirium ??(R41.0) ?? 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 ?? She was recently?at [facility] for 3 weeks, she said she went there for shortness of breath and immobility, she was then transferred to a local nursing facility: [facility],??subsequently she wasthere for a week.??She reports that at the nursing facility she was not ambulating, she is having difficulty with??lightheadedness when she stood up, shortness of breath, weakness.??Because of her shortness of breath she was transferred to the hospital. ?? 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 Acute blood loss anemia ??(D62) -s/p 1 unit PRBC with proper response and remained stable, no underlying iron deficiency ?? COPD with acute exacerbation ??(J44.1) -continue nebs and transition prednisone for 5 days, per external refill history patient has frequent prescriptions for prednisone will need to verify if she is on chronic prednisone therapy upon discharge -underlying group E COPD with limited exercise tolerance and cachexia, discussed??goal??of care -Duo nebs -c/w prednisone with slow taper (30 mg on 10/14) -significant component of anxiety : will initiate small dose of trazodone at night, clonazepam PO BID for anxiety ?? Acute on chronic respiratory failure with hypoxia ??(J96.21) -2/2 AECOPD, no CO2 retention, titrate O2 to target SO2>90% above ?? Stage II pressure ulcer Evaluated by wound care needed, will continue Oxycodone for pain. ? Coronary artery disease with stable angina pectoris ??(I25.118) Type 2 myocardial infarction ??(I21.A1) -TTE showed preserved LVEF without RMWA, chest pain subsided after transfusion, suspect type 2 OR from respiratory distress and anemia, manage conservatively -continue ASA (as this is long-acting and she has known CAD) and statin -cardiology consult appreciated ? Hypercholesterolemia ??(E78.00) -continue statin ?? Severe protein-calorie malnutrition ??(E43) -RD consult appreciated continue thiamine, MW and supplement ?? Adjustment disorder with anxiety ??(F43.22) -related to acute medical illness, possibly underling JOSHUA as well as above ?? Failure to thrive (R62.7) -patient is very frail, underweight and has made minimal progression at rehab, with multiple medical co-morbidities, her quality of life is quite diminished and potential for rehab is limited, following GOC discussion patient is opted home hospice on 10/10 ?? Acute delirium (R41.0) -intermittent confusion due to acute illness and hospital stay now resolved takes her own medical decisons ? VTE Prophylaxis:??SCD ?VTE Prophylaxis Assessment:??VTE Prophylaxis Ordered ?? Discharge Planning:??STR ?Anticipated Discharge Disposition:?Reg DCPLAN Discharge To, Anticipated:??Shelter Unit/Facility ?Estimated Length of Stay:?Reg DCPLAN Estimated Length of Stay:??1-2 days ?? Patient has reversed her hospice status,??remains DNR/DNI however??wants full medical treatment andto be discharged to rehab facility. She can likely be dc in the next 24hrs ? * Russell Maravilla RN: PERFORM, SIGN, VERIFY Event Display: Progress Note Hospital Authored Date: [id number] Patient: ROSALINO PUGH Age: 77 years Sex: Female : 1945 Associated Diagnoses: None Author: Russell Maravilla RN Findings Evaluation Assumed care of patient at [phone]. Neuro: A/O x4, calm and cooperative Pain: c/o coccyx pain. Pain meds given w/ improved effect VS: VSS on 2L NC (baseline). Prod cough noted. NEB tx, inhalers and cough med given w/ improved effect. GI: continent, bedpan. LBM 10/07, BM regimen given. Diet: tolerating Pills: whole w/ water (1-2 pills at a time) : continent, external female catheter in place Skin: PI w/ foam drsg in place. Mobility: bedfast IV: PIV - flushed and patent Event/Plan: Pain mgmt and effective breathing Safety: Bed in lowest position. Call alfonso within reach, safety maintained.. . Discharge Information Case Management Discharge Plan : Case Management Discharge Plan Data 10/08/2023 15:23 EDT Discharge Nursing Homes/Rehab Facilities [facility] Rehabilitation Discharge : Rehab Discharge Index 10/14/2023 11:59 EDT Comments on treatment indicated 77 M From SNF ([facility]) - initial call for sob, hx of copd and chf, on 2L at baseline, spo2 wnl for ems. RR 20-22, speaking full sentences, some pursed lip breathing. LS with crackles to bases. BP for ALS noted to be 94/60, hr 100. 2+ pitting edema. Full chart review completed Yes Plan of care PT Gait training, Transfer training, Therapeutic exercise, Functional Activities, Balance training Note * Mirtha Uriostegui RN: PERFORM Event Display: Discharge/Transfer Note Hospital Authored Date: [id number] Nursing Discharge Note Entered On: 10/16/2023 17:15 EDT Performed On: 10/16/2023 17:13 EDT by Mirtha Uriostegui RN Nursing Discharge Note 2 Discharge Time : 10/16/2023 17:10 EDT Discharge Level of Care at Discharge : FDC facility Discharge Nursing Homes/Rehab Facilities : [facility] Patient Left Unit Via : Ambulance Patient Accompanied Off Unit with : Ambulance/[facility] Van Personnel Handover Given to Transport Personnel : Yes DC Instructions Provided & Signed by Pt : No Patient Understands D/C Instructions : Yes Verbalized Understanding of D/C Plan By : Patient Patient Instructions Discharge Signed : No Instructions for Discharge Comments : not required for rehab, patient agrees with plan Did Pt have Specialty Bed or Wound Vac : Yes Mirtha Uriostegui RN - 10/16/2023 17:13 EDT * Claudia Nicole MD: PERFORM, MODIFY Event Display: Discharge/Transfer Note Hospital Authored Date: Patient: ??ROSALINO PUGH ? Age:??77 Years?Sex:??Female?:??1945?? Patient Information Discharge Location: 4 Primary Care Physician: Terrance Cleveland MD Admit Date/Time: 10/08/23 00:22 Discharge Disposition Discharge Disposition: Shelter Facility/Rehab Discharge Diagnosis Acute upper GI bleed (K92.2) Acute blood loss anemia (D62) COPD with acute exacerbation (J44.1) Acute on chronic respiratory failure with hypoxia (J96.21) Type 2 myocardial infarction (I21.A1) Severe protein-calorie malnutrition (E43) Coronary artery disease with stable angina pectoris (I25.118) Hypercholesterolemia (E78.00) Adjustment disorder with anxiety (F43.22) Failure to thrive in adult (R62.7) Acute delirium (R41.0) _ Discharge Medications Albuterol (albuterol 2.5mg / 3mL (0.083%) (OP))?3?Milliliter?2.5?Milligram?Neb?Every 6 hours?as needed?SOB Aspirin (aspirin 81 mg oral capsule)?1?capsule?81?Milligram?By Mouth?Daily?do not exceed 48 capsules in 24 hours Atorvastatin (atorvastatin 40 mg oral tablet)?1?tab(s)?40?Milligram?By Mouth?Daily Azithromycin (azithromycin 250 mg oral tablet)?See Instructions?1 tablet by mouth 3 times / week to continue Docusate (Colace sodium 100 mg oral capsule)?1?capsule?100?Milligram?By Mouth?2 times a day?as needed?for constipation Fluticasone Nasal (fluticasone nasal 0.05 mg/inh spray)?1?spray(s)?Nasal?2 times a day?for 30?Days Furosemide (Lasix 40 mg oral tablet)?40?Milligram?1?tablet?By Mouth?Daily Insulin Lispro?See Instructions?3 times a day before [id number] unit> 400 22units and inform physician Metoprolol (Metoprolol Tartrate 1 mg/mL injectable solution)?12.5?Milligram?By Mouth?2 times a day Milk of Magnesia?30?Milliliter?By Mouth?as needed?constipation Omeprazole (omeprazole 40 mg oral enteric coated capsule)?1?capsule?40?Milligram?By Mouth?Daily Pantoprazole (Protonix 40 mg oral delayed release tablet)?40?Milligram?By Mouth?Daily before breakfast Polyethylene Glycol 3350 (GlycoLax)?17?gram?By Mouth?2 times a day?as needed?Constipation PredniSONE (predniSONE 5 mg oral tablet)?1?tab(s)?5?Milligram?By Mouth?Daily?for 30?Days Senna (Senna 8.6 mg oral tablet)?See Instructions?as needed?1 tablet By Mouth q 24 hr for constipation?constipation Sodium Biphosphate-Sodium Phosphate (Fleet Enema 19 gm-7 gm rectal enema)?1?Each?Rectally?as needed?constipation Thiamine (thiamine 100 mg oral tablet)?100?Milligram?By Mouth?Daily Tiotropium (Spiriva HandiHaler 18 mcg ??Inhalation Capsule)?1?capsule?18?Microgram?Inhalation?Daily?for 90?Days Trazodone (traZODone 50 mg oral tablet)?25?Milligram?By Mouth?Daily at bedtime?as needed?Anxiety Valsartan (valsartan 40 mg oral tablet)?40?Milligram?1?tablet?By Mouth?Daily ? Inpatient Medications Medications (20) Active SCHEDULED: (9) Aspirin 81 mg Chew Tablet (aspirin 81 mg oral tablet, chewable) ??81 mg, By Mouth, Daily Atorvastatin 40 mg Tablet (atorvastatin 40 mg oral tablet) ??40 mg, By Mouth, Daily at bedtime Breo Ellipta 100 mcg / 25 mcg Inhaler (Breo Ellipta 100 mcg-25 mcg Inhaler) ??1 puffs, Inhalation, Daily Melatonin 3 mg Tablet (Melatonin Tablet) ??6 mg, By Mouth, Every 24 hours NaCl 0.9% Flush 3ml (NaCL 0.9% Flush) ??3 mL, IV Push, Every 8 hours Pantoprazole 40 mg EC Tablet (Protonix 40 mg oral delayed release tablet) ??40 mg, By Mouth, Daily before breakfast PredniSONE 20 mg Tablet (predniSONE 20 mg oral tablet) ??30 mg, By Mouth, Daily Spiriva Respimat 2.5 mcg Inhaler (Spiriva Respimat Inhaler) ??2 puffs, Inhalation, Daily Thiamine 100 mg Tablet (thiamine 100 mg oral tablet) ??100 mg, By Mouth, Daily CONTINUOUS: (0) PRN: (11) Acetaminophen 325 mg Tablet (Acetaminophen Tablet) ??650 mg, By Mouth, Every 4 hours Albuterol 0.083% Inhalation Solution (Albuterol 0.083% inhalation daisha) ??2.5 mg 3 mL, BAND Nebulizer, Every 4 hours Albuterol/Ipratropium Inhalation Daisha 3mL (Duoneb Inhalation Solution) ??1 vials, BAND Nebulizer, Every 4 hours Benzonatate 100 mg Capsule (Tessalon Perlrichie) ??100 mg, By Mouth, 3 times a day Clonazepam 0.5 mg Tablet (clonazePAM 0.5 mg oral tablet) ??0.5 mg, By Mouth, 2 times a day Docusate Sodium 100 mg Capsule (Docusate Sodium Capsule) ??100 mg 1 capsule, By Mouth, 2 times a day NaCl 0.9% Flush 3ml (NaCL 0.9% Flush) ??3 mL, IV Push, Every 8 hours OxyCODONE 5 mg IR Tablet (oxyCODONE 5 mg oral tablet) ??5 mg, By Mouth, Every 8 hours Polyethylene Glycol 17 Gm Powder (MiraLax Powder) ??17 Gm 1 pack/packet, By Mouth, Daily Senna Tablet ??8.6 mg 1 tablet, By Mouth, 2 times a day Trazodone 50 mg Tablet (traZODone 50 mg oral tablet) ??25 mg, By Mouth, Daily at bedtime ? Medications Started Azithromycin Hospital Course ??Patient with COPD chronically on oxygen previously on steroids chronic daily prednisone presentedto hospital with concern for acute upper GI bleed complicated by melena.?? Significant drop in H&H and elevated BUN/creatinine ratio.?? 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 Continue PPI.?? Patient received 1 unit of PRBC with proper response and remained stable no underlying iron deficiency. Treated with continuous nebulization and transition to prednisone.?? Patient is chronically on prednisone 5 mg daily which the patient can continue with PPI covered.?? High doses of prednisone can cause worsening of GI bleeding currently patient has end-stage COPD without any acute wheezing to suggest continued high- dose prednisone.?? Continue DuoNeb with nebulizer and Spiriva.?? Added Zithromax 3 times a week as a maintenance prophylaxis to prevent acute exacerbation.?? Today patient oxygen isat goal.?? Continue wound care for stage II pressure ulcer.?? Overall poor prognosis discussed withfriend at bedside that patient should be considering hospice care.?? Also discussed with patient can have an outpatient discussion with PCP.?? Continue thiamine multivitamin supplement for severe protein calorie malnutrition.?? Today patient Regimex on benefit of hospitalization discharged in stable condition Objective Seen at bedside.?? Doing good.?? Mostly at baseline. ??Still having pursed lip breathing which is??chronic.?? Oxygen requirement at baseline ?? Vital Signs?? Temperature: 98 DegF (10/16/23 05:48:00) Temperature Route: Oral (10/16/23 05:48:00) Pulse Rate:??95 bpm??High (10/16/23 05:48:00) Respiratory Rate: 18 br/min (10/16/23 12:56:00) Systolic Blood Pressure:??150 mm Hg??High (10/16/23 05:48:00) Diastolic Blood Pressure: 75 mm Hg (10/16/23 05:48:00) Blood pressure sites: Arm, right (10/16/23 05:48:00) Mean Arterial Pressure: 100 mm Hg (10/16/23 05:48:00) Pulse Pressure: 75 mm Hg (10/16/23 05:48:00) Oxygen Saturation: 98 % (10/16/23 05:48:00) Liters per Minute: 2 L/min (10/15/23 20:51:00) Mode of Delivery (Oxygen): Room air (10/16/23 05:48:00) Early Warning Score: 3 (10/16/23 12:58:44) ? Intake/Output? 10/07 00:22 10/15 07:00 10/14 07:00 10/13 07:00 10/12 07:00 ?? 10/15 13:34 10/15 13:34 10/15 06:59 10/14 06:59 10/13 06:59 Intake ? 2332.4 ?0 ?238 ?720 ?0 Output ? 6095 ? 1000 ?400 ?520 ? 1850 Net Total ?-3762.6 ?-1000 ? -162 ?200 ?-1850 ? Urine Count ?3 ?0 ?0 ?1 ?0 ? . Physical Exam Constitutional: Alert, in no acute distress, prescribed breathing mostly chronic Head EENT: Extraocular muscle movement intact.??Moist mucous membranes.?? Neck: Supple. No JVD. Respiratory: Extremely poor air entry,??no obvious??rhonchi or wheezes??appreciated Cardiovascular: S1S2 regular. No murmurs, rubs or gallops. Gastrointestinal: Abdomen soft, non-tender, non-distended. Normal bowel sounds. Genitourinary: No CVA tenderness. Extremities: No lower extremity pitting??edema. No cyanosis or clubbing. Neurologic: AAOx3, Speech normal. No focal neurological deficits. Skin: No rash. Psychiatric: Normal mood and affect Surgical Procedures Gastroscopy (EGD) Diagnostic 10/10/2023 16:07 Consultants GI Pending Results Transfuse RBCs ordered on 10/08/2023 Follow-Up Appointments Added Follow Up ?Time Frame ?Comments Terrance Cleveland MD Patient Instructions Ensure compliance with inhaler.Follow-up with PCP in 1 week.?? Follow-up with pulmonary??as planned Post Discharge Care Diet: ??Cardiac diet ?? Wound Care: ??Wound Site: Coccyx: OFFLOAD. Cleanse with pH balanced spray. Pat dry. Apply Zinc Oxide (orange top cream) cover with Mepilex. Change every other day and PRN for soilage. every other dayYes ?? Code Status: ??No Resuscitation ?? Condition: ??Stable ?? Prognosis: ??Poor ?? Discharge ?10/16/23 13:33:00 EDT Home Health Face to Face ^HomeHealthFTF Results Discharge Labs BACTERIOLOGY Blood Culture Results Final report ()?? 10/07/2023 21:15 Blood Culture Specimen Source BLOOD ()?? 10/07/2023 21:15 Blood Culture Isolate 1 Comment ()?? 10/07/2023 21:15 Blood Cult 2 Results Final report ()?? 10/07/2023 21:43 Blood Culture 2 Specimen Source BLOOD ()?? 10/07/2023 21:43 Blood Culture 2 Isolate 1 Comment ()?? 10/07/2023 21:43 ?? BLOOD BANK Blood Type A Positive ()?? 10/08/2023 19:01 Antibody Screen Negative ()?? 10/08/2023 19:01 RBC Unit ID [id number] ()?? 10/08/2023 20:31 RBC Available PT ()?? 10/08/2023 20:31 ?? BLOOD COUNT & DIFF WBC 27.1 k/mm3 (High)?? 10/14/2023 16:23 RBC 3.20 m/mm3 (Low)?? 10/14/2023 16:23 Hgb 9.4 Gm/dL (Low)?? 10/14/2023 16:23 Hct 30.2 % (Low)?? 10/14/2023 16:23 MCV 94.4 femtoliters ()?? 10/14/2023 16:23 MCH 29.4 pg ()?? 10/14/2023 16:23 MCHC 31.1 g/dL (Low)?? 10/14/2023 16:23 Platelet Count 175 k/mm3 ()?? 10/14/2023 16:23 RDW-SD 58.4 femtoliters (High)?? 10/14/2023 16:23 MPV 10.3 femtoliters ()?? 10/14/2023 16:23 Nucleated RBC (Automated) 0.3 #/100 WBC'S ()?? 10/14/2023 16:23 Abs. NRBC 0.1 k/mm3 ()?? 10/14/2023 16:23 Abs. Neut 16.4 k/mm3 (High)?? 10/07/2023 21:15 Abs. Lymph 0.5 k/mm3 (Low)?? 10/07/2023 21:15 Abs. [place] 0.8 k/mm3 ()?? 10/07/2023 21:15 Abs. Eo 0.2 k/mm3 ()?? 10/07/2023 21:15 Abs. Baso 0.2 k/mm3 (High)?? 10/07/2023 21:15 Neut % 89.5 % (High)?? 10/07/2023 21:15 Lymph % 2.6 % (Low)?? 10/07/2023 21:15 [place] % 4.3 % (Low)?? 10/07/2023 21:15 Eos % 0.9 % ()?? 10/07/2023 21:15 Baso % 0.9 % ()?? 10/07/2023 21:15 Promyelocyte % 0.9 % ()?? 10/07/2023 21:15 Band % 0.9 % ()?? 10/07/2023 21:15 RBC Morphology MODERATE ()?? 10/07/2023 21:15 Platelet Estimate ADEQUATE ()?? 10/07/2023 21:15 Hemoglobin (POC) POC Cartridge 6.5 Gm/dL (Low)?? 10/08/2023 18:56 Hematocrit (POC) POC Cartridge 19 % (Critical)?? 10/08/2023 18:56 Retic Count 1.6 % ()?? 10/08/2023 05:12 Retic Count Corrected 0.9 % ()?? 10/08/2023 05:12 Retic Production Index 0.6 % (Low)?? 10/08/2023 05:12 ? BLOOD GAS pH (POC) POC Cartridge 7.45 (High)?? 10/08/2023 18:56 pCO2 (POC) POC Cartridge 26.0 mm Hg (Low)?? 10/08/2023 18:56 pO2 (POC) POC Cartridge 135 mm Hg (High)?? 10/08/2023 18:56 Estimated Bicarbonate (POC) POC Cart 17.9 mmol/L (Low)?? 10/08/2023 18:56 % O2 Sat Arterial (POC) POC Cartridge 99 % ()?? 10/08/2023 18:56 FIO2 (POC) POC Cartridge 60 % ()?? 10/08/2023 18:56 Base Excess (POC) POC Cartridge NEGATIVE 6 ()?? 10/08/2023 18:56 pH 7.48 (High)?? 10/08/2023 09:53 pCO2 38 mm Hg ()?? 10/08/2023 09:53 pO2 117 mm Hg (High)?? 10/08/2023 09:53 Bicarbonate, Estimated 28 mmol/L ()?? 10/08/2023 09:53 Specimen Type - Blood Gas ARTERIAL ()?? 10/08/2023 18:56 Percent O2 (FIO2) 28 ()?? 10/08/2023 09:53 ? CARDIAC Nt-Probnp 4692 pg/mL (High)?? 10/07/2023 21:15 High Sensitivity Troponin (HSTnT) 141 ng/L (Critical)?? 10/08/2023 18:28 ?? CHEM GENERAL Sodium 138 mmol/L ()?? 10/14/2023 16:23 Potassium 5.0 mmol/L ()?? 10/14/2023 16:23 Chloride 98 mmol/L ()?? 10/14/2023 16:23 Bicarbonate Level 22 mmol/L ()?? 10/14/2023 16:23 Anion Gap 18 (High)?? 10/14/2023 16:23 Sodium (POC) POC Cartridge 134 mmol/L ()?? 10/08/2023 18:56 Potassium (POC) POC Cartridge 4.2 mmol/L ()?? 10/08/2023 18:56 Glucose Level 222 mg/dL (High)?? 10/14/2023 16:23 Glucose (POC) POC Cartridge 305 (High)?? 10/08/2023 18:56 BUN 25 mg/dL (High)?? 10/14/2023 16:23 Creatinine-Blood 0.83 mg/dL ()?? 10/14/2023 16:23 Estimated GFR Creatinine 72 ML/MIN/1.73 M2 ()?? 10/14/2023 16:23 Calcium 8.5 mg/dL (Low)?? 10/14/2023 16:23 Calcium, Ionized pH Corrected 1.22 mmol/L ()?? 10/07/2023 21:15 Ionized Calcium (POC) POC Cartridge 1.04 mmol/L (Low)?? 10/08/2023 18:56 Phosphorus 3.5 mg/dL ()?? 10/14/2023 16:23 Magnesium 2.0 mg/dL ()?? 10/14/2023 16:23 Protein, Total 4.8 Gm/dL (Low)?? 10/07/2023 21:15 Albumin 3.1 Gm/dL (Low)?? 10/07/2023 21:15 AG Ratio 1.8 ()?? 10/07/2023 21:15 Alkaline Phosphatase 62 units/L ()?? 10/07/2023 21:15 AST (SGOT) 29 units/L ()?? 10/07/2023 21:15 ALT (SGPT) 26 units/L ()?? 10/07/2023 21:15 Bilirubin, Total 0.3 mg/dL ()?? 10/07/2023 21:15 Vitamin B12 Level 324 pg/mL ()?? 10/08/2023 05:12 Folic Acid Level 5.7 ng/mL ()?? 10/08/2023 05:12 Lactate 2.9 mmol/L (High)?? 10/07/2023 21:15 Iron Level 53 mcg/dL ()?? 10/08/2023 05:12 Iron Binding Capacity, Unsaturated 163 mcg/dL ()?? 10/08/2023 05:12 Iron Binding Capacity, Estimated Total 216 mcg/dL ()?? 10/08/2023 05:12 % Iron Saturation 25 % ()?? 10/08/2023 05:12 Ferritin Level 438 ng/mL (High)?? 10/09/2023 07:58 ?? COAG APTT 32.2 seconds ()?? 10/08/2023 13:23 D-Dimer 0.95 mg/L FEU ()?? 10/07/2023 21:15 ?? ENDOCRINE/TUMOR MARKER TSH 4.35 uIU/mL (High)?? 10/07/2023 21:15 Free T4 1.58 ng/dL ()?? 10/07/2023 21:15 ?? HEME OTHER Hold Blue Top SPECIMEN DISCARDED AFTER 4 HOURS. ()?? 10/08/2023 05:12 ? IMMUNOLOGY GENERAL Free [place] Light Chains 9.60 mg/L ()?? 10/08/2023 05:12 Free Lambda Light Chains 7.58 mg/L ()?? 10/08/2023 05:12 Free KappaRatio 1.27 ()?? 10/08/2023 05:12 Haptoglobin 258 mg/dL (High)?? 10/08/2023 05:12 ?? MISC. CHEMISTRY Total Protein, SPE 3.7 Gm/dL (Low)?? 10/08/2023 05:12 Albumin, SPE 2.0 Gm/dL (Low)?? 10/08/2023 05:12 Alpha 1, SPE 0.3 Gm/dL ()?? 10/08/2023 05:12 Alpha 2, SPE 0.7 Gm/dL ()?? 10/08/2023 05:12 Beta, SPE 0.5 Gm/dL (Low)?? 10/08/2023 05:12 Gamma, SPE 0.2 Gm/dL (Low)?? 10/08/2023 05:12 Beta, Restricted Band Not Applicable ()?? 10/08/2023 05:12 Beta, Second Restricted Band Not Applicable Gm/dL ()?? 10/08/2023 05:12 Gamma, Restricted Band Not Applicable Gm/dL ()?? 10/08/2023 05:12 Gamma, Second Restricted Band Not Applicable Gm/dL ()?? 10/08/2023 05:12 Interpretation, SPE Non specific pattern. No apparent monoclonal protein present. ()?? 10/08/2023 05:12 Hold Gel Top SPECIMEN DISCARDED AFTER 1 WEEK ()?? 10/08/2023 19:11 ?? URINE OTHER Est Creatinine Clearance 33.49 mL/min ()?? 10/14/2023 18:01 ? VIROLOGY COVID-19 by RT-PCR NEGATIVE ()?? 10/07/2023 20:59 ? Microbiology ?? Blood Culture 2 Results?? Completed?? Source: Blood Body Site: ?? Collected Dt/Tm: 10/07/2023 21:43 Last Updated Dt/Tm: 10/09/2023 14:13 ?? Blood Culture Result?? Completed?? Source: Blood Body Site: ?? Collected Dt/Tm: 10/07/2023 21:15 Last Updated Dt/Tm: 10/09/2023 14:13 ?? Blood Culture?? Completed?? Source: Blood Body Site: ?? Collected Dt/Tm: 10/07/2023 20:48 Last Updated Dt/Tm: 10/09/2023 14:13 ?? Blood Culture #2?? Completed?? Source: Blood Body Site: ?? Collected Dt/Tm: 10/07/2023 20:48 Last Updated Dt/Tm: 10/09/2023 14:13 ?? COVID-19 (Novel Coronavirus), Rapid PCR?? Completed?? Source: Nasal Body Site: Nose Collected Dt/Tm: 10/07/2023 20:44 Last Updated Dt/Tm: 10/07/2023 22:02 ? _40 minutes spent on discharge * Mirtha Valadez: PERFORM, SIGN, VERIFY Event Display: Case Management Discharge Plan Authored Date: [id number] Patient: ROSALINO PUGH Age: 77 years Sex: Female : 1945 Associated Diagnoses: None Author: Mirtha Valadez Discharge Plan Case Management Discharge Plan : Case Management Discharge Plan Data 10/16/2023 13:26 EDT Discharge Level of Care at Discharge FDC facility Discharge Nursing Homes/Rehab Facilities [facility] Discharge Transportation Arranged [facility] [address] [facility] [id number] [phone] Discharge Arranged Transport Date/Time 10/16/2023 16:00 Mode of Transportation Arranged Ambulance Name of Agency #1 [facility] Service Categories #1 Oxygen Therapy, Physical Therapy, Shelter Service Comments #1 You are being discharged to [facility] for SN/PT/oxygen therapy Name of Person Notified of Transfer patient * Moody STROUD, Mirtha Hill: PERFORM, MODIFY Event Display: Patient Education/Instruction Authored Date: [id number] Inpatient Adult Discharge Instructions. [address] [address] Name: ROSALINO PUGH : 1945?? Visit: 10/08/2023 00:22?? Current Date: 10/16/2023 16:17 ?? Account: [id number]?? Inpatient Adult Discharge Instructions We would like to thank you for allowing us to assist you with your healthcare needs. The following includes patient education materials and information regarding your injury/illness. Our entire staffstrives to provide an excellent experience for our patients and their families. PLEASE ENSURE YOU FOLLOW-UP PER THE INSTRUCTIONS BELOW! ?? YOUR OPINION IS IMPORTANT TO US! Please complete the survey you may receive by mail or email. Your feedback will be used to make improvements to the healthcare experiences of our patients and their families. Surveys are administered by [employer] ?? If further treatment with your primary care physician or another doctor is recommended, it is important for you to keep the appointment. Call your primary care physician or return to the Emergency Department immediately if your condition worsens, fails to improve, or new symptoms develop. If you need to find a doctor, you can call [facility] Link for a referral at [phone] or toll free at [phone] or log in to [email or web address].. ?? [facility], in keeping with [facility] guidance, no longer requires face masks for staff, patientsor visitors in most situations. Similiar to time spent indoors at other locations, there is the chance that you were exposed to repiratory viruses during your time with us (such as flu or COVID-19). If you develop symptoms concerning for a viral respiratory infection, please seek testing (and treatment if indicated) from your medical provider or home test kit. ?? You can view and manage your care through the patient portal or by using a health care mildred of your choosing. [employer] is a website that allows you to securely view your medical information including your hospital discharge summary, office visit summaries, medications and follow-up visits. You can also request appointments, renew medications, and request access to your medical information using a health care mildred of your choosing, or just ask a question. You can enroll at [email or web address] or register during your next office visit. You have been discharged from [facility], Patient Care Unit: S3??. If you have any questions regarding these instructions, including results of studies pending, afteryou leave, please call us and we will be happy to assist you 26/11. [facility] Your Care Team Attending Physician Claudia Nicole MD?? Consulting Providers Claudia Nicole MD?? Discharging Providers Claudia Nicole MD Reason for Your Visit From SNF ([facility]) - initial call for sob, hx of copd and chf, on 2L at baseline, spo2 wnl for ems. RR 20-22, speaking full sentences, some pursed lip breathing. LS with crackles to bases. BP for ALS noted to be 94/60, hr 100. 2+ pitting edema.?? Your Diagnosis Acute upper GI bleed Acute blood loss anemia COPD with acute exacerbation Acute on chronic respiratory failure with hypoxia Type 2 myocardial infarction Severe protein-calorie malnutrition Coronary artery disease with stable angina pectoris Hypercholesterolemia Adjustment disorder with anxiety Failure to thrive in adult Acute delirium Tests Performed Below is a partial list of the tests performed during your hospitalization. You may have had other tests and procedures not included in this list. Please discuss all test results with your provider. ABG ABG POC CARTRIDGE BASE EXCESS POC CARTRIDGE Basic Metabolic Panel Blood Culture Blood Culture #2 Blood Culture 2 Results Blood Culture Result Calcium Ionized CALCIUM IONIZED POC CART CBC CBC w/ Differential Comprehensive Metabolic Panel COVID-19 (Novel Coronavirus), Rapid PCR D Dimer Electrolytes Ferritin FOLIC ACID FREE KAPPA & LAMBDA LIGHT CHAINS, SERUM FREE T4 GLUCOSE POC CARTRIDGE H + H HAPTOGLOBIN HEMATOCRIT POC CARTRIDGE HEMOGLOBIN POC CARTRIDGE High??Sensitivity??Troponin T HOLD BLUE TUBE HOLD GEL TUBE IRON & TIBC Lactate Level Magnesium Level O2 PERCENT (POINT OF CARE) Phosphorus Level POTASSIUM POC CARTRIDGE ProBNP PTT RETICULOCYTE COUNT SERUM ELECTROPHORESIS SODIUM POC CARTRIDGE Troponin T, High Sensitivity TSH with T4 Reflex (Adults Only) Type and Screen VITAMIN B12 CXR Portable XR Chest Portable Transfuse RBCs?? Primary Care Provider Terrance Cleveland MD? Advance Directive Health Care Proxy on File Yes - Health Care Proxy Discharge Vitals Temperature: 98 DegF Height: 165 cm Pulse Rate:??122 bpm??High Weight: 40.3 kg Respiratory Rate: 18 br/min Body Mass Index:??15.35 kg/m2??Low Systolic Blood Pressure:??144 mm Hg??High Body surface area: 1.38 Diastolic Blood Pressure: 59 mm Hg ?? Oxygen Saturation: 97 % ?? Studies Pending All studies ordered during this hospital stay have been completed unless listed below. Please discuss all pending results with your provider listed above in these instructions. ?? Transfuse RBCs?? What to do next Instructions From Your Doctor Ensure compliance with inhaler.Follow-up with PCP in 1 week.?? Follow-up with pulmonary??as planned ?? Orders??:Cardiac diet Care:Wound Site: Coccyx: ??OFFLOAD. Cleanse with pH balanced spray. Pat dry. Apply Zinc Oxide (orange top cream) cover with Mepilex. Change every other day and PRN for soilage. ??every other day ??Yes Status: ??No Resuscitation :Stable :Poor? 10/16/23 13:33:00 EDT?? You Need to Schedule the Following Appointments Follow Up with??Terrance Cleveland MD Where: [address] [place] [address]- Discharge Medications ROSALINO PUGH :1945 Visit Date:10/08/2023 Medications: Please continue your medications until treatment is completed or stopped by your provider. Medications not listed below should be discontinued. Discuss any questions related to medications with your provider. What How Much When Instructions Next Dose New Azithromycin (azithromycin 250 mg oral tablet) See instructions 1 tablet by mouth 3 times / ??week to continue ?? due 10/15 at 9pm New Pantoprazole (Protonix 40 mg oral delayed release tablet) 40 Milligram Oral Daily before breakfast due 10/16 at 9am New PredniSONE (predniSONE 5 mg oral tablet) 1 tab(s) Oral Daily Duration: 30 Days due 10/16 at 9am New Thiamine (thiamine 100 mg oral tablet) 100 Milligram Oral Daily due 10/16 at 9am New Trazodone (traZODone 50 mg oral tablet) 25 Milligram Oral Daily at Bedtime as needed for Anxiety as directed Changed Insulin Lispro See instructions 3 times a day before meals 100-150-4 units 150-199-7 units 200-249-10 unit 250-299- 13 unit 300-349 15 unit 350-399 18 unit > 400 22units and inform physician ?? due 10/15 at 5pm Unchanged Albuterol (albuterol 2.5mg / 3mL (0.083%) (OP)) 3 Milliliter Nebulized inhalation Every 6 hours as needed for SOB as directed Unchanged Aspirin (aspirin 81 mg oral capsule) 1 capsule Oral Daily do not exceed 48 capsules in 24 hours ?? due 10/16 at 9am Unchanged Atorvastatin (atorvastatin 40 mg oral tablet) 1 tab(s) Oral Daily due 10/16 at 9am Unchanged Docusate (Colace sodium 100 mg oral capsule) 1 capsule Oral Twice a day as needed for for constipation as directed Unchanged Fluticasone Nasal (fluticasone nasal 0.05 mg/ inh spray) 1 spray(s) Nasal Twice a day Duration: 30 Days due 10/15 at 9pm Unchanged Furosemide (Lasix 40 mg oral tablet) 1 tab(s) Oral Daily due 10/16 at 9am Unchanged Metoprolol (Metoprolol Tartrate 1 mg/ mL injectable solution) 12.5 Milligram Oral Twice a day due 10/15 at 9pm Unchanged Milk of Magnesia 30 Milliliter Oral As needed for constipation as directed Unchanged Omeprazole (omeprazole 40 mg oral enteric coated capsule) 1 capsule Oral Daily due 10/16 at 9am Unchanged Polyethylene Glycol 3350 (GlycoLax) 17 gram Oral Twice a day as needed for Constipation as directed Unchanged Senna (Senna 8.6 mg oral tablet) See instructions 1 tablet By Mouth q 24 hr for constipation, As needed for constipation ?? as directed Unchanged Sodium Biphosphate-Sodium Phosphate (Fleet Enema 19 gm-7 gm rectal enema) 1 Each Per rectum As needed for constipation as directed Unchanged Tiotropium (Spiriva HandiHaler 18 mcg Inhalation Capsule) 18 Microgram Inhalation Daily Duration: 90 Days due 10/16 at 9am Unchanged Valsartan (valsartan 40 mg oral tablet) 1 tab(s) Oral Daily due 10/16 at 9am ?? What How Much When Comments Stop Taking Losartan (losartan 50 mg oral tablet) 1 tab(s) Oral Daily Duration: 30 Days Prescription Given During Visit Azithromycin (azithromycin 250 mg oral tablet) - , # 36 tablet, 0 Refills, 1 tablet by mouth 3 times / week to continue?? PredniSONE (predniSONE 5 mg oral tablet) - 1 tablet = 5 mg, By Mouth, Daily, # 30 tablet, 0 Refills?? Laboratory Results Below is a partial list of the most recent Laboratory test results done prior to this discharge. You may have had other tests and procedures not included in this list. Please discuss all test resultswith your provider. Est Creatinine Clearance - 33.49 mL/min (10/14/2023) RBC Available - PT (10/08/2023) RBC Unit ID - [id number] (10/08/2023) ABG (10/08/2023) ???pH - 7.48???pCO2 - 38 mm Hg???pO2 - 117 mm Hg???Bicarbonate, Estimated - 28 mmol/L???Specimen Type - Blood Gas - ARTERIAL???Percent O2 (FIO2) - 28 ABG POC CARTRIDGE (10/08/2023) ???pH (POC) POC Cartridge - 7.45???pCO2 (POC) POC Cartridge - 26.0 mm Hg???pO2 (POC) POC Cartridge - 135 mm Hg???Estimated Bicarbonate (POC) POC Cart - 17.9 mmol/L???% O2 Sat Arterial (POC) POC Cartridge - 99 %???Specimen Type - Blood Gas - ARTERIAL BASE EXCESS POC CARTRIDGE (10/08/2023) ???Base Excess (POC) POC Cartridge - NEGATIVE 6 Basic Metabolic Panel (10/14/2023) ???Sodium - 138 mmol/L???Potassium - 5.0 mmol/L???Chloride - 98 mmol/L???Bicarbonate Level - 22 mmol/L???Anion Gap - 18???Glucose Level - 222 mg/dL???BUN - 25 mg/dL???Creatinine-Blood - 0.83 mg/dL???Estimated GFR Creatinine - 72 ML/MIN/1.73 M2???Calcium - 8.5 mg/dL Blood Culture (10/07/2023) ???Blood Culture Results - Final report???Blood Culture Specimen Source - BLOOD Blood Culture #2 (10/07/2023) ???Blood Cult 2 Results - Final report???Blood Culture 2 Specimen Source - BLOOD Blood Culture 2 Results (10/07/2023) ???Blood Culture 2 Isolate 1 - Comment Blood Culture Result (10/07/2023) ???Blood Culture Isolate 1 - Comment Calcium Ionized (10/07/2023) ???Calcium, Ionized pH Corrected - 1.22 mmol/L CALCIUM IONIZED POC CART (10/08/2023) ???Ionized Calcium (POC) POC Cartridge - 1.04 mmol/L CBC (10/14/2023) ???WBC - 27.1 k/mm3???RBC - 3.20 m/mm3???Hgb - 9.4 Gm/dL???Hct - 30.2 %???MCV - 94.4 femtoliters???MCH - 29.4 pg???MCHC - 31.1 g/dL???Platelet Count - 175 k/mm3???RDW-SD - 58.4 femtoliters???MPV - 10.3 femtoliters???Nucleated RBC (Automated) - 0.3 #/100 WBC'S???Abs. NRBC - 0.1 k/mm3 CBC w/ Differential (10/07/2023) ???WBC - 18.1 k/mm3???RBC - 3.53 m/mm3???Hgb - 10.3 Gm/dL???Hct - 32.5 %???MCV - 92.1 femtoliters???MCH - 29.2 pg???MCHC - 31.7 g/dL???Platelet Count - 162 k/mm3???RDW-SD - 53.1 femtoliters???MPV - 10.7 femtoliters???Nucleated RBC (Automated) - 0.0 #/100 WBC'S???Abs. NRBC - 0.0 k/mm3???Abs. Neut - 16.4 k/mm3???Abs. Lymph - 0.5 k/mm3???Abs. [place] - 0.8 k/mm3???Abs. Eo - 0.2 k/mm3???Abs. Baso - 0.2 k/mm3???Neut % - 89.5 %???Lymph % - 2.6 %???[place] % - 4.3 %???Eos % - 0.9 %???Baso % - 0.9 %???Promyelocyte % - 0.9 %???Band % - 0.9 %???RBC Morphology - MODERATE???Platelet Estimate - ADEQUATE Comprehensive Metabolic Panel (10/07/2023) ???Sodium - 141 mmol/L???Potassium - 4.6 mmol/L???Chloride - 99 mmol/L???Bicarbonate Level - 27 mmol/L???Anion Gap - 15???Glucose Level - 117 mg/dL???BUN - 30 mg/dL???Creatinine-Blood - 1.03 mg/dL???Estimated GFR Creatinine - 55 ML/MIN/1.73 M2???Calcium - 8.8 mg/dL???Protein, Total - 4.8 Gm/dL???Albumin - 3.1 Gm/dL???AG Ratio - 1.8???Alkaline Phosphatase - 62 units/L???AST (SGOT) - 29 units/L???ALT (SGPT) - 26 units/L???Bilirubin, Total - 0.3 mg/dL COVID-19 (Novel Coronavirus), Rapid PCR (10/07/2023) ???COVID-19 by RT-PCR - NEGATIVE D Dimer (10/07/2023) ???D-Dimer - 0.95 mg/L FEU Electrolytes (10/10/2023) ???Sodium - 139 mmol/L???Potassium - 4.3 mmol/L???Chloride - 104 mmol/L???Bicarbonate Level - 22 mmol/L???Anion Gap - 13 Ferritin (10/09/2023) ???Ferritin Level - 438 ng/mL FOLIC ACID (10/08/2023) ???Folic Acid Level - 5.7 ng/mL FREE KAPPA & LAMBDA LIGHT CHAINS, SERUM (10/08/2023) ???Free [place] Light Chains - 9.60 mg/L???Free Lambda Light Chains - 7.58 mg/L???Free [place]\Lambda Ratio - 1.27 FREE T4 (10/07/2023) ???Free T4 - 1.58 ng/dL GLUCOSE POC CARTRIDGE (10/08/2023) ???Glucose (POC) POC Cartridge - 305 H + H (10/10/2023) ???Hgb - 8.3 Gm/dL???Hct - 26.1 % HAPTOGLOBIN (10/08/2023) ???Haptoglobin - 258 mg/dL HEMATOCRIT POC CARTRIDGE (10/08/2023) ???Hematocrit (POC) POC Cartridge - 19 % HEMOGLOBIN POC CARTRIDGE (10/08/2023) ???Hemoglobin (POC) POC Cartridge - 6.5 Gm/dL High??Sensitivity??Troponin T (10/07/2023) ???High Sensitivity Troponin (HSTnT) - 114 ng/L HOLD BLUE TUBE (10/08/2023) ???Hold Blue Top - SPECIMEN DISCARDED AFTER 4 HOURS. HOLD GEL TUBE (10/08/2023) ???Hold Gel Top - SPECIMEN DISCARDED AFTER 1 WEEK IRON & TIBC (10/08/2023) ???Iron Level - 53 mcg/dL???Iron Binding Capacity, Unsaturated - 163 mcg/dL???Iron Binding Capacity, Estimated Total - 216 mcg/dL???% Iron Saturation - 25 % Lactate Level (10/07/2023) ???Lactate - 2.9 mmol/L Magnesium Level (10/14/2023) ???Magnesium - 2.0 mg/dL O2 PERCENT (POINT OF CARE) (10/08/2023) ???FIO2 (POC) POC Cartridge - 60 % Phosphorus Level (10/14/2023) ???Phosphorus - 3.5 mg/dL POTASSIUM POC CARTRIDGE (10/08/2023) ???Potassium (POC) POC Cartridge - 4.2 mmol/L ProBNP (10/07/2023) ???Nt-Probnp - 4692 pg/mL PTT (10/08/2023) ???APTT - 32.2 seconds RETICULOCYTE COUNT (10/08/2023) ???Retic Count - 1.6 %???Retic Count Corrected - 0.9 %???Retic Production Index - 0.6 % SERUM ELECTROPHORESIS (10/08/2023) ???Total Protein, SPE - 3.7 Gm/dL???Albumin, SPE - 2.0 Gm/dL???Alpha 1, SPE - 0.3 Gm/dL???Alpha 2, SPE - 0.7 Gm/dL???Beta, SPE - 0.5 Gm/dL???Gamma, SPE - 0.2 Gm/dL???Beta, Restricted Band - Not Applicable???Beta, Second Restricted Band - Not Applicable???Gamma, Restricted Band - Not Applicable???Gamma, Second Restricted Band - Not Applicable???Interpretation, SPE - Non specific pattern. No apparent monoclonal protein present. SODIUM POC CARTRIDGE (10/08/2023) ???Sodium (POC) POC Cartridge - 134 mmol/L Troponin T, High Sensitivity (10/08/2023) ???High Sensitivity Troponin (HSTnT) - 141 ng/L TSH with T4 Reflex (Adults Only) (10/07/2023) ???TSH - 4.35 uIU/mL Type and Screen (10/08/2023) ???Blood Type - A Positive???Antibody Screen - Negative VITAMIN B12 (10/08/2023) ???Vitamin B12 Level - 324 pg/mL Allergies (NKA means No Known Allergies) Augmentin??(severe diarrhea) sulfamethoxazole Problems Active Problems??(12) Allergic rhinitis?? Breast cancer?? Cancer of cervix?? COPD?? Emphysema of lung?? GERD?? Hypercholesterolemia?? Hyperglycemia?? Hypertension?? Osteopenia?? Osteoporosis?? Underweight?? Education Materials Below is the list of Educational Leaflet Providered with your Discharge Instructions. Valuables and Belongings I fully understand and agree that [facility] accepts no responsibility for all my personal property including clothing, toilet articles, radios, jewelry, dentures, hearing aids, rings, money, or any other property that is in my possession or is brought to me after admission. I understand certain valuables may be placed in a hospital safe for a short period of time. I understand that the hospital is not liable for loss or damage due to accident, fire, or other natural occurrence while said property is in the safe. I accept full responsibility for any personal property that I keep with me, and will not hold the hospital responsible in case of loss or disappearance. I acknowledge that i have been encouraged to send valuables and belongings home. ?? Review of Valuable and Belonging List: With patient, With witness Possessions released to: no belongings in endo Date for Pt to Sign Valuables/Belongings: 10/16/23 15:16:00 ?? Other Discharge Information ? Case Management Discharge Plan?? Discharge Plan?? Discharge Agency Information?? Discharge Level of Care at Discharge: FDC facility Name of Agency #1: [facility] Discharge Rx Program: Discharge Prescription Program Service Categories #1: Oxygen Therapy, Physical Therapy, Shelter Discharge Transportation Arranged: [facility] [phone] Service Comments #1: You are being discharged to [facility] for SN/PT/oxygen therapy Mode of Transportation Arranged: Ambulance Name of Person Notified of Transfer: patient Discharge Arranged Transport Date/Time: 10/16/23 16:00:00 ?? Discharge Nursing Homes/Rehab Facilities: [facility] ? Pulmonary Rehab Status?? Pulmonary Rehab Discharge Status?? CPAP/BiPAP Mask Type: Full CPAP/BiPAP Mask Size: Small Respiratory Rate: 18 br/min ? Common Emergency Awareness Tips IS IT A STROKE? Act FAST and Check for these signs: FACE Does the face look uneven? ARM Does one arm drift down? SPEECH Does their speech sound strange? TIME Call at any sign of stroke ?? Heart Attack Signs Chest discomfort: Most heart attacks involve discomfort in the center of the chest and lasts more than a few minutes, or goes away and comes back. It can feel like uncomfortable pressure, squeezing, fullness or pain. Discomfort in upper body: Symptoms can include pain or discomfort in one or both arms, back, neck, jaw or stomach. Shortness of breath: With or without discomfort. Other signs: Breaking out in a cold sweat, nausea, or lightheaded. Remember, MINUTES DO MATTER. If you experience any of these heart attack warning signs, call to get immediate medical attention! ?? Smoking can increase your chances of developing chronic health problems and can cause harmful effects to other family members in your house. If you smoke, you are strongly encouraged to quit. Please call [facility] [employer] [facility] at [phone] or 1-381-768[facility] ([phone]) or log in to [email or web address] for referrals to smoking cessation programs. ?? 559 Suicide & Crisis Lifeline is available 26/11 if you or someone you know needs to find a reason to keep living. By calling 935 you'll be connected to a skilled, trained counselor at a crisis center in your area. INPATIENT DISCHARGE INSTRUCTIONS SIGNATURE PAGE KEATON ROSALINO Location:[facility] Registration Date and Time:10/08/2023 00:22 EDT Primary Care Physician: Terrance Cleveland MD, [id number] Attending Physician: Bonnie PERRY, Claudia, I ROSALINO PUGH, have received the above patient education materials/instructions and have verbalizedunderstanding. If ambulance or transport services are being used I further acknowledge being given a choice of service. ?? If you need to contact me, please call me at this number: . Patient/Police Worker Name: Patient/Police Worker Signature: Relationship to Patient: Witness Name/Signature: Date: * Event Display: Provider Clarification Note Please click on pdf link to open report Consult note * Serina Parker RN: PERFORM, SIGN, VERIFY Event Display: Consultation Note Authored Date: Patient: ROSALINO PUGH Age: 77 years Sex: Female : 1945 Associated Diagnoses: None Author: Serina Parker RN coccyx History of Presenting Problem Reason for referral Wound: Description Location- Coccyx Etiology- Stage 2 Pressure Injury Present on Admission Measurements- 1.0 cm x 1.0 cm x 0.1 cm Wound Bed- partial thickness skin loss with exposed pink dermis Tami Wound- intact, mild erythema Edges- defined Drainage- small sanguineous Odor- none No fluctuance or induration Goals- offloading, protection from friction and moisture . Wound RN consult entered to assess coccyx wound and make topical recommendations. Patient was admitted for COPD exacerbation. Rosalino has a PMH of COPD, CHF, CAD, HLD, anxiety, and adjustment disorder. I spoke with direct care RN who accompanied me and upon entering the room patient is lying in bed. Wound RN role explained and patient is agreeable to assessment as well as photodocumentation. Rosalino is able to roll onto her right side with some assistance from direct care RN. A Mepilex is peeled back to allow for assessment of the sacrococcygeal area which is described in detail above. I applied z-guard to the wound bed and reapplied the mepilex dressing. I assisted direct care RN to reposition Rosalino. Recommendations given to direct care RN and [employer] message sent to Dr. Dos Santos as well. Recommendations: 1.) Coccyx: OFFLOAD. Cleanse with pH balanced spray. Pat dry. Apply Zinc Oxide (orange top cream) cover with Mepilex. Change every other day and PRN for soilage. 2.) Continue use of specialty bed/low air loss mattress 3.) Turn and reposition every 2 hours and PRN 4.) Continue incontinence care as well as moisture management 5.) Continue to offload bony prominences 6.) Float heels 7.) Continue to provide optimal nutritional support 8.) Provide Gaymar cushion to chair when patient OOB Please reconsult wound care RNs for deterioration in wound/skin status Plan Time spent 31-45 minutes * Siddharth Sweeney MD: MODIFY Cody Regan MD: PERFORM Event Display: Consultation Note Authored Date: Patient: ??ROSALINO PUGH ? Age:??77 Years?Sex:??Female?:??1945?? Referrring Provider Not on Staff, Referring MD shannan Goodson MD Chief Complaint From [facility] ([facility]) - initial call for sob, hx of copd and chf, on 2L at baseline, spo2 wnl for ems. RR 20-22, speaking full sentences, some pursed lip breathing. LS with crackles to bases. BP for ALS noted to be 94/60, hr 100. 2+ pitting edema. Reason for Consultation melena, anemia History of Present Illness ?? Patient is a 77-year-old lady??with a history of severe COPD,??on 2 L of oxygen, prior chronic steroid use??but has been off prednisone for several days,??PVD,??HTN, HLD, OP,??presenting with shortness of breath.?Recently hospitalized at [place]??for shortness of breath and inability??discharged to rehab and while at rehab. ??Experience??worsening shortness of breath and peripheral edema.?Presentation worrisome for NSTEMI in the setting of COPD??and CHF exacerbation.?Continued chestdiscomfort. Labs remarkable for leukocytosis 23.7 which has been uptrending since admission, 11.5 today after being transfused 1 unit of packed red cells for Hb 7 yesterday.?? presented with Hb 10.3 Progressive BUN elevation 67, CR 1.01, normal LFTs No prior endoscopies on system.?? no imaging studies other than chest x-ray with no acute abnormalities. Patient appears alert, pleasant, but confused??unable to say whether she has??had recent or prior endoscopy,??unclear from speaking to her whether she has had any blood or melena in her stool.?Shereports no next of kin to discuss her medical care with. Physical Exam Vitals & Measurements T:??97.7?F?? TMIN:??97.4?F?? TMAX:??97.8?F?? HR:??119??(Peripheral)?? RR:??20?? BP:??110/55?? SpO2:??100%?? WT:??41.3??kg?? General:??Well appearing, looks comfortable at rest HEENT:??CEDRIC, Moist mucus membranes, oropharynx benign, no palpable?? Respiratory:??normal work of breathing, equal air entry bilaterally, breath sounds vesicular. No wheezes, rhonchi or crepitations Cardiovascular:??Normal rate, regular rhythm, no murmurs rubs of gallops on auscultation GI/Abdomen:??Normal active bowel sounds, soft, non-tender, non-distended. no palpable masses or organomegaly. Extremities:??Moving extremities,. No peripheral edema, lower limbs are warm and well perfused, ??DP and PT pulses palpable bilaterally. Skin:??No jaundice, no ecchymoses Neurologic:??Alert & Oriented, no obvious focal neurological deficit Psychiatric:??Mood and affect appropriate Assessment/Plan Patient is a 77-year-old lady with history of severe COPD on home oxygen, chronic steroid use??and peripheral vascular disease presenting with??shortness of breath??from rehab facility after recent discharge from [facility] for similar exacerbation. ??Labs remarkable for??anemia??Hb 10.3 which is down trended??to??Hb 7 and received a unit of packed red cells with appropriate incrementation.??Melena was noted concerns for upper GI bleed. ??Is unclear whether she has not had prior endoscopic evaluation. ?? -N.p.o. from midnight, will plan for EGD tomorrow -Continue with PPI every 12hr ?? This note was typed using [employer] dictation software. Occasionally, typing errors may occur. Please contact me on??[place] if anything requires further clarification. Patient discussed with attending physician, ?? Cody Regan MD Gastroenterology Fellow ??PGY 4? Addendum: I have seen and evaluated this patient. ??I have discussed the case and its management with??fellow/resident??and agree with the findings and plan as documented in the note above.? Siddharth Sweeney MD Problem List/Past Medical History Ongoing Allergic rhinitis Breast cancer Cancer of cervix COPD Emphysema of lung GERD Hypercholesterolemia Hyperglycemia Hypertension Osteopenia Osteoporosis Underweight Procedure/Surgical History ???hysterectomy???R mastectomy Medications Inpatient Acetaminophen Tablet, 650 mg, By Mouth, Every 4 hours, PRN Albuterol 0.083% inhalation daisha, 2.5 mg= 3 mL, BAND Nebulizer, Every 4 hours, PRN aspirin 81 mg oral tablet, chewable, 81 mg, By Mouth, Daily atorvastatin 40 mg oral tablet, 40 mg, By Mouth, Daily at bedtime Breo Ellipta 100 mcg-25 mcg Inhaler, 1 puffs, Inhalation, Daily Docusate Sodium Capsule, 100 mg= 1 capsule, By Mouth, 2 times a day, PRN Duoneb Inhalation Solution, 1 vials, BAND Nebulizer, Every 4 hours, PRN Melatonin Tablet, 3 mg, By Mouth, Daily at bedtime, PRN MiraLax Powder, 17 Gm= 1 pack/packet, By Mouth, Daily, PRN NaCL 0.9% Flush, 3 mL, IV Push, Every 8 hours NaCL 0.9% Flush, 3 mL, IV Push, Every 8 hours, PRN predniSONE 20 mg oral tablet, 40 mg, By Mouth, Daily Protonix Inj, 40 mg, IV Push Slowly, Every 12 hours Senna Tablet, 8.6 mg= 1 tablet, By Mouth, 2 times a day, PRN Spiriva Respimat Inhaler, 2 puffs, Inhalation, Daily thiamine 100 mg oral tablet, 100 mg, By Mouth, Daily Home albuterol 2.5mg / 3mL (0.083%) (OP), 2.5 mg= 3 mL, Neb, Every 6 hours, PRN aspirin 81 mg oral capsule, 81 mg= 1 capsule, By Mouth, Daily atorvastatin 40 mg oral tablet, 40 mg= 1 tablet, By Mouth, Daily Colace sodium 100 mg oral capsule, 100 mg= 1 capsule, By Mouth, 2 times a day, PRN Fleet Enema 19 gm-7 gm rectal enema, 1 each, Rectally, PRN fluticasone nasal 0.05 mg/inh spray, 1 sprays, Nasal, 2 times a day, 3 refills GlycoLax, 17 Gm, By Mouth, 2 times a day, PRN Insulin Lispro, See Instructions Lasix 40 mg oral tablet, 40 mg= 1 tablet, By Mouth, Daily Metoprolol Tartrate 1 mg/mL injectable solution, 12.5 mg, By Mouth, 2 times a day Milk of Magnesia, 30 mL, By Mouth, PRN omeprazole 40 mg oral enteric coated capsule, 40 mg= 1 capsule, By Mouth, Daily Senna 8.6 mg oral tablet, See Instructions, PRN Spiriva HandiHaler 18 mcg Inhalation Capsule, 18 mcg= 1 capsule, Inhalation, Daily, 3 refills valsartan 40 mg oral tablet, 40 mg= 1 tablet, By Mouth, Daily Allergies Augmentin??(severe diarrhea) sulfamethoxazole Social History Alcohol Frequency: Daily. Type: Wine. Alcohol use in household: No. Electronic Cigarette/Vaping Electronic Cigarette Use: Never. Employment/School Status: Retired. Home/Environment Lives with: [facility] in [place]. Substance Abuse Use: Never. Substance abuse in household: No. Tobacco Use: Former smoker, quit more than 30 days ago. Family History Cancer of lung: Mother. * Paul Dial: PERFORM, MODIFY Event Display: Consultation Note Authored Date: [id number] Patient: ??ROSALINO PUGH ? Age:??77 Years?Sex:??Female?:??1945?? Patient Hx *text entered here will not copy forward Date:?? October 08, 2023 Referring Provider:?? Jagdeep Head DO Primary Director Of Graduate Admissions:?? Formerly Dr. Carl Lima, Currently Dr. Kenrick Agustin Indication for Consult Heart Failure, NSTEMI, Shortness of Breath History of Present Illness/Interval History Mrs. Pugh is a 77-year-old female with past medical history of COPD/emphysema, hyperlipidemia, carotid artery disease with greater 70% left ICA and 50 to 69% on the right ICA, left subclavian artery stenosis, systemic hypertension, history of breast cancer, multiple pulmonary nodules, GERD, osteopenia and osteoporosis who presents to [facility] from snf facility with shortness of breath.?? She was recently hospitalized at [facility] for shortness of breath and immobility was treated and discharged back to rehab.?? While at rehab she was noted to become more short of breath along with having lower extremity edema.?? She was transferred to [facility] for further evaluation.?? Urgency room chest x-ray showed no acute abnormality with COPD, EKG withsinus rhythm with T wave abnormalities and labs showed leukocytosis, anemia, mild CLAUDETTE, elevated troponin and proBNP with no other significant findings.?? She was admitted to the floor with concern for acute coronary syndrome.?? At the time of consultation the patient was having an upper respiratorytreatment.?? She is quite labored breathing following the treatment and requires pursed lip breathing to stabilize her breaths.?? She has not had any chest pain or chest pressure.?? No palpitations or significant lightheadedness.?? She does report some lower extremity edema.?? She does not lay flatso is unclear if she has any orthopnea.?? No abdominal distention or abrupt changes in weight.?? She receives her medications from the nursing staff at the [facility]. Review of Systems Constitutional: no fatigue, fever, chills, sweats Cardiac: as above Respiratory: no wheezing or coughing Neuro: no changes in memory, vision or hearing, no seizures GI: no Nausea/vomiting/diarrhea : no dysuria or hematuria Musculoskeletal: no joint pain or muscle pain that is new Hematologic: no hematuria, melena, epistaxis or easy bruising Integument: no rashes or skin changes Physical Exam Vitals & Measurements T:??98.3?F?? HR:??117??(Peripheral)?? RR:??14?? BP:??108/44?? SpO2:??97%?? HT:??165??cm?? WT:??31.9??kg?? BMI:??14.36?? Weight lb/oz: 70 lb 5 oz General appearance: WDWN, no acute distress, resting comfortably?? HEENT: NCAT,??negative JVD, carotid pulses are +2 bilaterally without carotid bruit Respiratory:??moderate respiratory effort, lungs diminished in lower lobes with upper airway expiratory wheezes, on supplemental oxygen Cardiac: S1S2, heart rate regular, no murmurs/heaves/rubs/gallops Abdomen round, soft, non-tender, +bowel sounds x4 quadrants, no HSM appreciated?? Extremities:?mild BLE??edema, skin is warm Pulses: radial and pedal bilaterally +2 Neurologic: alert and oriented x3, grossly normal Mood and Affect: calm Integument no rashes , dry and intact, warm Assessment/Plan Mrs. Pugh is a 77-year-old female with past medical history of COPD/emphysema, hyperlipidemia, carotid artery disease with greater 70% left ICA and 50 to 69% on the right ICA, left subclavian artery stenosis, systemic hypertension, history of breast cancer, multiple pulmonary nodules, GERD, osteopenia and osteoporosis who presents to [facility] from snf facility with shortness of breath.?? No clear cut angina symptoms with a decreasing albeit elevated troponin levels insetting of mild CLAUDETTE.?? Agree with Heparin drip and echocardiogram.?? May have some fluid retention,but also with low Albumin.?? Would given IV Lasix 20mg once and evaluate effect.? Will consider daily PO dosing if blood pressure and kidney function stable.?? No other changes for now.?? Please encourage nutrition.?? Elevate and wrap legs. ?Thank you for allowing us to participate in this patient's care. ??We will continue to follow her as an inpatient and outpatient. ??Please feel free to call with any questions or concerns. ?? The patient was seen with Dr. Eloina Fairchild. Allergies Augmentin??(severe diarrhea) sulfamethoxazole Home Medications Albuterol: 2.5 mg = 3 mL, Neb, Every 6 hours, PRN (SOB) Aspirin: 81 mg = 1 capsule, By Mouth, Daily, do not exceed 48 capsules in 24 hours Atorvastatin: 40 mg = 1 tablet, By Mouth, Daily Docusate: 100 mg = 1 capsule, By Mouth, 2 times a day, PRN (for constipation) Fluticasone Nasal: 1 sprays, Nasal, 2 times a day Furosemide: 40 mg = 1 tablet, By Mouth, Daily Insulin Lispro: See Instructions, 15 minutes before or immediately after a meal Metoprolol: 12.5 mg, By Mouth, 2 times a day Milk of Magnesia: 30 mL, By Mouth, PRN (constipation) Omeprazole: 40 mg = 1 capsule, By Mouth, Daily Polyethylene Glycol 3350: 17 Gm, By Mouth, 2 times a day, PRN (Constipation) Senna: See Instructions, PRN (constipation), 1 tablet By Mouth q 24 hr for constipation Sodium Biphosphate-Sodium Phosphate: 1 each, Rectally, PRN (constipation) Tiotropium: 18 mcg = 1 capsule, Inhalation, Daily Valsartan: 40 mg = 1 tablet, By Mouth, Daily Hospital Medications Medications (16) Active SCHEDULED: (6) Aspirin 81 mg Chew Tablet (aspirin 81 mg oral tablet, chewable) ??81 mg, By Mouth, Daily Atorvastatin 40 mg Tablet (atorvastatin 40 mg oral tablet) ??40 mg, By Mouth, Daily at bedtime Breo Ellipta 100 mcg / 25 mcg Inhaler (Breo Ellipta 100 mcg-25 mcg Inhaler) ??1 puffs, Inhalation, Daily MethylPREDNISolone Sodium Succinate 40 mg Inj (SoluMedrol Inj) ??40 mg, IV Push Slowly, 2 times a day NaCl 0.9% Flush 3ml (NaCL 0.9% Flush) ??3 mL, IV Push, Every 8 hours Spiriva Respimat 2.5 mcg Inhaler (Spiriva Respimat Inhaler) ??2 puffs, Inhalation, Daily CONTINUOUS: (1) Heparin 25,000 units / 250 mL D5W premix 58537 units [10 units/kg/hr] + D5%W Premixed IV 250 mL (Heparin 25,000 units in 250 mL Premix 87633 units [10 units/kg/hr] + D5%W Premixed IV 250 mL) ??250 mL, IV Infusion, 3.86 mL/hr PRN: (9) Acetaminophen 325 mg Tablet (Acetaminophen Tablet) ??650 mg, By Mouth, Every 4 hours Albuterol 0.083% Inhalation Solution (Albuterol 0.083% inhalation daisha) ??2.5 mg 3 mL, BAND Nebulizer, Every 4 hours Docusate Sodium 100 mg Capsule (Docusate Sodium Capsule) ??100 mg 1 capsule, By Mouth, 2 times a day Heparin 5000 units/mL Inj (1 mL) (Heparin Inj) ??2,500 units 0.5 mL, IV Push, Every 6 hours Heparin 5000 units/mL Inj (1 mL) (Heparin Inj) ??1,000 units 0.2 mL, IV Push, Every 6 hours Melatonin 3 mg Tablet (Melatonin Tablet) ??3 mg, By Mouth, Daily at bedtime NaCl 0.9% Flush 3ml (NaCL 0.9% Flush) ??3 mL, IV Push, Every 8 hours Polyethylene Glycol 17 Gm Powder (MiraLax Powder) ??17 Gm 1 pack/packet, By Mouth, Daily Senna Tablet ??8.6 mg 1 tablet, By Mouth, 2 times a day Lab Results Cardiology Labs WBC:??13.8 k/mm3??High (10/08/23) RBC:??2.89 m/mm3??Low (10/08/23) Hgb:??8.5 Gm/dL??Low (10/08/23) Hct:??26.7 %??Low (10/08/23) MCV: 92.4 femtoliters (10/08/23) MCH: 29.4 pg (10/08/23) MCHC:??31.8 g/dL??Low (10/08/23) Platelet Count:??124 k/mm3??Low (10/08/23) RDW-SD:??53.2 femtoliters??High (10/08/23) Nucleated RBC (Automated): 0 #/100 WBC'S (10/08/23) Abs. Neut:??16.4 k/mm3??High (10/07/23) Abs. Lymph:??0.5 k/mm3??Low (10/07/23) Abs. [place]: 0.8 k/mm3 (10/07/23) Abs. Eo: 0.2 k/mm3 (10/07/23) Abs. Baso:??0.2 k/mm3??High (10/07/23) Neut %:??89.5 %??High (10/07/23) [place] %:??4.3 %??Low (10/07/23) Eos %: 0.9 % (10/07/23) Baso %: 0.9 % (10/07/23) APTT:??115.2 seconds??Critical (10/08/23) Sodium: 141 mmol/L (10/07/23) Potassium: 4.6 mmol/L (10/07/23) Chloride: 99 mmol/L (10/07/23) Bicarbonate Level: 27 mmol/L (10/07/23) Glucose Level:??117 mg/dL??High (10/07/23) BUN:??30 mg/dL??High (10/07/23) Creatinine-Blood:??1.03 mg/dL??High (10/07/23) Calcium: 8.8 mg/dL (10/07/23) Protein, Total:??4.8 Gm/dL??Low (10/07/23) Albumin:??3.1 Gm/dL??Low (10/07/23) Alkaline Phosphatase: 62 units/L (10/07/23) AST (SGOT): 29 units/L (10/07/23) ALT (SGPT): 26 units/L (10/07/23) Bilirubin, Total: 0.3 mg/dL (10/07/23) Nt-Probnp:??4692 pg/mL??High (10/07/23) TSH:??4.35 uIU/mL??High (10/07/23) Free T4: 1.58 ng/dL (10/07/23) Diagnostic Impression ECG ECG 12-Lead ?? 23:12:56 Please click on pdf link to open report ?? Signed By: Melvin Montanez MD ?? ECG 12-Lead ?? 23:12:56 Ventricular Rate: 91 BPM Atrial Rate: 91 BPM P-R Interval: 106 ms QRS Duration: 76 ms Q-T Interval: 372 ms QTC Calculation(Bazett): 457 ms P Unity: 80 degrees R Unity: 84 degrees T Unity: 212 degrees Sinus rhythm with short MI with Premature atrial complexes with Aberrant conduction T wave abnormality, consider inferior ischemia T wave abnormality, consider anterolateral ischemia Abnormal ECG When compared with ECG of 07-OCT-2023 20:50, Aberrant intraventricular conduction now present Confirmed by Melvin Montanez ([id number]) on 10/08/2023 8:20:39 AM ?? [place]: Melvin Montanez ?? Signed By: Melvin Montanez MD Problem List/Past Medical History Ongoing Allergic rhinitis Breast cancer Cancer of cervix COPD Emphysema of lung GERD Hypercholesterolemia Hyperglycemia Hypertension Osteopenia Osteoporosis Underweight Procedure/Surgical History R mastectomy hysterectomy Social History Alcohol Frequency: Daily. Type: Wine. Alcohol use in household: No. Electronic Cigarette/Vaping Electronic Cigarette Use: Never. Employment/School Status: Retired. Home/Environment Lives with: [facility] in [place]. Substance Abuse Use: Never. Substance abuse in household: No. Tobacco Use: Former smoker, quit more than 30 days ago. Family History Mother: Cancer of lung * Ahmed MD, Mashrafi: PERFORM Event Display: Consultation Note Authored Date: [id number] The patient was seen in conjunction with WIRELINE SUPERVISOR/PA.?? I have independently interviewed and examined thepatient and reviewed pertinent historical, laboratory, and other data.?? Please refer to WIRELINE SUPERVISOR/PA's note for details of this patient's presentation, findings, and recommendations.?? I have reviewed WIRELINE SUPERVISOR/PA's note and concur fully with documented findings. ?? 77-year-old female with quite significant COPD/emphysema in the setting of previous history of tobacco use, peripheral vascular disease with more than 70% left ICA stenosis and 50 to 69% right ICA stenosis, left subclavian artery stenosis, systemic hypertension, history of breast cancer, hyperlipidemia who presented to the hospital with shortness of breath.?? We are consulted to evaluate her in the setting of troponin elevation. ?? Patient is seen and examined.?? Mildly anemic, no icterus, head is atraumatic normocephalic.?? S1 and S2 regular, no gallop or rub.?? Breathing sound is wheezing bilaterally.?? 1+ leg edema.?? Abdomen is soft nontender nondistended bowel sounds present.?? Neurologically no acute deterioration.?? Liver and spleen not palpable. ?? I have reviewed the twelve-lead EKG as well as chest x-ray.?? Chest x-ray indicates that patient has hyperinflated lungs.?? There are some T wave abnormalities but patient is clinically not complaining about any anginal symptom.?? I think this is type II NSTEMI in the setting of COPD exacerbation.?? There is leg edema involving the feet up to the ankle and will give some Lasix.?? Will review the echocardiogram when available.?? If there is no significant echocardiographic evidence of CAD, I will probably consider to discontinue heparin drip. Patient Care team information Care Team Personnel Name: Terrance Cleveland MD Position: Reference Physician Member Role: PCP Address: Address: [address] [place] [address]- Name: Tracy Queen RN Position: S RN Member Role: Primary Care Nurse Name: Roger Blair RN Position: S RN Member Role: Primary Care Nurse Name: Eliu Zarco RN Position: S RN Member Role: Primary Care Nurse Name: Amilcar Kimball MD Position: [facility] Oncology MD Member Role: Lifetime Consulting Physician Address: Address: [address] [place] [address] [place] [address]- Name: Russell Maravilla RN Position: [facility] RN Member Role: Primary Care Nurse Name: Esther Baker RN Position: [facility] RN Member Role: Primary Care Nurse Care Team Related Persons Name: JENELLE SEVERINO Address: [address] [address]
--- OUTSIDE RECORDS SUMMARY | 2023-10-31 06:45 | XMS_ITS | Continuity of Care Document ---
Author Organization [facility] ter Address [address] [place] [id number]- Care Team Providers Care Duralumin Mechanic Name Role Phone Terrance Cleveland MD Primary Care Physician [phone] Encounter [facility] Date(s): 05/26/19 - 09/09/[address] [address]- [facility] Attending Physician: Juno Yousif MD Admitting Physician: Juno Yousif MD Referring Physician: Juno Yousif MD Allergies, Adverse Reactions, Alerts Substance Reaction [...] 03/19/05 Given 1Admin Note: GIVEN IN CLINIC [facility] Medications Colace sodium 100 mg oral capsule 1 capsule = 100 mg, By Mouth, 2 times a day, PRN for constipation, # 20 capsule, 0 Refills, Maintenance, 10/01/14 13:45:15, Capsule Start Date: 10/01/14 Status: Ordered fluticasone nasal 0.05 mg/inh spray 1 sprays, Nasal, 2 times a day, # 1 each, 3 Refills, Maintenance Start Date: 01/24/12 Stop Date: 05/23/12 Status: Ordered losartan 50 mg oral tablet 1 tablet = 50 mg, By Mouth, Daily, # 30 tablet, 5 Refills, Maintenance, Tablet Start Date: 01/24/12 Stop Date: 07/22/12 Status: Ordered omeprazole 40 mg oral enteric coated capsule 1 capsule = 40 mg, By Mouth, Daily, 0 Refills, Maintenance Start Date: 01/24/12 Status: Ordered Spiriva HandiHaler 18 mcg Inhalation Capsule 1 capsule = 18 mcg, Inhalation, Daily, # 90 capsule, 3 Refills, Maintenance, Capsule Start Date: 01/21/12 Stop Date: 01/15/13 Status: Ordered Problem List Condition Effective Dates Status Health Status Inform ant Allergic rhinitis(Confirmed) Active Breast cancer(Confirmed) Active Cancer of cervix(Confirmed) Active COPD(Confirmed) 01/24/12 Active Emphysema of lung(Confirmed) Active GERD(Confirmed) 01/24/12 Active Hypercholesterolemia(Confirmed) Active Hyperglycemia(Confirmed) Active Hypertension(Confirmed) 01/24/12 Active Osteopenia(Confirmed) Active Osteoporosis(Confirmed) 01/24/12 Active
--- NOTE | 2023-10-31 08:49 | MHC.CM.PN ---
Patient will d/c to [facility] today at 12pm via BLS. CM LM x2 for HCP to notify. IMM delivered via VM. Copy left at bedside. [facility] has been in contact w/ HCP. [facility] aware of dc.
--- NOTE | 2023-11-03 14:32 | P.HPHOSP_ITS ---
History of Present Illness Date of Service: 10/25/23 Chief Complaint: hospic gip Pt was admitted on 10/18 and her status changed to hospice gip on 10/24 and therefore not a new admssioin. See orignal H and P for detail. [facility] Medical History Ischemia due to increased oxygen demand Anemia Former smoker, stopped smoking in distant past Carotid stenosis, bilateral GERD (gastroesophageal reflux disease) HLD (hyperlipidemia) HTN (hypertension) History of breast cancer History of non-ST elevation myocardial infarction (NSTEMI) (~10/2017) Bronchiectasis Pulmonary nodules COPD (chronic obstructive pulmonary disease) Surgical History History of lung biopsy History of lumpectomy History of hysterectomy Social History Household Members: None Housing: Condominium Are you a primary care provider to a significant other at home: No Do you presently have visiting nurse or other home services: No Alcohol intake: never Comment: States will need w/c to get her up to SSS department Patient Tobacco Use Status: Former Tobacco user Tobacco use type: Cigarette Years Smoked: 20-30 years - quit 1997 Second Hand Smoke Exposure: No Advance Directives Date on File: 09/29/23 service: No Current occupational status: retired Meds Allergies Allergy/AdvReac Type Severity Reaction Status Date / Time Sulfa (Sulfonamide Allergy Intermediate HIVES Verified 10/18/23 18:24 Antibiotics) [SULFA (SULFONAMIDE ANTIBIOTICS)] Amoxicillin Allergy Intermediate Hives Uncoded 10/18/23 18:24 Augementin Allergy Intermediate Hives Uncoded 10/18/23 18:24 Assessment and Plan (1) End stage COPD: Status: Acute Plan Mary Amor is a very pleasant 77 y/o woman with PMHx of end-stage COPD was recently admitted to [facility] and treated for acute blood loss anemia, upper GI bleeding and exacerbation of COPD.. Her prognosis was deemed poor and was hospice was advised, she was discharge to [facility] on 10/15 only to come back to [facility] for shortness of respiratory distress and has expressed desire for hospice care/comfort, unfortunately she is not able at home alone for hospice care.. Plan: continue hospice care/comfort care, Casemanagement to look into possibility of return to SNF for rest of care. Continue Morphine, Valium PRN for comfort.. She seems fairly comfortable this morning. Quality Stroke Does the patient have a stroke diagnosis?: No VTE Prior VTE?: No VTE Risk Level:: Medical - low VTE Device Contraindication: Treatment Not Indicated VTE Drug Contraindication: Treatment Not Indicated
== END 2023-10-31 12:19 | disposition skilled nursing facility (03) | DRG 951 ==
PROVIDERS: Admitting Provider Internal Medicine; Visit Provider Internal Medicine
DX: Z51.5 Encounter for palliative care (principal); J44.9 Chronic obstructive pulmonary disease, unspecified; Z87.891 Personal history of nicotine dependence; Z79.899 Other long term (current) drug therapy
CPT/HCPCS: J2270

== ENCOUNTER → 2023-10-25 13:26 | Outpatient (BNV) | payer OTHER, SELFPAY | PROVIDERS: Admitting Provider Internal Medicine; Visit Provider Internal Medicine | DX: J44.9 Chronic obstructive pulmonary disease, unspecified (principal) | CPT/HCPCS: 99231; 99232; 99239; 99499 ==